=== PATIENT | female | born 1945 | race Caucasian/White ===

== ENCOUNTER 2018-08-07 09:11 | Emergency (ER) | payer MEDICARE, OTHER ==
[2018-08-07] MEDS ORDERED: methylPREDNISolone Sodium Succinate 125 MG/2 ML SDV IVPUSH ONE (09:25)
[2018-08-07] MEDS ORDERED: Albuterol/Ipratropium 3.0-0.5 MG/3 ML Neb Soln NEB ONE (09:25)
--- NOTE | 2018-08-07 09:26 | EDM.PDOC ---
ED HPI GENERAL MEDICAL PROBLEM - General Chief Complaint: Respiratory Problem Stated Complaint: HARD TIME BREATHING Time Seen by Provider: 08/07/18 09:25 Source of Information: Reports: Patient - History of Present Illness INITIAL COMMENTS - FREE TEXT/NARRATIVE: HISTORY AND PHYSICAL: History of present illness: [Patient presents with complaint of shortness of breath however breathing is nonlabored does not appear to be an exertional component she has been treated with 10 days of amoxicillin followed by 5 days of prednisone and currently is on Bactrim She has no fever nausea vomiting chills sweats no chest pain headache dizziness palpitation no bowel or urine symptoms] Review of systems: As per history of present illness and below otherwise all systems reviewed and negative. Past medical history: As per history of present illness and as reviewed below otherwise noncontributory. Surgical history: As per history of present illness and as reviewed below otherwise noncontributory. Social history: No reported history of drug or alcohol abuse. Family history: As per history of present illness and as reviewed below otherwise noncontributory. Physical exam: HEENT: Atraumatic, normocephalic, pupils reactive, negative for conjunctival pallor or scleral icterus, mucous membranes moist, throat clear, neck supple, nontender, trachea midline. Lungs: Clear to auscultation, breath sounds equal bilaterally, chest nontender. Heart: S1S2, regular, negative for clicks, rubs, or JVD. Abdomen: Soft, nondistended, nontender. Negative for masses or hepatosplenomegaly. Negative for costovertebral tenderness. Pelvis: Stable nontender. Genitourinary: Deferred. Rectal: Deferred. Extremities: Atraumatic, negative for cords or calf pain. Neurovascular unremarkable. Neuro: Awake, alert, oriented. Cranial nerves II through XII unremarkable. Cerebellum unremarkable. Motor and sensory unremarkable throughout. Exam nonfocal. Diagnostics: []TBC CMP UA troponin lipase BNP Chest 1 view EKG CTA chest rule out PE Therapeutics: [] will saline Solu-Medrol 125 mg IV DuoNeb Impression: D-dimer was elevated Medical screening exam Worried well Definitive disposition and diagnosis as appropriate pending reevaluation and review of above. - Related Data Allergies Allergy/AdvReac Type Severity Reaction Status Date / Time cephalexin [From Keflex] Allergy Hives Verified 08/07/18 09:29 ciprofloxacin [From Cipro] Allergy Hives Verified 08/07/18 09:29 ED ROS GENERAL - Review of Systems Review Of Systems: See Below ED EXAM, GENERAL - Physical Exam Exam: See Below Course - Vital Signs Last Recorded V/S: Last Vital Signs Temp 98.0 F 08/07/18 09:23 Pulse 107 H 08/07/18 09:23 Resp 18 08/07/18 09:23 BP 135/78 08/07/18 09:23 Pulse Ox 97 08/07/18 09:23 - Orders/Labs/Meds Orders: Active Orders 24 hr Category Date Time Status EKG Documentation Completion [RC] STAT Care 08/07/18 09:25 Active RT Aerosol Therapy [RC] ASDIRECTED Care 08/07/18 09:25 Active CULTURE STREP A CONFIRMATION [] Stat Lab 08/07/18 10:00 Results STREP SCRN A RAPID W CULT CONF [] Stat Lab 08/07/18 10:00 Results Sodium Chloride 0.9% [Normal Saline] 1,000 ml Med 08/07/18 09:30 Active IV STAT Medication Orders Sodium Chloride (Normal Saline) 1,000 mls @ 125 mls/hr IV STAT EBEN Last Admin: 08/07/18 09:59 Dose: 125 mls/hr Labs: Laboratory Tests 08/07/18 08/07/18 08/07/18 Range/Units 09:32 09:32 09:32 WBC 9.51 (4.0-11.0) K/uL RBC 4.70 (4.30-5.90) M/uL Hgb 14.0 (12.0-16.0) g/dL Hct 42.2 (36.0-46.0) % MCV 89.8 (80.0-98.0) fL MCH 29.8 (27.0-32.0) pg MCHC 33.2 (31.0-37.0) g/dL RDW Std Deviation 46.4 (28.0-62.0) fl RDW Coeff of Lito 14 (11.0-15.0) % Plt Count 188 (150-400) K/uL MPV 9.70 (7.40-12.00) fL Neut % (Auto) 93.4 H (48.0-80.0) % Lymph % (Auto) 2.8 L (16.0-40.0) % [place] % (Auto) 2.3 (0.0-15.0) % Eos % (Auto) 1.4 (0.0-7.0) % Baso % (Auto) 0.1 (0.0-1.5) % Neut # (Auto) 8.9 H (1.4-5.7) K/uL Lymph # (Auto) 0.3 L (0.6-2.4) K/uL [place] # (Auto) 0.2 (0.0-0.8) K/uL Eos # (Auto) 0.1 (0.0-0.7) K/uL Baso # (Auto) 0.0 (0.0-0.1) K/uL Nucleated RBC % 0.0 /100WBC Nucleated RBCs # 0 K/uL D-Dimer, Quantitative 2.52 H (0.0-0.52) mg/LFEU Sodium 136 (136-145) mmol/L Potassium 4.0 (3.5-5.1) mmol/L Chloride 103 (98-107) mmol/L Carbon Dioxide 24.9 (21.0-32.0) mmol/L BUN 9 (7.0-18.0) mg/dL Creatinine 0.8 (0.6-1.0) mg/dL Est Cr Clr Drug Dosing 54.08 mL/min Estimated GFR (MDRD) > 60.0 ml/min Glucose 127 H (74-106) mg/dL Calcium 9.3 (8.5-10.1) mg/dL Total Bilirubin 0.8 (0.2-1.0) mg/dL AST 67 H (15-37) IU/L ALT 63 (14-63) IU/L Alkaline Phosphatase 126 H (46-116) U/L Troponin I < 0.050 (0.000-0.056) ng/mL B-Natriuretic Peptide (<100) PG/ML Total Protein 7.1 (6.4-8.2) g/dL Albumin 3.4 (3.4-5.0) g/dL Globulin 3.7 (2.6-4.0) g/dL Albumin/Globulin Ratio 0.9 (0.9-1.6) Lipase 131 (73-393) U/L Urine Color Urine Appearance Urine pH (5.0-8.0) Ur Specific [place] (1.001-1.035) Urine Protein (NEGATIVE) mg/dL Urine Glucose (UA) (NEGATIVE) mg/dL Urine Ketones (NEGATIVE) mg/dL Urine Occult Blood (NEGATIVE) Urine Nitrite (NEGATIVE) Urine Bilirubin (NEGATIVE) Urine Urobilinogen (<2.0) EU/dL Ur Leukocyte Esterase (NEGATIVE) 08/07/18 08/07/18 Range/Units 09:32 11:35 WBC (4.0-11.0) K/uL RBC (4.30-5.90) M/uL Hgb (12.0-16.0) g/dL Hct (36.0-46.0) % MCV (80.0-98.0) fL MCH (27.0-32.0) pg MCHC (31.0-37.0) g/dL RDW Std Deviation (28.0-62.0) fl RDW Coeff of [place] (11.0-15.0) % Plt Count (150-400) K/uL MPV (7.40-12.00) fL Neut % (Auto) (48.0-80.0) % Lymph % (Auto) (16.0-40.0) % [place] % (Auto) (0.0-15.0) % Eos % (Auto) (0.0-7.0) % Baso % (Auto) (0.0-1.5) % Neut # (Auto) (1.4-5.7) K/uL Lymph # (Auto) (0.6-2.4) K/uL [place] # (Auto) (0.0-0.8) K/uL Eos # (Auto) (0.0-0.7) K/uL Baso # (Auto) (0.0-0.1) K/uL Nucleated RBC % /100WBC Nucleated RBCs # K/uL D-Dimer, Quantitative (0.0-0.52) mg/LFEU Sodium (136-145) mmol/L Potassium (3.5-5.1) mmol/L Chloride (98-107) mmol/L Carbon Dioxide (21.0-32.0) mmol/L BUN (7.0-18.0) mg/dL Creatinine (0.6-1.0) mg/dL Est Cr Clr Drug Dosing mL/min Estimated GFR (MDRD) ml/min Glucose (74-106) mg/dL Calcium (8.5-10.1) mg/dL Total Bilirubin (0.2-1.0) mg/dL AST (15-37) IU/L ALT (14-63) IU/L Alkaline Phosphatase (46-116) U/L Troponin I (0.000-0.056) ng/mL B-Natriuretic Peptide 15 (<100) PG/ML Total Protein (6.4-8.2) g/dL Albumin (3.4-5.0) g/dL Globulin (2.6-4.0) g/dL Albumin/Globulin Ratio (0.9-1.6) Lipase (73-393) U/L Urine Color YELLOW Urine Appearance CLEAR Urine pH 8.0 (5.0-8.0) Ur Specific [place] <= 1.005 (1.001-1.035) Urine Protein NEGATIVE (NEGATIVE) mg/dL Urine Glucose (UA) NEGATIVE (NEGATIVE) mg/dL Urine Ketones NEGATIVE (NEGATIVE) mg/dL Urine Occult Blood TRACE-INTACT H (NEGATIVE) Urine Nitrite NEGATIVE (NEGATIVE) Urine Bilirubin NEGATIVE (NEGATIVE) Urine Urobilinogen 0.2 (<2.0) EU/dL Ur Leukocyte Esterase NEGATIVE (NEGATIVE) Meds: Medications Generic Name Dose Route Start Last Admin Trade Name Jared PRN Reason Stop Dose Admin Sodium Chloride 1,000 mls @ 125 mls/hr 08/07/18 09:30 08/07/18 09:59 Normal Saline IV 125 mls/hr STAT EBEN Administration Discontinued Medications Generic Name Dose Route Start Last Admin Trade Name Jared PRN Reason Stop Dose Admin Albuterol/Ipratropium 3 ml 08/07/18 09:25 08/07/18 09:41 Duoneb 3.0-0.5 Mg/3 Ml NEB 08/07/18 09:26 3 ml ONETIME ONE Administration Iopamidol 75 ml 08/07/18 11:38 08/07/18 11:38 Isovue Multipack-370 (76%) IVPUSH 08/07/18 11:39 75 ml ONETIME STA Administration Methylprednisolone Sodium Succinate 125 mg 08/07/18 09:25 08/07/18 09:59 Solu-Medrol IVPUSH 08/07/18 09:26 125 mg ONETIME ONE Administration Departure - Departure Time of Disposition: 11:59 Disposition: Home, Self-Care 01 Condition: Good Clinical Impression: Encounter for medical screening examination - Discharge Information Referrals: America Jung DO [Primary Care Provider] - Forms: ED Department Discharge Additional Instructions: The following information is given to patients seen in the emergency department who are being discharged to home. This information is to outline your options for follow-up care. We provide all patients seen in our emergency department with a follow-up referral. The need for follow-up, as well as the timing and circumstances, are variable depending upon the specifics of your emergency department visit. If you don't have a primary care physician on staff, we will provide you with a referral. We always advise you to contact your personal physician following an emergency department visit to inform them of the circumstance of the visit and for follow-up with them and/or the need for any referrals to a consulting specialist. The emergency department will also refer you to a specialist when appropriate. This referral assures that you have the opportunity for follow-up care with a specialist. All of these measure are taken in an effort to provide you with optimal care, which includes your follow-up. Under all circumstances we always encourage you to contact your private physician who remains a resource for coordinating your care. When calling for follow-up care, please make the office aware that this follow-up is from your recent emergency room visit. If for any reason you are refused follow-up, please contact the [facility] emergency department at and asked to speak to the emergency department charge nurse. - My Orders Last 24 Hours: My Active Orders 08/07/18 09:25 EKG Documentation Completion [RC] STAT RT Aerosol Therapy [RC] ASDIRECTED 08/07/18 09:30 Sodium Chloride 0.9% [Normal Saline] 1,000 ml IV STAT 08/07/18 10:00 CULTURE STREP A CONFIRMATION [RM] Stat STREP SCRN A RAPID W CULT CONF [RM] Stat - Assessment/Plan Last 24 Hours: My Active Orders 08/07/18 09:25 EKG Documentation Completion [RC] STAT RT Aerosol Therapy [RC] ASDIRECTED 08/07/18 09:30 Sodium Chloride 0.9% [Normal Saline] 1,000 ml IV STAT 08/07/18 10:00 CULTURE STREP A CONFIRMATION [RM] Stat STREP SCRN A RAPID W CULT CONF [RM] Stat
[2018-08-07] MEDS ORDERED: Sodium Chloride 0.9% 1,000 ML IV SCH (09:30)
--- NOTE | 2018-08-07 10:08 | CR ---
EXAMINATION: Portable chest radiograph. HISTORY: Shortness of breath. FINDINGS: The trachea is midline. The cardiomediastinal silhouette is within normal limits. No pulmonary infiltrates, effusions or pneumothorax. Osseous structures appear unremarkable. IMPRESSION: No acute cardiopulmonary process.
[2018-08-07 10:13] LABS: CHLORIDE,CL 103 mmol/L (98-107); SODIUM,NA 136 mmol/L (136-145)
[2018-08-07] MEDS ORDERED: Iopamidol 755 MG/ML 500 ML Multipack Bottle IVPUSH STA (11:38)
--- NOTE | 2018-08-07 11:42 | CT ---
EXAMINATION: CTA chest HISTORY: Shortness of breath COMPARISON: None TECHNIQUE: Axial CT imaging obtained through the chest following the administration of 75 mL of Isovue-370 in the left antecubital fossa. FINDINGS: The lungs are clear without focal consolidation. No pleural effusion or pneumothorax. Mild dependent atelectasis. The heart is normal in size without a pericardial effusion. Thoracic aorta is normal in caliber. Main and central pulmonary arteries are patent. No mediastinal, hilar, or axillary lymphadenopathy. Central airways are clear. Visualized images of the upper abdomen appear normal. No suspicious osseous abnormalities identified. IMPRESSION: 1. No acute cardiopulmonary findings.
== END 2018-08-07 12:15 | disposition home or self-care (01) ==
LOC: MW.ED 09:11
DX: R79.1 Abnormal coagulation profile (principal); Z88.1 Allergy status to other antibiotic agents
CPT/HCPCS: 36415; 71045; 71275; 80053; 81001; 83690; 83880; 84484; 85025; 85379; 87081; 87804; 87880; 93005; 94640; 96361; 96374; 99284; J2930; J7040; Q9967; 99283; J7620-GY

== ENCOUNTER 2020-02-11 16:30 | Inpatient (IN) | payer MEDICARE, OTHER ==
[~2020-02-11 16:30] MED LIST: Rivaroxaban 10 MG Tab PO SCH
[2020-02-11] MEDS ORDERED: Sodium Chloride 0.9% 10 ML Syringe FLUSH PRN (17:20)
[2020-02-11] MEDS ORDERED: Sodium Chloride 0.9% 2.5 ML Syringe FLUSH PRN (17:20)
[2020-02-11] MEDS ORDERED: Acetaminophen 500 MG Tab PO ONE (17:21)
[2020-02-11] MEDS ORDERED: Ondansetron 4 MG/2 ML SDV IVPUSH ONE (17:21)
[2020-02-11 17:54] LABS: BLOOD UREA NITROGEN,BUN 14 mg/dL (7.0-18.0); CARBON DIOXIDE,CO2 24.6 mmol/L (21.0-32.0); CHLORIDE,CL 100 mmol/L (98-107); GLUCOSE RANDOM 119 mg/dL (74-106); POTASSIUM,K 3.5 mmol/L (3.5-5.1); SODIUM,NA 134 mmol/L (136-145)
--- NOTE | 2020-02-11 18:34 | US ---
Right lower extremity deep venous ultrasound: Duplex and color Doppler evaluation was obtained of the right common femoral, superficial femoral, popliteal, posterior tibial and peroneal veins. Findings: Normal compression and Doppler blood flow is seen. Varicose veins are noted within the left lower extremity showing evidence of thrombosis compatible with thrombophlebitis. Impression: 1. Findings compatible with thrombophlebitis within varicosities within the right lower extremity. 2. No evidence of deep venous thrombosis is seen. No focal fluid collections are seen within the lower extremity. Diagnostic code #3 This report was dictated in MDT
--- NOTE | 2020-02-11 18:45 | EDM.PDOC ---
ED HPI GENERAL MEDICAL PROBLEM - General Chief Complaint: Lower Extremity Injury/Pain Stated Complaint: BAD VEIN ON LEG VOMMITING Time Seen by Provider: 02/11/20 17:12 Source of Information: Reports: Patient, Old Records History Limitations: Reports: No Limitations - History of Present Illness INITIAL COMMENTS - FREE TEXT/NARRATIVE: 74-year-old female with past medical history of hypertension presenting with left leg pain, fever, chills, vomiting. Approximately 2 weeks ago, the patient injured her right lower leg and sustained a laceration to 1 of the varicose veins on the affected extremity. Over the past week or so she has had worsening redness and pain to the medial aspect of the right lower leg. She saw her primary physician on Friday who ordered a venous ultrasound study. She was diagnosed with a superficial venous clot. She was prescribed rivaroxaban but did not start taking this medication. Over the past few days she has had worsening redness, increasing pain, and streaking up the right leg. She was reevaluated by her primary medical clinic, they were concerned about superficial thrombophlebitis. She was prescribed Bactrim but did not start taking this antibiotic. She began experiencing subjective fever, chills, nausea, and vomiting today and her primary clinic directed her to come to the ER for evaluation. She denies coughing, shortness of breath, abdominal pain, diarrhea, neck stiffness, dysuria or urinary frequency, or any other complaints. ROS: A 10-point review of systems was negative, except as noted in the HPI (or in the ROS section of this note). Past medical history: Reviewed, no additional pertinent history. Surgical history: Reviewed in system, no additional pertinent history. Social history: Reviewed in system, no additional pertinent history. Family history: Reviewed in system, no additional pertinent history. PHYSICAL EXAM Vital signs reviewed. Nursing notes reviewed. Constitutional: Awake, alert, non-distressed. Head: Normocephalic, atraumatic. Eyes: EOMI, conjunctiva normal, no discharge, no scleral icterus. Ears, Nose, Throat: External ears and nose normal, moist oral mucosa. Cardiovascular: 2+ radial pulse, capillary refill less than 2 seconds. Pulmonary: normal work of breathing, no accessory muscle use. Abdomen/GI: Soft, nontender, nondistended, no guarding or rigidity, no masses. Musculoskeletal: No deformities. Right lower extremity has a palpable cord of the medial aspect with associated erythema and streaking and warmth, concerning for thrombophlebitis. Integumentary: Appropriate color for ethnicity, warm, dry, no pallor or jaundice, no rash. Neurologic: Alert, answering questions appropriately, normal speech, no facial droop, moving all extremities well. Psychiatric: Appropriate mood and affect, normal thought process. Right Leg Pain Score (Numeric/FACES): 10 - Related Data Allergies Allergy/AdvReac Type Severity Reaction Status Date / Time cephalexin [From Keflex] Allergy Hives Verified 02/11/20 16:51 ciprofloxacin [From Cipro] Allergy Hives Verified 02/11/20 16:51 Home Meds: Home Meds Esomeprazole Magnesium [Nexium] 20 mg PO DAILY 02/11/20 [History] Latanoprost/Pf [Latanoprost 0.005% Eye Drop] 1 mg EYEBOTH DAILY 02/11/20 [History] Rivaroxaban [Xarelto] 10 mg PO DAILY 02/11/20 [History] Sulfamethoxazole/Trimethoprim [Bactrim Ds Tablet] 1 mg PO DAILY 02/11/20 [History] Verapamil HCl [Verapamil ER] 120 mg PO DAILY 02/11/20 [History] nitrofurantoin macrocrystaL [Macrodantin] 50 mg PO DAILY 02/11/20 [History] Past Medical History - Past Health History Medical/Surgical History: Denies Medical/Surgical History HEENT History: Reports: None Cardiovascular History: Reports: Hypertension Musculoskeletal History: Reports: Other (See Below) Other Musculoskeletal History: knee pain Neurological History: Reports: Migraines - Past Surgical History GI Surgical History: Reports: Appendectomy, Cholecystectomy Social & Family History - Family History Family Medical History: Noncontributory - Tobacco Use Smoking Status *Q: Never Smoker Second Hand Smoke Exposure: No - Caffeine Use Caffeine Use: Reports: None - Recreational Drug Use Recreational Drug Use: No Review of Systems - Review of Systems Review Of Systems: See Below ED EXAM, GENERAL - Physical Exam Exam: See Below EKG INTERPRETATION EKG Interpretation Comments: 12-Lead ECG Interpretation Acquired: 5:44 PM Rhythm: Sinus rhythm Rate: 92 bpm [place]: Leftward Intervals: Normal Ectopy: None Ischemic Changes: None apparent RV Strain: No obvious RV strain pattern. ST Segments/T-Waves: No notable changes Interpretation: Unremarkable Course - Vital Signs Text/Narrative:: Differential included but was not limited to DVT, superficial blood clot, thr ombophlebitis, sepsis, cellulitis, etc. Afebrile, nontoxic-appearing. Labs showed no leukocytosis, lactate is normal. Mild hyponatremia and mild creatinine elevation. Negative troponin. Obtained a DVT ultrasound study which demonstrated a clot in the varicosities of the right lower extremity along with suggested thrombophlebitis. Blood cultures sent x2 Treated with Tylenol and Zofran with good relief of her pain and nausea. Given her subjective infectious symptoms and nausea, would favor admission to observation status. Ordered IV vancomycin. I spoke with the hospitalist Dr. Sergio Stark who agrees to admit to observation. Last Recorded V/S: Last Vital Signs Temp 37.6 C 02/11/20 18:03 Pulse 87 02/11/20 17:25 Resp 20 02/11/20 17:25 BP 117/54 L 02/11/20 17:25 Pulse Ox 98 02/11/20 17:25 - Orders/Labs/Meds Orders: Active Orders 24 hr Category Date Time Status Admission Status [Patient Status] [ADT] Stat ADT 02/11/20 18:51 Active Overnight Pulse Oximetry [RC] Click to Edit Care 02/11/20 17:21 Active CULTURE BLOOD [BC] Stat Lab 02/11/20 17:11 Results CULTURE BLOOD [BC] Stat Lab 02/11/20 17:38 Received Pharmacy to Dose - Vancomycin Med 02/11/20 18:45 Ordered 1 dose .XX ASDIRECTED Sodium Chloride 0.9% [Saline Flush] Med 02/11/20 17:20 Active 10 ml FLUSH ASDIRECTED PRN Sodium Chloride 0.9% [Saline Flush] Med 02/11/20 17:20 Active 2.5 ml FLUSH ASDIRECTED PRN Vancomycin 1.25 gm Med 02/11/20 19:00 Active Sodium Chloride 0.9% [Normal Saline (AdvBag)] 250 ml IV Q24H Blood Culture x2 Reflex Set [OM.PC] Stat Ot 02/11/20 17:20 Ordered Pulse Oximetry Continuous Monitoring [OM.PC] Routine Ot 02/11/20 17:20 Ordered Saline Lock Insert [OM.PC] Stat Ot 02/11/20 17:20 Ordered Medication Orders Vancomycin HCl 1.25 gm/ Sodium (Chloride) 250 mls @ 166.667 mls/hr IV Q24H [facility] Sodium Chloride (Saline Flush) 10 ml FLUSH ASDIRECTED PRN PRN Reason: Keep Vein Open Sodium Chloride (Saline Flush) 2.5 ml FLUSH ASDIRECTED PRN PRN Reason: Keep Vein Open Vancomycin HCl (Pharmacy To Dose - Vancomycin) 1 dose .XX ASDIRECTED [facility] Labs: Laboratory Tests 02/11/20 02/11/20 02/11/20 Range/Units 17:11 17:11 17:11 WBC 9.24 (4.0-11.0) K/uL RBC 4.58 (4.30-5.90) M/uL Hgb 13.8 (12.0-16.0) g/dL Hct 41.9 (36.0-46.0) % MCV 91.5 (80.0-98.0) fL MCH 30.1 (27.0-32.0) pg MCHC 32.9 (31.0-37.0) g/dL RDW Std Deviation 45.1 (28.0-62.0) fl RDW Coeff of Lito 14 (11.0-15.0) % Plt Count 169 (150-400) K/uL MPV 9.90 (7.40-12.00) fL Neut % (Auto) 96.9 H (48.0-80.0) % Lymph % (Auto) 3.0 L (16.0-40.0) % [place] % (Auto) 0.1 (0.0-15.0) % Eos % (Auto) 0.0 (0.0-7.0) % Baso % (Auto) 0.0 (0.0-1.5) % Neut # (Auto) 9.0 H (1.4-5.7) K/uL Lymph # (Auto) 0.3 L (0.6-2.4) K/uL [place] # (Auto) 0.0 (0.0-0.8) K/uL Eos # (Auto) 0.0 (0.0-0.7) K/uL Baso # (Auto) 0.0 (0.0-0.1) K/uL Nucleated RBC % 0.0 /100WBC Nucleated RBCs # 0 K/uL INR 0.92 Lactate 1.3 (0.20-2.00) mmol/L Sodium (136-145) mmol/L Potassium (3.5-5.1) mmol/L Chloride (98-107) mmol/L Carbon Dioxide (21.0-32.0) mmol/L BUN (7.0-18.0) mg/dL Creatinine (0.6-1.0) mg/dL Est Cr Clr Drug Dosing mL/min Estimated GFR (MDRD) ml/min Glucose (74-106) mg/dL Calcium (8.5-10.1) mg/dL Total Bilirubin (0.2-1.0) mg/dL AST (15-37) IU/L ALT (14-63) IU/L Alkaline Phosphatase (46-116) U/L Troponin I (0.000-0.056) ng/mL Total Protein (6.4-8.2) g/dL Albumin (3.4-5.0) g/dL Globulin (2.6-4.0) g/dL Albumin/Globulin Ratio (0.9-1.6) 02/11/20 Range/Units 17:11 WBC (4.0-11.0) K/uL RBC (4.30-5.90) M/uL Hgb (12.0-16.0) g/dL Hct (36.0-46.0) % MCV (80.0-98.0) fL MCH (27.0-32.0) pg MCHC (31.0-37.0) g/dL RDW Std Deviation (28.0-62.0) fl RDW Coeff of Lito (11.0-15.0) % Plt Count (150-400) K/uL MPV (7.40-12.00) fL Neut % (Auto) (48.0-80.0) % Lymph % (Auto) (16.0-40.0) % [place] % (Auto) (0.0-15.0) % Eos % (Auto) (0.0-7.0) % Baso % (Auto) (0.0-1.5) % Neut # (Auto) (1.4-5.7) K/uL Lymph # (Auto) (0.6-2.4) K/uL [place] # (Auto) (0.0-0.8) K/uL Eos # (Auto) (0.0-0.7) K/uL Baso # (Auto) (0.0-0.1) K/uL Nucleated RBC % /100WBC Nucleated RBCs # K/uL INR Lactate (0.20-2.00) mmol/L Sodium 134 L (136-145) mmol/L Potassium 3.5 (3.5-5.1) mmol/L Chloride 100 (98-107) mmol/L Carbon Dioxide 24.6 (21.0-32.0) mmol/L BUN 14 (7.0-18.0) mg/dL Creatinine 1.1 H (0.6-1.0) mg/dL Est Cr Clr Drug Dosing 42.00 mL/min Estimated GFR (MDRD) 48.6 ml/min Glucose 119 H (74-106) mg/dL Calcium 8.2 L (8.5-10.1) mg/dL Total Bilirubin 0.4 (0.2-1.0) mg/dL AST 27 (15-37) IU/L ALT 45 (14-63) IU/L Alkaline Phosphatase 173 H (46-116) U/L Troponin I < 0.050 (0.000-0.056) ng/mL Total Protein 7.6 (6.4-8.2) g/dL Albumin 3.9 (3.4-5.0) g/dL Globulin 3.7 (2.6-4.0) g/dL Albumin/Globulin Ratio 1.1 (0.9-1.6) Meds: Medications Generic Name Dose Route Start Last Admin Trade Name Freq PRN Reason Stop Dose Admin Vancomycin HCl 1.25 gm/ Sodium 250 mls @ 166.667 mls/hr 02/11/20 19:00 Chloride IV Q24H EBEN Sodium Chloride 10 ml 02/11/20 17:20 Saline Flush FLUSH ASDIRECTED PRN Keep Vein Open Sodium Chloride 2.5 ml 02/11/20 17:20 Saline Flush FLUSH ASDIRECTED PRN Keep Vein Open Vancomycin HCl 1 dose 02/11/20 18:45 Pharmacy To Dose - Vancomycin .XX ASDIRECTED EBEN Discontinued Medications Generic Name Dose Route Start Last Admin Trade Name Freq PRN Reason Stop Dose Admin Acetaminophen 1,000 mg 02/11/20 17:21 02/11/20 17:33 Tylenol Extra Strength PO 02/11/20 17:22 1,000 mg ONETIME ONE Administration Ondansetron HCl 4 mg 02/11/20 17:21 02/11/20 17:32 Zofran IVPUSH 02/11/20 17:22 4 mg ONETIME ONE Administration Departure - Departure Time of Disposition: 19:01 Disposition: Refer to Observation Condition: Good Clinical Impression: Superficial thrombophlebitis of right leg - Discharge Information Referrals: America Jung DO [Primary Care Provider] - Forms: ED Department Discharge Sepsis Event Note (ED) - Evaluation Sepsis Screening Result: No Definite Risk - Focused Exam Vital Signs: Vital Signs Temp Temp Pulse Resp BP Pulse Ox 02/11/20 18:03 37.6 C 02/11/20 17:33 37.6 C 02/11/20 17:25 37.6 C 87 20 117/54 L 98 02/11/20 16:50 37.4 C 90 20 129/61 100 - My Orders Last 24 Hours: My Active Orders 02/11/20 17:11 CULTURE BLOOD [BC] Stat 02/11/20 17:20 Sodium Chloride 0.9% [Saline Flush] 10 ml FLUSH ASDIRECTED PRN Sodium Chloride 0.9% [Saline Flush] 2.5 ml FLUSH ASDIRECTED PRN Blood Culture x2 Reflex Set [OM.PC] Stat Pulse Oximetry Continuous Monitoring [OM.PC] Routine Saline Lock Insert [OM.PC] Stat 02/11/20 17:21 Overnight Pulse Oximetry [RC] Click to Edit 02/11/20 17:38 CULTURE BLOOD [BC] Stat 02/11/20 18:45 Pharmacy to Dose - Vancomycin 1 dose .XX ASDIRECTED 02/11/20 18:51 Admission Status [Patient Status] [ADT] Stat 02/11/20 19:00 Vancomycin 1.25 gm Sodium Chloride 0.9% [Normal Saline (AdvBag)] 250 ml IV Q24H - Assessment/Plan Last 24 Hours: My Active Orders 02/11/20 17:11 CULTURE BLOOD [BC] Stat 02/11/20 17:20 Sodium Chloride 0.9% [Saline Flush] 10 ml FLUSH ASDIRECTED PRN Sodium Chloride 0.9% [Saline Flush] 2.5 ml FLUSH ASDIRECTED PRN Blood Culture x2 Reflex Set [OM.PC] Stat Pulse Oximetry Continuous Monitoring [OM.PC] Routine Saline Lock Insert [OM.PC] Stat 02/11/20 17:21 Overnight Pulse Oximetry [RC] Click to Edit 02/11/20 17:38 CULTURE BLOOD [BC] Stat 02/11/20 18:45 Pharmacy to Dose - Vancomycin 1 dose .XX ASDIRECTED 02/11/20 18:51 Admission Status [Patient Status] [ADT] Stat 02/11/20 19:00 Vancomycin 1.25 gm Sodium Chloride 0.9% [Normal Saline (AdvBag)] 250 ml IV Q24H
--- NOTE | 2020-02-11 21:48 | PCM.HP.2 ---
H&P History of Present Illness - General Date of Service: 02/11/20 Admit Problem/Dx: Admission Diagnosis/Problem Admission Diagnosis/Problem Superficial thrombophlebitis - History of Present Illness Initial Comments - Free Text/Narative: 74 yo female with pmh of hypertension and recurrent UTIs who has been followed by [facility] regarding superficial thrombophlebitis. She reported having erthema and pain on the medial aspect of her right leg for three weeks. She had an ultrasound which showed superficial thrombus of her lower right extremety. She was given Xarelto an antibiotics yesterday but has been vomiting today and has fevers. The erythem has been extending up her thigh. She was seen in the ED. Repeat Doppler did not show any DVTs but still showed superficial ruth thrombus. Right Leg Pain Score (Numeric/FACES): 10 - Related Data Allergies/Adverse Reactions: Allergies Allergy/AdvReac Type Severity Reaction Status Date / Time cephalexin [From Keflex] Allergy Hives Verified 02/11/20 21:02 ciprofloxacin [From Cipro] Allergy Hives Verified 02/11/20 21:02 Home Medications: Home Meds Esomeprazole Magnesium [Nexium] 20 mg PO DAILY 02/11/20 [History] Latanoprost/Pf [Latanoprost 0.005% Eye Drop] 1 mg EYEBOTH BEDTIME 02/11/20 [History] Rivaroxaban [Xarelto] 10 mg PO DAILY 02/11/20 [History] Verapamil HCl [Verapamil ER] 120 mg PO DAILY 02/11/20 [History] nitrofurantoin macrocrystaL [Macrodantin] 50 mg PO DAILY 02/11/20 [History] Sulfamethoxazole/Trimethoprim [Bactrim Ds Tablet] 800 mg PO BID 02/12/20 [History] Past Medical History - Past Health History Medical/Surgical History: Denies Medical/Surgical History HEENT History: Reports: None Cardiovascular History: Reports: Hypertension Musculoskeletal History: Reports: Other (See Below) Other Musculoskeletal History: knee pain Neurological History: Reports: Migraines - Past Surgical History GI Surgical History: Reports: Appendectomy, Cholecystectomy Social & Family History - Family History Family Medical History: Noncontributory - Tobacco Use Smoking Status *Q: Never Smoker Second Hand Smoke Exposure: No - Caffeine Use Caffeine Use: Reports: Coffee, Tea - Recreational Drug Use Recreational Drug Use: No H&P Review of Systems - Review of Systems: Review Of Systems: Comprehensive ROS is negative, except as noted in HPI. Exam - Exam Exam: See Below - Vital Signs Vital Signs: Last Vital Signs Temp 36.5 C 02/11/20 20:59 Pulse 82 02/11/20 20:59 Resp 18 02/11/20 20:59 BP 114/54 L 02/11/20 20:59 Pulse Ox 97 02/11/20 20:59 Weight: 85.049 kg - Exam General: Alert, Oriented HEENT: Mucosa Moist & [place] Lungs: Clear to Auscultation, Normal Respiratory Effort Cardiovascular: Regular Rate, Regular Rhythm GI/Abdominal Exam: Normal Bowel Sounds, Soft, Non-Tender Extremities: No Pedal Edema, Other (erythema of medial lower leg extending from calf to mid thigh) - Patient Data Lab Results Last 24 hrs: Laboratory Results - last 24 hr 02/11/20 02/11/20 02/11/20 Range/Units 17:11 17:11 17:11 WBC 9.24 (4.0-11.0) K/uL RBC 4.58 (4.30-5.90) M/uL Hgb 13.8 (12.0-16.0) g/dL Hct 41.9 (36.0-46.0) % MCV 91.5 (80.0-98.0) fL MCH 30.1 (27.0-32.0) pg MCHC 32.9 (31.0-37.0) g/dL RDW Std Deviation 45.1 (28.0-62.0) fl RDW Coeff of Lito 14 (11.0-15.0) % Plt Count 169 (150-400) K/uL MPV 9.90 (7.40-12.00) fL Neut % (Auto) 96.9 H (48.0-80.0) % Lymph % (Auto) 3.0 L (16.0-40.0) % [place] % (Auto) 0.1 (0.0-15.0) % Eos % (Auto) 0.0 (0.0-7.0) % Baso % (Auto) 0.0 (0.0-1.5) % Neut # (Auto) 9.0 H (1.4-5.7) K/uL Lymph # (Auto) 0.3 L (0.6-2.4) K/uL [place] # (Auto) 0.0 (0.0-0.8) K/uL Eos # (Auto) 0.0 (0.0-0.7) K/uL Baso # (Auto) 0.0 (0.0-0.1) K/uL Nucleated RBC % 0.0 /100WBC Nucleated RBCs # 0 K/uL INR 0.92 Lactate 1.3 (0.20-2.00) mmol/L Sodium (136-145) mmol/L Potassium (3.5-5.1) mmol/L Chloride (98-107) mmol/L Carbon Dioxide (21.0-32.0) mmol/L BUN (7.0-18.0) mg/dL Creatinine (0.6-1.0) mg/dL Est Cr Clr Drug Dosing mL/min Estimated GFR (MDRD) ml/min Glucose (74-106) mg/dL Calcium (8.5-10.1) mg/dL Total Bilirubin (0.2-1.0) mg/dL AST (15-37) IU/L ALT (14-63) IU/L Alkaline Phosphatase (46-116) U/L Troponin I (0.000-0.056) ng/mL Total Protein (6.4-8.2) g/dL Albumin (3.4-5.0) g/dL Globulin (2.6-4.0) g/dL Albumin/Globulin Ratio (0.9-1.6) COVID-19 (CLAUDE) (NEGATIVE) 02/11/20 02/11/20 Range/Units 17:11 19:00 WBC (4.0-11.0) K/uL RBC (4.30-5.90) M/uL Hgb (12.0-16.0) g/dL Hct (36.0-46.0) % MCV (80.0-98.0) fL MCH (27.0-32.0) pg MCHC (31.0-37.0) g/dL RDW Std Deviation (28.0-62.0) fl RDW Coeff of Lito (11.0-15.0) % Plt Count (150-400) K/uL MPV (7.40-12.00) fL Neut % (Auto) (48.0-80.0) % Lymph % (Auto) (16.0-40.0) % [place] % (Auto) (0.0-15.0) % Eos % (Auto) (0.0-7.0) % Baso % (Auto) (0.0-1.5) % Neut # (Auto) (1.4-5.7) K/uL Lymph # (Auto) (0.6-2.4) K/uL [place] # (Auto) (0.0-0.8) K/uL Eos # (Auto) (0.0-0.7) K/uL Baso # (Auto) (0.0-0.1) K/uL Nucleated RBC % /100WBC Nucleated RBCs # K/uL INR Lactate (0.20-2.00) mmol/L Sodium 134 L (136-145) mmol/L Potassium 3.5 (3.5-5.1) mmol/L Chloride 100 (98-107) mmol/L Carbon Dioxide 24.6 (21.0-32.0) mmol/L BUN 14 (7.0-18.0) mg/dL Creatinine 1.1 H (0.6-1.0) mg/dL Est Cr Clr Drug Dosing 42.00 mL/min Estimated GFR (MDRD) 48.6 ml/min Glucose 119 H (74-106) mg/dL Calcium 8.2 L (8.5-10.1) mg/dL Total Bilirubin 0.4 (0.2-1.0) mg/dL AST 27 (15-37) IU/L ALT 45 (14-63) IU/L Alkaline Phosphatase 173 H (46-116) U/L Troponin I < 0.050 (0.000-0.056) ng/mL Total Protein 7.6 (6.4-8.2) g/dL Albumin 3.9 (3.4-5.0) g/dL Globulin 3.7 (2.6-4.0) g/dL Albumin/Globulin Ratio 1.1 (0.9-1.6) COVID-19 (CLAUDE) NEGATIVE (NEGATIVE) Result Diagrams: 02/12/20 06:00 02/12/20 06:00 Gavin Results Last 24 hrs: Microbiology 02/11/20 17:11 Anaerobic Blood Culture - Final Blood - Venous Sepsis Event Note - Evaluation Sepsis Screening Result: No Definite Risk - Focused Exam Vital Signs: Vital Signs Temp Temp Pulse Resp BP BP Pulse Ox 02/11/20 20:59 36.5 C 82 18 114/54 L 97 02/11/20 20:29 37.4 C 02/11/20 19:57 83 20 106/54 L 97 02/11/20 19:11 83 18 119/55 L 95 02/11/20 18:03 37.6 C 02/11/20 17:33 37.6 C 02/11/20 17:25 37.6 C 87 20 117/54 L 98 02/11/20 16:50 37.4 C 90 20 129/61 100 Date Exam was Performed: 02/12/20 Time Exam was Performed: 11:42 Problem List Initiated/Reviewed/Updated: Yes Orders Last 24hrs: Active Orders 24 hr Category Date Time Status Admission Status [Patient Status] [ADT] Stat ADT 02/11/20 18:51 Active Antiembolic Devices [RC] PER UNIT ROUTINE Care 02/11/20 21:42 Ordered Overnight Pulse Oximetry [RC] Click to Edit Care 02/11/20 17:21 Active Oxygen Therapy [RC] PRN Care 02/11/20 21:42 Ordered Up ad Desire [RC] ASDIRECTED Care 02/11/20 21:42 Ordered VTE/DVT Education [RC] PER UNIT ROUTINE Care 02/11/20 21:42 Ordered Vital Signs [RC] Q4H Care 02/11/20 21:42 Ordered Regular Diet [DIET] Diet 02/11/20 Breakfast Ordered BASIC METABOLIC PANEL,BMP [CHEM] AM Lab 02/12/20 05:11 Ordered CBC WITH AUTO DIFF [HEME] AM Lab 02/12/20 05:11 Ordered CULTURE BLOOD [BC] Stat Lab 02/11/20 17:11 Results CULTURE BLOOD [BC] Stat Lab 02/11/20 17:38 Received VANCOMYCIN TROUGH [CHEM] Timed Lab 02/15/20 18:00 Ordered Esomeprazole Magnesium [Nexium] Med 02/12/20 09:00 Ordered 20 mg PO DAILY Pharmacy to Dose - Vancomycin Med 02/11/20 18:45 Pending 1 dose .XX ASDIRECTED Pharmacy to Dose - Vancomycin Med 02/11/20 21:45 Ordered 1 dose .XX ASDIRECTED Piperacillin/Tazobactam [Piperacil-Tazobact] 3.375 gm Med 02/11/20 21:45 Ordered Sodium Chloride 0.9% [Normal Saline] 50 ml IV Q6H Rivaroxaban [Xarelto] Med 02/11/20 09:00 Active 10 mg PO DAILY Sodium Chloride 0.9% [Saline Flush] Med 02/11/20 17:20 Active 10 ml FLUSH ASDIRECTED PRN Sodium Chloride 0.9% [Saline Flush] Med 02/11/20 17:20 Active 2.5 ml FLUSH ASDIRECTED PRN Vancomycin 1.25 gm Med 02/11/20 19:00 Active Sodium Chloride 0.9% [Normal Saline (AdvBag)] 250 ml IV Q24H Verapamil HCl Med 02/12/20 09:00 Ordered 120 mg PO DAILY Blood Culture x2 Reflex Set [OM.PC] Stat Ot 02/11/20 17:20 Ordered Pulse Oximetry Continuous Monitoring [OM.PC] Routine Ot 02/11/20 17:20 O rdered Saline Lock Insert [OM.PC] Stat Ot 02/11/20 17:20 Ordered Sequential Compression Device [OM.PC] Per Unit Routine Ot 02/11/20 21:42 Ordered Resuscitation Status Routine Resus Stat 02/11/20 21:42 Ordered Medication Orders Vancomycin HCl 1.25 gm/ Sodium (Chloride) 250 mls @ 166.667 mls/hr IV Q24H [facility] Last Admin: 02/11/20 19:56 Dose: 166.667 mls/hr Documented by: CE Non-Formulary Medication (Verapamil Hcl) 120 mg PO DAILY [facility] Omeprazole (Omeprazole) 20 mg PO ACBREAKFAST [facility] Rivaroxaban (Xarelto) 10 mg PO DAILY [facility] Sodium Chloride (Saline Flush) 10 ml FLUSH ASDIRECTED PRN PRN Reason: Keep Vein Open Sodium Chloride (Saline Flush) 2.5 ml FLUSH ASDIRECTED PRN PRN Reason: Keep Vein Open Vancomycin HCl (Pharmacy To Dose - Vancomycin) 1 dose .XX ASDIRECTED [facility] Vancomycin HCl (Pharmacy To Dose - Vancomycin) 1 dose .XX ASDIRECTED [facility] Assessment/Plan Comment:: 74 yo female admitted with cellulites and superficial thrombophlebitis. We will treat with IV antibiotics and monitor overnight. Will continue Xarelto 10mg daily.
[2020-02-11] MEDS: Piperacillin/Tazobactam 3.375 GM in Sodium Chloride 0.9% 50 ML IV SCH (22:21)
[2020-02-11] MEDS: Rivaroxaban 10 MG Tab PO SCH (22:26)
[2020-02-12] MEDS: Piperacillin/Tazobactam 3.375 GM in Sodium Chloride 0.9% 50 ML IV SCH ×2 (03:59→09:42)
[2020-02-12 06:18] LABS: CARBON DIOXIDE,CO2 25.8 mmol/L (21.0-32.0); POTASSIUM,K 4.6 mmol/L (3.5-5.1)
[2020-02-12] MEDS: Omeprazole 20 MG Cap.CR PO SCH (06:55)
[2020-02-12] MEDS: Rivaroxaban 10 MG Tab PO SCH (09:41)
[2020-02-12] MEDS: Verapamil 240 MG Tab.ER PO SCH (09:42)
[2020-02-12] MEDS ORDERED: Calcium Carbonate 500 MG Tab.Chew PO ONE (10:00)
[2020-02-12] MEDS ORDERED: Sodium Chloride 0.9% 1,000 ML IV ONE (10:40)
[2020-02-12] MEDS: Acetaminophen 500 MG Tab PO PRN ×2 (11:00→21:01)
--- NOTE | 2020-02-12 12:01 | PCM.PN ---
- General Info Date of Service: 02/12/20 Subjective Update: Patient complains of pain in her right leg. No fevers or chills overnight. Tolerating PO well and urinating. - Patient Data Vitals - Most Recent: Last Vital Signs Temp 36.6 C 02/12/20 07:00 Pulse 81 02/12/20 07:00 Resp 16 02/12/20 07:00 BP 115/54 L 02/12/20 07:00 Pulse Ox 95 02/12/20 07:00 Weight - Most Recent: 85.049 kg I&O - Last 24 Hours: Intake & Output 02/11/20 02/12/20 02/12/20 22:59 06:59 14:59 Intake Total 600 Output Total 400 Balance 200 Lab Results Last 24 Hours: Laboratory Results - last 24 hr 02/11/20 02/11/20 02/11/20 Range/Units 17:11 17:11 17:11 WBC 9.24 (4.0-11.0) K/uL RBC 4.58 (4.30-5.90) M/uL Hgb 13.8 (12.0-16.0) g/dL Hct 41.9 (36.0-46.0) % MCV 91.5 (80.0-98.0) fL MCH 30.1 (27.0-32.0) pg MCHC 32.9 (31.0-37.0) g/dL RDW Std Deviation 45.1 (28.0-62.0) fl RDW Coeff of Lito 14 (11.0-15.0) % Plt Count 169 (150-400) K/uL MPV 9.90 (7.40-12.00) fL Neut % (Auto) 96.9 H (48.0-80.0) % Lymph % (Auto) 3.0 L (16.0-40.0) % [place] % (Auto) 0.1 (0.0-15.0) % Eos % (Auto) 0.0 (0.0-7.0) % Baso % (Auto) 0.0 (0.0-1.5) % Neut # (Auto) 9.0 H (1.4-5.7) K/uL Lymph # (Auto) 0.3 L (0.6-2.4) K/uL [place] # (Auto) 0.0 (0.0-0.8) K/uL Eos # (Auto) 0.0 (0.0-0.7) K/uL Baso # (Auto) 0.0 (0.0-0.1) K/uL Nucleated RBC % 0.0 /100WBC Nucleated RBCs # 0 K/uL INR 0.92 Lactate 1.3 (0.20-2.00) mmol/L Sodium (136-145) mmol/L Potassium (3.5-5.1) mmol/L Chloride (98-107) mmol/L Carbon Dioxide (21.0-32.0) mmol/L BUN (7.0-18.0) mg/dL Creatinine (0.6-1.0) mg/dL Est Cr Clr Drug Dosing mL/min Estimated GFR (MDRD) ml/min Glucose (74-106) mg/dL Calcium (8.5-10.1) mg/dL Total Bilirubin (0.2-1.0) mg/dL AST (15-37) IU/L ALT (14-63) IU/L Alkaline Phosphatase (46-116) U/L Troponin I (0.000-0.056) ng/mL Total Protein (6.4-8.2) g/dL Albumin (3.4-5.0) g/dL Globulin (2.6-4.0) g/dL Albumin/Globulin Ratio (0.9-1.6) COVID-19 (CLAUDE) (NEGATIVE) 02/11/20 02/11/20 02/12/20 Range/Units 17:11 19:00 06:00 WBC 9.58 (4.0-11.0) K/uL RBC 4.26 L (4.30-5.90) M/uL Hgb 12.2 (12.0-16.0) g/dL Hct 39.1 (36.0-46.0) % MCV 91.8 (80.0-98.0) fL MCH 28.6 (27.0-32.0) pg MCHC 31.2 (31.0-37.0) g/dL RDW Std Deviation 45.5 (28.0-62.0) fl RDW Coeff of Lito 14 (11.0-15.0) % Plt Count 181 (150-400) K/uL MPV 10.00 (7.40-12.00) fL Neut % (Auto) 97.2 H (48.0-80.0) % Lymph % (Auto) 1.6 L (16.0-40.0) % [place] % (Auto) 1.1 (0.0-15.0) % Eos % (Auto) 0.1 (0.0-7.0) % Baso % (Auto) 0.0 (0.0-1.5) % Neut # (Auto) 9.3 H (1.4-5.7) K/uL Lymph # (Auto) 0.2 L (0.6-2.4) K/uL [place] # (Auto) 0.1 (0.0-0.8) K/uL Eos # (Auto) 0.0 (0.0-0.7) K/uL Baso # (Auto) 0.0 (0.0-0.1) K/uL Nucleated RBC % 0.0 /100WBC Nucleated RBCs # 0 K/uL INR Lactate (0.20-2.00) mmol/L Sodium 134 L (136-145) mmol/L Potassium 3.5 (3.5-5.1) mmol/L Chloride 100 (98-107) mmol/L Carbon Dioxide 24.6 (21.0-32.0) mmol/L BUN 14 (7.0-18.0) mg/dL Creatinine 1.1 H (0.6-1.0) mg/dL Est Cr Clr Drug Dosing 42.00 mL/min Estimated GFR (MDRD) 48.6 ml/min Glucose 119 H (74-106) mg/dL Calcium 8.2 L (8.5-10.1) mg/dL Total Bilirubin 0.4 (0.2-1.0) mg/dL AST 27 (15-37) IU/L ALT 45 (14-63) IU/L Alkaline Phosphatase 173 H (46-116) U/L Troponin I < 0.050 (0.000-0.056) ng/mL Total Protein 7.6 (6.4-8.2) g/dL Albumin 3.9 (3.4-5.0) g/dL Globulin 3.7 (2.6-4.0) g/dL Albumin/Globulin Ratio 1.1 (0.9-1.6) COVID-19 (CLAUDE) NEGATIVE (NEGATIVE) 02/12/20 02/12/20 Range/Units 06:00 06:00 WBC (4.0-11.0) K/uL RBC (4.30-5.90) M/uL Hgb (12.0-16.0) g/dL Hct (36.0-46.0) % MCV (80.0-98.0) fL MCH (27.0-32.0) pg MCHC (31.0-37.0) g/dL RDW Std Deviation (28.0-62.0) fl RDW Coeff of Lito (11.0-15.0) % Plt Count (150-400) K/uL MPV (7.40-12.00) fL Neut % (Auto) (48.0-80.0) % Lymph % (Auto) (16.0-40.0) % [place] % (Auto) (0.0-15.0) % Eos % (Auto) (0.0-7.0) % Baso % (Auto) (0.0-1.5) % Neut # (Auto) (1.4-5.7) K/uL Lymph # (Auto) (0.6-2.4) K/uL [place] # (Auto) (0.0-0.8) K/uL Eos # (Auto) (0.0-0.7) K/uL Baso # (Auto) (0.0-0.1) K/uL Nucleated RBC % /100WBC Nucleated RBCs # K/uL INR Lactate (0.20-2.00) mmol/L Sodium 136 (136-145) mmol/L Potassium 4.6 (3.5-5.1) mmol/L Chloride 103 (98-107) mmol/L Carbon Dioxide 25.8 (21.0-32.0) mmol/L BUN 15 (7.0-18.0) mg/dL Creatinine 1.3 H (0.6-1.0) mg/dL Est Cr Clr Drug Dosing 32.78 mL/min Estimated GFR (MDRD) 40.0 ml/min Glucose 109 H (74-106) mg/dL Calcium 7.7 L (8.5-10.1) mg/dL Total Bilirubin (0.2-1.0) mg/dL AST (15-37) IU/L ALT (14-63) IU/L Alkaline Phosphatase (46-116) U/L Troponin I (0.000-0.056) ng/mL Total Protein (6.4-8.2) g/dL Albumin 3.1 L (3.4-5.0) g/dL Globulin (2.6-4.0) g/dL Albumin/Globulin Ratio (0.9-1.6) COVID-19 (CLAUDE) (NEGATIVE) Gavin Results Last 24 Hours: Microbiology 02/11/20 17:11 Anaerobic Blood Culture - Final Blood - Venous Med Orders - Current: Current Medications Acetaminophen (Tylenol Extra Strength) 500 mg PO Q4H PRN PRN Reason: Pain Vancomycin HCl 1.25 gm/ Sodium (Chloride) 250 mls @ 166.667 mls/hr IV Q24H [facility] INCLUDES THE [facility] Last Admin: 02/11/20 19:56 Dose: 166.667 mls/hr Documented by: Omeprazole (Omeprazole) 20 mg PO ACBREAKFAST COUNT INCLUDES THE [facility] Last Admin: 02/12/20 06:55 Dose: 20 mg Documented by: Rivaroxaban (Xarelto) 10 mg PO DAILY COUNT [facility]CLUDES [facility] Last Admin: 02/12/20 09:41 Dose: 10 mg Documented by: Sodium Chloride (Saline Flush) 10 ml FLUSH ASDIRECTED PRN PRN Reason: Keep Vein Open Sodium Chloride (Saline Flush) 2.5 ml FLUSH ASDIRECTED PRN PRN Reason: Keep Vein Open Vancomycin HCl (Pharmacy To Dose - Vancomycin) 1 dose .XX ASDIRECTED COUNT INCLUDES THE [facility] Verapamil HCl (Calan Sr) 120 mg PO DAILY COUNT [facility]CLUDES [facility] Last Admin: 02/12/20 09:42 Dose: 120 mg Documented by: Discontinued Medications Acetaminophen (Tylenol Extra Strength) 1,000 mg PO ONETIME ONE Stop: 02/11/20 17:22 Last Admin: 02/11/20 17:33 Dose: 1,000 mg Documented by: Calcium Carbonate/Glycine (Tums) 1,000 mg PO ONETIME ONE Stop: 02/12/20 10:01 Last Admin: 02/12/20 10:41 Dose: 1,000 mg Documented by: Piperacillin Sod/Tazobactam (Sod 3.375 gm/ Sodium Chloride) 50 mls @ 100 mls/hr IV Q6H COUNT INCLUDES THE [facility] Last Admin: 02/12/20 09:42 Dose: 100 mls/hr Documented by: Sodium Chloride (Normal Saline) 1,000 mls @ 999 mls/hr IV STAT ONE Stop: 02/12/20 11:40 Ondansetron HCl (Zofran) 4 mg IVPUSH ONETIME ONE Stop: 02/11/20 17:22 Last Admin: 02/11/20 17:32 Dose: 4 mg Documented by: Rivaroxaban (Xarelto) 10 mg PO DAILY COUNT INCLUDES THE [facility] Last Admin: 02/12/20 00:36 Dose: Not Given Documented by: - Exam General: Alert, Oriented, Cooperative, No Acute Distress Lungs: Clear to Auscultation, Normal Respiratory Effort Cardiovascular: Regular Rate, Regular Rhythm GI/Abdominal Exam: Normal Bowel Sounds, Soft, Non-Tender, No Distention Extremities: No Pedal Edema, Other (RLE: streak of erythema extending mid-thigh to mid-calf level, ttp) Sepsis Event Note - Evaluation Sepsis Screening Result: No Definite Risk - Focused Exam Vital Signs: Vital Signs Temp Pulse Resp BP Pulse Ox 02/12/20 07:00 36.6 C 81 16 115/54 L 95 02/12/20 04:06 36.7 C 82 16 107/56 L 97 02/12/20 00:00 36.6 C 87 17 119/60 96 Date Exam was Performed: 02/12/20 Time Exam was Performed: 11:56 - Problem List Review Problem List Initiated/Reviewed/Updated: Yes - My Orders Last 24 Hours: My Active Orders 02/12/20 10:41 Acetaminophen [Tylenol Extra Strength] 500 mg PO Q4H PRN - Plan Plan:: Assessment and Plan: 1. Superficial thrombophlebitis with overlying cellulitis: - Continue IV vancomycin and will discontinue zosyn. Continue Xarelto 10 mg qd. 2. BRYAN: - IV 1 L bolus given this AM. Will continue to monitor. 3. DVT prophylaxis: SCD's. 4. Past medical history of HTN and migraines: - Continue home medications.
[2020-02-12] MEDS ORDERED: Ondansetron 4 MG/2 ML SDV IVPUSH PRN (13:35)
[2020-02-13] MEDS: Acetaminophen 500 MG Tab PO PRN (05:14)
[2020-02-13 06:33] LABS: CARBON DIOXIDE,CO2 24.9 mmol/L (21.0-32.0); POTASSIUM,K 4.4 mmol/L (3.5-5.1)
[2020-02-13] MEDS: Omeprazole 20 MG Cap.CR PO SCH (06:39)
[2020-02-13] MEDS: Rivaroxaban 10 MG Tab PO SCH (09:27)
--- NOTE | 2020-02-13 11:16 | PCM.PN ---
- General Info Date of Service: 02/13/20 - Review of Systems Systems Review Comment:: reports subjective fever this morning, denies any pain. - Patient Data Vitals - Most Recent: Last Vital Signs Temp 37.3 C 02/13/20 08:00 Pulse 67 02/13/20 08:00 Resp 18 02/13/20 08:00 BP 115/52 L 02/13/20 08:00 Pulse Ox 97 02/13/20 08:00 Weight - Most Recent: 85.049 kg I&O - Last 24 Hours: Intake & Output 02/12/20 02/13/20 02/13/20 22:59 06:59 14:59 Intake Total 1600 650 Output Total 700 2900 Balance 900 -2250 Lab Results Last 24 Hours: Laboratory Results - last 24 hr 02/13/20 02/13/20 Range/Units 05:50 05:50 WBC 4.07 (4.0-11.0) K/uL RBC 4.23 L (4.30-5.90) M/uL Hgb 11.9 L (12.0-16.0) g/dL Hct 39.4 (36.0-46.0) % MCV 93.1 (80.0-98.0) fL MCH 28.1 (27.0-32.0) pg MCHC 30.2 L (31.0-37.0) g/dL RDW Std Deviation 47.8 (28.0-62.0) fl RDW Coeff of Lito 14 (11.0-15.0) % Plt Count 171 (150-400) K/uL MPV 10.40 (7.40-12.00) fL Neut % (Auto) 79.9 (48.0-80.0) % Lymph % (Auto) 9.3 L (16.0-40.0) % [place] % (Auto) 5.9 (0.0-15.0) % Eos % (Auto) 4.9 (0.0-7.0) % Baso % (Auto) 0.0 (0.0-1.5) % Neut # (Auto) 3.3 (1.4-5.7) K/uL Lymph # (Auto) 0.4 L (0.6-2.4) K/uL [place] # (Auto) 0.2 (0.0-0.8) K/uL Eos # (Auto) 0.2 (0.0-0.7) K/uL Baso # (Auto) 0.0 (0.0-0.1) K/uL Nucleated RBC % 0.0 /100WBC Nucleated RBCs # 0 K/uL Sodium 140 (136-145) mmol/L Potassium 4.4 (3.5-5.1) mmol/L Chloride 109 H (98-107) mmol/L Carbon Dioxide 24.9 (21.0-32.0) mmol/L BUN 8 (7.0-18.0) mg/dL Creatinine 1.2 H (0.6-1.0) mg/dL Est Cr Clr Drug Dosing 35.52 mL/min Estimated GFR (MDRD) 43.9 ml/min Glucose 111 H (74-106) mg/dL Calcium 7.3 L (8.5-10.1) mg/dL Total Bilirubin 0.4 (0.2-1.0) mg/dL AST 60 H (15-37) IU/L ALT 119 H (14-63) IU/L Alkaline Phosphatase 160 H (46-116) U/L Total Protein 6.1 L (6.4-8.2) g/dL Albumin 2.8 L (3.4-5.0) g/dL Globulin 3.3 (2.6-4.0) g/dL Albumin/Globulin Ratio 0.9 (0.9-1.6) Gavin Results Last 24 Hours: Microbiology 02/11/20 17:38 Aerobic Blood Culture - Preliminary Blood - Venous - Lab Draw NO GROWTH AFTER 1 DAY Anaerobic Blood Culture - Preliminary NO GROWTH AFTER 1 DAY 02/11/20 17:11 Aerobic Blood Culture - Preliminary Blood - Venous NO GROWTH AFTER 1 DAY Anaerobic Blood Culture - Final Med Orders - Current: Current Medications Acetaminophen (Tylenol Extra Strength) 500 mg PO Q4H PRN PRN Reason: Pain Last Admin: 02/13/20 05:14 Dose: 500 mg Documented by: Vancomycin HCl 1.25 gm/ Sodium (Chloride) 250 mls @ 166.667 mls/hr IV Q24H [facility] Last Admin: 02/12/20 19:32 Dose: 166.667 mls/hr Documented by: Omeprazole (Omeprazole) 20 mg PO ACBREAKFAST [facility] Last Admin: 02/13/20 06:39 Dose: 20 mg Documented by: Ondansetron HCl (Zofran) 4 mg IVPUSH Q4H PRN PRN Reason: Nausea Last Admin: 02/12/20 13:49 Dose: 4 mg Documented by: Rivaroxaban (Xarelto) 10 mg PO DAILY [facility] Last Admin: 02/13/20 09:27 Dose: 10 mg Documented by: Sodium Chloride (Saline Flush) 10 ml FLUSH ASDIRECTED PRN PRN Reason: Keep Vein Open Sodium Chloride (Saline Flush) 2.5 ml FLUSH ASDIRECTED PRN PRN Reason: Keep Vein Open Vancomycin HCl (Pharmacy To Dose - Vancomycin) 1 dose .XX ASDIRECTED [facility] Verapamil HCl (Calan Sr) 120 mg PO DAILY [facility] Last Admin: 02/13/20 09:27 Dose: 120 mg Documented by: Discontinued Medications Acetaminophen (Tylenol Extra Strength) 1,000 mg PO ONETIME ONE Stop: 02/11/20 17:22 Last Admin: 02/11/20 17:33 Dose: 1,000 mg Documented by: Calcium Carbonate/Glycine (Tums) 1,000 mg PO ONETIME ONE Stop: 02/12/20 10:01 Last Admin: 02/12/20 10:41 Dose: 1,000 mg Documented by: Piperacillin Sod/Tazobactam (Sod 3.375 gm/ Sodium Chloride) 50 mls @ 100 mls/hr IV Q6H [facility] Last Admin: 02/12/20 09:42 Dose: 100 mls/hr Documented by: Sodium Chloride (Normal Saline) 1,000 mls @ 999 mls/hr IV STAT ONE Stop: 02/12/20 11:40 Last Admin: 02/12/20 11:00 Dose: 999 mls/hr Documented by: Ondansetron HCl (Zofran) 4 mg IVPUSH ONETIME ONE Stop: 02/11/20 17:22 Last Admin: 02/11/20 17:32 Dose: 4 mg Documented by: Rivaroxaban (Xarelto) 10 mg PO DAILY [facility] Last Admin: 02/12/20 00:36 Dose: Not Given Documented by: - Exam General: Alert, Oriented Neck: Supple Lungs: Clear to Auscultation, Normal Respiratory Effort Cardiovascular: Regular Rate, Regular Rhythm GI/Abdominal Exam: Soft, Non-Tender, No Distention Extremities: Non-Tender, No Pedal Edema Skin: Rash (erythema of medial right leg has improved) Sepsis Event Note - Evaluation Sepsis Screening Result: No Definite Risk - Focused Exam Vital Signs: Vital Signs Temp Pulse Resp BP Pulse Ox 02/13/20 08:00 37.3 C 67 18 115/52 L 97 02/13/20 04:00 36.6 C 70 18 131/61 99 02/13/20 00:00 37.0 C 65 20 102/48 L 97 Date Exam was Performed: 02/13/20 Time Exam was Performed: 11:14 - Problem List Review Problem List Initiated/Reviewed/Updated: Yes - My Orders Last 24 Hours: My Active Orders 02/13/20 11:13 Admission Status [Patient Status] [ADT] Routine 02/14/20 05:11 BASIC METABOLIC PANEL,BMP [CHEM] AM CBC WITH AUTO DIFF [HEME] AM - Plan Plan:: Assessment and Plan: 1. Superficial thrombophlebitis with overlying cellulitis: - Continue IV vancomycin Continue Xarelto 10 mg qd. 2. BRYAN: - creatinine is 1.2 today 3. DVT prophylaxis: SCD's. 4. Past medical history of HTN and migraines: - Continue home medications.
[2020-02-13] MEDS: Verapamil 240 MG Tab.ER PO SCH (13:15)
[2020-02-14 05:49] LABS: BLOOD UREA NITROGEN,BUN 10 mg/dL (7.0-18.0); CARBON DIOXIDE,CO2 25.6 mmol/L (21.0-32.0); CHLORIDE,CL 107 mmol/L (98-107); GLUCOSE RANDOM 93 mg/dL (74-106); POTASSIUM,K 4.2 mmol/L (3.5-5.1); SODIUM,NA 140 mmol/L (136-145)
[2020-02-14] MEDS: Omeprazole 20 MG Cap.CR PO SCH (06:54)
[2020-02-14] MEDS ORDERED: Bisacodyl 5 MG Tab PO PRN (07:57)
[2020-02-14] MEDS: Verapamil 240 MG Tab.ER PO SCH (08:22)
[2020-02-14] MEDS: Rivaroxaban 10 MG Tab PO SCH (08:23)
[2020-02-14] MEDS ORDERED: Calcium Carbonate 500 MG Tab.Chew PO ONE (08:56)
--- NOTE | 2020-02-14 10:09 | PCM.DCSUM1 ---
<Hayden Alejo - Last Filed: 02/14/20 10:26> Discharge Summary - Hospital Course Free Text/Narrative:: 74-year-old female admitted for RLE superficial thrombophlebitis and cellulitis. She has a PMH of HTN and migraines. Patient reported seeing her PCP approximately 1 week ago, had ultrasound done and diagnosed with superficial clot. Patient was then started on Xarelto but did not start taking the medication. Shortly thereafter, she was also started on Bactrim, however, only took one dose of the medication. She then presented to the ED on 02/11/20 where repeat Doppler U/S showed superficial vein thrombus. Patient was then admitted and started on Xarelto 10 mg qd and IV vancomycin. Blood cultures were negative. Patient remained hemodynamically stable throughout hospitalization. On day of discharge, patient noted that her RLE pain had improved. She was discharged in stable condition and advised to use warm compress, Tylenol/ibuprofen prn pain, resume taking Bactrim and continue Xarelto. Advised to follow-up with her PCP on discharge. - Discharge Data Discharge Date: 02/14/20 Discharge Disposition: Home, Self-Care 01 Condition: Stable - Referral to Home Health Primary Care Physician: America Jung, DO - Patient Instructions Diet: Usual Diet as Tolerated Activity: As Tolerated Notify Provider of: Fever, Increased Pain, Swelling and Redness, Drainage, Nausea and/or Vomiting - Discharge Plan *PRESCRIPTION DRUG MONITORING PROGRAM REVIEWED*: Not Applicable *COPY OF PRESCRIPTION DRUG MONITORING REPORT IN PATIENT NICOLETTE: Not Applicable Home Medications: Home Meds Esomeprazole Magnesium [Nexium] 20 mg PO DAILY 02/11/20 [History] Latanoprost/Pf [Latanoprost 0.005% Eye Drop] 1 mg EYEBOTH BEDTIME 02/11/20 [History] Rivaroxaban [Xarelto] 10 mg PO DAILY 02/11/20 [History] Verapamil HCl [Verapamil ER] 120 mg PO DAILY 02/11/20 [History] nitrofurantoin macrocrystaL [Macrodantin] 50 mg PO DAILY 02/11/20 [History] Sulfamethoxazole/Trimethoprim [Bactrim Ds Tablet] 800 mg PO BID 02/12/20 [History] Oxygen Therapy Mode: Room Air Patient Handouts: Rivaroxaban oral tablets, Thrombophlebitis, Sulfamethoxazole; Trimethoprim, SMX-TMP tablets Referrals: America Jung DO [Primary Care Provider] - 02/21/20 3:30 pm - Discharge Summary/Plan Comment DC Time >30 min.: No - Patient Data Vitals - Most Recent: Last Vital Signs Temp 36.8 C 02/14/20 07:30 Pulse 66 02/14/20 07:30 Resp 17 02/14/20 07:30 BP 144/64 H 02/14/20 07:30 Pulse Ox 98 02/14/20 07:30 Weight - Most Recent: 85.049 kg I&O - Last 24 hours: Intake & Output 02/13/20 02/14/20 02/14/20 22:59 06:59 14:59 Intake Total 1440 1450 Output Total 900 1450 Balance 540 0 Lab Results - Last 24 hrs: Laboratory Results - last 24 hr 02/14/20 02/14/20 02/14/20 Range/Units 05:18 05:18 05:18 WBC 4.09 (4.0-11.0) K/uL RBC 4.47 (4.30-5.90) M/uL Hgb 13.1 (12.0-16.0) g/dL Hct 41.4 (36.0-46.0) % MCV 92.6 (80.0-98.0) fL MCH 29.3 (27.0-32.0) pg MCHC 31.6 (31.0-37.0) g/dL RDW Std Deviation 46.9 (28.0-62.0) fl RDW Coeff of Lito 14 (11.0-15.0) % Plt Count 186 (150-400) K/uL MPV 10.30 (7.40-12.00) fL Neut % (Auto) 50.6 (48.0-80.0) % Lymph % (Auto) 35.5 (16.0-40.0) % [place] % (Auto) 6.4 (0.0-15.0) % Eos % (Auto) 7.3 H (0.0-7.0) % Baso % (Auto) 0.2 (0.0-1.5) % Neut # (Auto) 2.1 (1.4-5.7) K/uL Lymph # (Auto) 1.5 (0.6-2.4) K/uL [place] # (Auto) 0.3 (0.0-0.8) K/uL Eos # (Auto) 0.3 (0.0-0.7) K/uL Baso # (Auto) 0.0 (0.0-0.1) K/uL Nucleated RBC % 0.0 /100WBC Nucleated RBCs # 0 K/uL Sodium 140 (136-145) mmol/L Potassium 4.2 (3.5-5.1) mmol/L Chloride 107 (98-107) mmol/L Carbon Dioxide 25.6 (21.0-32.0) mmol/L BUN 10 (7.0-18.0) mg/dL Creatinine 0.9 (0.6-1.0) mg/dL Est Cr Clr Drug Dosing 47.36 mL/min Estimated GFR (MDRD) > 60.0 ml/min Glucose 93 (74-106) mg/dL Calcium 7.9 L (8.5-10.1) mg/dL Albumin 3.5 (3.4-5.0) g/dL MISTY Results - Last 24 hrs: Microbiology 02/11/20 17:38 Aerobic Blood Culture - Preliminary Blood - Venous - Lab Draw NO GROWTH AFTER 2 DAYS Anaerobic Blood Culture - Preliminary NO GROWTH AFTER 2 DAYS 02/11/20 17:11 Aerobic Blood Culture - Preliminary Blood - Venous NO GROWTH AFTER 2 DAYS Anaerobic Blood Culture - Final Med Orders - Current: Current Medications Acetaminophen (Tylenol Extra Strength) 500 mg PO Q4H PRN PRN Reason: Pain Last Admin: 02/13/20 05:14 Dose: 500 mg Documented by: Bisacodyl (Dulcolax) 10 mg PO BID PRN PRN Reason: Constipation Last Admin: 02/14/20 08:23 Dose: 10 mg Documented by: Vancomycin HCl 1.25 gm/ Sodium (Chloride) 250 mls @ 166.667 mls/hr IV Q24H EBEN Last Admin: 02/13/20 19:28 Dose: 166.667 mls/hr Documented by: Omeprazole (Omeprazole) 20 mg PO ACBREAKFAST EBEN Last Admin: 02/14/20 06:54 Dose: 20 mg Documented by: Ondansetron HCl (Zofran) 4 mg IVPUSH Q4H PRN PRN Reason: Nausea Last Admin: 02/12/20 13:49 Dose: 4 mg Documented by: Rivaroxaban (Xarelto) 10 mg PO DAILY [facility] Last Admin: 02/14/20 08:23 Dose: 10 mg Documented by: Sodium Chloride (Saline Flush) 10 ml FLUSH ASDIRECTED PRN PRN Reason: Keep Vein Open Sodium Chloride (Saline Flush) 2.5 ml FLUSH ASDIRECTED PRN PRN Reason: Keep Vein Open Vancomycin HCl (Pharmacy To Dose - Vancomycin) 1 dose .XX ASDIRECTED [facility] Verapamil HCl (Calan Sr) 120 mg PO DAILY [facility] Last Admin: 02/14/20 08:22 Dose: 120 mg Documented by: Discontinued Medications Acetaminophen (Tylenol Extra Strength) 1,000 mg PO ONETIME ONE Stop: 02/11/20 17:22 Last Admin: 02/11/20 17:33 Dose: 1,000 mg Documented by: Calcium Carbonate/Glycine (Tums) 1,000 mg PO ONETIME ONE Stop: 02/12/20 10:01 Last Admin: 02/12/20 10:41 Dose: 1,000 mg Documented by: Calcium Carbonate/Glycine (Tums) 1,000 mg PO ONETIME ONE Stop: 02/14/20 08:57 Last Admin: 02/14/20 09:22 Dose: 1,000 mg Documented by: Piperacillin Sod/Tazobactam (Sod 3.375 gm/ Sodium Chloride) 50 mls @ 100 mls/hr IV Q6H [facility] Last Admin: 02/12/20 09:42 Dose: 100 mls/hr Documented by: Sodium Chloride (Normal Saline) 1,000 mls @ 999 mls/hr IV STAT ONE Stop: 02/12/20 11:40 Last Admin: 02/12/20 11:00 Dose: 999 mls/hr Documented by: Ondansetron HCl (Zofran) 4 mg IVPUSH ONETIME ONE Stop: 02/11/20 17:22 Last Admin: 02/11/20 17:32 Dose: 4 mg Documented by: Rivaroxaban (Xarelto) 10 mg PO DAILY [facility] Last Admin: 02/12/20 00:36 Dose: Not Given Documented by: <Sergio Stark - Last Filed: 02/14/20 18:35> Discharge Summary - Referral to Home Health Primary Care Physician: America Jung DO - Patient Data Vitals - Most Recent: Last Vital Signs Temp 36.8 C 02/14/20 07:30 Pulse 66 02/14/20 07:30 Resp 17 02/14/20 07:30 BP 144/64 H 02/14/20 07:30 Pulse Ox 98 02/14/20 07:30 I&O - Last 24 hours: Intake & Output 02/14/20 02/14/20 02/14/20 06:59 14:59 22:59 Intake Total 1450 600 Output Total 1450 1350 Balance 0 -750 Lab Results - Last 24 hrs: Laboratory Results - last 24 hr 02/14/20 02/14/20 02/14/20 Range/Units 05:18 05:18 05:18 WBC 4.09 (4.0-11.0) K/uL RBC 4.47 (4.30-5.90) M/uL Hgb 13.1 (12.0-16.0) g/dL Hct 41.4 (36.0-46.0) % MCV 92.6 (80.0-98.0) fL MCH 29.3 (27.0-32.0) pg MCHC 31.6 (31.0-37.0) g/dL RDW Std Deviation 46.9 (28.0-62.0) fl RDW Coeff of Lito 14 (11.0-15.0) % Plt Count 186 (150-400) K/uL MPV 10.30 (7.40-12.00) fL Neut % (Auto) 50.6 (48.0-80.0) % Lymph % (Auto) 35.5 (16.0-40.0) % [place] % (Auto) 6.4 (0.0-15.0) % Eos % (Auto) 7.3 H (0.0-7.0) % Baso % (Auto) 0.2 (0.0-1.5) % Neut # (Auto) 2.1 (1.4-5.7) K/uL Lymph # (Auto) 1.5 (0.6-2.4) K/uL [place] # (Auto) 0.3 (0.0-0.8) K/uL Eos # (Auto) 0.3 (0.0-0.7) K/uL Baso # (Auto) 0.0 (0.0-0.1) K/uL Nucleated RBC % 0.0 /100WBC Nucleated RBCs # 0 K/uL Sodium 140 (136-145) mmol/L Potassium 4.2 (3.5-5.1) mmol/L Chloride 107 (98-107) mmol/L Carbon Dioxide 25.6 (21.0-32.0) mmol/L BUN 10 (7.0-18.0) mg/dL Creatinine 0.9 (0.6-1.0) mg/dL Est Cr Clr Drug Dosing 47.36 mL/min Estimated GFR (MDRD) > 60.0 ml/min Glucose 93 (74-106) mg/dL Calcium 7.9 L (8.5-10.1) mg/dL Albumin 3.5 (3.4-5.0) g/dL MISTY Results - Last 24 hrs: Microbiology 02/11/20 17:38 Aerobic Blood Culture - Preliminary Blood - Venous - Lab Draw NO GROWTH AFTER 3 DAYS Anaerobic Blood Culture - Preliminary NO GROWTH AFTER 3 DAYS 02/11/20 17:11 Aerobic Blood Culture - Preliminary Blood - Venous NO GROWTH AFTER 3 DAYS Anaerobic Blood Culture - Final Med Orders - Current: Current Medications Discontinued Medications Acetaminophen (Tylenol Extra Strength) 1,000 mg PO ONETIME ONE Stop: 02/11/20 17:22 Last Admin: 02/11/20 17:33 Dose: 1,000 mg Documented by: Acetaminophen (Tylenol Extra Strength) 500 mg PO Q4H PRN PRN Reason: Pain Last Admin: 02/13/20 05:14 Dose: 500 mg Documented by: Bisacodyl (Dulcolax) 10 mg PO BID PRN PRN Reason: Constipation Last Admin: 02/14/20 08:23 Dose: 10 mg Documented by: Calcium Carbonate/Glycine (Tums) 1,000 mg PO ONETIME ONE Stop: 02/12/20 10:01 Last Admin: 02/12/20 10:41 Dose: 1,000 mg Documented by: Calcium Carbonate/Glycine (Tums) 1,000 mg PO ONETIME ONE Stop: 02/14/20 08:57 Last Admin: 02/14/20 09:22 Dose: 1,000 mg Documented by: Vancomycin HCl 1.25 gm/ Sodium (Chloride) 250 mls @ 166.667 mls/hr IV Q24H [facility] Last Admin: 02/13/20 19:28 Dose: 166.667 mls/hr Documented by: Piperacillin Sod/Tazobactam (Sod 3.375 gm/ Sodium Chloride) 50 mls @ 100 mls/hr IV Q6H [facility] Last Admin: 02/12/20 09:42 Dose: 100 mls/hr Documented by: Sodium Chloride (Normal Saline) 1,000 mls @ 999 mls/hr IV STAT ONE Stop: 02/12/20 11:40 Last Admin: 02/12/20 11:00 Dose: 999 mls/hr Documented by: Omeprazole (Omeprazole) 20 mg PO ACBREAKFAST [facility] Last Admin: 02/14/20 06:54 Dose: 20 mg Documented by: Ondansetron HCl (Zofran) 4 mg IVPUSH ONETIME ONE Stop: 02/11/20 17:22 Last Admin: 02/11/20 17:32 Dose: 4 mg Documented by: Ondansetron HCl (Zofran) 4 mg IVPUSH Q4H PRN PRN Reason: Nausea Last Admin: 02/12/20 13:49 Dose: 4 mg Documented by: Rivaroxaban (Xarelto) 10 mg PO DAILY [facility] Last Admin: 02/12/20 00:36 Dose: Not Given Documented by: Rivaroxaban (Xarelto) 10 mg PO DAILY [facility] Last Admin: 02/14/20 08:23 Dose: 10 mg Documented by: Sodium Chloride (Saline Flush) 10 ml FLUSH ASDIRECTED PRN PRN Reason: Keep Vein Open Sodium Chloride (Saline Flush) 2.5 ml FLUSH ASDIRECTED PRN PRN Reason: Keep Vein Open Vancomycin HCl (Pharmacy To Dose - Vancomycin) 1 dose .XX ASDIRECTED [facility] Verapamil HCl (Calan Sr) 120 mg PO DAILY [facility] Last Admin: 02/14/20 08:22 Dose: 120 mg Documented by: - Free Text/Narrative Note: I have seen and evaluated the patient with the resident. I have discussed findings and treatment plan with the resident. I agree with the assessment and plan outlined in the following note.
== END 2020-02-14 11:15 | disposition home or self-care (01) | DRG 300 ==
LOC: MW.ED 16:30 → MW.MS 18:51 → OBSVTOIN 02-13 11:13 → MW.MS 02-13 13:00
PROVIDERS: ADMIT Internal Medicine; ATTEND Internal Medicine
DX: I80.01 Phlebitis and thrombophlebitis of superficial vessels of right lower extremity (principal); L03.115 Cellulitis of right lower limb; N17.9 Acute kidney failure, unspecified; G43.909 Migraine, unspecified, not intractable, without status migrainosus; I10 Essential (primary) hypertension; Z88.1 Allergy status to other antibiotic agents; Z79.899 Other long term (current) drug therapy; Z79.01 Long term (current) use of anticoagulants; Z90.49 Acquired absence of other specified parts of digestive tract; Z20.828 Contact with and (suspected) exposure to other viral communicable diseases
CPT/HCPCS: 36415 ×3; 80048; 80053 ×2; 82040; 83605; 84484; 85025 ×3; 85610; 87040 ×2; 93005; 93971; 96365; 96375; 99285; A9270 ×12; J2405 ×2; J2543 ×3; J3370 ×2; J7030; J7050 ×5; U0002; 96367; 96376; 99284; G0378

== ENCOUNTER 2020-02-14 13:43 | Observation (INO) | payer MEDICARE, OTHER ==
[2020-02-14] MEDS ORDERED: Sodium Chloride 0.9% 10 ML Syringe FLUSH PRN (13:48)
[2020-02-14] MEDS ORDERED: Sodium Chloride 0.9% 2.5 ML Syringe FLUSH PRN (13:48)
--- NOTE | 2020-02-14 14:01 | EDM.PDOC ---
ED HPI GENERAL MEDICAL PROBLEM - General Time Seen by Provider: 02/14/20 13:45 Source of Information: Reports: Patient History Limitations: Reports: No Limitations - History of Present Illness INITIAL COMMENTS - FREE TEXT/NARRATIVE: HISTORY AND PHYSICAL: History of present illness: Patient is a 74-year-old female who presents to the ED today with concern of left-sided shoulder pain that began approximately 1 hour prior to arrival to the ED that radiates into her chest and down her left leg. Patient states she was just discharged from our hospital (at 10am today) due to a leg infection and blood clot this morning and took 1 dose of Xarelto. Patient states that she went home and took a nap and when she woke up she was having left-sided shoulder pain. Patient states she also had an episode of shortness of breath that lasted approximately 5 minutes but states that the left shoulder pain has continued and she has not injured the shoulder. Patient states that the pain does feel deeper than her shoulder but also is causing a muscle spasm in her left shoulder/neck but states that this pain does radiate into her chest and down her leg. Patient denies any falls. Patient states she has taken 1 dose of Xarelto this morning before leaving the hospital but has not taken any new medications since being home. Patient denies fever, chills, or cough. Denies headache, neck stiff ness, change in vision, syncope, or near syncope. Denies nausea, vomiting, abdominal pain, diarrhea, constipation, or dysuria. Has not noted any blood in urine or stool. Patient has been eating and drinking appropriately. Review of systems: As per history of present illness and below otherwise all systems reviewed and negative. Past medical history: As per history of present illness and as reviewed below otherwise noncontributory. Surgical history: As per history of present illness and as reviewed below otherwise noncontributory. Social history: See social history for further information Family history: As per history of present illness and as reviewed below otherwise noncontributory. Physical exam: General: Patient is alert, oriented, and in no acute distress. Patient laying on exam table in mild discomfort. HEENT: Atraumatic, normocephalic, pupils equal and reactive bilaterally, negative for conjunctival pallor or scleral icterus, mucous membranes moist, TMs normal bilaterally, throat clear, neck supple, nontender, trachea midline. No drooling or trismus noted. No meningeal signs. No hot potato voice noted. Lungs: Clear to auscultation, breath sounds equal bilaterally, chest nontender. Heart: S1S2, regular rate and rhythm without overt murmur Abdomen: Soft, nondistended, nontender. Negative for masses or hepatosplenomegaly. Negative for costovertebral tenderness. Pelvis: Stable nontender. Genitourinary: Deferred. Rectal: Deferred. Skin: Intact, warm, dry. No lesions or rashes noted. Extremities: Atraumatic, negative for cords or calf pain. Neurovascular unremarkable. Full ROM of bilateral upper extremities without pain or difficulty. Cap refill <2 seconds with radial pulses grossly intact bilaterally. Patient does have pain with palpation of the left sided trapezius without obvious deformity. Neuro: Awake, alert, oriented. Cranial nerves II through XII unremarkable. Cerebellum unremarkable. Motor and sensory unremarkable throughout. Exam nonfocal. Notes: HEART score 5 points-moderate risk. Throughout stay in the ED, patient has had episodic shoulder/chest discomfort with episodes of feeling short of breath that lasted a few minutes and then improve. Repeat EKG shows no acute changes. Dr. Stark was consulted on patient and will admit to observation on telemetry. Voices understanding and is agreeable to plan of care. Denies any further questions or concerns at this time. Diagnostics: CBC, CMP, UA, EKG x 2, Ang CT w cont, trop Therapeutics: NS 1L, ASA 324mg PO, Nitro 0.4mg SL x 3, Morphine 2mg IV, GI cocktail, Norflex Impression: Chest pain r/o ACS Muscle spasm Plan: Admit to observation Dr. Stark on telemetry Definitive disposition and diagnosis as appropriate pending reevaluation and review of above. left shoulder Pain Score (Numeric/FACES): 5 - Related Data Allergies Allergy/AdvReac Type Severity Reaction Status Date / Time cephalexin [From Keflex] Allergy Hives Verified 02/14/20 14:15 ciprofloxacin [From Cipro] Allergy Hives Verified 02/14/20 14:15 Home Meds: Home Meds Esomeprazole Magnesium [Nexium] 20 mg PO DAILY 02/11/20 [History] Latanoprost/Pf [Latanoprost 0.005% Eye Drop] 1 mg EYEBOTH BEDTIME 02/11/20 [History] Rivaroxaban [Xarelto] 10 mg PO DAILY 02/11/20 [History] Verapamil HCl [Verapamil ER] 120 mg PO DAILY 02/11/20 [History] nitrofurantoin macrocrystaL [Macrodantin] 50 mg PO DAILY 02/11/20 [History] Sulfamethoxazole/Trimethoprim [Bactrim Ds Tablet] 800 mg PO BID 02/12/20 [History] Past Medical History - Past Health History Medical/Surgical History: Denies Medical/Surgical History HEENT History: Reports: None Cardiovascular History: Reports: Hypertension Musculoskeletal History: Reports: Other (See Below) Other Musculoskeletal History: knee pain Neurological History: Reports: Migraines - Past Surgical History GI Surgical History: Reports: Appendectomy, Cholecystectomy Social & Family History - Family History Family Medical History: Noncontributory - Caffeine Use Caffeine Use: Reports: Coffee, Tea ED ROS GENERAL - Review of Systems Review Of Systems: Comprehensive ROS is negative, except as noted in HPI. ED EXAM, GENERAL - Physical Exam Exam: See Below (see dictation) Course - Vital Signs Last Recorded V/S: Last Vital Signs Temp 98.5 F 02/14/20 13:45 Pulse 73 02/14/20 15:02 Resp 14 02/14/20 15:02 BP 116/53 L 02/14/20 15:02 Pulse Ox 92 L 02/14/20 15:02 - Orders/Labs/Meds Orders: Active Orders 24 hr Category Date Time Status Admission Status [Patient Status] [ADT] Stat ADT 02/14/20 15:50 Active Cardiac Monitoring [RC] . DIRECTED Care 02/14/20 13:48 Active EKG Documentation Completion [RC] STAT Care 02/14/20 13:48 Active CORONAVIRUS COVID-19 PCR PHL Stat Lab 02/14/20 15:56 Ordered Sodium Chloride 0.9% [Saline Flush] Med 02/14/20 13:48 Active 10 ml FLUSH ASDIRECTED PRN Sodium Chloride 0.9% [Saline Flush] Med 02/14/20 13:48 Active 2.5 ml FLUSH ASDIRECTED PRN Saline Lock Insert [OM.PC] Stat Oth 02/14/20 13:48 Ordered Medication Orders Sodium Chloride (Saline Flush) 10 ml FLUSH ASDIRECTED PRN PRN Reason: Keep Vein Open Sodium Chloride (Saline Flush) 2.5 ml FLUSH ASDIRECTED PRN PRN Reason: Keep Vein Open Labs: Laboratory Tests 02/14/20 02/14/20 02/14/20 Range/Units 13:53 13:53 14:20 WBC 3.67 L (4.0-11.0) K/uL RBC 4.60 (4.30-5.90) M/uL Hgb 13.7 (12.0-16.0) g/dL Hct 42.4 (36.0-46.0) % MCV 92.2 (80.0-98.0) fL MCH 29.8 (27.0-32.0) pg MCHC 32.3 (31.0-37.0) g/dL RDW Std Deviation 47.0 (28.0-62.0) fl RDW Coeff of Lito 14 (11.0-15.0) % Plt Count 191 (150-400) K/uL MPV 10.20 (7.40-12.00) fL Neut % (Auto) 50.4 (48.0-80.0) % Lymph % (Auto) 39.2 (16.0-40.0) % [place] % (Auto) 2.7 (0.0-15.0) % Eos % (Auto) 7.4 H (0.0-7.0) % Baso % (Auto) 0.3 (0.0-1.5) % Neut # (Auto) 1.9 (1.4-5.7) K/uL Lymph # (Auto) 1.4 (0.6-2.4) K/uL [place] # (Auto) 0.1 (0.0-0.8) K/uL Eos # (Auto) 0.3 (0.0-0.7) K/uL Baso # (Auto) 0.0 (0.0-0.1) K/uL Nucleated RBC % 0.0 /100WBC Nucleated RBCs # 0 K/uL Sodium 138 (136-145) mmol/L Potassium 3.5 (3.5-5.1) mmol/L Chloride 105 (98-107) mmol/L Carbon Dioxide 22.2 (21.0-32.0) mmol/L BUN 12 (7.0-18.0) mg/dL Creatinine 1.0 (0.6-1.0) mg/dL Est Cr Clr Drug Dosing 42.62 mL/min Estimated GFR (MDRD) 54.2 ml/min Glucose 106 (74-106) mg/dL Calcium 7.9 L (8.5-10.1) mg/dL Total Bilirubin 0.3 (0.2-1.0) mg/dL AST 36 (15-37) IU/L ALT 104 H (14-63) IU/L Alkaline Phosphatase 181 H (46-116) U/L Troponin I < 0.050 (0.000-0.056) ng/mL Total Protein 7.6 (6.4-8.2) g/dL Albumin 3.6 (3.4-5.0) g/dL Globulin 4.0 (2.6-4.0) g/dL Albumin/Globulin Ratio 0.9 (0.9-1.6) Urine Color YELLOW Urine Appearance CLEAR Urine pH 7.5 (5.0-8.0) Ur Specific [place] 1.015 (1.001-1.035) Urine Protein NEGATIVE (NEGATIVE) mg/dL Urine Glucose (UA) NEGATIVE (NEGATIVE) mg/dL Urine Ketones NEGATIVE (NEGATIVE) mg/dL Urine Occult Blood SMALL H (NEGATIVE) Urine Nitrite NEGATIVE (NEGATIVE) Urine Bilirubin NEGATIVE (NEGATIVE) Urine Urobilinogen 0.2 (<2.0) EU/dL Ur Leukocyte Esterase NEGATIVE (NEGATIVE) Urine RBC 1-4 (0-2/HPF) Urine WBC 0-2 (0-5/HPF) Ur Epithelial Cells RARE (NONE-FEW) Urine Bacteria NOT SEEN (NEGATIVE) Meds: Medications Generic Name Dose Route Start Last Admin Trade Name Jared PRN Reason Stop Dose Admin Sodium Chloride 10 ml 02/14/20 13:48 Saline Flush FLUSH ASDIRECTED PRN Keep Vein Open Sodium Chloride 2.5 ml 02/14/20 13:48 Saline Flush FLUSH ASDIRECTED PRN Keep Vein Open Discontinued Medications Generic Name Dose Route Start Last Admin Trade Name Jared PRN Reason Stop Dose Admin Aspirin 324 mg 02/14/20 14:07 02/14/20 14:41 Aspirin PO 02/14/20 14:08 324 mg ONETIME ONE Administration Al Hydroxide/Mg Hydroxide 15 0 ml 02/14/20 15:06 02/14/20 15:35 ml/ Lidocaine HCl 5 ml PO 02/14/20 15:07 1 each ONETIME ONE Administration Sodium Chloride 1,000 mls @ 999 mls/hr 02/14/20 14:12 02/14/20 14:43 Normal Saline IV 02/14/20 15:12 999 mls/hr STAT ONE Administration Iopamidol 75 ml 02/14/20 14:46 Isovue-370 (76%) IVPUSH 02/14/20 14:47 ONETIME STA Iopamidol 75 ml 02/14/20 14:47 02/14/20 14:47 Isovue-370 (76%) IVPUSH 02/14/20 14:48 75 ml ONETIME STA Administration Morphine Sulfate 2 mg 02/14/20 15:06 02/14/20 15:36 Morphine IVPUSH 02/14/20 15:07 1 mg ONETIME ONE Administration Nitroglycerin 0.4 mg 02/14/20 14:07 02/14/20 14:57 Nitrostat SL 0.4 mg Q5M PRN Administration Chest Pain Orphenadrine Citrate 60 mg 02/14/20 15:46 02/14/20 16:02 Norflex IM 02/14/20 15:47 60 mg ONETIME ONE Administration Departure - Departure Time of Disposition: 15:59 Disposition: Refer to Observation Clinical Impression: Muscle spasm Chest pain Qualifiers: Chest pain type: unspecified Qualified Code(s): R07.9 - Chest pain, unspecified - Discharge Information Referrals: PCP,None [Primary Care Provider] - Sepsis Event Note (ED) - Focused Exam Vital Signs: Vital Signs Temp Pulse Resp BP BP Pulse Ox 02/14/20 15:02 73 14 116/53 L 92 L 02/14/20 14:59 73 119/51 L 94 L 02/14/20 14:57 119/51 L 02/14/20 14:52 97 132/71 02/14/20 14:51 132/71 02/14/20 14:45 100 154/85 H 154/85 H 02/14/20 13:45 98.5 F 101 H 18 169/83 H 98 - My Orders Last 24 Hours: My Active Orders 02/14/20 13:48 Cardiac Monitoring [RC] . DIRECTED EKG Documentation Completion [RC] STAT Sodium Chloride 0.9% [Saline Flush] 10 ml FLUSH ASDIRECTED PRN Sodium Chloride 0.9% [Saline Flush] 2.5 ml FLUSH ASDIRECTED PRN Saline Lock Insert [OM.PC] Stat 02/14/20 15:50 Admission Status [Patient Status] [ADT] Stat 02/14/20 15:56 CORONAVIRUS COVID-19 PCR PHL Stat - Assessment/Plan Last 24 Hours: My Active Orders 02/14/20 13:48 Cardiac Monitoring [RC] . DIRECTED EKG Documentation Completion [RC] STAT Sodium Chloride 0.9% [Saline Flush] 10 ml FLUSH ASDIRECTED PRN Sodium Chloride 0.9% [Saline Flush] 2.5 ml FLUSH ASDIRECTED PRN Saline Lock Insert [OM.PC] Stat 02/14/20 15:50 Admission Status [Patient Status] [ADT] Stat 02/14/20 15:56 CORONAVIRUS COVID-19 PCR PHL Stat
[2020-02-14] MEDS ORDERED: Aspirin 81 MG Tab.Chew PO ONE (14:07)
[2020-02-14] MEDS ORDERED: Sodium Chloride 0.9% 1,000 ML IV ONE (14:12)
[2020-02-14 14:29] LABS: BLOOD UREA NITROGEN,BUN 12 mg/dL (7.0-18.0); CARBON DIOXIDE,CO2 22.2 mmol/L (21.0-32.0); CHLORIDE,CL 105 mmol/L (98-107); GLUCOSE RANDOM 106 mg/dL (74-106); POTASSIUM,K 3.5 mmol/L (3.5-5.1); SODIUM,NA 138 mmol/L (136-145)
[2020-02-14] MEDS: Nitroglycerin 0.4 MG Tab.SL SL PRN ×3 (14:45→14:57)
[2020-02-14] MEDS ORDERED: Iopamidol 755 Mg/ML 75 ML Bottle IVPUSH STA (14:46)
[2020-02-14] MEDS ORDERED: Iopamidol 755 Mg/ML 100 ML Bottle IVPUSH STA (14:47)
--- NOTE | 2020-02-14 14:57 | CT ---
CT chest Technique: Multiple axial sections were obtained as a pulmonary angiogram study. Intravenous contrast was therefore utilized. Findings: Pulmonary arteries are well opacified. No filling defects are seen to indicate pulmonary embolism. Aorta shows no aneurysm or dissection. Fluid is noted within the esophagus compatible with reflux. No mediastinal adenopathy is seen. No hilar adenopathy is identified. Small hiatal hernia is noted. Visualized upper abdominal structures are otherwise unremarkable. Lungs are clear with no acute parenchymal change. Scattered endplate spurring is noted within the spine. No acute osseous finding is appreciated. Impression: 1. No findings of pulmonary embolism. 2. Small hiatal hernia. Fluid within the esophagus compatible with reflux. 3. No other acute abnormality is appreciated on CT study of the chest. Diagnostic code #3 This report was dictated in MDT Impression: 1.
[2020-02-14] MEDS ORDERED: Morphine 2 MG/ML SYRINGE IVPUSH ONE (15:06)
[2020-02-14] MEDS ORDERED: Alum Hydrox/Mag Hydrox/Simeth 15 ML, Lidocaine 2% 5 ML PO ONE ×2 (15:06)
[2020-02-14] MEDS ORDERED: Polyethylene Glycol 3350 Powder 17 GM Packet PO PRN (17:10)
[2020-02-14] MEDS ORDERED: Ondansetron 4 MG Tab.DIS PO PRN (17:10)
[2020-02-14] MEDS ORDERED: Bisacodyl 5 MG Tab PO PRN (17:10)
[2020-02-14] MEDS ORDERED: Ondansetron 4 MG/2 ML SDV IVPUSH PRN (17:10)
--- NOTE | 2020-02-14 17:21 | PCM.HP.2 ---
H&P History of Present Illness - General Date of Service: 02/14/20 Admit Problem/Dx: Admission Diagnosis/Problem Admission Diagnosis/Problem Chest pain Source of Information: Patient History Limitations: Reports: No Limitations - History of Present Illness Initial Comments - Free Text/Narative: 74-year-old female presents complaining of left shoulder pain that started earli er this afternoon. She has a PMH of HTN. She was discharged this morning after being treated RLE superficial thrombophlebitis with overlying cellulitis. She reported feeling well when she got home and tried to take a nap. She then woke up with an intense pain in her left shoulder/neck area and described it as being "sharp," "grabbing," and feeling like "electrical shocks." It was unrelated to activity. It then radiated into her left chest and then she also felt similar symptoms in her right leg. The pain was a 10/10 at the time. She also reports taking a dose of her Bactrim antibiotic before taking her nap and noted that it made her feel nauseated and weak. Denies any history of neck or shoulder pain. Denies any fevers, chills, blurry vision, cough, SOB, vomiting, abdominal pain, diarrhea, blood in stool or blood in urine. In the ER, EKG x2 showed no acute ischemic changes, CT angio showed no PE, UA was negative and COVID-19 test was negative. CBC and CMP were unremarkable. Troponin was negative. Patient given aspirin 325 mg, morphine, nitro x3, GI cocktail, IM norflex and 1L IV NS bolus. Patient reported that her pain had improved. She was admitted for further evaluation and treatment. left shoulder Pain Score (Numeric/FACES): 5 - Related Data Allergies/Adverse Reactions: Allergies Allergy/AdvReac Type Severity Reaction Status Date / Time cephalexin [From Keflex] Allergy Hives Verified 02/14/20 17:16 ciprofloxacin [From Cipro] Allergy Hives Verified 02/14/20 17:16 Home Medications: Home Meds Esomeprazole Magnesium [Nexium] 20 mg PO DAILY 02/11/20 [History] Latanoprost/Pf [Latanoprost 0.005% Eye Drop] 1 mg EYEBOTH BEDTIME 02/11/20 [History] Rivaroxaban [Xarelto] 10 mg PO DAILY 02/11/20 [History] Verapamil HCl [Verapamil ER] 120 mg PO DAILY 02/11/20 [History] nitrofurantoin macrocrystaL [Macrodantin] 50 mg PO DAILY 02/11/20 [History] Sulfamethoxazole/Trimethoprim [Bactrim Ds Tablet] 800 mg PO BID 02/12/20 [History] Past Medical History - Past Health History Medical/Surgical History: Denies Medical/Surgical History HEENT History: Reports: None Cardiovascular History: Reports: Hypertension Genitourinary History: Reports: UTI, Recurrent Musculoskeletal History: Reports: Other (See Below) Other Musculoskeletal History: knee pain Neurological History: Reports: Migraines - Past Surgical History GI Surgical History: Reports: Appendectomy, Cholecystectomy Social & Family History - Family History Family Medical History: Noncontributory - Tobacco Use Smoking Status *Q: Never Smoker - Caffeine Use Caffeine Use: Reports: Coffee, Tea - Recreational Drug Use Recreational Drug Use: No H&P Review of Systems - Review of Systems: Review Of Systems: Comprehensive ROS is negative, except as noted in HPI. Exam - Exam Exam: See Below - Vital Signs Vital Signs: Last Vital Signs Temp 36.3 C 02/14/20 17:20 Pulse 85 02/14/20 17:20 Resp 16 02/14/20 17:20 BP 136/64 02/14/20 17:20 Pulse Ox 96 02/14/20 17:20 Weight: 84.822 kg - Exam General: Alert, Oriented, Cooperative, Other (NAD) HEENT: Conjunctiva Clear, EOMI, Posterior Pharynx Clear, Pupils Equal, Pupils Reactive Neck: Supple, Trachea Midline, Other (Pain on palpation of left trapezius muscle.) Lungs: Clear to Auscultation, Normal Respiratory Effort Cardiovascular: Regular Rate, Regular Rhythm GI/Abdominal Exam: Normal Bowel Sounds, Soft, Non-Tender, No Distention Extremities: Normal Inspection, No Pedal Edema Skin: Other (RLE: mild streak of erythema extending from posterior mid-thigh to mid-calf) Neurological: Cranial Nerves Intact, Strength Equal Bilateral, Normal Speech, Normal Tone Neuro Extensive - Mental Status: Alert, Oriented x3, Normal Mood/Affect Psychiatric: Alert, Normal Affect, Normal Mood - Patient Data Lab Results Last 24 hrs: Laboratory Results - last 24 hr 02/14/20 02/14/20 02/14/20 Range/Units 13:53 13:53 14:20 WBC 3.67 L (4.0-11.0) K/uL RBC 4.60 (4.30-5.90) M/uL Hgb 13.7 (12.0-16.0) g/dL Hct 42.4 (36.0-46.0) % MCV 92.2 (80.0-98.0) fL MCH 29.8 (27.0-32.0) pg MCHC 32.3 (31.0-37.0) g/dL RDW Std Deviation 47.0 (28.0-62.0) fl RDW Coeff of Lito 14 (11.0-15.0) % Plt Count 191 (150-400) K/uL MPV 10.20 (7.40-12.00) fL Neut % (Auto) 50.4 (48.0-80.0) % Lymph % (Auto) 39.2 (16.0-40.0) % Barry % (Auto) 2.7 (0.0-15.0) % Eos % (Auto) 7.4 H (0.0-7.0) % Baso % (Auto) 0.3 (0.0-1.5) % Neut # (Auto) 1.9 (1.4-5.7) K/uL Lymph # (Auto) 1.4 (0.6-2.4) K/uL Barry # (Auto) 0.1 (0.0-0.8) K/uL Eos # (Auto) 0.3 (0.0-0.7) K/uL Baso # (Auto) 0.0 (0.0-0.1) K/uL Nucleated RBC % 0.0 /100WBC Nucleated RBCs # 0 K/uL Sodium 138 (136-145) mmol/L Potassium 3.5 (3.5-5.1) mmol/L Chloride 105 (98-107) mmol/L Carbon Dioxide 22.2 (21.0-32.0) mmol/L BUN 12 (7.0-18.0) mg/dL Creatinine 1.0 (0.6-1.0) mg/dL Est Cr Clr Drug Dosing 42.62 mL/min Estimated GFR (MDRD) 54.2 ml/min Glucose 106 (74-106) mg/dL Calcium 7.9 L (8.5-10.1) mg/dL Total Bilirubin 0.3 (0.2-1.0) mg/dL AST 36 (15-37) IU/L ALT 104 H (14-63) IU/L Alkaline Phosphatase 181 H (46-116) U/L Troponin I < 0.050 (0.000-0.056) ng/mL Total Protein 7.6 (6.4-8.2) g/dL Albumin 3.6 (3.4-5.0) g/dL Globulin 4.0 (2.6-4.0) g/dL Albumin/Globulin Ratio 0.9 (0.9-1.6) Urine Color YELLOW Urine Appearance CLEAR Urine pH 7.5 (5.0-8.0) Ur Specific [place] 1.015 (1.001-1.035) Urine Protein NEGATIVE (NEGATIVE) mg/dL Urine Glucose (UA) NEGATIVE (NEGATIVE) mg/dL Urine Ketones NEGATIVE (NEGATIVE) mg/dL Urine Occult Blood SMALL H (NEGATIVE) Urine Nitrite NEGATIVE (NEGATIVE) Urine Bilirubin NEGATIVE (NEGATIVE) Urine Urobilinogen 0.2 (<2.0) EU/dL Ur Leukocyte Esterase NEGATIVE (NEGATIVE) Urine RBC 1-4 (0-2/HPF) Urine WBC 0-2 (0-5/HPF) Ur Epithelial Cells RARE (NONE-FEW) Urine Bacteria NOT SEEN (NEGATIVE) COVID-19 (CLAUDE) (NEGATIVE) 02/14/20 Range/Units 16:17 WBC (4.0-11.0) K/uL RBC (4.30-5.90) M/uL Hgb (12.0-16.0) g/dL Hct (36.0-46.0) % MCV (80.0-98.0) fL MCH (27.0-32.0) pg MCHC (31.0-37.0) g/dL RDW Std Deviation (28.0-62.0) fl RDW Coeff of Lito (11.0-15.0) % Plt Count (150-400) K/uL MPV (7.40-12.00) fL Neut % (Auto) (48.0-80.0) % Lymph % (Auto) (16.0-40.0) % Barry % (Auto) (0.0-15.0) % Eos % (Auto) (0.0-7.0) % Baso % (Auto) (0.0-1.5) % Neut # (Auto) (1.4-5.7) K/uL Lymph # (Auto) (0.6-2.4) K/uL Barry # (Auto) (0.0-0.8) K/uL Eos # (Auto) (0.0-0.7) K/uL Baso # (Auto) (0.0-0.1) K/uL Nucleated RBC % /100WBC Nucleated RBCs # K/uL Sodium (136-145) mmol/L Potassium (3.5-5.1) mmol/L Chloride (98-107) mmol/L Carbon Dioxide (21.0-32.0) mmol/L BUN (7.0-18.0) mg/dL Creatinine (0.6-1.0) mg/dL Est Cr Clr Drug Dosing mL/min Estimated GFR (MDRD) ml/min Glucose (74-106) mg/dL Calcium (8.5-10.1) mg/dL Total Bilirubin (0.2-1.0) mg/dL AST (15-37) IU/L ALT (14-63) IU/L Alkaline Phosphatase (46-116) U/L Troponin I (0.000-0.056) ng/mL Total Protein (6.4-8.2) g/dL Albumin (3.4-5.0) g/dL Globulin (2.6-4.0) g/dL Albumin/Globulin Ratio (0.9-1.6) Urine Color Urine Appearance Urine pH (5.0-8.0) Ur Specific [place] (1.001-1.035) Urine Protein (NEGATIVE) mg/dL Urine Glucose (UA) (NEGATIVE) mg/dL Urine Ketones (NEGATIVE) mg/dL Urine Occult Blood (NEGATIVE) Urine Nitrite (NEGATIVE) Urine Bilirubin (NEGATIVE) Urine Urobilinogen (<2.0) EU/dL Ur Leukocyte Esterase (NEGATIVE) Urine RBC (0-2/HPF) Urine WBC (0-5/HPF) Ur Epithelial Cells (NONE-FEW) Urine Bacteria (NEGATIVE) COVID-19 (CLAUDE) NEGATIVE (NEGATIVE) Result Diagrams: 02/14/20 13:53 02/14/20 13:53 Sepsis Event Note - Evaluation Sepsis Screening Result: No Definite Risk - Focused Exam Vital Signs: Vital Signs Temp Pulse Resp BP BP Pulse Ox 02/14/20 17:20 36.3 C 85 16 136/64 96 02/14/20 15:02 73 14 116/53 L 92 L 02/14/20 14:59 73 119/51 L 94 L 02/14/20 14:57 119/51 L 02/14/20 14:52 97 132/71 02/14/20 14:51 132/71 02/14/20 14:45 100 154/85 H 154/85 H 02/14/20 13:45 36.9 C 101 H 18 169/83 H 98 Date Exam was Performed: 02/14/20 Time Exam was Performed: 17:57 Problem List Initiated/Reviewed/Updated: Yes Orders Last 24hrs: Active Orders 24 hr Category Date Time Status Admission Status [Patient Status] [ADT] Stat ADT 02/14/20 15:50 Active Antiembolic Devices [RC] PER UNIT ROUTINE Care 02/14/20 17:11 Active Cardiac Monitoring [RC] . DIRECTED Care 02/14/20 13:48 Active Cardiac Monitoring [RC] . DIRECTED Care 02/14/20 17:14 Active EKG Documentation Completion [RC] STAT Care 02/14/20 13:48 Active Oxygen Therapy [RC] PRN Care 02/14/20 17:11 Active Up ad Desire [RC] ASDIRECTED Care 02/14/20 17:10 Active VTE/DVT Education [RC] PER UNIT ROUTINE Care 02/14/20 17:11 Active Vital Signs [RC] Q4H Care 02/14/20 17:11 Active Heart Healthy Diet [DIET] Diet 02/14/20 Lunch Active CBC WITH AUTO DIFF [HEME] AM Lab 02/15/20 05:11 Ordered COMPREHENSIVE METABOLIC PN,CMP [CHEM] AM Lab 02/15/20 05:11 Ordered TROPONIN I [CHEM] Q6H Lab 02/14/20 19:30 Ordered TROPONIN I [CHEM] Q6H Lab 02/15/20 01:30 Ordered Acetaminophen [Tylenol] Med 02/14/20 17:10 Active 650 mg PO Q4H PRN Ondansetron [Zofran ODT] Med 02/14/20 17:10 Active 4 mg PO Q4H PRN Ondansetron [Zofran] Med 02/14/20 17:10 Active 4 mg IVPUSH Q4H PRN Sodium Chloride 0.9% [Saline Flush] Med 02/14/20 13:48 Active 10 ml FLUSH ASDIRECTED PRN Sodium Chloride 0.9% [Saline Flush] Med 02/14/20 13:48 Active 2.5 ml FLUSH ASDIRECTED PRN bisacodyL [Dulcolax] Med 02/14/20 17:10 Active 5 mg PO DAILY PRN polyethylene glycoL 3350 [MiraLAX] Med 02/14/20 17:10 Active 17 gm PO DAILY PRN Saline Lock Insert [OM.PC] Stat Oth 02/14/20 13:48 Ordered Sequential Compression Device [OM.PC] Per Unit Routine Oth 02/14/20 17:11 Ordered Resuscitation Status Routine Resus Stat 02/14/20 17:10 Ordered Medication Orders Acetaminophen (Tylenol) 650 mg PO Q4H PRN PRN Reason: Pain (Mild 1-3)/fever Bisacodyl (Dulcolax) 5 mg PO DAILY PRN PRN Reason: Constipation Ondansetron HCl (Zofran Odt) 4 mg PO Q4H PRN PRN Reason: nausea, able to take PO Ondansetron HCl (Zofran) 4 mg IVPUSH Q4H PRN PRN Reason: Nausea Polyethylene Glycol (Miralax) 17 gm PO DAILY PRN PRN Reason: Constipation Sodium Chloride (Saline Flush) 10 ml FLUSH ASDIRECTED PRN PRN Reason: Keep Vein Open Sodium Chloride (Saline Flush) 2.5 ml FLUSH ASDIRECTED PRN PRN Reason: Keep Vein Open Assessment/Plan Comment:: Assessment and Plan: 1. Atypical chest pain, ACS r/o: - Admit to med/surg. Patient on telemetry. CT angio negative for PE. Will trend troponins q6h. 2. Left shoulder pain likely secondary to muscle spasm: - Will order cyclobenzaprine 5 mg TID prn spasm. Will order PT consult. 3. Superficial thrombophlebitis with underlying cellulitis: - Patient reports not tolerating Bactrim at home. Will start PO clindamycin 300 mg q8h. Continue Xarelto 10 mg qd. Will continue to monitor. 4. DVT prophylaxis: SCD's. 5. Past medical history of HTN: - Will continue home medications.
[2020-02-14] MEDS ORDERED: Calcium Carbonate 500 MG Tab.Chew PO ONE (18:18)
[2020-02-14] MEDS: Acetaminophen 325 MG Tab PO PRN (20:18)
[2020-02-14] MEDS: Clindamycin HCl 150 MG Cap PO SCH (20:18)
[2020-02-14] MEDS ORDERED: Latanoprost 0.005% Ophth Soln 2.5 ML Bottle EYEBOTH SCH (21:00)
[2020-02-15] MEDS: Clindamycin HCl 150 MG Cap PO SCH ×2 (04:20→13:43)
[2020-02-15 06:41] LABS: BLOOD UREA NITROGEN,BUN 8 mg/dL (7.0-18.0); CHLORIDE,CL 105 mmol/L (98-107); GLUCOSE RANDOM 95 mg/dL (74-106); POTASSIUM,K 4.1 mmol/L (3.5-5.1); SODIUM,NA 138 mmol/L (136-145)
[2020-02-15] MEDS: Acetaminophen 325 MG Tab PO PRN (08:59)
[2020-02-15] MEDS ORDERED: Rivaroxaban 10 MG Tab PO SCH (09:00)
[2020-02-15] MEDS ORDERED: Esomeprazole Magnesium [Nexium] 20 MG PO SCH (09:00)
[2020-02-15] MEDS ORDERED: Cyclobenzaprine 5 MG Tab PO PRN (09:00)
[2020-02-15] MEDS ORDERED: Verapamil 240 MG Tab.ER PO SCH (09:00)
[2020-02-15] MEDS ORDERED: Calcium Carbonate 500 MG Tab.Chew PO ONE (09:29)
--- NOTE | 2020-02-15 11:55 | PCM.DCSUM1 ---
<Hayden Alejo - Last Filed: 02/15/20 18:36> Discharge Summary - Hospital Course Free Text/Narrative:: 74-year-old female admitted for chest pain and ACS rule out. She has a PMH of HTN. Patient also complained of left shoulder/neck pain and cramping on admission. CT angio was negative for PE. COVID19 test negative. Troponins were trended and negative x3. No reported events on telemetry. Patient reported resolution of chest pain and left shoulder/neck pain on morning of discharge. Of note, patient has RLE superficial thrombophlebitis with overlying cellulitis. She is currently on Xarelto. She was previously taking Bactrim but notes that it made her feel sick. She was switched to PO clindamycin during this admission and tolerated without difficulty. Patient discharged in stable condition on PO clindamycin and advised to take OTC probiotic. She was also given a script for calcium and vitamin D as she was noted to have mild hypocalcemia. Patient to follow-up with PCP Dr. Jung on discharge. - Discharge Data Discharge Date: 02/15/20 Discharge Disposition: Home, Self-Care 01 Condition: Stable - Referral to Home Health Primary Care Physician: PCP None - Patient Summary/Data Consults: Consultations 02/14/20 18:10 Consult to Physical Therapy [PT Evaluation and Treatment] [CONS] Routine - Patient Instructions Diet: Heart Healthy Diet Activity: As Tolerated Notify Provider of: Fever, Increased Pain, Swelling and Redness, Drainage, Nausea and/or Vomiting - Discharge Plan *PRESCRIPTION DRUG MONITORING PROGRAM REVIEWED*: Not Applicable *COPY OF PRESCRIPTION DRUG MONITORING REPORT IN PATIENT NICOLETTE: Not Applicable Prescriptions/Med Rec: Calcium Carbonate/Vitamin D3 [Calcium 500 + Vit D 400] 1 each PO DAILY 30 Days #30 tablet clindamycin HCL [Cleocin] 450 mg PO Q8H 5 Days #15 cap Home Medications: Home Meds Esomeprazole Magnesium [Nexium] 20 mg PO DAILY 02/11/20 [History] Latanoprost/Pf [Latanoprost 0.005% Eye Drop] 1 mg EYEBOTH BEDTIME 02/11/20 [History] Rivaroxaban [Xarelto] 10 mg PO DAILY 02/11/20 [History] Verapamil HCl [Verapamil ER] 120 mg PO DAILY 02/11/20 [History] Calcium Carbonate/Vitamin D3 [Calcium 500 + Vit D 400] 1 each PO DAILY 30 Days #30 tablet 02/15/20 [Rx] clindamycin HCL [Cleocin] 450 mg PO Q8H 5 Days #15 cap 02/15/20 [Rx] Oxygen Therapy Mode: Room Air Patient Handouts: Calcium; Vitamin D oral tablets, Muscle Cramps and Spasms, [id number], Clindamycin capsules, Nonspecific Chest Pain, Adult, Hypocalcemia, Adult, Probiotics Forms: ED Department Discharge Referrals: America Jung DO [Ordering Only Provider] - 02/21/20 3:30 pm (Please arrive 15 mintues early and bring your insurance cards, identification and your own facemask.) - Discharge Summary/Plan Comment DC Time >30 min.: No - Patient Data Vitals - Most Recent: Last Vital Signs Temp 36.9 C 02/15/20 08:00 Pulse 80 02/15/20 08:00 Resp 16 02/15/20 08:00 BP 113/55 L 02/15/20 08:00 Pulse Ox 97 02/15/20 08:00 Weight - Most Recent: 84.822 kg I&O - Last 24 hours: Intake & Output 02/14/20 02/15/20 02/15/20 22:59 06:59 14:59 Intake Total 900 Output Total 800 Balance 100 Lab Results - Last 24 hrs: Laboratory Results - last 24 hr 02/14/20 02/14/20 02/14/20 Range/Units 13:53 13:53 14:20 WBC 3.67 L (4.0-11.0) K/uL RBC 4.60 (4.30-5.90) M/uL Hgb 13.7 (12.0-16.0) g/dL Hct 42.4 (36.0-46.0) % MCV 92.2 (80.0-98.0) fL MCH 29.8 (27.0-32.0) pg MCHC 32.3 (31.0-37.0) g/dL RDW Std Deviation 47.0 (28.0-62.0) fl RDW Coeff of Lito 14 (11.0-15.0) % Plt Count 191 (150-400) K/uL MPV 10.20 (7.40-12.00) fL Neut % (Auto) 50.4 (48.0-80.0) % Lymph % (Auto) 39.2 (16.0-40.0) % [place] % (Auto) 2.7 (0.0-15.0) % Eos % (Auto) 7.4 H (0.0-7.0) % Baso % (Auto) 0.3 (0.0-1.5) % Neut # (Auto) 1.9 (1.4-5.7) K/uL Lymph # (Auto) 1.4 (0.6-2.4) K/uL [place] # (Auto) 0.1 (0.0-0.8) K/uL Eos # (Auto) 0.3 (0.0-0.7) K/uL Baso # (Auto) 0.0 (0.0-0.1) K/uL Nucleated RBC % 0.0 /100WBC Nucleated RBCs # 0 K/uL Sodium 138 (136-145) mmol/L Potassium 3.5 (3.5-5.1) mmol/L Chloride 105 (98-107) mmol/L Carbon Dioxide 22.2 (21.0-32.0) mmol/L BUN 12 (7.0-18.0) mg/dL Creatinine 1.0 (0.6-1.0) mg/dL Est Cr Clr Drug Dosing 42.62 mL/min Estimated GFR (MDRD) 54.2 ml/min Glucose 106 (74-106) mg/dL Calcium 7.9 L (8.5-10.1) mg/dL Total Bilirubin 0.3 (0.2-1.0) mg/dL AST 36 (15-37) IU/L ALT 104 H (14-63) IU/L Alkaline Phosphatase 181 H (46-116) U/L Troponin I < 0.050 (0.000-0.056) ng/mL Total Protein 7.6 (6.4-8.2) g/dL Albumin 3.6 (3.4-5.0) g/dL Globulin 4.0 (2.6-4.0) g/dL Albumin/Globulin Ratio 0.9 (0.9-1.6) Urine Color YELLOW Urine Appearance CLEAR Urine pH 7.5 (5.0-8.0) Ur Specific [place] 1.015 (1.001-1.035) Urine Protein NEGATIVE (NEGATIVE) mg/dL Urine Glucose (UA) NEGATIVE (NEGATIVE) mg/dL Urine Ketones NEGATIVE (NEGATIVE) mg/dL Urine Occult Blood SMALL H (NEGATIVE) Urine Nitrite NEGATIVE (NEGATIVE) Urine Bilirubin NEGATIVE (NEGATIVE) Urine Urobilinogen 0.2 (<2.0) EU/dL Ur Leukocyte Esterase NEGATIVE (NEGATIVE) Urine RBC 1-4 (0-2/HPF) Urine WBC 0-2 (0-5/HPF) Ur Epithelial Cells RARE (NONE-FEW) Urine Bacteria NOT SEEN (NEGATIVE) COVID-19 (CLAUDE) (NEGATIVE) 02/14/20 02/14/20 02/15/20 Range/Units 16:17 19:34 01:33 WBC (4.0-11.0) K/uL RBC (4.30-5.90) M/uL Hgb (12.0-16.0) g/dL Hct (36.0-46.0) % MCV (80.0-98.0) fL MCH (27.0-32.0) pg MCHC (31.0-37.0) g/dL RDW Std Deviation (28.0-62.0) fl RDW Coeff of [place] (11.0-15.0) % Plt Count (150-400) K/uL MPV (7.40-12.00) fL Neut % (Auto) (48.0-80.0) % Lymph % (Auto) (16.0-40.0) % [place] % (Auto) (0.0-15.0) % Eos % (Auto) (0.0-7.0) % Baso % (Auto) (0.0-1.5) % Neut # (Auto) (1.4-5.7) K/uL Lymph # (Auto) (0.6-2.4) K/uL [place] # (Auto) (0.0-0.8) K/uL Eos # (Auto) (0.0-0.7) K/uL Baso # (Auto) (0.0-0.1) K/uL Nucleated RBC % /100WBC Nucleated RBCs # K/uL Sodium (136-145) mmol/L Potassium (3.5-5.1) mmol/L Chloride (98-107) mmol/L Carbon Dioxide (21.0-32.0) mmol/L BUN (7.0-18.0) mg/dL Creatinine (0.6-1.0) mg/dL Est Cr Clr Drug Dosing mL/min Estimated GFR (MDRD) ml/min Glucose (74-106) mg/dL Calcium (8.5-10.1) mg/dL Total Bilirubin (0.2-1.0) mg/dL AST (15-37) IU/L ALT (14-63) IU/L Alkaline Phosphatase (46-116) U/L Troponin I < 0.050 < 0.050 (0.000-0.056) ng/mL Total Protein (6.4-8.2) g/dL Albumin (3.4-5.0) g/dL Globulin (2.6-4.0) g/dL Albumin/Globulin Ratio (0.9-1.6) Urine Color Urine Appearance Urine pH (5.0-8.0) Ur Specific [place] (1.001-1.035) Urine Protein (NEGATIVE) mg/dL Urine Glucose (UA) (NEGATIVE) mg/dL Urine Ketones (NEGATIVE) mg/dL Urine Occult Blood (NEGATIVE) Urine Nitrite (NEGATIVE) Urine Bilirubin (NEGATIVE) Urine Urobilinogen (<2.0) EU/dL Ur Leukocyte Esterase (NEGATIVE) Urine RBC (0-2/HPF) Urine WBC (0-5/HPF) Ur Epithelial Cells (NONE-FEW) Urine Bacteria (NEGATIVE) COVID-19 (CLAUDE) NEGATIVE (NEGATIVE) 02/15/20 02/15/20 Range/Units 06:05 06:05 WBC 5.03 (4.0-11.0) K/uL RBC 4.15 L (4.30-5.90) M/uL Hgb 12.1 (12.0-16.0) g/dL Hct 37.8 (36.0-46.0) % MCV 91.1 (80.0-98.0) fL MCH 29.2 (27.0-32.0) pg MCHC 32.0 (31.0-37.0) g/dL RDW Std Deviation 45.8 (28.0-62.0) fl RDW Coeff of Lito 14 (11.0-15.0) % Plt Count 172 (150-400) K/uL MPV 9.80 (7.40-12.00) fL Neut % (Auto) 84.7 H (48.0-80.0) % Lymph % (Auto) 8.3 L (16.0-40.0) % [place] % (Auto) 5.4 (0.0-15.0) % Eos % (Auto) 1.6 (0.0-7.0) % Baso % (Auto) 0.0 (0.0-1.5) % Neut # (Auto) 4.3 (1.4-5.7) K/uL Lymph # (Auto) 0.4 L (0.6-2.4) K/uL [place] # (Auto) 0.3 (0.0-0.8) K/uL Eos # (Auto) 0.1 (0.0-0.7) K/uL Baso # (Auto) 0.0 (0.0-0.1) K/uL Nucleated RBC % 0.0 /100WBC Nucleated RBCs # 0 K/uL Sodium 138 (136-145) mmol/L Potassium 4.1 (3.5-5.1) mmol/L Chloride 105 (98-107) mmol/L Carbon Dioxide 23.0 (21.0-32.0) mmol/L BUN 8 (7.0-18.0) mg/dL Creatinine 0.9 (0.6-1.0) mg/dL Est Cr Clr Drug Dosing 47.36 mL/min Estimated GFR (MDRD) > 60.0 ml/min Glucose 95 (74-106) mg/dL Calcium 7.2 L (8.5-10.1) mg/dL Total Bilirubin 0.5 (0.2-1.0) mg/dL AST 71 H (15-37) IU/L ALT 121 H (14-63) IU/L Alkaline Phosphatase 159 H (46-116) U/L Troponin I (0.000-0.056) ng/mL Total Protein 6.3 L (6.4-8.2) g/dL Albumin 3.0 L (3.4-5.0) g/dL Globulin 3.3 (2.6-4.0) g/dL Albumin/Globulin Ratio 0.9 (0.9-1.6) Urine Color Urine Appearance Urine pH (5.0-8.0) Ur Specific [place] (1.001-1.035) Urine Protein (NEGATIVE) mg/dL Urine Glucose (UA) (NEGATIVE) mg/dL Urine Ketones (NEGATIVE) mg/dL Urine Occult Blood (NEGATIVE) Urine Nitrite (NEGATIVE) Urine Bilirubin (NEGATIVE) Urine Urobilinogen (<2.0) EU/dL Ur Leukocyte Esterase (NEGATIVE) Urine RBC (0-2/HPF) Urine WBC (0-5/HPF) Ur Epithelial Cells (NONE-FEW) Urine Bacteria (NEGATIVE) COVID-19 (CLAUDE) (NEGATIVE) Med Orders - Current: Current Medications Acetaminophen (Tylenol) 650 mg PO Q4H PRN PRN Reason: Pain (Mild 1-3)/fever Last Admin: 02/15/20 08:59 Dose: 650 mg Documented by: Bisacodyl (Dulcolax) 5 mg PO DAILY PRN PRN Reason: Constipation Clindamycin HCl (Cleocin) 450 mg PO Q8H [facility] Last Admin: 02/15/20 04:20 Dose: 450 mg Documented by: Cyclobenzaprine HCl (Flexeril) 5 mg PO TID PRN PRN Reason: Spasms Latanoprost (Xalatan 0.005% Ophth Soln) 0 ml EYEBOTH BEDTIME [facility] Last Admin: 02/14/20 21:10 Dose: Not Given Documented by: Ondansetron HCl (Zofran Odt) 4 mg PO Q4H PRN PRN Reason: nausea, able to take PO Ondansetron HCl (Zofran) 4 mg IVPUSH Q4H PRN PRN Reason: Nausea Esomeprazole Magnesium [Nexium] 20 Mg 1 each PO DAILY [facility] Last Admin: 02/15/20 09:01 Dose: 1 each Documented by: Polyethylene Glycol (Miralax) 17 gm PO DAILY PRN PRN Reason: Constipation Rivaroxaban (Xarelto) 10 mg PO DAILY [facility] Last Admin: 02/15/20 08:59 Dose: 10 mg Documented by: Sodium Chloride (Saline Flush) 10 ml FLUSH ASDIRECTED PRN PRN Reason: Keep Vein Open Sodium Chloride (Saline Flush) 2.5 ml FLUSH ASDIRECTED PRN PRN Reason: Keep Vein Open Verapamil HCl (Calan Sr) 120 mg PO DAILY [facility] Last Admin: 02/15/20 08:58 Dose: 120 mg Documented by: Discontinued Medications Aspirin (Aspirin) 324 mg PO ONETIME ONE Stop: 02/14/20 14:08 Last Admin: 02/14/20 14:41 Dose: 324 mg Documented by: Calcium Carbonate/Glycine (Tums) 1,000 mg PO ONETIME ONE Stop: 02/14/20 18:19 Last Admin: 02/14/20 18:29 Dose: 1,000 mg Documented by: Calcium Carbonate/Glycine (Tums) 1,000 mg PO ONETIME ONE Stop: 02/15/20 09:30 Last Admin: 02/15/20 09:45 Dose: 1,000 mg Documented by: Al Hydroxide/Mg Hydroxide 15 (ml/ Lidocaine HCl 5 ml) 0 ml PO ONETIME ONE Stop: 02/14/20 15:07 Last Admin: 02/14/20 15:35 Dose: 1 each Documented by: Sodium Chloride (Normal Saline) 1,000 mls @ 999 mls/hr IV STAT ONE Stop: 02/14/20 15:12 Last Admin: 02/14/20 14:43 Dose: 999 mls/hr Documented by: Iopamidol (Isovue-370 (76%)) 75 ml IVPUSH ONETIME STA Stop: 02/14/20 14:47 Last Admin: 02/14/20 17:30 Dose: Not Given Documented by: Iopamidol (Isovue-370 (76%)) 75 ml IVPUSH ONETIME STA Stop: 02/14/20 14:48 Last Admin: 02/14/20 14:47 Dose: 75 ml Documented by: Morphine Sulfate (Morphine) 2 mg IVPUSH ONETIME ONE Stop: 02/14/20 15:07 Last Admin: 02/14/20 15:36 Dose: 1 mg Documented by: Nitroglycerin (Nitrostat) 0.4 mg SL Q5M PRN PRN Reason: Chest Pain Last Admin: 02/14/20 14:57 Dose: 0.4 mg Documented by: Orphenadrine Citrate (Norflex) 60 mg IM ONETIME ONE Stop: 02/14/20 15:47 Last Admin: 02/14/20 16:02 Dose: 60 mg Documented by: <Zayda Lang - Last Filed: 02/16/20 11:22> Discharge Summary - Hospital Course Free Text/Narrative:: I have seen and evaluated the patient and agree with the residents note unless specified in my note - Referral to Home Health Primary Care Physician: PCP None - Patient Summary/Data Consults: Consultations 02/14/20 18:10 Consult to Physical Therapy [PT Evaluation and Treatment] [CONS] Routine - Patient Data Vitals - Most Recent: Last Vital Signs Temp 36.9 C 02/15/20 08:00 Pulse 80 02/15/20 08:00 Resp 16 02/15/20 08:00 BP 113/55 L 02/15/20 08:00 Pulse Ox 97 02/15/20 08:00 Med Orders - Current: Current Medications Discontinued Medications Acetaminophen (Tylenol) 650 mg PO Q4H PRN PRN Reason: Pain (Mild 1-3)/fever Last Admin: 02/15/20 08:59 Dose: 650 mg Documented by: Aspirin (Aspirin) 324 mg PO ONETIME ONE Stop: 02/14/20 14:08 Last Admin: 02/14/20 14:41 Dose: 324 mg Documented by: Bisacodyl (Dulcolax) 5 mg PO DAILY PRN PRN Reason: Constipation Calcium Carbonate/Glycine (Tums) 1,000 mg PO ONETIME ONE Stop: 02/14/20 18:19 Last Admin: 02/14/20 18:29 Dose: 1,000 mg Documented by: Calcium Carbonate/Glycine (Tums) 1,000 mg PO ONETIME ONE Stop: 02/15/20 09:30 Last Admin: 02/15/20 09:45 Dose: 1,000 mg Documented by: Clindamycin HCl (Cleocin) 450 mg PO Q8H [facility] Last Admin: 02/15/20 13:43 Dose: 450 mg Documented by: Al Hydroxide/Mg Hydroxide 15 (ml/ Lidocaine HCl 5 ml) 0 ml PO ONETIME ONE Stop: 02/14/20 15:07 Last Admin: 02/14/20 15:35 Dose: 1 each Documented by: Cyclobenzaprine HCl (Flexeril) 5 mg PO TID PRN PRN Reason: Spasms Sodium Chloride (Normal Saline) 1,000 mls @ 999 mls/hr IV STAT ONE Stop: 02/14/20 15:12 Last Admin: 02/14/20 14:43 Dose: 999 mls/hr Documented by: Iopamidol (Isovue-370 (76%)) 75 ml IVPUSH ONETIME STA Stop: 02/14/20 14:47 Last Admin: 02/14/20 17:30 Dose: Not Given Documented by: Iopamidol (Isovue-370 (76%)) 75 ml IVPUSH ONETIME STA Stop: 02/14/20 14:48 Last Admin: 02/14/20 14:47 Dose: 75 ml Documented by: Latanoprost (Xalatan 0.005% Ophth Soln) 0 ml EYEBOTH BEDTIME [facility] Last Admin: 02/14/20 21:10 Dose: Not Given Documented by: Morphine Sulfate (Morphine) 2 mg IVPUSH ONETIME ONE Stop: 02/14/20 15:07 Last Admin: 02/14/20 15:36 Dose: 1 mg Documented by: Nitroglycerin (Nitrostat) 0.4 mg SL Q5M PRN PRN Reason: Chest Pain Last Admin: 02/14/20 14:57 Dose: 0.4 mg Documented by: Ondansetron HCl (Zofran Odt) 4 mg PO Q4H PRN PRN Reason: nausea, able to take PO Ondansetron HCl (Zofran) 4 mg IVPUSH Q4H PRN PRN Reason: Nausea Orphenadrine Citrate (Norflex) 60 mg IM ONETIME ONE Stop: 02/14/20 15:47 Last Admin: 02/14/20 16:02 Dose: 60 mg Documented by: Esomeprazole Magnesium [Nexium] 20 Mg 1 each PO DAILY [facility] Last Admin: 02/15/20 09:01 Dose: 1 each Documented by: Polyethylene Glycol (Miralax) 17 gm PO DAILY PRN PRN Reason: Constipation Rivaroxaban (Xarelto) 10 mg PO DAILY [facility] Last Admin: 02/15/20 08:59 Dose: 10 mg Documented by: Sodium Chloride (Saline Flush) 10 ml FLUSH ASDIRECTED PRN PRN Reason: Keep Vein Open Sodium Chloride (Saline Flush) 2.5 ml FLUSH ASDIRECTED PRN PRN Reason: Keep Vein Open Verapamil HCl (Calan Sr) 120 mg PO DAILY [facility] Last Admin: 02/15/20 08:58 Dose: 120 mg Documented by:
== END 2020-02-15 16:30 | disposition home or self-care (01) ==
LOC: MW.ED 13:43 → MW.MS 15:50
PROVIDERS: ADMIT Internal Medicine; ATTEND Internal Medicine
DX: R07.89 Other chest pain (principal); M62.838 Other muscle spasm; M25.512 Pain in left shoulder; I80.01 Phlebitis and thrombophlebitis of superficial vessels of right lower extremity; I10 Essential (primary) hypertension; E83.51 Hypocalcemia; Z20.828 Contact with and (suspected) exposure to other viral communicable diseases; Z88.1 Allergy status to other antibiotic agents; Z79.899 Other long term (current) drug therapy
CPT/HCPCS: 36415; 71275; 80053; 81001; 84484; 85025; 93005; 96361; 96372; 96374; 97161; 99285; A9270; G0378; J2270; J2360; J7030; Q9967; U0002

== ENCOUNTER 2021-05-03 04:09 | Emergency (ER) | payer MEDICARE, OTHER ==
--- NOTE | 2021-05-03 04:20 | EDM.PDOC ---
ED HPI GENERAL MEDICAL PROBLEM - General Chief Complaint: Gastrointestinal Problem Stated Complaint: NAUSEA AND VOMITING Time Seen by Provider: 05/03/21 04:19 Source of Information: Reports: Patient History Limitations: Reports: No Limitations - History of Present Illness INITIAL COMMENTS - FREE TEXT/NARRATIVE: 75-year-old female presents with nausea, vomiting, diarrhea, generalized weakness in setting of known COVID-19 infection. Patient states that she is been feeling ill for roughly 1 week. She received her positive COVID-19 diagnosis on April 26. Patient notes a mild nonproductive cough but denies any chest pain or shortness of breath. She does note some abdominal cramping pains but denies severe abdominal pain. Primary complaint is difficulty tolerating p.o. secondary to nausea, decreased appetite, diarrhea. She has not had any antiemetics at home. Patient does note that by EMS she received a 500 cc bolus and 8 mg of Zofran and does feel better. She did not get the COVID-19 vaccination. - Related Data Allergies Allergy/AdvReac Type Severity Reaction Status Date / Time cephalexin [From Keflex] Allergy Hives Verified 05/03/21 04:23 ciprofloxacin [From Cipro] Allergy Hives Verified 05/03/21 04:23 Home Meds: Home Meds Esomeprazole Magnesium [Nexium] 20 mg PO DAILY 02/11/20 [History] Latanoprost/Pf [Latanoprost 0.005% Eye Drop] 1 mg EYEBOTH BEDTIME 02/11/20 [History] Rivaroxaban [Xarelto] 10 mg PO DAILY 02/11/20 [History] Verapamil HCl [Verapamil ER] 120 mg PO DAILY 02/11/20 [History] Calcium Carbonate/Vitamin D3 [Calcium 500 + Vit D 400] 1 each PO DAILY 30 Days #30 tablet 02/15/20 [Rx] Ondansetron [Zofran Odt] 8 mg PO Q6H PRN #12 tab.rapdis 05/03/21 [Rx] Past Medical History - Past Health History Medical/Surgical History: Denies Medical/Surgical History HEENT History: Reports: None Cardiovascular History: Reports: Hypertension Genitourinary History: Reports: UTI, Recurrent Musculoskeletal History: Reports: Other (See Below) Other Musculoskeletal History: knee pain Neurological History: Reports: Migraines - Past Surgical History GI Surgical History: Reports: Appendectomy, Cholecystectomy Social & Family History - Family History Family Medical History: No Pertinent Family History - Caffeine Use Caffeine Use: Reports: Coffee, Tea ED ROS GENERAL - Review of Systems Review Of Systems: Comprehensive ROS is negative, except as noted in HPI. ED EXAM, GENERAL - Physical Exam Exam: See Below Exam Limited By: No Limitations General Appearance: Alert, WD/WN, No Apparent Distress Ears: Hearing Grossly Normal Throat/Mouth: Normal Voice, No Airway Compromise Head: Atraumatic, Normocephalic Respiratory/Chest: No Respiratory Distress, Lungs Clear, Normal Breath Sounds, No Accessory Muscle Use Cardiovascular: Normal Peripheral Pulses, Regular Rate, Rhythm GI/Abdominal: Soft, Non-Tender Extremities: Normal Inspection Neurological: Alert, Normal Cognition Psychiatric: Normal Affect, Normal Mood Skin Exam: Warm, Dry, Intact, Normal Color Course - Vital Signs Last Recorded V/S: Last Vital Signs Temp 97.4 F 05/03/21 04:17 Pulse 93 05/03/21 04:17 Resp 18 05/03/21 04:17 BP 131/65 05/03/21 04:17 Pulse Ox 94 L 05/03/21 04:17 - Orders/Labs/Meds Orders: Active Orders 24 hr Category Date Time Status Magnesium Oxide Med 05/03/21 04:57 Once 400 mg PO ONETIME ONE Potassium Chloride [Klor-Con M20] Med 05/03/21 04:57 Once 40 meq PO ONETIME ONE Saline Lock Insert [OM.PC] Stat Oth 05/03/21 04:24 Ordered Labs: Laboratory Tests 05/03/21 05/03/21 Range/Units 04:12 04:12 WBC 5.24 (4.0-11.0) K/uL RBC 4.98 (4.30-5.90) M/uL Hgb 14.8 (12.0-16.0) g/dL Hct 41.6 (36.0-46.0) % MCV 83.5 (80.0-98.0) fL MCH 29.7 (27.0-32.0) pg MCHC 35.6 (31.0-37.0) g/dL RDW Std Deviation 41.7 (28.0-62.0) fl RDW Coeff of Lito 14 (11.0-15.0) % Plt Count 150 (150-400) K/uL MPV 9.90 (7.40-12.00) fL Neut % (Auto) 83.7 H (48.0-80.0) % Lymph % (Auto) 9.2 L (16.0-40.0) % [place] % (Auto) 7.1 (0.0-15.0) % Eos % (Auto) 0.0 (0.0-7.0) % Baso % (Auto) 0.0 (0.0-1.5) % Neut # (Auto) 4.4 (1.4-5.7) K/uL Lymph # (Auto) 0.5 L (0.6-2.4) K/uL [place] # (Auto) 0.4 (0.0-0.8) K/uL Eos # (Auto) 0.0 (0.0-0.7) K/uL Baso # (Auto) 0.0 (0.0-0.1) K/uL Nucleated RBC % 0.0 /100WBC Nucleated RBCs # 0 K/uL Sodium 128 L (136-145) mmol/L Potassium 3.4 L (3.5-5.1) mmol/L Chloride 94 L (98-107) mmol/L Carbon Dioxide 19.0 L (21.0-32.0) mmol/L BUN 8 (7.0-18.0) mg/dL Creatinine 0.9 (0.6-1.0) mg/dL Est Cr Clr Drug Dosing 44.68 mL/min Estimated GFR (MDRD) > 60.0 ml/min Glucose 140 H (74-106) mg/dL Calcium 7.4 L (8.5-10.1) mg/dL Magnesium 1.7 L (1.8-2.4) mg/dL Total Bilirubin 0.4 (0.2-1.0) mg/dL AST 184 H (15-37) IU/L ALT 191 H (14-63) IU/L Alkaline Phosphatase 191 H (46-116) U/L Total Protein 6.9 (6.4-8.2) g/dL Albumin 3.2 L (3.4-5.0) g/dL Globulin 3.7 (2.6-4.0) g/dL Albumin/Globulin Ratio 0.9 (0.9-1.6) Meds: Medications Discontinued Medications Generic Name Dose Route Start Last Admin Trade Name Freq PRN Reason Stop Dose Admin Sodium Chloride 500 mls @ 999 mls/hr 05/03/21 04:24 05/03/21 04:32 Normal Saline IV 05/03/21 04:54 999 mls/hr .Bolus ONE Administration Promethazine HCl 25 mg 05/03/21 04:25 05/03/21 04:30 Promethazine 25 Mg Tab PO 05/03/21 04:26 25 mg STAT STA Administration - Re-Assessments/Exams Free Text/Narrative Re-Assessment/Exam: 05/03/21 04:27 Patient is well-appearing with normal vital signs. Will give additional 500 cc bolus. Will get basic labs to ensure no hypokalemia or hypomagnesemia. Will trial Phenergan for better control of nausea. Will p.o. challenge. 05/03/21 04:57 Patient with mild hypokalemia, hypomagnesemia, hyponatremia. P.o. potassium and magnesium ordered. Patient did receive 1000 cc fluid bolus. Will discharge with Zofran and instructions to stay well-hydrated. Departure - Departure Time of Disposition: 04:58 Disposition: Home, Self-Care 01 Condition: Good Clinical Impression: COVID-19, Hypokalemia, Hypomagnesemia, Hyponatremia Diarrhea Qualifiers: Diarrhea type: unspecified type Qualified Code(s): R19.7 - Diarrhea, unspecified - Discharge Information Prescriptions: Ondansetron [Zofran Odt] 8 mg PO Q6H PRN #12 tab.rapdis PRN Reason: Nausea Instructions: COVID-19: What to Do If You Are Sick- [facility] (09/27/2020) Referrals: PCP,None [Primary Care Provider] - Forms: ED Department Discharge Additional Instructions: Your labs show low levels of most of your electrolytes. These were given to you in the emergency department for replacement. I sent a prescription to your pharmacy for medication called Zofran that can help with your nausea. You can also consider [id number] loperamide or Imodium to help with any diarrhea. The following information is given to patients seen in the emergency department who are being discharged to home. This information is to outline your options for follow-up care. We provide all patients seen in our emergency department with a follow-up referral. The need for follow-up, as well as the timing and circumstances, are variable depending upon the specifics of your emergency department visit. If you don't have a primary care physician on staff, we will provide you with a referral. We always advise you to contact your personal physician following an emergency department visit to inform them of the circumstance of the visit and for follow-up with them and/or the need for any referrals to a consulting specialist. The emergency department will also refer you to a specialist when appropriate. This referral assures that you have the opportunity for follow-up care with a specialist. All of these measure are taken in an effort to provide you with optimal care, which includes your follow-up. Under all circumstances we always encourage you to contact your private physician who remains a resource for coordinating your care. When calling for follow-up care, please make the office aware that this follow-up is from your recent emergency room visit. If for any reason you are refused follow-up, please contact the [facility] Emergency Department at and asked to speak to the emergency department charge nurse. Please follow up with your primary care physician. If you do not have a primary care physician, see below: [facility] [address] [place] [id number] My [facility] [address] [place] [id number] [facility] [address] [place] [id number] Sepsis Event Note (ED) - Focused Exam Vital Signs: Vital Signs Temp Pulse Resp BP Pulse Ox 05/03/21 04:17 97.4 F 93 18 131/65 94 L - My Orders Last 24 Hours: My Active Orders 05/03/21 04:24 Saline Lock Insert [OM.PC] Stat 05/03/21 04:57 Magnesium Oxide 400 mg PO ONETIME ONE Potassium Chloride [Klor-Con M20] 40 meq PO ONETIME ONE - Assessment/Plan Last 24 Hours: My Active Orders 05/03/21 04:24 Saline Lock Insert [OM.PC] Stat 05/03/21 04:57 Magnesium Oxide 400 mg PO ONETIME ONE Potassium Chloride [Klor-Con M20] 40 meq PO ONETIME ONE
[2021-05-03] MEDS ORDERED: Sodium Chloride 0.9% 500 ML IV ONE (04:24)
[2021-05-03] MEDS ORDERED: Promethazine 25 MG Tab PO STA (04:25)
[2021-05-03 04:43] LABS: BLOOD UREA NITROGEN,BUN 8 mg/dL (7.0-18.0); CHLORIDE,CL 94 mmol/L (98-107); GLUCOSE RANDOM 140 mg/dL (74-106); POTASSIUM,K 3.4 mmol/L (3.5-5.1); SODIUM,NA 128 mmol/L (136-145)
[2021-05-03] MEDS ORDERED: Magnesium Oxide 400 MG Tab PO ONE (04:57)
[2021-05-03] MEDS ORDERED: Potassium Chloride 20 MEQ Tab.ER PO ONE (04:57)
[2021-05-03] MEDS ORDERED: Potassium Chloride 20 MEQ Tab.ER ONE (05:08)
== END 2021-05-03 05:30 | disposition home or self-care (01) ==
LOC: MW.ED 04:09
DX: U07.1 COVID-19 (principal); R19.7 Diarrhea, unspecified; E87.1 Hypo-osmolality and hyponatremia; E87.6 Hypokalemia; E83.42 Hypomagnesemia; I10 Essential (primary) hypertension; Z88.1 Allergy status to other antibiotic agents; Z79.01 Long term (current) use of anticoagulants; Z79.899 Other long term (current) drug therapy
CPT/HCPCS: 36415; 80053; 83735; 85025; 99285; A9270; J7030

== ENCOUNTER 2021-05-04 16:57 | Inpatient (IN) | payer MEDICARE, OTHER ==
[2021-05-04] MEDS ORDERED: Sodium Chloride 0.9% 2.5 ML Syringe FLUSH PRN (17:17)
[2021-05-04] MEDS ORDERED: Sodium Chloride 0.9% 10 ML Syringe FLUSH PRN (17:17)
[2021-05-04] MEDS ORDERED: Sodium Chloride 0.9% 500 ML IV STA (17:18)
[2021-05-04] MEDS ORDERED: Ondansetron 4 MG/2 ML SDV IVPUSH ONE ×2 (17:20→19:28)
--- NOTE | 2021-05-04 17:26 | EDM.PDOC ---
ED HPI GENERAL MEDICAL PROBLEM - General Chief Complaint: Respiratory Problem Stated Complaint: COVID POS, CHEST PAIN, OXYGEN STATS DROPPING Time Seen by Provider: 05/04/21 17:06 Source of Information: Reports: Patient History Limitations: Reports: No Limitations - History of Present Illness INITIAL COMMENTS - FREE TEXT/NARRATIVE: HISTORY AND PHYSICAL: History of present illness: Patient is a 75-year-old female with a history of Covid positive on 04/26/2021 presents to the emergency room for complaints of ongoing shortness of breath. The patient was seen in the emergency room yesterday and was treated for hypomagnesia and hypokalemia. The patient was sent home with instructions that if her portable SPO2 monitor dropped below 90 she should return to the emergency department. The patient states that her symptoms of cough and shortness of breath started a week ago Friday. This is the ninth day of the patient's symptoms. Patient does state that she has nausea and vomiting and diarrhea. She has had this intermittently for about 7 days. The patient states that she has chest pain when she takes a deep breath. Patient denies any fever, chills, headache, change in vision, syncope or near syncope. Denies back pain, shortness of breath or cough. Denies any abdominal pain, nausea, vomiting, diarrhea, constipation or dysuria. Has not noted any blood in urine or stool. Patient has been eating and drinking appropriately. Review of systems: As per history of present illness and below otherwise all systems reviewed and negative. Past medical history: As per history of present illness and as reviewed below otherwise noncontributory. Surgical history: As per history of present illness and as reviewed below otherwise noncontributory. Social history: See social history for further information Family history: As per history of present illness and as reviewed below otherwise noncontributory. Physical exam: General: Well developed and well nourished. Alert and orientated x 3. Nontoxic in appearance and in no acute distress. Vital signs are stable and have been reviewed by me. Nursing notes were reviewed. HEENT: Atraumatic, normocephalic, pupils equal and reactive bilaterally, negative for conjunctival pallor or scleral icterus, mucous membranes moist, TMs normal bilaterally, throat clear, neck supple, nontender, trachea midline. No drooling or trismus noted. No meningeal signs. No hot potato voice noted. Lungs: Clear to auscultation bilaterally. No wheezes, rales, or rhonchi. Chest nontender. Normal work of breathing, no accessory muscles used. Heart: S1S2, regular rate and rhythm without overt murmur, gallops, or rubs. No JVD. No peripheral edema Abdomen: Soft, nondistended, nontender. Normoactive bowel sounds. Negative for masses or costovertebral tenderness. Skin: Intact, warm, dry. No lesions or rashes noted. Hematologic: No petechiae or purpra. Mucosa appropriate color and normal nail bed color and refill. Extremities: Atraumatic, moves all extremities per self without difficulty or deficits, negative for cords or calf pain. Neurovascular unremarkable. Neuro: Awake, alert, oriented. Cranial nerves II through XII unremarkable. Cerebellum unremarkable. Motor and sensory unremarkable throughout. Exam nonfocal. Psychiatric: Mood and affect are appropriate. Normal thought process. Answering questions appropriately. Notes: *This patient was seen and evaluated during the 2019 SARS-CoV-2 novel coronavirus pandemic period. Community viral transmission is ongoing at time of this encounter and the emergency department is operating under pandemic response procedures. Stated above the patient is a 75-year-old female who was seen in the emergency department yesterday for complaints of Covid, shortness of breath, general body aches. She was treated for hypomagnesia and hypokalemia sent home with instructions that if her SPO2 dropped below 90% on her portable SPO2 device she should return to the emergency department. The patient states that she just generally feels worse today and that at times her O2 sat dropped down to 88 to 85% she said it would pop back up but it has been dropping down more frequently. The patient states she is unable to eat or drink. This is the 10th day of the patient's symptoms. We will do repeat blood work along with a troponin. We will obtain an EKG due to chest pain. We will also do in PE study. At present the patient was 88% in the emergency department on room air so we have given her 2 L per nasal cannula which increased her O2 sat to 95%. Patient CBC is unremarkable. The patient sodium is 128, potassium 3.3, chloride 95, carbon dioxide 17.8 glucose 120, calcium 8.4, AST 119, ALT 143, alkaline phosphatase 193. Troponin within normal limits. Chest CT: IMPRESSION: 1. No pulmonary embolism. 2. Airspace and interstitial opacities may be COVID-19 pneumonia or other atypical pneumonia. Alveolar proteinosis can look similar. Edema felt less likely given the normal caliber pulmonary vessels. As the patient requires 2 to 3 L of oxygen to maintain her O2 sat above 90% and is unable to take any oral fluids. She is complaining of nausea again. I have contacted Dr. Denia Stark for hospitalization. He is agreeable. As the patient's AST and ALT are not 5 times the greater limit we will order remdesivir for the patient. Dr. Stark requested dexamethasone 6 mg. I have ordered this. I informed Serneity the patient's caregiver of the patient being admitted. Diagnostics: CBC, CMP, troponin, magnesium, EKG, PE study Therapeutics: IV fluids, Zofran, 2 L O2, dexamethasone 6 mg IV, Zofran 4 mg repeat dose, remdesivir 200 mg IV Impression: Hypoxia, COVID Pneumonia, hyponatremia, hypokalemia Definitive disposition and diagnosis as appropriate pending reevaluation and review of above. Headache Pain Score (Numeric/FACES): 3 - Related Data Allergies Allergy/AdvReac Type Severity Reaction Status Date / Time cephalexin [From Keflex] Allergy Hives Verified 05/04/21 17:10 ciprofloxacin [From Cipro] Allergy Hives Verified 05/04/21 17:10 sulfamethoxazole Allergy Nausea and Verified 05/04/21 22:33 [From Bactrim] Vomiting sumatriptan Allergy Hives Verified 05/04/21 22:33 trimethoprim [From Bactrim] Allergy Nausea and Verified 05/04/21 22:33 Vomiting Home Meds: Home Meds Verapamil HCl [Verapamil ER] 120 mg PO DAILY 02/11/20 [History] Calcium Carbonate/Vitamin D3 [Calcium 500 + Vit D 400] 1 each PO DAILY 30 Days #30 tablet 02/15/20 [Rx] Esomeprazole Magnesium [Nexium] 20 mg PO ACBREAKFAST 05/04/21 [History] nitrofurantoin macrocrystaL [Nitrofurantoin] 50 mg PO DAILY 05/04/21 [History] Past Medical History - Past Health History Medical/Surgical History: Denies Medical/Surgical History HEENT History: Reports: None Cardiovascular History: Reports: Hypertension Genitourinary History: Reports: UTI, Recurrent Musculoskeletal History: Reports: Other (See Below) Other Musculoskeletal History: knee pain Neurological History: Reports: Migraines - Infectious Disease History Infectious Disease History: Reports: None - Past Surgical History Cardiovascular Surgical History: Reports: None GI Surgical History: Reports: Appendectomy, Cholecystectomy Other GI Surgeries/Procedures: 3 intestional blockages that have been surgically fixed. Social & Family History - Family History Family Medical History: No Pertinent Family History - Caffeine Use Caffeine Use: Reports: None - Recreational Drug Use Recreational Drug Use: No ED ROS GENERAL - Review of Systems Review Of Systems: Comprehensive ROS is negative, except as noted in HPI. ED EXAM, GENERAL - Physical Exam Exam: See Below (See dictation) Course - Vital Signs Last Recorded V/S: Last Vital Signs Temp 97.3 F 05/13/21 16:00 Pulse 79 05/13/21 16:00 Resp 20 05/13/21 16:00 BP 133/61 05/13/21 16:00 Pulse Ox 90 L 05/13/21 16:00 - Orders/Labs/Meds Orders: Medication Orders Acetaminophen (Acetaminophen 325 Mg Tab) 650 mg PO Q4H PRN PRN Reason: Pain (Mild 1-3)/fever Last Admin: 05/06/21 23:44 Dose: 650 mg Documented by: Admin: 05/05/21 21:38 Dose: 650 mg Documented by: Admin: 05/05/21 03:41 Dose: 650 mg Documented by: Admin: 05/04/21 23:32 Dose: 650 mg Documented by: ERWIN Albuterol/Ipratropium (Albuterol/Ipratropium 4 Gm Inhalation [place]) 0 gm INH Q6HRRT EBEN Last Admin: 05/13/21 17:23 Dose: 1 puff Documented by: Admin: 05/13/21 11:30 Dose: 1 puff Documented by: Admin: 05/13/21 06:24 Dose: 1 puff Documented by: Admin: 05/13/21 00:10 Dose: 1 puff Documented by: Admin: 05/12/21 17:33 Dose: 1 puff Documented by: Admin: 05/12/21 11:45 Dose: 1 puff Documented by: Admin: 05/12/21 05:08 Dose: 1 puff Documented by: Admin: 05/11/21 23:00 Dose: 1 puff Documented by: Admin: 05/11/21 18:01 Dose: 1 puff Documented by: Admin: 05/11/21 13:13 Dose: 1 puff Documented by: Admin: 05/11/21 06:29 Dose: 1 puff Documented by: Admin: 05/10/21 23:15 Dose: 1 puff Documented by: Admin: 05/10/21 16:59 Dose: 1 puff Documented by: Admin: 05/10/21 13:07 Dose: 1 puff Documented by: Admin: 05/10/21 06:33 Dose: 1 puff Documented by: Admin: 05/10/21 00:02 Dose: 1 puff Documented by: Admin: 05/09/21 17:03 Dose: 1 puff Documented by: Admin: 05/09/21 11:21 Dose: 1 puff Documented by: Admin: 05/09/21 06:06 Dose: 1 puff Documented by: Admin: 05/08/21 23:47 Dose: 1 puff Documented by: Admin: 05/08/21 17:07 Dose: 1 puff Documented by: Admin: 05/08/21 11:20 Dose: 1 puff Documented by: Admin: 05/08/21 05:55 Dose: 1 puff Documented by: Admin: 05/07/21 23:41 Dose: 1 puff Documented by: Admin: 05/07/21 17:14 Dose: 1 puff Documented by: Admin: 05/07/21 11:29 Dose: 1 puff Documented by: Admin: 05/07/21 06:12 Dose: 1 puff Documented by: Admin: 05/06/21 23:36 Dose: 1 puff Documented by: Admin: 05/06/21 18:09 Dose: 1 puff Documented by: Admin: 05/06/21 11:49 Dose: 1 puff Documented by: Admin: 05/06/21 06:13 Dose: 1 puff Documented by: Admin: 05/05/21 23:41 Dose: 1 puff Documented by: Admin: 05/05/21 17:23 Dose: 1 puff Documented by: Admin: 05/05/21 11:52 Dose: 1 puff Documented by: Admin: 05/05/21 06:34 Dose: 1 puff Documented by: Admin: 05/04/21 23:31 Dose: 1 puff Documented by: ERWIN Albuterol/Ipratropium (Albuterol/Ipratropium 3.0-0.5 Mg/3 Ml Neb Soln) 3 ml NEB Q4HRRT PRN PRN Reason: Shortness of Breath Last Admin: 05/08/21 06:53 Dose: 3 ml Documented by: MAKENZIE Baricitinib (Baricitinib 2 Mg Tab) 4 mg PO Q24H [facility] Last Admin: 05/13/21 14:24 Dose: 4 mg Documented by: Admin: 05/12/21 13:39 Dose: 4 mg Documented by: Admin: 05/11/21 14:19 Dose: 4 mg Documented by: Admin: 05/10/21 15:22 Dose: 4 mg Documented by: RODO Bisacodyl (Bisacodyl 10 Mg Supp) 10 mg RECTAL DAILY PRN PRN Reason: Constipation Last Admin: 05/13/21 17:54 Dose: 10 mg Documented by: SOTERO Dexamethasone (Dexamethasone 4 Mg Tab) 6 mg PO Q24H [facility] Last Admin: 05/12/21 20:22 Dose: 6 mg Documented by: Admin: 05/11/21 19:53 Dose: 6 mg Documented by: Admin: 05/10/21 21:33 Dose: 6 mg Documented by: Admin: 05/09/21 20:25 Dose: 6 mg Documented by: Admin: 05/08/21 19:51 Dose: 6 mg Documented by: Admin: 05/07/21 20:13 Dose: 6 mg Documented by: Admin: 05/06/21 19:33 Dose: 6 mg Documented by: Admin: 05/05/21 20:10 Dose: 6 mg Documented by: NELL Docusate Sodium (Docusate Sodium 100 Mg Cap) 100 mg PO DAILY [facility] Last Admin: 05/13/21 09:35 Dose: 100 mg Documented by: Admin: 05/13/21 00:12 Dose: 100 mg Documented by: MAKENZIE Enoxaparin Sodium (Enoxaparin 40 Mg/0.4 Ml Syringe) 40 mg SUBCUT Q24H [facility] Last Admin: 05/12/21 23:28 Dose: 40 mg Documented by: Admin: 05/11/21 23:00 Dose: 40 mg Documented by: Admin: 05/10/21 23:15 Dose: 40 mg Documented by: Admin: 05/10/21 00:01 Dose: 40 mg Documented by: Admin: 05/08/21 23:47 Dose: 40 mg Documented by: Admin: 05/07/21 23:39 Dose: 40 mg Documented by: Admin: 05/06/21 23:36 Dose: 40 mg Documented by: Admin: 05/05/21 23:40 Dose: 40 mg Documented by: Admin: 05/04/21 23:31 Dose: 40 mg Documented by: ERWIN Levofloxacin/Dextrose 750 mg/ (Premix) 150 mls @ 100 mls/hr IV Q24H [facility] Admin: 05/13/21 17:54 Dose: 100 mls/hr Documented by: Infusion: 05/12/21 19:03 Dose: 100 mls/hr Documented by: Admin: 05/12/21 17:33 Dose: 100 mls/hr Documented by: Infusion: 05/11/21 19:38 Dose: 100 mls/hr Documented by: Admin: 05/11/21 18:08 Dose: 100 mls/hr Documented by: KIMBERLYNALCAR Infusion: 05/10/21 19:51 Dose: 100 mls/hr Documented by: Admin: 05/10/21 18:21 Dose: 100 mls/hr Documented by: Infusion: 05/09/21 19:15 Dose: 100 mls/hr Documented by: Admin: 05/09/21 17:45 Dose: 100 mls/hr Documented by: Infusion: 05/08/21 19:05 Dose: 100 mls/hr Documented by: Admin: 05/08/21 17:35 Dose: 100 mls/hr Documented by: KEVIN Ibuprofen (Ibuprofen 200 Mg Tab) 200 mg PO Q6H PRN PRN Reason: Pain (mild 1-3) Omeprazole (Omeprazole 20 Mg Cap.Cr) 20 mg PO ACBREAKFAST [facility] Last Admin: 05/13/21 06:36 Dose: 20 mg Documented by: Admin: 05/12/21 06:30 Dose: 20 mg Documented by: Admin: 05/11/21 06:30 Dose: 20 mg Documented by: Admin: 05/10/21 06:33 Dose: 20 mg Documented by: Admin: 05/09/21 06:38 Dose: 20 mg Documented by: Admin: 05/08/21 06:30 Dose: Not Given Documented by: Admin: 05/08/21 06:22 Dose: 20 mg Documented by: Admin: 05/07/21 06:30 Dose: 20 mg Documented by: Admin: 05/06/21 09:14 Dose: 20 mg Documented by: Admin: 05/05/21 06:45 Dose: 20 mg Documented by: ERWIN Ondansetron HCl (Ondansetron 4 Mg/2 Ml Sdv) 4 mg IVPUSH Q4H PRN PRN Reason: Nausea Last Admin: 05/12/21 15:21 Dose: 4 mg Documented by: Admin: 05/11/21 23:09 Dose: 4 mg Documented by: Admin: 05/10/21 21:33 Dose: 4 mg Documented by: Admin: 05/09/21 20:36 Dose: 4 mg Documented by: Admin: 05/06/21 06:51 Dose: 4 mg Documented by: Admin: 05/05/21 16:16 Dose: 4 mg Documented by: Admin: 05/05/21 10:13 Dose: 4 mg Documented by: RODO Verapamil 120 Mg Er (Tablet) 1 each PO DAILY [facility] Last Admin: 05/13/21 09:36 Dose: 1 each Documented by: Admin: 05/12/21 09:27 Dose: 1 each Documented by: Admin: 05/11/21 08:29 Dose: 1 each Documented by: Admin: 05/10/21 09:54 Dose: 1 each Documented by: Admin: 05/09/21 09:15 Dose: 1 each Documented by: Admin: 05/08/21 08:56 Dose: 1 each Documented by: Admin: 05/07/21 10:36 Dose: 1 each Documented by: Admin: 05/06/21 09:15 Dose: 1 each Documented by: Admin: 05/05/21 09:50 Dose: Not Given Documented by: RODO Polyethylene Glycol (Polyethylene Glycol 3350 Powder 17 Gm Packet) 17 gm PO BEDTIME [facility] Last Admin: 05/13/21 00:11 Dose: 17 gm Documented by: MAKENZIE Sodium Chloride (Sodium Chloride 0.9% 10 Ml Syringe) 10 ml FLUSH ASDIRECTED PRN PRN Reason: Keep Vein Open Last Admin: 05/04/21 17:39 Dose: 10 ml Documented by: EVELYN Sodium Chloride (Sodium Chloride 0.9% 2.5 Ml Syringe) 2.5 ml FLUSH ASDIRECTED PRN PRN Reason: Keep Vein Open Last Admin: 05/04/21 17:36 Dose: 2.5 ml Documented by: EVELYN Labs: Laboratory Tests 05/04/21 05/04/21 Range/Units 17:35 17:35 WBC 6.51 (4.0-11.0) K/uL RBC 4.67 (4.30-5.90) M/uL Hgb 13.7 (12.0-16.0) g/dL Hct 38.9 (36.0-46.0) % MCV 83.3 (80.0-98.0) fL MCH 29.3 (27.0-32.0) pg MCHC 35.2 (31.0-37.0) g/dL RDW Std Deviation 42.7 (28.0-62.0) fl RDW Coeff of Lito 14 (11.0-15.0) % Plt Count 189 (150-400) K/uL MPV 9.30 (7.40-12.00) fL Neut % (Auto) 83.0 H (48.0-80.0) % Lymph % (Auto) 9.4 L (16.0-40.0) % [place] % (Auto) 7.4 (0.0-15.0) % Eos % (Auto) 0.0 (0.0-7.0) % Baso % (Auto) 0.2 (0.0-1.5) % Neut # (Auto) 5.4 (1.4-5.7) K/uL Lymph # (Auto) 0.6 (0.6-2.4) K/uL [place] # (Auto) 0.5 (0.0-0.8) K/uL Eos # (Auto) 0.0 (0.0-0.7) K/uL Baso # (Auto) 0.0 (0.0-0.1) K/uL Nucleated RBC % 0.0 /100WBC Nucleated RBCs # 0 K/uL Sodium 128 L (136-145) mmol/L Potassium 3.3 L (3.5-5.1) mmol/L Chloride 95 L (98-107) mmol/L Carbon Dioxide 17.8 L (21.0-32.0) mmol/L BUN 8 (7.0-18.0) mg/dL Creatinine 0.9 (0.6-1.0) mg/dL Est Cr Clr Drug Dosing 44.68 mL/min Estimated GFR (MDRD) > 60.0 ml/min Glucose 120 H (74-106) mg/dL Calcium 8.4 L (8.5-10.1) mg/dL Magnesium 1.9 (1.8-2.4) mg/dL Total Bilirubin 0.5 (0.2-1.0) mg/dL AST 119 H (15-37) IU/L ALT 143 H (14-63) IU/L Alkaline Phosphatase 193 H (46-116) U/L Troponin I < 0.050 (0.000-0.056) ng/mL Total Protein 7.8 (6.4-8.2) g/dL Albumin 3.0 L (3.4-5.0) g/dL Globulin 4.8 H (2.6-4.0) g/dL Albumin/Globulin Ratio 0.6 L (0.9-1.6) Meds: Medications Generic Name Dose Route Start Last Admin Trade Name Freq PRN Reason Stop Dose Admin Acetaminophen 650 mg 05/04/21 22:51 05/06/21 23:44 Acetaminophen 325 Mg Tab PO 650 mg Q4H PRN Administration Pain (Mild 1-3)/fever Albuterol/Ipratropium 0 gm 05/05/21 00:00 05/13/21 17:23 Albuterol/Ipratropium 4 Gm Inhalation [place] INH 1 puff Q6HRRT EBEN Administration Albuterol/Ipratropium 3 ml 05/08/21 01:18 05/08/21 06:53 Albuterol/Ipratropium 3.0-0.5 Mg/3 Ml Neb Soln NEB 3 ml Q4HRRT PRN Administration Shortness of Breath Baricitinib 4 mg 05/10/21 14:30 05/13/21 14:24 Baricitinib 2 Mg Tab PO 4 mg Q24H EBEN Administration Bisacodyl 10 mg 05/13/21 15:51 05/13/21 17:54 Bisacodyl 10 Mg Supp RECTAL 10 mg DAILY PRN Administration Constipation Dexamethasone 6 mg 05/05/21 20:00 05/12/21 20:22 Dexamethasone 4 Mg Tab PO 6 mg Q24H EBEN Administration Docusate Sodium 100 mg 05/12/21 23:45 05/13/21 09:35 Docusate Sodium 100 Mg Cap PO 100 mg DAILY EBEN Administration Enoxaparin Sodium 40 mg 05/04/21 23:00 05/12/21 23:28 Enoxaparin 40 Mg/0.4 Ml Syringe SUBCUT 40 mg Q24H EBEN Administration Levofloxacin/Dextrose 750 mg/ 150 mls @ 100 mls/hr 05/08/21 17:30 05/13/21 17:54 Premix IV 100 mls/hr Q24H EBEN Administration Ibuprofen 200 mg 05/04/21 22:51 Ibuprofen 200 Mg Tab PO Q6H PRN Pain (mild 1-3) Omeprazole 20 mg 05/05/21 07:30 05/13/21 06:36 Omeprazole 20 Mg Cap.Cr PO 20 mg ACBREAKFAST EBEN Administration Ondansetron HCl 4 mg 05/04/21 22:51 05/12/21 15:21 Ondansetron 4 Mg/2 Ml Sdv IVPUSH 4 mg Q4H PRN Administration Nausea Verapamil 120 Mg Er 1 each 05/05/21 09:00 05/13/21 09:36 Tablet PO 1 each DAILY EEBN Administration Polyethylene Glycol 17 gm 05/12/21 23:38 05/13/21 00:11 Polyethylene Glycol 3350 Powder 17 Gm Packet PO 17 gm BEDTIME EBEN Administration Sodium Chloride 10 ml 05/04/21 17:17 05/04/21 17:39 Sodium Chloride 0.9% 10 Ml Syringe FLUSH 10 ml ASDIRECTED PRN Administration Keep Vein Open Sodium Chloride 2.5 ml 05/04/21 17:17 05/04/21 17:36 Sodium Chloride 0.9% 2.5 Ml Syringe FLUSH 2.5 ml ASDIRECTED PRN Administration Keep Vein Open Discontinued Medications Generic Name Dose Route Start Last Admin Trade Name Freq PRN Reason Stop Dose Admin Dexamethasone 6 mg 05/04/21 19:26 05/04/21 19:42 Dexamethasone 10 Mg/Ml Sdv IVPUSH 05/04/21 19:27 6 mg ONETIME ONE Administration Dexamethasone 6 mg 05/04/21 20:00 05/05/21 04:14 Dexamethasone 4 Mg Tab PO Not Given Q24H EBEN Diphenhydramine HCl 25 mg 05/08/21 17:08 05/08/21 17:24 Diphenhydramine 50 Mg/Ml Sdv IVPUSH 05/08/21 17:09 25 mg ONETIME ONE Administration Guaifenesin/Codeine Phosphate 5 ml 05/08/21 01:17 05/13/21 11:29 Codeine/Guaifenesin 10-100 Mg/5 Ml Syrup 5 Ml Cup PO 5 ml Q4H PRN Administration Cough Sodium Chloride 500 mls @ 500 mls/hr 05/04/21 17:18 05/04/21 17:39 Normal Saline IV 05/04/21 18:17 500 mls/hr .BOLUS STA Administration Remdesivir 200 mg/ Sodium 250 mls @ 250 mls/hr 05/04/21 19:25 05/04/21 19:57 Chloride IV 05/04/21 19:26 250 mls/hr ONETIME ONE Administration Remdesivir 100 mg/ Sodium 100 mls @ 100 mls/hr 05/05/21 20:00 05/08/21 19:48 Chloride IV 05/08/21 20:59 100 mls/hr Q24H EBEN Administration Levofloxacin/Dextrose 750 mg/ 150 mls @ 100 mls/hr 05/08/21 16:30 Premix IV Q24H EBEN Iopamidol 100 ml 05/04/21 18:35 05/04/21 18:35 Iopamidol 755 Mg/Ml 500 Ml Multipack Bottle IVPUSH 05/04/21 18:36 100 ml ONETIME ONE Administration Nitrofurantoin Macrocrystals 50 mg 05/05/21 09:00 05/08/21 08:56 Nitrofurantoin Macrocrystal 50 Mg Cap PO 50 mg DAILY EBEN Administration Ondansetron HCl 4 mg 05/04/21 17:20 05/04/21 17:39 Ondansetron 4 Mg/2 Ml Sdv IVPUSH 05/04/21 17:21 4 mg ONETIME ONE Administration Ondansetron HCl 4 mg 05/04/21 19:28 05/04/21 19:42 Ondansetron 4 Mg/2 Ml Sdv IVPUSH 05/04/21 19:29 4 mg ONETIME ONE Administration Potassium Chloride 40 meq 05/06/21 08:15 05/06/21 09:14 Potassium Chloride 20 Meq Tab.Er PO 05/06/21 08:16 40 meq ONETIME ONE Administration Verapamil HCl 120 mg 05/05/21 09:00 Verapamil 240 Mg Tab.Er PO DAILY EBEN Departure - Departure Time of Disposition: 19:28 Disposition: Admitted As Inpatient 66 Condition: Fair Clinical Impression: COVID-19, Hypoxemia, Hyponatremia, Hypokalemia, Pneumonia due to COVID-19 virus - Discharge Information Sepsis Event Note (ED) - Evaluation Sepsis Screening Result: No Definite Risk
[2021-05-04 18:08] LABS: BLOOD UREA NITROGEN,BUN 8 mg/dL (7.0-18.0); CARBON DIOXIDE,CO2 17.8 mmol/L (21.0-32.0); CHLORIDE,CL 95 mmol/L (98-107); GLUCOSE RANDOM 120 mg/dL (74-106); POTASSIUM,K 3.3 mmol/L (3.5-5.1); SODIUM,NA 128 mmol/L (136-145)
[2021-05-04] MEDS ORDERED: Iopamidol 755 MG/ML 500 ML Multipack Bottle IVPUSH ONE (18:35)
--- NOTE | 2021-05-04 18:43 | PCM.EKG ---
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 Compared to 02/14/2020 no change impression no acute MS
--- NOTE | 2021-05-04 19:02 | CT ---
INDICATION: Shortness of breath. Positive COVID-19. COMPARISON: 14 February 2020. TECHNIQUE: 100 mL Omnipaque 370 IV contrast with pulmonary arterial imaging. FINDINGS: Adequate bolus timing. No pulmonary embolism filling defects. Aorta is non aneurysmal. Upper normal size reactive mediastinal lymph nodes. Geographic hazy ground-glass with areas of intervening sparing in the mid upper lungs. Somewhat crazy paving appearance at the lung bases with confluent ground-glass and interstitial prominence. Pulmonary vascularity appears normal. Airways are patent. No pneumothorax or effusion. Small sliding hiatus hernia. Subtle nodule in the body of the left adrenal likely a 11 mm adenoma. No interval change. No blastic or lytic bone lesion. No fracture. IMPRESSION: 1. No pulmonary embolism. 2. Airspace and interstitial opacities may be COVID-19 pneumonia or other atypical pneumonia. Alveolar proteinosis can look similar. Edema felt less likely given the normal caliber pulmonary vessels. Please note that all CT scans at this facility use dose modulation, iterative reconstruction, and/or weight-based dosing when appropriate to reduce radiation dose to as low as reasonably achievable. Dictated by Sin Corbin MD @ 05/04/2021 7:00:25 PM (Electronically Signed)
[2021-05-04] MEDS ORDERED: REMDESIVIR 200 MG in Sodium Chloride 0.9% 250 ML IV ONE (19:25)
[2021-05-04] MEDS ORDERED: Dexamethasone 10 MG/ML SDV IVPUSH ONE (19:26)
[2021-05-04] MEDS ORDERED: Dexamethasone 4 MG Tab PO SCH (20:00)
[2021-05-04] MEDS ORDERED: Ibuprofen 200 MG Tab PO PRN (22:51)
--- NOTE | 2021-05-04 23:07 | PCM.HP.2 ---
H&P History of Present Illness - General Date of Service: 05/04/21 Admit Problem/Dx: Admission Diagnosis/Problem Admission Diagnosis/Problem Hypoxia - History of Present Illness Initial Comments - Free Text/Narative: 75 yo female with pmh of hypertension who presents with one week history of cough, fevers, headache and shortness of breath. IN the ED she was requring 2 L NC to keep sats above 90%. CT scan reported bilateral ground glass opacities. She is COVID positive. - Related Data Allergies/Adverse Reactions: Allergies Allergy/AdvReac Type Severity Reaction Status Date / Time cephalexin [From Keflex] Allergy Hives Verified 05/04/21 17:10 ciprofloxacin [From Cipro] Allergy Hives Verified 05/04/21 17:10 sulfamethoxazole Allergy Nausea and Verified 05/04/21 22:33 [From Bactrim] Vomiting sumatriptan Allergy Hives Verified 05/04/21 22:33 trimethoprim [From Bactrim] Allergy Nausea and Verified 05/04/21 22:33 Vomiting Home Medications: Home Meds Verapamil HCl [Verapamil ER] 120 mg PO DAILY 02/11/20 [History] Calcium Carbonate/Vitamin D3 [Calcium 500 + Vit D 400] 1 each PO DAILY 30 Days #30 tablet 02/15/20 [Rx] Esomeprazole Magnesium [Nexium] 20 mg PO ACBREAKFAST 05/04/21 [History] nitrofurantoin macrocrystaL [Nitrofurantoin] 50 mg PO DAILY 05/04/21 [History] Past Medical History - Past Health History Medical/Surgical History: Denies Medical/Surgical History HEENT History: Reports: None Cardiovascular History: Reports: Hypertension Genitourinary History: Reports: UTI, Recurrent COLORIST History: Reports: Musculoskeletal History: Reports: Other (See Below) Other Musculoskeletal History: knee pain Neurological History: Reports: Migraines - Infectious Disease History Infectious Disease History: Reports: None - Past Surgical History Cardiovascular Surgical History: Reports: None GI Surgical History: Reports: Appendectomy, Cholecystectomy Other GI Surgeries/Procedures: 3 intestinal blockages that have been surgically fixed. Social & Family History - Family History Family Medical History: No Pertinent Family History - Tobacco Use Tobacco Use Status *Q: Never Tobacco User Second Hand Smoke Exposure: No - Caffeine Use Caffeine Use: Reports: Soda, Tea - Recreational Drug Use Recreational Drug Use: No H&P Review of Systems - Review of Systems: Review Of Systems: Comprehensive ROS is negative, except as noted in HPI. Exam - Exam Exam: See Below - Vital Signs Vital Signs: Last Vital Signs Temp 36.4 C 05/04/21 21:44 Pulse 83 05/04/21 21:59 Resp 20 05/04/21 21:59 BP 151/76 H 05/04/21 21:59 Pulse Ox 96 05/04/21 21:59 Weight: 83.96 kg - Exam General: Alert, Oriented HEENT: Mucosa Moist & [place] Neck: Supple Lungs: Normal Respiratory Effort, Rhonchi Cardiovascular: Regular Rate, Regular Rhythm GI/Abdominal Exam: Normal Bowel Sounds, Soft, Non-Tender, No Distention Extremities: Non-Tender, No Pedal Edema Skin: Warm, Dry, Intact Neurological: No: Focal Deficit - Patient Data Lab Results Last 24 hrs: Laboratory Results - last 24 hr 05/04/21 05/04/21 Range/Units 17:35 17:35 WBC 6.51 (4.0-11.0) K/uL RBC 4.67 (4.30-5.90) M/uL Hgb 13.7 (12.0-16.0) g/dL Hct 38.9 (36.0-46.0) % MCV 83.3 (80.0-98.0) fL MCH 29.3 (27.0-32.0) pg MCHC 35.2 (31.0-37.0) g/dL RDW Std Deviation 42.7 (28.0-62.0) fl RDW Coeff of Lito 14 (11.0-15.0) % Plt Count 189 (150-400) K/uL MPV 9.30 (7.40-12.00) fL Neut % (Auto) 83.0 H (48.0-80.0) % Lymph % (Auto) 9.4 L (16.0-40.0) % [place] % (Auto) 7.4 (0.0-15.0) % Eos % (Auto) 0.0 (0.0-7.0) % Baso % (Auto) 0.2 (0.0-1.5) % Neut # (Auto) 5.4 (1.4-5.7) K/uL Lymph # (Auto) 0.6 (0.6-2.4) K/uL [place] # (Auto) 0.5 (0.0-0.8) K/uL Eos # (Auto) 0.0 (0.0-0.7) K/uL Baso # (Auto) 0.0 (0.0-0.1) K/uL Nucleated RBC % 0.0 /100WBC Nucleated RBCs # 0 K/uL Sodium 128 L (136-145) mmol/L Potassium 3.3 L (3.5-5.1) mmol/L Chloride 95 L (98-107) mmol/L Carbon Dioxide 17.8 L (21.0-32.0) mmol/L BUN 8 (7.0-18.0) mg/dL Creatinine 0.9 (0.6-1.0) mg/dL Est Cr Clr Drug Dosing 44.68 mL/min Estimated GFR (MDRD) > 60.0 ml/min Glucose 120 H (74-106) mg/dL Calcium 8.4 L (8.5-10.1) mg/dL Magnesium 1.9 (1.8-2.4) mg/dL Total Bilirubin 0.5 (0.2-1.0) mg/dL AST 119 H (15-37) IU/L ALT 143 H (14-63) IU/L Alkaline Phosphatase 193 H (46-116) U/L Troponin I < 0.050 (0.000-0.056) ng/mL Total Protein 7.8 (6.4-8.2) g/dL Albumin 3.0 L (3.4-5.0) g/dL Globulin 4.8 H (2.6-4.0) g/dL Albumin/Globulin Ratio 0.6 L (0.9-1.6) Result Diagrams: 05/04/21 17:35 05/04/21 17:35 Sepsis Event Note - Evaluation Sepsis Screening Result: No Definite Risk - Focused Exam Vital Signs: Vital Signs Temp Pulse Resp BP Pulse Ox 05/04/21 21:59 83 20 151/76 H 96 05/04/21 21:44 36.4 C 87 20 166/71 H 94 L 05/04/21 21:26 81 100 05/04/21 19:45 84 16 140/67 93 L 05/04/21 18:40 86 16 140/72 93 L 05/04/21 17:40 85 16 144/72 H 92 L 05/04/21 17:07 36.6 C 87 22 H 144/72 H 88 L - Problem List (1) COVID-19 SNOMED Code(s): 161591673 ICD Code: U07.1 - COVID-19 Status: Acute Current Visit: Yes (2) Hypoxemia SNOMED Code(s): 028327682 ICD Code: R09.02 - HYPOXEMIA Status: Acute Current Visit: Yes Problem List Initiated/Reviewed/Updated: Yes Orders Last 24hrs: Active Orders 24 hr Category Date Time Status Admission Status [Patient Status] [ADT] Stat ADT 05/04/21 19:28 Active Antiembolic Devices [RC] PER UNIT ROUTINE Care 05/04/21 22:54 Ordered Oxygen Therapy [RC] PRN Care 05/04/21 22:51 Ordered Telemetry Monitoring [Cardiac Monitoring] [RC] . Care 05/04/21 20:07 Active DIRECTED VTE/DVT Education [RC] PER UNIT ROUTINE Care 05/04/21 22:51 Ordered Vital Signs [RC] Q4H Care 05/04/21 22:51 Ordered Regular Diet [DIET] Diet 05/04/21 Breakfast Ordered CBC WITH AUTO DIFF [HEME] AM Lab 05/05/21 05:11 Ordered CBC WITH AUTO DIFF [HEME] AM Lab 05/06/21 05:11 Ordered CBC WITH AUTO DIFF [HEME] AM Lab 05/07/21 05:11 Ordered COMPREHENSIVE METABOLIC PN,CMP [CHEM] AM Lab 05/05/21 05:11 Ordered COMPREHENSIVE METABOLIC PN,CMP [CHEM] AM Lab 05/06/21 05:11 Ordered COMPREHENSIVE METABOLIC PN,CMP [CHEM] AM Lab 05/07/21 05:11 Ordered Acetaminophen [TylenoL] Med 05/04/21 22:51 Ordered 650 mg PO Q4H PRN Enoxaparin [Lovenox] Med 05/04/21 23:00 Ordered 40 mg SUBCUT Q24H Esomeprazole Magnesium [Nexium] Med 05/05/21 07:30 Ordered 20 mg PO ACBREAKFAST Ibuprofen [Motrin] Med 05/04/21 22:51 Ordered 200 mg PO Q6H PRN Ondansetron [Zofran] Med 05/04/21 22:51 Ordered 4 mg IVPUSH Q4H PRN Remdesivir 100 mg Med 05/05/21 20:00 Ordered Sodium Chloride 0.9% [Normal Saline AdvBag] 100 ml IV Q24H Sodium Chloride 0.9% [Saline Flush] Med 05/04/21 17:17 Active 10 ml FLUSH ASDIRECTED PRN Sodium Chloride 0.9% [Saline Flush] Med 05/04/21 17:17 Active 2.5 ml FLUSH ASDIRECTED PRN Verapamil Med 05/05/21 09:00 Ordered 120 mg PO DAILY dexAMETHasone Med 05/04/21 20:00 Ordered 6 mg PO Q24H nitrofurantoin macrocrystaL [Macrodantin] Med 05/05/21 09:00 Ordered 50 mg PO DAILY Saline Lock Insert [OM.PC] Stat Oth 05/04/21 17:17 Ordered Sequential Compression Device [OM.PC] Per Unit Routine Oth 05/04/21 22:52 Ordered Resuscitation Status Routine Resus Stat 05/04/21 22:51 Ordered Medication Orders Acetaminophen (Acetaminophen 325 Mg Tab) 650 mg PO Q4H PRN PRN Reason: Pain (Mild 1-3)/fever Dexamethasone (Dexamethasone 4 Mg Tab) 6 mg PO Q24H EBEN Enoxaparin Sodium (Enoxaparin 40 Mg/0.4 Ml Syringe) 40 mg SUBCUT Q24H EBEN Remdesivir 100 mg/ Sodium (Chloride) 100 mls @ 100 mls/hr IV Q24H EBEN Stop: 05/08/21 20:59 Ibuprofen (Ibuprofen 200 Mg Tab) 200 mg PO Q6H PRN PRN Reason: Pain (mild 1-3) Nitrofurantoin Macrocrystals (Nitrofurantoin Macrocrystal 50 Mg Cap) 50 mg PO DAILY [facility] Non-Formulary Medication (Verapamil) 120 mg PO DAILY [facility] Non-Formulary Medication (Esomeprazole Magnesium [Nexium]) 20 mg PO ACBREAKFAST EBEN Ondansetron HCl (Ondansetron 4 Mg/2 Ml Sdv) 4 mg IVPUSH Q4H PRN PRN Reason: Nausea Sodium Chloride (Sodium Chloride 0.9% 10 Ml Syringe) 10 ml FLUSH ASDIRECTED PRN PRN Reason: Keep Vein Open Last Admin: 05/04/21 17:39 Dose: 10 ml Documented by: EVELYN Sodium Chloride (Sodium Chloride 0.9% 2.5 Ml Syringe) 2.5 ml FLUSH ASDIRECTED PRN PRN Reason: Keep Vein Open Last Admin: 05/04/21 17:36 Dose: 2.5 ml Documented by: EVELYN Assessment/Plan Comment:: 75 yo female admitted for COVID pneumonia with hypoxia Hypoxia: currently on 2 L NC COVID: treating with remdesivr and dexamethason lovenox for DVT prophylaxis
[2021-05-04] MEDS: Enoxaparin 40 MG/0.4 ML Syringe SUBCUT SCH (23:31)
[2021-05-04] MEDS: Albuterol/Ipratropium 4 GM Inhalation Spray INH SCH (23:31)
[2021-05-04] MEDS: Acetaminophen 325 MG Tab PO PRN (23:32)
[2021-05-05] MEDS: Acetaminophen 325 MG Tab PO PRN ×2 (03:41→21:38)
[2021-05-05] MEDS: Albuterol/Ipratropium 4 GM Inhalation Spray INH SCH ×4 (06:34→23:41)
[2021-05-05] MEDS: Omeprazole 20 MG Cap.CR PO SCH (06:45)
[2021-05-05 07:02] LABS: BLOOD UREA NITROGEN,BUN 7 mg/dL (7.0-18.0); CARBON DIOXIDE,CO2 16.8 mmol/L (21.0-32.0); CHLORIDE,CL 99 mmol/L (98-107); GLUCOSE RANDOM 131 mg/dL (74-106); POTASSIUM,K 3.5 mmol/L (3.5-5.1); SODIUM,NA 130 mmol/L (136-145)
[2021-05-05] MEDS ORDERED: Verapamil 240 MG Tab.ER PO SCH (09:00)
[2021-05-05] MEDS: VERAPAMIL 120 MG PO SCH (09:50)
[2021-05-05] MEDS: Ondansetron 4 MG/2 ML SDV IVPUSH PRN ×2 (10:13→16:16)
[2021-05-05] MEDS: Nitrofurantoin Macrocrystal 50 MG Cap PO SCH (10:13)
--- NOTE | 2021-05-05 14:33 | PCM.PN ---
- General Info Date of Service: 05/05/21 - Review of Systems Systems Review Comment:: reports fatigue, nausea and shortness of breath - Patient Data Vitals - Most Recent: Last Vital Signs Temp 36.4 C 05/05/21 12:00 Pulse 82 05/05/21 12:00 Resp 16 05/05/21 12:00 BP 160/77 H 05/05/21 12:00 Pulse Ox 90 L 05/05/21 12:00 Weight - Most Recent: 83.96 kg I&O - Last 24 Hours: Intake & Output 05/04/21 05/05/21 05/05/21 22:59 06:59 14:59 Intake Total 400 Output Total 1000 Balance -600 Lab Results Last 24 Hours: Laboratory Results - last 24 hr 05/04/21 05/04/21 05/05/21 Range/Units 17:35 17:35 05:50 WBC 6.51 4.51 (4.0-11.0) K/uL RBC 4.67 4.89 (4.30-5.90) M/uL Hgb 13.7 14.2 (12.0-16.0) g/dL Hct 38.9 40.3 (36.0-46.0) % MCV 83.3 82.4 (80.0-98.0) fL MCH 29.3 29.0 (27.0-32.0) pg MCHC 35.2 35.2 (31.0-37.0) g/dL RDW Std Deviation 42.7 42.4 (28.0-62.0) fl RDW Coeff of Lito 14 14 (11.0-15.0) % Plt Count 189 222 (150-400) K/uL MPV 9.30 9.80 (7.40-12.00) fL Neut % (Auto) 83.0 H 79.4 (48.0-80.0) % Lymph % (Auto) 9.4 L 14.6 L (16.0-40.0) % [place] % (Auto) 7.4 5.8 (0.0-15.0) % Eos % (Auto) 0.0 0.0 (0.0-7.0) % Baso % (Auto) 0.2 0.2 (0.0-1.5) % Neut # (Auto) 5.4 3.6 (1.4-5.7) K/uL Lymph # (Auto) 0.6 0.7 (0.6-2.4) K/uL [place] # (Auto) 0.5 0.3 (0.0-0.8) K/uL Eos # (Auto) 0.0 0.0 (0.0-0.7) K/uL Baso # (Auto) 0.0 0.0 (0.0-0.1) K/uL Nucleated RBC % 0.0 0.0 /100WBC Nucleated RBCs # 0 0 K/uL Sodium 128 L (136-145) mmol/L Potassium 3.3 L (3.5-5.1) mmol/L Chloride 95 L (98-107) mmol/L Carbon Dioxide 17.8 L (21.0-32.0) mmol/L BUN 8 (7.0-18.0) mg/dL Creatinine 0.9 (0.6-1.0) mg/dL Est Cr Clr Drug Dosing 44.68 mL/min Estimated GFR (MDRD) > 60.0 ml/min Glucose 120 H (74-106) mg/dL Calcium 8.4 L (8.5-10.1) mg/dL Magnesium 1.9 (1.8-2.4) mg/dL Total Bilirubin 0.5 (0.2-1.0) mg/dL AST 119 H (15-37) IU/L ALT 143 H (14-63) IU/L Alkaline Phosphatase 193 H (46-116) U/L Troponin I < 0.050 (0.000-0.056) ng/mL Total Protein 7.8 (6.4-8.2) g/dL Albumin 3.0 L (3.4-5.0) g/dL Globulin 4.8 H (2.6-4.0) g/dL Albumin/Globulin Ratio 0.6 L (0.9-1.6) 05/05/21 Range/Units 05:50 WBC (4.0-11.0) K/uL RBC (4.30-5.90) M/uL Hgb (12.0-16.0) g/dL Hct (36.0-46.0) % MCV (80.0-98.0) fL MCH (27.0-32.0) pg MCHC (31.0-37.0) g/dL RDW Std Deviation (28.0-62.0) fl RDW Coeff of Lito (11.0-15.0) % Plt Count (150-400) K/uL MPV (7.40-12.00) fL Neut % (Auto) (48.0-80.0) % Lymph % (Auto) (16.0-40.0) % [place] % (Auto) (0.0-15.0) % Eos % (Auto) (0.0-7.0) % Baso % (Auto) (0.0-1.5) % Neut # (Auto) (1.4-5.7) K/uL Lymph # (Auto) (0.6-2.4) K/uL [place] # (Auto) (0.0-0.8) K/uL Eos # (Auto) (0.0-0.7) K/uL Baso # (Auto) (0.0-0.1) K/uL Nucleated RBC % /100WBC Nucleated RBCs # K/uL Sodium 130 L (136-145) mmol/L Potassium 3.5 (3.5-5.1) mmol/L Chloride 99 (98-107) mmol/L Carbon Dioxide 16.8 L (21.0-32.0) mmol/L BUN 7 (7.0-18.0) mg/dL Creatinine 0.7 (0.6-1.0) mg/dL Est Cr Clr Drug Dosing 57.44 mL/min Estimated GFR (MDRD) > 60.0 ml/min Glucose 131 H (74-106) mg/dL Calcium 8.1 L (8.5-10.1) mg/dL Magnesium (1.8-2.4) mg/dL Total Bilirubin 0.4 (0.2-1.0) mg/dL AST 97 H (15-37) IU/L ALT 120 H (14-63) IU/L Alkaline Phosphatase 178 H (46-116) U/L Troponin I (0.000-0.056) ng/mL Total Protein 7.0 (6.4-8.2) g/dL Albumin 2.6 L (3.4-5.0) g/dL Globulin 4.4 H (2.6-4.0) g/dL Albumin/Globulin Ratio 0.6 L (0.9-1.6) Med Orders - Current: Current Medications Acetaminophen (Acetaminophen 325 Mg Tab) 650 mg PO Q4H PRN PRN Reason: Pain (Mild 1-3)/fever Last Admin: 05/05/21 03:41 Dose: 650 mg Documented by: Albuterol/Ipratropium (Albuterol/Ipratropium 4 Gm Inhalation [place]) 0 gm INH Q6HRRT [facility] Last Admin: 05/05/21 11:52 Dose: 1 puff Documented by: Dexamethasone (Dexamethasone 4 Mg Tab) 6 mg PO Q24H EBEN Enoxaparin Sodium (Enoxaparin 40 Mg/0.4 Ml Syringe) 40 mg SUBCUT Q24H [facility] Last Admin: 05/04/21 23:31 Dose: 40 mg Documented by: Remdesivir 100 mg/ Sodium (Chloride) 100 mls @ 100 mls/hr IV Q24H [facility] Stop: 05/08/21 20:59 Ibuprofen (Ibuprofen 200 Mg Tab) 200 mg PO Q6H PRN PRN Reason: Pain (mild 1-3) Nitrofurantoin Macrocrystals (Nitrofurantoin Macrocrystal 50 Mg Cap) 50 mg PO DAILY [facility] Last Admin: 05/05/21 10:13 Dose: 50 mg Documented by: Omeprazole (Omeprazole 20 Mg Cap.Cr) 20 mg PO ACBREAKFAST [facility] Last Admin: 05/05/21 06:45 Dose: 20 mg Documented by: Ondansetron HCl (Ondansetron 4 Mg/2 Ml Sdv) 4 mg IVPUSH Q4H PRN PRN Reason: Nausea Last Admin: 05/05/21 10:13 Dose: 4 mg Documented by: Verapamil 120 Mg Er (Tablet) 1 each PO DAILY [facility] Last Admin: 05/05/21 09:50 Dose: Not Given Documented by: Sodium Chloride (Sodium Chloride 0.9% 10 Ml Syringe) 10 ml FLUSH ASDIRECTED PRN PRN Reason: Keep Vein Open Last Admin: 05/04/21 17:39 Dose: 10 ml Documented by: Sodium Chloride (Sodium Chloride 0.9% 2.5 Ml Syringe) 2.5 ml FLUSH ASDIRECTED PRN PRN Reason: Keep Vein Open Last Admin: 05/04/21 17:36 Dose: 2.5 ml Documented by: Discontinued Medications Dexamethasone (Dexamethasone 10 Mg/Ml Sdv) 6 mg IVPUSH ONETIME ONE Stop: 05/04/21 19:27 Last Admin: 05/04/21 19:42 Dose: 6 mg Documented by: Dexamethasone (Dexamethasone 4 Mg Tab) 6 mg PO Q24H EBEN Last Admin: 05/05/21 04:14 Dose: Not Given Documented by: Sodium Chloride (Normal Saline) 500 mls @ 500 mls/hr IV .BOLUS STA Stop: 05/04/21 18:17 Last Admin: 05/04/21 17:39 Dose: 500 mls/hr Documented by: Remdesivir 200 mg/ Sodium (Chloride) 250 mls @ 250 mls/hr IV ONETIME ONE Stop: 05/04/21 19:26 Last Admin: 05/04/21 19:57 Dose: 250 mls/hr Documented by: Iopamidol (Iopamidol 755 Mg/Ml 500 Ml Multipack Bottle) 100 ml IVPUSH ONETIME ONE Stop: 05/04/21 18:36 Last Admin: 05/04/21 18:35 Dose: 100 ml Documented by: Ondansetron HCl (Ondansetron 4 Mg/2 Ml Sdv) 4 mg IVPUSH ONETIME ONE Stop: 05/04/21 17:21 Last Admin: 05/04/21 17:39 Dose: 4 mg Documented by: Ondansetron HCl (Ondansetron 4 Mg/2 Ml Sdv) 4 mg IVPUSH ONETIME ONE Stop: 05/04/21 19:29 Last Admin: 05/04/21 19:42 Dose: 4 mg Documented by: Verapamil HCl (Verapamil 240 Mg Tab.Er) 120 mg PO DAILY EBEN - Exam General: Alert, Oriented Neck: Supple Lungs: Normal Respiratory Effort, Rhonchi Cardiovascular: Regular Rate, Regular Rhythm GI/Abdominal Exam: Normal Bowel Sounds, Soft, Non-Tender, No Distention Extremities: Non-Tender, No Pedal Edema Skin: Warm, Dry, Intact Neurological: No New Focal Deficit - Patient Data Lab Results Last 24 hrs: Laboratory Results - last 24 hr 05/04/21 05/04/21 05/05/21 Range/Units 17:35 17:35 05:50 WBC 6.51 4.51 (4.0-11.0) K/uL RBC 4.67 4.89 (4.30-5.90) M/uL Hgb 13.7 14.2 (12.0-16.0) g/dL Hct 38.9 40.3 (36.0-46.0) % MCV 83.3 82.4 (80.0-98.0) fL MCH 29.3 29.0 (27.0-32.0) pg MCHC 35.2 35.2 (31.0-37.0) g/dL RDW Std Deviation 42.7 42.4 (28.0-62.0) fl RDW Coeff of Lito 14 14 (11.0-15.0) % Plt Count 189 222 (150-400) K/uL MPV 9.30 9.80 (7.40-12.00) fL Neut % (Auto) 83.0 H 79.4 (48.0-80.0) % Lymph % (Auto) 9.4 L 14.6 L (16.0-40.0) % [place] % (Auto) 7.4 5.8 (0.0-15.0) % Eos % (Auto) 0.0 0.0 (0.0-7.0) % Baso % (Auto) 0.2 0.2 (0.0-1.5) % Neut # (Auto) 5.4 3.6 (1.4-5.7) K/uL Lymph # (Auto) 0.6 0.7 (0.6-2.4) K/uL [place] # (Auto) 0.5 0.3 (0.0-0.8) K/uL Eos # (Auto) 0.0 0.0 (0.0-0.7) K/uL Baso # (Auto) 0.0 0.0 (0.0-0.1) K/uL Nucleated RBC % 0.0 0.0 /100WBC Nucleated RBCs # 0 0 K/uL Sodium 128 L (136-145) mmol/L Potassium 3.3 L (3.5-5.1) mmol/L Chloride 95 L (98-107) mmol/L Carbon Dioxide 17.8 L (21.0-32.0) mmol/L BUN 8 (7.0-18.0) mg/dL Creatinine 0.9 (0.6-1.0) mg/dL Est Cr Clr Drug Dosing 44.68 mL/min Estimated GFR (MDRD) > 60.0 ml/min Glucose 120 H (74-106) mg/dL Calcium 8.4 L (8.5-10.1) mg/dL Magnesium 1.9 (1.8-2.4) mg/dL Total Bilirubin 0.5 (0.2-1.0) mg/dL AST 119 H (15-37) IU/L ALT 143 H (14-63) IU/L Alkaline Phosphatase 193 H (46-116) U/L Troponin I < 0.050 (0.000-0.056) ng/mL Total Protein 7.8 (6.4-8.2) g/dL Albumin 3.0 L (3.4-5.0) g/dL Globulin 4.8 H (2.6-4.0) g/dL Albumin/Globulin Ratio 0.6 L (0.9-1.6) 05/05/21 Range/Units 05:50 WBC (4.0-11.0) K/uL RBC (4.30-5.90) M/uL Hgb (12.0-16.0) g/dL Hct (36.0-46.0) % MCV (80.0-98.0) fL MCH (27.0-32.0) pg MCHC (31.0-37.0) g/dL RDW Std Deviation (28.0-62.0) fl RDW Coeff of Lito (11.0-15.0) % Plt Count (150-400) K/uL MPV (7.40-12.00) fL Neut % (Auto) (48.0-80.0) % Lymph % (Auto) (16.0-40.0) % [place] % (Auto) (0.0-15.0) % Eos % (Auto) (0.0-7.0) % Baso % (Auto) (0.0-1.5) % Neut # (Auto) (1.4-5.7) K/uL Lymph # (Auto) (0.6-2.4) K/uL [place] # (Auto) (0.0-0.8) K/uL Eos # (Auto) (0.0-0.7) K/uL Baso # (Auto) (0.0-0.1) K/uL Nucleated RBC % /100WBC Nucleated RBCs # K/uL Sodium 130 L (136-145) mmol/L Potassium 3.5 (3.5-5.1) mmol/L Chloride 99 (98-107) mmol/L Carbon Dioxide 16.8 L (21.0-32.0) mmol/L BUN 7 (7.0-18.0) mg/dL Creatinine 0.7 (0.6-1.0) mg/dL Est Cr Clr Drug Dosing 57.44 mL/min Estimated GFR (MDRD) > 60.0 ml/min Glucose 131 H (74-106) mg/dL Calcium 8.1 L (8.5-10.1) mg/dL Magnesium (1.8-2.4) mg/dL Total Bilirubin 0.4 (0.2-1.0) mg/dL AST 97 H (15-37) IU/L ALT 120 H (14-63) IU/L Alkaline Phosphatase 178 H (46-116) U/L Troponin I (0.000-0.056) ng/mL Total Protein 7.0 (6.4-8.2) g/dL Albumin 2.6 L (3.4-5.0) g/dL Globulin 4.4 H (2.6-4.0) g/dL Albumin/Globulin Ratio 0.6 L (0.9-1.6) Result Diagrams: 05/05/21 05:50 05/05/21 05:50 Sepsis Event Note - Evaluation Sepsis Screening Result: No Definite Risk - Focused Exam Vital Signs: Vital Signs Temp Pulse Resp BP Pulse Ox 05/05/21 12:00 36.4 C 82 16 160/77 H 90 L 05/05/21 08:00 36.4 C 76 15 163/75 H 95 05/05/21 03:35 36.3 C 82 18 144/73 H 93 L - Problem List & Annotations (1) COVID-19 SNOMED Code(s): 910598103 Code(s): U07.1 - COVID-19 Status: Acute Current Visit: Yes (2) Hypoxemia SNOMED Code(s): 215035002 Code(s): R09.02 - HYPOXEMIA Status: Acute Current Visit: Yes - Problem List Review Problem List Initiated/Reviewed/Updated: Yes - My Orders Last 24 Hours: My Active Orders 05/04/21 20:07 Telemetry Monitoring [Cardiac Monitoring] [RC] Q8H 05/04/21 22:51 Oxygen Therapy [RC] PRN VTE/DVT Education [RC] PER UNIT ROUTINE Vital Signs [RC] Q4H Acetaminophen [TylenoL] 650 mg PO Q4H PRN Ibuprofen [Motrin] 200 mg PO Q6H PRN Ondansetron [Zofran] 4 mg IVPUSH Q4H PRN Resuscitation Status Routine 05/04/21 22:52 Sequential Compression Device [OM.PC] Per Unit Routine 05/04/21 22:54 Antiembolic Devices [RC] PER UNIT ROUTINE 05/04/21 23:00 Enoxaparin [Lovenox] 40 mg SUBCUT Q24H 05/04/21 23:07 RT Post Treatment Assessment [RC] Click to Edit RT Pre-Treatment Assessment [RC] Click to Edit 05/05/21 00:00 Albuterol/Ipratropium [Combivent Respimat] 0 gm INH Q6HRRT 05/05/21 07:30 Omeprazole 20 mg PO ACBREAKFAST 05/05/21 09:00 Patient's Own Medication [Ptom] 1 each PO DAILY nitrofurantoin macrocrystaL [Macrodantin] 50 mg PO DAILY 05/05/21 20:00 Remdesivir 100 mg Sodium Chloride 0.9% [Normal Saline AdvBag] 100 ml IV Q24H dexAMETHasone 6 mg PO Q24H 05/06/21 05:11 CBC WITH AUTO DIFF [HEME] AM COMPREHENSIVE METABOLIC PN,CMP [CHEM] AM 05/07/21 05:11 CBC WITH AUTO DIFF [HEME] AM COMPREHENSIVE METABOLIC PN,CMP [CHEM] AM - Plan Plan:: 75 yo female admitted for COVID pneumonia with hypoxia Hypoxia: currently on 0.5 L NC COVID: treating with remdesivr and dexamethasone lovenox for DVT prophylaxis
[2021-05-05] MEDS: Dexamethasone 4 MG Tab PO SCH (20:10)
[2021-05-05] MEDS: REMDESIVIR 100 MG in Sodium Chloride 0.9% 100 ML IV SCH (20:11)
[2021-05-05] MEDS: Enoxaparin 40 MG/0.4 ML Syringe SUBCUT SCH (23:40)
[2021-05-06] MEDS: Albuterol/Ipratropium 4 GM Inhalation Spray INH SCH ×4 (06:13→23:36)
[2021-05-06] MEDS: Ondansetron 4 MG/2 ML SDV IVPUSH PRN (06:51)
[2021-05-06 07:20] LABS: BLOOD UREA NITROGEN,BUN 10 mg/dL (7.0-18.0); CARBON DIOXIDE,CO2 16.3 mmol/L (21.0-32.0); CHLORIDE,CL 100 mmol/L (98-107); GLUCOSE RANDOM 146 mg/dL (74-106); POTASSIUM,K 3.3 mmol/L (3.5-5.1); SODIUM,NA 130 mmol/L (136-145)
[2021-05-06] MEDS ORDERED: Potassium Chloride 20 MEQ Tab.ER PO ONE (08:15)
--- NOTE | 2021-05-06 08:42 | PCM.PN ---
- General Info Date of Service: 05/06/21 - Review of Systems Systems Review Comment:: main concern is nausea, shortness of breath is improving - Patient Data Vitals - Most Recent: Last Vital Signs Temp 36.7 C 05/06/21 04:27 Pulse 84 05/06/21 04:27 Resp 17 05/06/21 04:27 BP 155/70 H 05/06/21 04:27 Pulse Ox 92 L 05/06/21 04:27 Weight - Most Recent: 83.96 kg I&O - Last 24 Hours: Intake & Output 05/05/21 05/06/21 05/06/21 22:59 06:59 14:59 Intake Total 890 Output Total 900 Balance -10 Lab Results Last 24 Hours: Laboratory Results - last 24 hr 05/06/21 05/06/21 Range/Units 06:30 06:30 WBC 6.22 (4.0-11.0) K/uL RBC 5.15 (4.30-5.90) M/uL Hgb 15.0 (12.0-16.0) g/dL Hct 42.1 (36.0-46.0) % MCV 81.7 (80.0-98.0) fL MCH 29.1 (27.0-32.0) pg MCHC 35.6 (31.0-37.0) g/dL RDW Std Deviation 42.2 (28.0-62.0) fl RDW Coeff of Lito 14 (11.0-15.0) % Plt Count 272 (150-400) K/uL MPV 9.10 (7.40-12.00) fL Add Manual Diff YES Neutrophils % (Manual) 80 (48.0-80.0) % Band Neutrophils % 3 % Lymphocytes % (Manual) 12 L (16.0-40.0) % Monocytes % (Manual) 5 (0.0-15.0) % Nucleated RBC % 0.0 /100WBC Absolute Seg Neuts 5.0 (1.4-5.7) Band Neutrophils # 0.2 Lymphocytes # (Manual) 0.7 (0.6-2.4) Monocytes # (Manual) 0.3 (0.0-0.8) Nucleated RBCs # 0 K/uL Sodium 130 L (136-145) mmol/L Potassium 3.3 L (3.5-5.1) mmol/L Chloride 100 (98-107) mmol/L Carbon Dioxide 16.3 L (21.0-32.0) mmol/L BUN 10 (7.0-18.0) mg/dL Creatinine 0.7 (0.6-1.0) mg/dL Est Cr Clr Drug Dosing 57.44 mL/min Estimated GFR (MDRD) > 60.0 ml/min Glucose 146 H (74-106) mg/dL Calcium 8.5 (8.5-10.1) mg/dL Total Bilirubin 0.5 (0.2-1.0) mg/dL AST 74 H (15-37) IU/L ALT 112 H (14-63) IU/L Alkaline Phosphatase 185 H (46-116) U/L Total Protein 7.4 (6.4-8.2) g/dL Albumin 2.8 L (3.4-5.0) g/dL Globulin 4.6 H (2.6-4.0) g/dL Albumin/Globulin Ratio 0.6 L (0.9-1.6) Med Orders - Current: Current Medications Acetaminophen (Acetaminophen 325 Mg Tab) 650 mg PO Q4H PRN PRN Reason: Pain (Mild 1-3)/fever Last Admin: 05/05/21 21:38 Dose: 650 mg Documented by: Albuterol/Ipratropium (Albuterol/Ipratropium 4 Gm Inhalation [place]) 0 gm INH Q6HRRT [facility] Last Admin: 05/06/21 06:13 Dose: 1 puff Documented by: Dexamethasone (Dexamethasone 4 Mg Tab) 6 mg PO Q24H [facility] Last Admin: 05/05/21 20:10 Dose: 6 mg Documented by: Enoxaparin Sodium (Enoxaparin 40 Mg/0.4 Ml Syringe) 40 mg SUBCUT Q24H [facility] Last Admin: 05/05/21 23:40 Dose: 40 mg Documented by: Remdesivir 100 mg/ Sodium (Chloride) 100 mls @ 100 mls/hr IV Q24H [facility] Stop: 05/08/21 20:59 Last Admin: 05/05/21 20:11 Dose: 100 mls/hr Documented by: Ibuprofen (Ibuprofen 200 Mg Tab) 200 mg PO Q6H PRN PRN Reason: Pain (mild 1-3) Nitrofurantoin Macrocrystals (Nitrofurantoin Macrocrystal 50 Mg Cap) 50 mg PO DAILY [facility] Last Admin: 05/05/21 10:13 Dose: 50 mg Documented by: Omeprazole (Omeprazole 20 Mg Cap.Cr) 20 mg PO ACBREAKFAST [facility] Last Admin: 05/05/21 06:45 Dose: 20 mg Documented by: Ondansetron HCl (Ondansetron 4 Mg/2 Ml Sdv) 4 mg IVPUSH Q4H PRN PRN Reason: Nausea Last Admin: 05/06/21 06:51 Dose: 4 mg Documented by: Verapamil 120 Mg Er (Tablet) 1 each PO DAILY [facility] Last Admin: 05/05/21 09:50 Dose: Not Given Documented by: Sodium Chloride (Sodium Chloride 0.9% 10 Ml Syringe) 10 ml FLUSH ASDIRECTED PRN PRN Reason: Keep Vein Open Last Admin: 05/04/21 17:39 Dose: 10 ml Documented by: Sodium Chloride (Sodium Chloride 0.9% 2.5 Ml Syringe) 2.5 ml FLUSH ASDIRECTED PRN PRN Reason: Keep Vein Open Last Admin: 05/04/21 17:36 Dose: 2.5 ml Documented by: Discontinued Medications Dexamethasone (Dexamethasone 10 Mg/Ml Sdv) 6 mg IVPUSH ONETIME ONE Stop: 05/04/21 19:27 Last Admin: 05/04/21 19:42 Dose: 6 mg Documented by: Dexamethasone (Dexamethasone 4 Mg Tab) 6 mg PO Q24H [facility] Last Admin: 05/05/21 04:14 Dose: Not Given Documented by: Sodium Chloride (Normal Saline) 500 mls @ 500 mls/hr IV .BOLUS STA Stop: 05/04/21 18:17 Last Admin: 05/04/21 17:39 Dose: 500 mls/hr Documented by: Remdesivir 200 mg/ Sodium (Chloride) 250 mls @ 250 mls/hr IV ONETIME ONE Stop: 05/04/21 19:26 Last Admin: 05/04/21 19:57 Dose: 250 mls/hr Documented by: Iopamidol (Iopamidol 755 Mg/Ml 500 Ml Multipack Bottle) 100 ml IVPUSH ONETIME ONE Stop: 05/04/21 18:36 Last Admin: 05/04/21 18:35 Dose: 100 ml Documented by: Ondansetron HCl (Ondansetron 4 Mg/2 Ml Sdv) 4 mg IVPUSH ONETIME ONE Stop: 05/04/21 17:21 Last Admin: 05/04/21 17:39 Dose: 4 mg Documented by: Ondansetron HCl (Ondansetron 4 Mg/2 Ml Sdv) 4 mg IVPUSH ONETIME ONE Stop: 05/04/21 19:29 Last Admin: 05/04/21 19:42 Dose: 4 mg Documented by: Potassium Chloride (Potassium Chloride 20 Meq Tab.Er) 40 meq PO ONETIME ONE Stop: 05/06/21 08:16 Verapamil HCl (Verapamil 240 Mg Tab.Er) 120 mg PO DAILY [facility] - Exam General: Alert, Oriented Neck: Supple Lungs: Clear to Auscultation, Normal Respiratory Effort Cardiovascular: Regular Rate, Regular Rhythm GI/Abdominal Exam: Normal Bowel Sounds, Soft, Non-Tender, No Distention Extremities: Non-Tender, No Pedal Edema Skin: Warm, Dry, Intact Neurological: No New Focal Deficit - Patient Data Lab Results Last 24 hrs: Laboratory Results - last 24 hr 05/06/21 05/06/21 Range/Units 06:30 06:30 WBC 6.22 (4.0-11.0) K/uL RBC 5.15 (4.30-5.90) M/uL Hgb 15.0 (12.0-16.0) g/dL Hct 42.1 (36.0-46.0) % MCV 81.7 (80.0-98.0) fL MCH 29.1 (27.0-32.0) pg MCHC 35.6 (31.0-37.0) g/dL RDW Std Deviation 42.2 (28.0-62.0) fl RDW Coeff of Lito 14 (11.0-15.0) % Plt Count 272 (150-400) K/uL MPV 9.10 (7.40-12.00) fL Add Manual Diff YES Neutrophils % (Manual) 80 (48.0-80.0) % Band Neutrophils % 3 % Lymphocytes % (Manual) 12 L (16.0-40.0) % Monocytes % (Manual) 5 (0.0-15.0) % Nucleated RBC % 0.0 /100WBC Absolute Seg Neuts 5.0 (1.4-5.7) Band Neutrophils # 0.2 Lymphocytes # (Manual) 0.7 (0.6-2.4) Monocytes # (Manual) 0.3 (0.0-0.8) Nucleated RBCs # 0 K/uL Sodium 130 L (136-145) mmol/L Potassium 3.3 L (3.5-5.1) mmol/L Chloride 100 (98-107) mmol/L Carbon Dioxide 16.3 L (21.0-32.0) mmol/L BUN 10 (7.0-18.0) mg/dL Creatinine 0.7 (0.6-1.0) mg/dL Est Cr Clr Drug Dosing 57.44 mL/min Estimated GFR (MDRD) > 60.0 ml/min Glucose 146 H (74-106) mg/dL Calcium 8.5 (8.5-10.1) mg/dL Total Bilirubin 0.5 (0.2-1.0) mg/dL AST 74 H (15-37) IU/L ALT 112 H (14-63) IU/L Alkaline Phosphatase 185 H (46-116) U/L Total Protein 7.4 (6.4-8.2) g/dL Albumin 2.8 L (3.4-5.0) g/dL Globulin 4.6 H (2.6-4.0) g/dL Albumin/Globulin Ratio 0.6 L (0.9-1.6) Result Diagrams: 05/06/21 06:30 05/06/21 06:30 Sepsis Event Note - Evaluation Sepsis Screening Result: No Definite Risk - Focused Exam Vital Signs: Vital Signs Temp Pulse Resp BP Pulse Ox 05/06/21 04:27 36.7 C 84 17 155/70 H 92 L 05/05/21 23:33 36.3 C 85 16 135/75 93 L - Problem List & Annotations (1) COVID-19 SNOMED Code(s): 063988521 Code(s): U07.1 - COVID-19 Status: Acute Current Visit: Yes (2) Hypoxemia SNOMED Code(s): 334833247 Code(s): R09.02 - HYPOXEMIA Status: Acute Current Visit: Yes - Problem List Review Problem List Initiated/Reviewed/Updated: Yes - My Orders Last 24 Hours: My Active Orders 05/05/21 09:00 Patient's Own Medication [Ptom] 1 each PO DAILY nitrofurantoin macrocrystaL [Macrodantin] 50 mg PO DAILY 05/05/21 20:00 Remdesivir 100 mg Sodium Chloride 0.9% [Normal Saline AdvBag] 100 ml IV Q24H dexAMETHasone 6 mg PO Q24H 05/07/21 05:11 CBC WITH AUTO DIFF [HEME] AM COMPREHENSIVE METABOLIC PN,CMP [CHEM] AM - Plan Plan:: 75 yo female admitted for COVID pneumonia with hypoxia Hypoxia: currently on 0.5 L NC COVID: treating with remdesivr and dexamethasone lovenox for DVT prophylaxis
[2021-05-06] MEDS: Omeprazole 20 MG Cap.CR PO SCH (09:14)
[2021-05-06] MEDS: Nitrofurantoin Macrocrystal 50 MG Cap PO SCH (09:14)
[2021-05-06] MEDS: VERAPAMIL 120 MG PO SCH (09:15)
[2021-05-06] MEDS: REMDESIVIR 100 MG in Sodium Chloride 0.9% 100 ML IV SCH (19:33)
[2021-05-06] MEDS: Dexamethasone 4 MG Tab PO SCH (19:33)
[2021-05-06] MEDS: Enoxaparin 40 MG/0.4 ML Syringe SUBCUT SCH (23:36)
[2021-05-06] MEDS: Acetaminophen 325 MG Tab PO PRN (23:44)
[2021-05-07] MEDS: Albuterol/Ipratropium 4 GM Inhalation Spray INH SCH ×4 (06:12→23:41)
[2021-05-07] MEDS: Omeprazole 20 MG Cap.CR PO SCH (06:30)
[2021-05-07 06:57] LABS: BLOOD UREA NITROGEN,BUN 12 mg/dL (7.0-18.0); CARBON DIOXIDE,CO2 17.4 mmol/L (21.0-32.0); CHLORIDE,CL 100 mmol/L (98-107); GLUCOSE RANDOM 151 mg/dL (74-106); POTASSIUM,K 3.5 mmol/L (3.5-5.1); SODIUM,NA 131 mmol/L (136-145)
[2021-05-07] MEDS: Nitrofurantoin Macrocrystal 50 MG Cap PO SCH (10:35)
[2021-05-07] MEDS: VERAPAMIL 120 MG PO SCH (10:36)
--- NOTE | 2021-05-07 18:39 | PCM.PN ---
- General Info Date of Service: 05/07/21 Admission Dx/Problem (Free Text): Admission Diagnosis/Problem Admission Diagnosis/Problem Hypoxia Subjective Update: Patient seen at bedside, resting in the bed, states that she feels fatigued. No chest pain shortness of breath on ambulation Functional Status: Reports: Tolerating Diet, Ambulating, Urinating - Review of Systems General: Reports: Weakness, Fatigue, Malaise. Denies: Fever Pulmonary: Reports: Shortness of Breath, Cough, Sputum. Denies: Pleuritic Chest Pain Cardiovascular: Reports: Dyspnea on Exertion. Denies: Chest Pain, Palpitations Gastrointestinal: Denies: Abdominal Pain, Constipation, Decreased Appetite Genitourinary: Denies: Dysuria, Frequency, Burning Musculoskeletal: Denies: Neck Pain, Shoulder Pain, Arm Pain Skin: Denies: Cyanosis, Jaundice, Mottled - Patient Data Vitals - Most Recent: Last Vital Signs Temp 35.7 C L 05/07/21 16:00 Pulse 81 05/07/21 16:00 Resp 22 H 05/07/21 16:00 BP 158/74 H 05/07/21 16:00 Pulse Ox 90 L 05/07/21 16:00 Weight - Most Recent: 83.96 kg I&O - Last 24 Hours: Intake & Output 05/07/21 05/07/21 05/07/21 06:59 14:59 22:59 Intake Total 700 720 Output Total 400 1250 Balance 300 -530 Lab Results Last 24 Hours: Laboratory Results - last 24 hr 05/07/21 05/07/21 Range/Units 05:45 05:45 WBC 8.29 (4.0-11.0) K/uL RBC 4.97 (4.30-5.90) M/uL Hgb 14.8 (12.0-16.0) g/dL Hct 40.7 (36.0-46.0) % MCV 81.9 (80.0-98.0) fL MCH 29.8 (27.0-32.0) pg MCHC 36.4 (31.0-37.0) g/dL RDW Std Deviation 42.6 (28.0-62.0) fl RDW Coeff of Lito 14 (11.0-15.0) % Plt Count 326 (150-400) K/uL MPV 9.20 (7.40-12.00) fL Neut % (Auto) 85.7 H (48.0-80.0) % Lymph % (Auto) 7.1 L (16.0-40.0) % [place] % (Auto) 7.0 (0.0-15.0) % Eos % (Auto) 0.1 (0.0-7.0) % Baso % (Auto) 0.1 (0.0-1.5) % Neut # (Auto) 7.1 H (1.4-5.7) K/uL Lymph # (Auto) 0.6 (0.6-2.4) K/uL [place] # (Auto) 0.6 (0.0-0.8) K/uL Eos # (Auto) 0.0 (0.0-0.7) K/uL Baso # (Auto) 0.0 (0.0-0.1) K/uL Nucleated RBC % 0.0 /100WBC Nucleated RBCs # 0 K/uL Sodium 131 L (136-145) mmol/L Potassium 3.5 (3.5-5.1) mmol/L Chloride 100 (98-107) mmol/L Carbon Dioxide 17.4 L (21.0-32.0) mmol/L BUN 12 (7.0-18.0) mg/dL Creatinine 0.7 (0.6-1.0) mg/dL Est Cr Clr Drug Dosing 57.44 mL/min Estimated GFR (MDRD) > 60.0 ml/min Glucose 151 H (74-106) mg/dL Calcium 8.2 L (8.5-10.1) mg/dL Total Bilirubin 0.6 (0.2-1.0) mg/dL AST 81 H (15-37) IU/L ALT 113 H (14-63) IU/L Alkaline Phosphatase 181 H (46-116) U/L Total Protein 7.0 (6.4-8.2) g/dL Albumin 2.6 L (3.4-5.0) g/dL Globulin 4.4 H (2.6-4.0) g/dL Albumin/Globulin Ratio 0.6 L (0.9-1.6) Med Orders - Current: Current Medications Acetaminophen (Acetaminophen 325 Mg Tab) 650 mg PO Q4H PRN PRN Reason: Pain (Mild 1-3)/fever Last Admin: 05/06/21 23:44 Dose: 650 mg Documented by: Albuterol/Ipratropium (Albuterol/Ipratropium 4 Gm Inhalation [place]) 0 gm INH Q6HRRT [facility] Last Admin: 05/07/21 17:14 Dose: 1 puff Documented by: Dexamethasone (Dexamethasone 4 Mg Tab) 6 mg PO Q24H [facility] Last Admin: 05/06/21 19:33 Dose: 6 mg Documented by: Enoxaparin Sodium (Enoxaparin 40 Mg/0.4 Ml Syringe) 40 mg SUBCUT Q24H [facility] Last Admin: 05/06/21 23:36 Dose: 40 mg Documented by: Remdesivir 100 mg/ Sodium (Chloride) 100 mls @ 100 mls/hr IV Q24H [facility] Stop: 05/08/21 20:59 Last Admin: 05/06/21 19:33 Dose: 100 mls/hr Documented by: Ibuprofen (Ibuprofen 200 Mg Tab) 200 mg PO Q6H PRN PRN Reason: Pain (mild 1-3) Nitrofurantoin Macrocrystals (Nitrofurantoin Macrocrystal 50 Mg Cap) 50 mg PO DAILY [facility] Last Admin: 05/07/21 10:35 Dose: 50 mg Documented by: Omeprazole (Omeprazole 20 Mg Cap.Cr) 20 mg PO ACBREAKFAST [facility] Last Admin: 05/07/21 06:30 Dose: 20 mg Documented by: Ondansetron HCl (Ondansetron 4 Mg/2 Ml Sdv) 4 mg IVPUSH Q4H PRN PRN Reason: Nausea Last Admin: 05/06/21 06:51 Dose: 4 mg Documented by: Verapamil 120 Mg Er (Tablet) 1 each PO DAILY [facility] Last Admin: 05/07/21 10:36 Dose: 1 each Documented by: Sodium Chloride (Sodium Chloride 0.9% 10 Ml Syringe) 10 ml FLUSH ASDIRECTED PRN PRN Reason: Keep Vein Open Last Admin: 05/04/21 17:39 Dose: 10 ml Documented by: Sodium Chloride (Sodium Chloride 0.9% 2.5 Ml Syringe) 2.5 ml FLUSH ASDIRECTED PRN PRN Reason: Keep Vein Open Last Admin: 05/04/21 17:36 Dose: 2.5 ml Documented by: Discontinued Medications Dexamethasone (Dexamethasone 10 Mg/Ml Sdv) 6 mg IVPUSH ONETIME ONE Stop: 05/04/21 19:27 Last Admin: 05/04/21 19:42 Dose: 6 mg Documented by: Dexamethasone (Dexamethasone 4 Mg Tab) 6 mg PO Q24H [facility] Last Admin: 05/05/21 04:14 Dose: Not Given Documented by: Sodium Chloride (Normal Saline) 500 mls @ 500 mls/hr IV .BOLUS STA Stop: 05/04/21 18:17 Last Admin: 05/04/21 17:39 Dose: 500 mls/hr Documented by: Remdesivir 200 mg/ Sodium (Chloride) 250 mls @ 250 mls/hr IV ONETIME ONE Stop: 05/04/21 19:26 Last Admin: 05/04/21 19:57 Dose: 250 mls/hr Documented by: Iopamidol (Iopamidol 755 Mg/Ml 500 Ml Multipack Bottle) 100 ml IVPUSH ONETIME ONE Stop: 05/04/21 18:36 Last Admin: 05/04/21 18:35 Dose: 100 ml Documented by: Ondansetron HCl (Ondansetron 4 Mg/2 Ml Sdv) 4 mg IVPUSH ONETIME ONE Stop: 05/04/21 17:21 Last Admin: 05/04/21 17:39 Dose: 4 mg Documented by: Ondansetron HCl (Ondansetron 4 Mg/2 Ml Sdv) 4 mg IVPUSH ONETIME ONE Stop: 05/04/21 19:29 Last Admin: 05/04/21 19:42 Dose: 4 mg Documented by: Potassium Chloride (Potassium Chloride 20 Meq Tab.Er) 40 meq PO ONETIME ONE Stop: 05/06/21 08:16 Last Admin: 05/06/21 09:14 Dose: 40 meq Documented by: Verapamil HCl (Verapamil 240 Mg Tab.Er) 120 mg PO DAILY [facility] - Exam Quality Assessment: Supplemental Oxygen General: Alert, Oriented, Cooperative Lungs: Normal Respiratory Effort, Decreased Breath Sounds, Crackles, Rales Cardiovascular: Regular Rate, Regular Rhythm GI/Abdominal Exam: Normal Bowel Sounds, Soft Back Exam: Normal Inspection, Full Range of Motion - Patient Data Lab Results Last 24 hrs: Laboratory Results - last 24 hr 05/07/21 05/07/21 Range/Units 05:45 05:45 WBC 8.29 (4.0-11.0) K/uL RBC 4.97 (4.30-5.90) M/uL Hgb 14.8 (12.0-16.0) g/dL Hct 40.7 (36.0-46.0) % MCV 81.9 (80.0-98.0) fL MCH 29.8 (27.0-32.0) pg MCHC 36.4 (31.0-37.0) g/dL RDW Std Deviation 42.6 (28.0-62.0) fl RDW Coeff of Lito 14 (11.0-15.0) % Plt Count 326 (150-400) K/uL MPV 9.20 (7.40-12.00) fL Neut % (Auto) 85.7 H (48.0-80.0) % Lymph % (Auto) 7.1 L (16.0-40.0) % [place] % (Auto) 7.0 (0.0-15.0) % Eos % (Auto) 0.1 (0.0-7.0) % Baso % (Auto) 0.1 (0.0-1.5) % Neut # (Auto) 7.1 H (1.4-5.7) K/uL Lymph # (Auto) 0.6 (0.6-2.4) K/uL [place] # (Auto) 0.6 (0.0-0.8) K/uL Eos # (Auto) 0.0 (0.0-0.7) K/uL Baso # (Auto) 0.0 (0.0-0.1) K/uL Nucleated RBC % 0.0 /100WBC Nucleated RBCs # 0 K/uL Sodium 131 L (136-145) mmol/L Potassium 3.5 (3.5-5.1) mmol/L Chloride 100 (98-107) mmol/L Carbon Dioxide 17.4 L (21.0-32.0) mmol/L BUN 12 (7.0-18.0) mg/dL Creatinine 0.7 (0.6-1.0) mg/dL Est Cr Clr Drug Dosing 57.44 mL/min Estimated GFR (MDRD) > 60.0 ml/min Glucose 151 H (74-106) mg/dL Calcium 8.2 L (8.5-10.1) mg/dL Total Bilirubin 0.6 (0.2-1.0) mg/dL AST 81 H (15-37) IU/L ALT 113 H (14-63) IU/L Alkaline Phosphatase 181 H (46-116) U/L Total Protein 7.0 (6.4-8.2) g/dL Albumin 2.6 L (3.4-5.0) g/dL Globulin 4.4 H (2.6-4.0) g/dL Albumin/Globulin Ratio 0.6 L (0.9-1.6) Result Diagrams: 05/07/21 05:45 05/07/21 05:45 Sepsis Event Note - Evaluation Sepsis Screening Result: No Definite Risk - Focused Exam Vital Signs: Vital Signs Temp Pulse Resp BP Pulse Ox 05/07/21 16:00 35.7 C L 81 22 H 158/74 H 90 L 05/07/21 12:00 37.1 C 72 18 152/71 H 91 L 05/07/21 08:00 35.7 C L 81 20 156/77 H 93 L - Problem List & Annotations (1) Acute respiratory failure with hypoxia SNOMED Code(s): 41168881, 027694201 Code(s): J96.01 - ACUTE RESPIRATORY FAILURE WITH HYPOXIA Status: Acute Current Visit: Yes (2) COVID-19 SNOMED Code(s): 368092223 Code(s): U07.1 - COVID-19 Status: Acute Current Visit: Yes (3) Hypoxemia SNOMED Code(s): 715593915 Code(s): R09.02 - HYPOXEMIA Status: Acute Current Visit: Yes (4) Pneumonia due to COVID-19 virus SNOMED Code(s): 602401540972897638 Code(s): U07.1 - COVID-19; J12.82 - PNEUMONIA DUE TO CORONAVIRUS DISEASE 2019 Status: Acute Current Visit: Yes (5) Transaminitis SNOMED Code(s): 375278688, 860624171 Code(s): R74.01 - ELEVATION OF LEVELS OF LIVER TRANSAMINASE LEVELS Status: Acute Current Visit: Yes - Problem List Review Problem List Initiated/Reviewed/Updated: Yes - Plan Plan:: 75 yo female admitted for COVID pneumonia with hypoxia Hypoxia: currently on 3 L, oxygen requirement has been steadily going up in last 48 hours COVID: treating with remdesivr and dexamethasone lovenox for DVT prophylaxis DuoNebs as needed, Combivent Continue supportive care Monitor CMP daily
[2021-05-07] MEDS: REMDESIVIR 100 MG in Sodium Chloride 0.9% 100 ML IV SCH (20:13)
[2021-05-07] MEDS: Dexamethasone 4 MG Tab PO SCH (20:13)
[2021-05-07] MEDS: Enoxaparin 40 MG/0.4 ML Syringe SUBCUT SCH (23:39)
[2021-05-08] MEDS: Codeine/guaiFENesin 10-100 MG/5 ML Syrup 5 ML Cup PO PRN ×3 (03:30→19:52)
[2021-05-08] MEDS: Albuterol/Ipratropium 4 GM Inhalation Spray INH SCH ×4 (05:55→23:47)
[2021-05-08] MEDS: Omeprazole 20 MG Cap.CR PO SCH ×2 (06:22→06:30)
[2021-05-08] MEDS: Albuterol/Ipratropium 3.0-0.5 MG/3 ML Neb Soln NEB PRN (06:53)
[2021-05-08 07:56] LABS: BLOOD UREA NITROGEN,BUN 12 mg/dL (7.0-18.0); CARBON DIOXIDE,CO2 17.4 mmol/L (21.0-32.0); CHLORIDE,CL 101 mmol/L (98-107); GLUCOSE RANDOM 142 mg/dL (74-106); POTASSIUM,K 3.6 mmol/L (3.5-5.1); SODIUM,NA 132 mmol/L (136-145)
[2021-05-08] MEDS: VERAPAMIL 120 MG PO SCH (08:56)
[2021-05-08] MEDS: Nitrofurantoin Macrocrystal 50 MG Cap PO SCH (08:56)
--- NOTE | 2021-05-08 14:09 | CR ---
INDICATION: Worsening hypoxia TECHNIQUE: Chest radiograph 1 view COMPARISON: 08/07/2018 FINDINGS: The sensitivity and specificity of the exam are moderately limited by the patient`s body habitus. Mediastinum: The mediastinum is normal in appearance. Mild cardiomegaly is noted. Lung: New reticulonodular infiltrates are seen in the bilateral lower lung zones. Mild left basilar atelectasis is noted. No sign of pleural effusion seen. No pneumothorax is identified. Bone and Soft tissue: Unremarkable for age. IMPRESSIONS: 1. New reticulonodular infiltrates are seen in the bilateral lower lung zones. Mild left basilar atelectasis is noted. Findings may be due to bronchiolitis. 2. Mild cardiomegaly is noted. Dictated by Pito Thomson MD @ 05/08/2021 2:06:49 PM Dictated by: Pito Thomson MD @ 05/08/2021 14:06:52 (Electronically Signed)
[2021-05-08] MEDS ORDERED: Levofloxacin/Dextrose 5%-Water 750 MG in Premix Bag 1 BAG IV SCH (16:30)
[2021-05-08] MEDS ORDERED: diphenhydrAMINE 50 MG/ML SDV IVPUSH ONE (17:08)
[2021-05-08] MEDS: Levofloxacin/Dextrose 5%-Water 750 MG in Premix Bag 1 BAG IV SCH (17:35)
--- NOTE | 2021-05-08 18:50 | PCM.PN ---
- General Info Date of Service: 05/08/21 Admission Dx/Problem (Free Text): Admission Diagnosis/Problem Admission Diagnosis/Problem Hypoxia Subjective Update: Patient seen at bedside, resting in the bed, complaining of some worsening shortness of breath with increased oxygen requirement, patient was assessed at bedside and was eventually switched to Vapotherm to maintain oxygenation above 90% Functional Status: Reports: Tolerating Diet, Ambulating, Urinating - Review of Systems General: Reports: Weakness, Fatigue, Malaise. Denies: Fever Pulmonary: Reports: Shortness of Breath, Cough, Sputum. Denies: Hemoptysis Cardiovascular: Reports: Dyspnea on Exertion. Denies: Chest Pain, Orthopnea Gastrointestinal: Reports: Decreased Appetite. Denies: Abdominal Pain, Constipation, Diarrhea Musculoskeletal: Denies: Neck Pain, Shoulder Pain, Arm Pain Skin: Denies: Cyanosis, Jaundice, Mottled Neurological: Denies: Confusion, Dizziness, Headache Psychiatric: Denies: Confusion, Depression, Mood Lability - Patient Data Vitals - Most Recent: Last Vital Signs Temp 35.9 C L 05/08/21 16:00 Pulse 81 05/08/21 16:00 Resp 20 05/08/21 16:00 BP 140/66 05/08/21 16:00 Pulse Ox 96 05/08/21 16:00 Weight - Most Recent: 83.96 kg I&O - Last 24 Hours: Intake & Output 05/08/21 05/08/21 05/08/21 06:59 14:59 22:59 Intake Total 750 800 Output Total 900 400 Balance -150 400 Lab Results Last 24 Hours: Laboratory Results - last 24 hr 05/08/21 05/08/21 Range/Units 06:00 06:00 WBC 11.80 H (4.0-11.0) K/uL RBC 5.14 (4.30-5.90) M/uL Hgb 15.0 (12.0-16.0) g/dL Hct 41.9 (36.0-46.0) % MCV 81.5 (80.0-98.0) fL MCH 29.2 (27.0-32.0) pg MCHC 35.8 (31.0-37.0) g/dL RDW Std Deviation 42.9 (28.0-62.0) fl RDW Coeff of Lito 14 (11.0-15.0) % Plt Count 363 (150-400) K/uL MPV 9.60 (7.40-12.00) fL Neut % (Auto) 87.9 H (48.0-80.0) % Lymph % (Auto) 4.2 L (16.0-40.0) % [place] % (Auto) 7.8 (0.0-15.0) % Eos % (Auto) 0.0 (0.0-7.0) % Baso % (Auto) 0.1 (0.0-1.5) % Neut # (Auto) 10.4 H (1.4-5.7) K/uL Lymph # (Auto) 0.5 L (0.6-2.4) K/uL [place] # (Auto) 0.9 H (0.0-0.8) K/uL Eos # (Auto) 0.0 (0.0-0.7) K/uL Baso # (Auto) 0.0 (0.0-0.1) K/uL Nucleated RBC % 0.0 /100WBC Nucleated RBCs # 0 K/uL Sodium 132 L (136-145) mmol/L Potassium 3.6 (3.5-5.1) mmol/L Chloride 101 (98-107) mmol/L Carbon Dioxide 17.4 L (21.0-32.0) mmol/L BUN 12 (7.0-18.0) mg/dL Creatinine 0.7 (0.6-1.0) mg/dL Est Cr Clr Drug Dosing 57.44 mL/min Estimated GFR (MDRD) > 60.0 ml/min Glucose 142 H (74-106) mg/dL Calcium 8.1 L (8.5-10.1) mg/dL Phosphorus 1.9 L (2.6-4.7) mg/dL Magnesium 2.2 (1.8-2.4) mg/dL Total Bilirubin 0.5 (0.2-1.0) mg/dL AST 64 H (15-37) IU/L ALT 106 H (14-63) IU/L Alkaline Phosphatase 192 H (46-116) U/L Total Protein 7.1 (6.4-8.2) g/dL Albumin 2.6 L (3.4-5.0) g/dL Globulin 4.5 H (2.6-4.0) g/dL Albumin/Globulin Ratio 0.6 L (0.9-1.6) Med Orders - Current: Current Medications Acetaminophen (Acetaminophen 325 Mg Tab) 650 mg PO Q4H PRN PRN Reason: Pain (Mild 1-3)/fever Last Admin: 05/06/21 23:44 Dose: 650 mg Documented by: Albuterol/Ipratropium (Albuterol/Ipratropium 4 Gm Inhalation [place]) 0 gm INH Q6HRRT [facility] Last Admin: 05/08/21 17:07 Dose: 1 puff Documented by: Albuterol/Ipratropium (Albuterol/Ipratropium 3.0-0.5 Mg/3 Ml Neb Soln) 3 ml NEB Q4HRRT PRN PRN Reason: Shortness of Breath Last Admin: 05/08/21 06:53 Dose: 3 ml Documented by: Dexamethasone (Dexamethasone 4 Mg Tab) 6 mg PO Q24H [facility] Last Admin: 05/07/21 20:13 Dose: 6 mg Documented by: Enoxaparin Sodium (Enoxaparin 40 Mg/0.4 Ml Syringe) 40 mg SUBCUT Q24H [facility] Last Admin: 05/07/21 23:39 Dose: 40 mg Documented by: Guaifenesin/Codeine Phosphate (Codeine/Guaifenesin 10-100 Mg/5 Ml Syrup 5 Ml Cup) 5 ml PO Q4H PRN PRN Reason: Cough Last Admin: 05/08/21 14:02 Dose: 5 ml Documented by: Remdesivir 100 mg/ Sodium (Chloride) 100 mls @ 100 mls/hr IV Q24H [facility] Stop: 05/08/21 20:59 Last Admin: 05/07/21 20:13 Dose: 100 mls/hr Documented by: Levofloxacin/Dextrose 750 mg/ (Premix) 150 mls @ 100 mls/hr IV Q24H [facility] Last Admin: 05/08/21 17:35 Dose: 100 mls/hr Documented by: Ibuprofen (Ibuprofen 200 Mg Tab) 200 mg PO Q6H PRN PRN Reason: Pain (mild 1-3) Omeprazole (Omeprazole 20 Mg Cap.Cr) 20 mg PO ACBREAKFAST [facility] Last Admin: 05/08/21 06:30 Dose: Not Given Documented by: Ondansetron HCl (Ondansetron 4 Mg/2 Ml Sdv) 4 mg IVPUSH Q4H PRN PRN Reason: Nausea Last Admin: 05/06/21 06:51 Dose: 4 mg Documented by: Verapamil 120 Mg Er (Tablet) 1 each PO DAILY [facility] Last Admin: 05/08/21 08:56 Dose: 1 each Documented by: Sodium Chloride (Sodium Chloride 0.9% 10 Ml Syringe) 10 ml FLUSH ASDIRECTED PRN PRN Reason: Keep Vein Open Last Admin: 05/04/21 17:39 Dose: 10 ml Documented by: Sodium Chloride (Sodium Chloride 0.9% 2.5 Ml Syringe) 2.5 ml FLUSH ASDIRECTED PRN PRN Reason: Keep Vein Open Last Admin: 05/04/21 17:36 Dose: 2.5 ml Documented by: Discontinued Medications Dexamethasone (Dexamethasone 10 Mg/Ml Sdv) 6 mg IVPUSH ONETIME ONE Stop: 05/04/21 19:27 Last Admin: 05/04/21 19:42 Dose: 6 mg Documented by: Dexamethasone (Dexamethasone 4 Mg Tab) 6 mg PO Q24H [facility] Last Admin: 05/05/21 04:14 Dose: Not Given Documented by: Diphenhydramine HCl (Diphenhydramine 50 Mg/Ml Sdv) 25 mg IVPUSH ONETIME ONE Stop: 05/08/21 17:09 Last Admin: 05/08/21 17:24 Dose: 25 mg Documented by: Sodium Chloride (Normal Saline) 500 mls @ 500 mls/hr IV .BOLUS STA Stop: 05/04/21 18:17 Last Admin: 05/04/21 17:39 Dose: 500 mls/hr Documented by: Remdesivir 200 mg/ Sodium (Chloride) 250 mls @ 250 mls/hr IV ONETIME ONE Stop: 05/04/21 19:26 Last Admin: 05/04/21 19:57 Dose: 250 mls/hr Documented by: Levofloxacin/Dextrose 750 mg/ (Premix) 150 mls @ 100 mls/hr IV Q24H [facility] Iopamidol (Iopamidol 755 Mg/Ml 500 Ml Multipack Bottle) 100 ml IVPUSH ONETIME ONE Stop: 05/04/21 18:36 Last Admin: 05/04/21 18:35 Dose: 100 ml Documented by: Nitrofurantoin Macrocrystals (Nitrofurantoin Macrocrystal 50 Mg Cap) 50 mg PO DAILY [facility] Last Admin: 05/08/21 08:56 Dose: 50 mg Documented by: Ondansetron HCl (Ondansetron 4 Mg/2 Ml Sdv) 4 mg IVPUSH ONETIME ONE Stop: 05/04/21 17:21 Last Admin: 05/04/21 17:39 Dose: 4 mg Documented by: Ondansetron HCl (Ondansetron 4 Mg/2 Ml Sdv) 4 mg IVPUSH ONETIME ONE Stop: 05/04/21 19:29 Last Admin: 05/04/21 19:42 Dose: 4 mg Documented by: Potassium Chloride (Potassium Chloride 20 Meq Tab.Er) 40 meq PO ONETIME ONE Stop: 05/06/21 08:16 Last Admin: 05/06/21 09:14 Dose: 40 meq Documented by: Verapamil HCl (Verapamil 240 Mg Tab.Er) 120 mg PO DAILY [facility] - Exam Quality Assessment: Supplemental Oxygen General: Alert, Oriented, Cooperative, Mild Distress Lungs: Decreased Breath Sounds, Crackles, Rales, Wheezing Cardiovascular: Regular Rate, Regular Rhythm GI/Abdominal Exam: Normal Bowel Sounds, Soft, Non-Tender, No Organomegaly Extremities: Normal Inspection, Normal Range of Motion - Patient Data Lab Results Last 24 hrs: Laboratory Results - last 24 hr 05/08/21 05/08/21 Range/Units 06:00 06:00 WBC 11.80 H (4.0-11.0) K/uL RBC 5.14 (4.30-5.90) M/uL Hgb 15.0 (12.0-16.0) g/dL Hct 41.9 (36.0-46.0) % MCV 81.5 (80.0-98.0) fL MCH 29.2 (27.0-32.0) pg MCHC 35.8 (31.0-37.0) g/dL RDW Std Deviation 42.9 (28.0-62.0) fl RDW Coeff of Lito 14 (11.0-15.0) % Plt Count 363 (150-400) K/uL MPV 9.60 (7.40-12.00) fL Neut % (Auto) 87.9 H (48.0-80.0) % Lymph % (Auto) 4.2 L (16.0-40.0) % [place] % (Auto) 7.8 (0.0-15.0) % Eos % (Auto) 0.0 (0.0-7.0) % Baso % (Auto) 0.1 (0.0-1.5) % Neut # (Auto) 10.4 H (1.4-5.7) K/uL Lymph # (Auto) 0.5 L (0.6-2.4) K/uL [place] # (Auto) 0.9 H (0.0-0.8) K/uL Eos # (Auto) 0.0 (0.0-0.7) K/uL Baso # (Auto) 0.0 (0.0-0.1) K/uL Nucleated RBC % 0.0 /100WBC Nucleated RBCs # 0 K/uL Sodium 132 L (136-145) mmol/L Potassium 3.6 (3.5-5.1) mmol/L Chloride 101 (98-107) mmol/L Carbon Dioxide 17.4 L (21.0-32.0) mmol/L BUN 12 (7.0-18.0) mg/dL Creatinine 0.7 (0.6-1.0) mg/dL Est Cr Clr Drug Dosing 57.44 mL/min Estimated GFR (MDRD) > 60.0 ml/min Glucose 142 H (74-106) mg/dL Calcium 8.1 L (8.5-10.1) mg/dL Phosphorus 1.9 L (2.6-4.7) mg/dL Magnesium 2.2 (1.8-2.4) mg/dL Total Bilirubin 0.5 (0.2-1.0) mg/dL AST 64 H (15-37) IU/L ALT 106 H (14-63) IU/L Alkaline Phosphatase 192 H (46-116) U/L Total Protein 7.1 (6.4-8.2) g/dL Albumin 2.6 L (3.4-5.0) g/dL Globulin 4.5 H (2.6-4.0) g/dL Albumin/Globulin Ratio 0.6 L (0.9-1.6) Result Diagrams: 05/08/21 06:00 05/08/21 06:00 Sepsis Event Note - Evaluation Sepsis Screening Result: No Definite Risk - Focused Exam Vital Signs: Vital Signs Temp Pulse Resp BP Pulse Ox 05/08/21 16:00 35.9 C L 81 20 140/66 96 05/08/21 11:41 35.7 C L 88 22 H 133/74 91 L 05/08/21 08:13 36.4 C 62 24 H 133/62 93 L 05/08/21 06:53 24 H 90 L 05/08/21 06:52 24 H 88 L - Problem List & Annotations (1) Acute respiratory failure with hypoxia SNOMED Code(s): 03637565, 964041884 Code(s): J96.01 - ACUTE RESPIRATORY FAILURE WITH HYPOXIA Status: Acute Current Visit: Yes (2) COVID-19 SNOMED Code(s): 162106998 Code(s): U07.1 - COVID-19 Status: Acute Current Visit: Yes (3) Hypoxemia SNOMED Code(s): 700310254 Code(s): R09.02 - HYPOXEMIA Status: Acute Current Visit: Yes (4) Pneumonia due to COVID-19 virus SNOMED Code(s): 914404041121218085 Code(s): U07.1 - COVID-19; J12.82 - PNEUMONIA DUE TO CORONAVIRUS DISEASE 2019 Status: Acute Current Visit: Yes (5) Transaminitis SNOMED Code(s): 862630533, 128645181 Code(s): R74.01 - ELEVATION OF LEVELS OF LIVER TRANSAMINASE LEVELS Status: Acute Current Visit: Yes - Problem List Review Problem List Initiated/Reviewed/Updated: Yes - My Orders Last 24 Hours: My Active Orders 05/08/21 01:17 Codeine/guaiFENesin [Robitussin AC] 5 ml PO Q4H PRN 05/08/21 01:18 RT Aerosol Therapy [RC] ASDIRECTED Albuterol/Ipratropium [DuoNeb 3.0-0.5 MG/3 ML] 3 ml NEB Q4HRRT PRN 05/08/21 15:51 PROCALCITONIN [REF] Routine 05/08/21 17:30 Levofloxacin/Dextrose 5%-Water [Levaquin in D5W 750 MG/150 ML] 750 mg Premix Bag 1 bag IV Q24H - Plan Plan:: 75 yo female admitted for COVID pneumonia with hypoxia Hypoxia: Switched to Vapotherm, initially 90% FiO2 now has been weaned down to 65% COVID: treating with remdesivr and dexamethasone lovenox for DVT prophylaxis DuoNebs as needed, Combivent Continue supportive care Monitor CMP daily Check chest x-ray for possible superimposed bacterial pneumonia
[2021-05-08] MEDS: REMDESIVIR 100 MG in Sodium Chloride 0.9% 100 ML IV SCH (19:48)
[2021-05-08] MEDS: Dexamethasone 4 MG Tab PO SCH (19:51)
[2021-05-08] MEDS: Enoxaparin 40 MG/0.4 ML Syringe SUBCUT SCH (23:47)
[2021-05-09] MEDS: Albuterol/Ipratropium 4 GM Inhalation Spray INH SCH ×3 (06:06→17:03)
[2021-05-09] MEDS: Omeprazole 20 MG Cap.CR PO SCH (06:38)
[2021-05-09 08:23] LABS: BLOOD UREA NITROGEN,BUN 13 mg/dL (7.0-18.0); CHLORIDE,CL 100 mmol/L (98-107); GLUCOSE RANDOM 142 mg/dL (74-106); POTASSIUM,K 3.4 mmol/L (3.5-5.1); SODIUM,NA 130 mmol/L (136-145)
[2021-05-09] MEDS: VERAPAMIL 120 MG PO SCH (09:15)
--- NOTE | 2021-05-09 17:29 | PCM.PN ---
- General Info Date of Service: 05/09/21 Admission Dx/Problem (Free Text): Admission Diagnosis/Problem Admission Diagnosis/Problem Hypoxia Subjective Update: Patient seen at bedside, resting in the bed, eating her lunch, tolerating Vapotherm well Functional Status: Reports: Tolerating Diet, Urinating - Review of Systems General: Reports: Fatigue, Malaise. Denies: Fever, Weakness Pulmonary: Reports: Shortness of Breath, Cough, Sputum. Denies: Pleuritic Chest Pain Cardiovascular: Reports: Dyspnea on Exertion. Denies: Chest Pain, Palpitations Gastrointestinal: Denies: Abdominal Pain, Constipation, Decreased Appetite, Herminia rrhea Genitourinary: Denies: Dysuria, Frequency, Burning Musculoskeletal: Denies: Neck Pain, Shoulder Pain, Arm Pain Skin: Denies: Cyanosis, Jaundice, Mottled Neurological: Denies: Confusion, Dizziness, Headache - Patient Data Vitals - Most Recent: Last Vital Signs Temp 36.3 C 05/09/21 17:00 Pulse 85 05/09/21 17:00 Resp 20 05/09/21 17:00 BP 131/62 05/09/21 17:00 Pulse Ox 90 L 05/09/21 17:00 Weight - Most Recent: 83.96 kg I&O - Last 24 Hours: Intake & Output 05/09/21 05/09/21 05/09/21 06:59 14:59 22:59 Intake Total 500 360 Output Total 800 Balance -300 360 Lab Results Last 24 Hours: Laboratory Results - last 24 hr 05/09/21 05/09/21 Range/Units 06:04 06:04 WBC 12.73 H (4.0-11.0) K/uL RBC 5.01 (4.30-5.90) M/uL Hgb 14.7 (12.0-16.0) g/dL Hct 40.6 (36.0-46.0) % MCV 81.0 (80.0-98.0) fL MCH 29.3 (27.0-32.0) pg MCHC 36.2 (31.0-37.0) g/dL RDW Std Deviation 42.4 (28.0-62.0) fl RDW Coeff of Lito 14 (11.0-15.0) % Plt Count 378 (150-400) K/uL MPV 9.70 (7.40-12.00) fL Neut % (Auto) 90.8 H (48.0-80.0) % Lymph % (Auto) 3.8 L (16.0-40.0) % [place] % (Auto) 5.3 (0.0-15.0) % Eos % (Auto) 0.0 (0.0-7.0) % Baso % (Auto) 0.1 (0.0-1.5) % Neut # (Auto) 11.6 H (1.4-5.7) K/uL Lymph # (Auto) 0.5 L (0.6-2.4) K/uL [place] # (Auto) 0.7 (0.0-0.8) K/uL Eos # (Auto) 0.0 (0.0-0.7) K/uL Baso # (Auto) 0.0 (0.0-0.1) K/uL Nucleated RBC % 0.0 /100WBC Nucleated RBCs # 0 K/uL Sodium 130 L (136-145) mmol/L Potassium 3.4 L (3.5-5.1) mmol/L Chloride 100 (98-107) mmol/L Carbon Dioxide 16.0 L (21.0-32.0) mmol/L BUN 13 (7.0-18.0) mg/dL Creatinine 0.6 (0.6-1.0) mg/dL Est Cr Clr Drug Dosing 67.02 mL/min Estimated GFR (MDRD) > 60.0 ml/min Glucose 142 H (74-106) mg/dL Calcium 8.1 L (8.5-10.1) mg/dL Phosphorus 1.7 L (2.6-4.7) mg/dL Magnesium 2.1 (1.8-2.4) mg/dL Total Bilirubin 0.6 (0.2-1.0) mg/dL AST 31 (15-37) IU/L ALT 78 H (14-63) IU/L Alkaline Phosphatase 167 H (46-116) U/L Total Protein 6.7 (6.4-8.2) g/dL Albumin 2.4 L (3.4-5.0) g/dL Globulin 4.3 H (2.6-4.0) g/dL Albumin/Globulin Ratio 0.6 L (0.9-1.6) Med Orders - Current: Current Medications Acetaminophen (Acetaminophen 325 Mg Tab) 650 mg PO Q4H PRN PRN Reason: Pain (Mild 1-3)/fever Last Admin: 05/06/21 23:44 Dose: 650 mg Documented by: Albuterol/Ipratropium (Albuterol/Ipratropium 4 Gm Inhalation [place]) 0 gm INH Q6HRRT [facility] Last Admin: 05/09/21 17:03 Dose: 1 puff Documented by: Albuterol/Ipratropium (Albuterol/Ipratropium 3.0-0.5 Mg/3 Ml Neb Soln) 3 ml NEB Q4HRRT PRN PRN Reason: Shortness of Breath Last Admin: 05/08/21 06:53 Dose: 3 ml Documented by: Dexamethasone (Dexamethasone 4 Mg Tab) 6 mg PO Q24H [facility] Last Admin: 05/08/21 19:51 Dose: 6 mg Documented by: Enoxaparin Sodium (Enoxaparin 40 Mg/0.4 Ml Syringe) 40 mg SUBCUT Q24H [facility] Last Admin: 05/08/21 23:47 Dose: 40 mg Documented by: Guaifenesin/Codeine Phosphate (Codeine/Guaifenesin 10-100 Mg/5 Ml Syrup 5 Ml Cup) 5 ml PO Q4H PRN PRN Reason: Cough Last Admin: 05/08/21 19:52 Dose: 5 ml Documented by: Levofloxacin/Dextrose 750 mg/ (Premix) 150 mls @ 100 mls/hr IV Q24H [facility] Last Admin: 05/08/21 17:35 Dose: 100 mls/hr Documented by: Ibuprofen (Ibuprofen 200 Mg Tab) 200 mg PO Q6H PRN PRN Reason: Pain (mild 1-3) Omeprazole (Omeprazole 20 Mg Cap.Cr) 20 mg PO ACBREAKFAST [facility] Last Admin: 05/09/21 06:38 Dose: 20 mg Documented by: Ondansetron HCl (Ondansetron 4 Mg/2 Ml Sdv) 4 mg IVPUSH Q4H PRN PRN Reason: Nausea Last Admin: 05/06/21 06:51 Dose: 4 mg Documented by: Verapamil 120 Mg Er (Tablet) 1 each PO DAILY [facility] Last Admin: 05/09/21 09:15 Dose: 1 each Documented by: Sodium Chloride (Sodium Chloride 0.9% 10 Ml Syringe) 10 ml FLUSH ASDIRECTED PRN PRN Reason: Keep Vein Open Last Admin: 05/04/21 17:39 Dose: 10 ml Documented by: Sodium Chloride (Sodium Chloride 0.9% 2.5 Ml Syringe) 2.5 ml FLUSH ASDIRECTED PRN PRN Reason: Keep Vein Open Last Admin: 05/04/21 17:36 Dose: 2.5 ml Documented by: Discontinued Medications Dexamethasone (Dexamethasone 10 Mg/Ml Sdv) 6 mg IVPUSH ONETIME ONE Stop: 05/04/21 19:27 Last Admin: 05/04/21 19:42 Dose: 6 mg Documented by: Dexamethasone (Dexamethasone 4 Mg Tab) 6 mg PO Q24H [facility] Last Admin: 05/05/21 04:14 Dose: Not Given Documented by: Diphenhydramine HCl (Diphenhydramine 50 Mg/Ml Sdv) 25 mg IVPUSH ONETIME ONE Stop: 05/08/21 17:09 Last Admin: 05/08/21 17:24 Dose: 25 mg Documented by: Sodium Chloride (Normal Saline) 500 mls @ 500 mls/hr IV .BOLUS STA Stop: 05/04/21 18:17 Last Admin: 05/04/21 17:39 Dose: 500 mls/hr Documented by: Remdesivir 200 mg/ Sodium (Chloride) 250 mls @ 250 mls/hr IV ONETIME ONE Stop: 05/04/21 19:26 Last Admin: 05/04/21 19:57 Dose: 250 mls/hr Documented by: Remdesivir 100 mg/ Sodium (Chloride) 100 mls @ 100 mls/hr IV Q24H [facility] Stop: 05/08/21 20:59 Last Admin: 05/08/21 19:48 Dose: 100 mls/hr Documented by: Levofloxacin/Dextrose 750 mg/ (Premix) 150 mls @ 100 mls/hr IV Q24H [facility] Iopamidol (Iopamidol 755 Mg/Ml 500 Ml Multipack Bottle) 100 ml IVPUSH ONETIME ONE Stop: 05/04/21 18:36 Last Admin: 05/04/21 18:35 Dose: 100 ml Documented by: Nitrofurantoin Macrocrystals (Nitrofurantoin Macrocrystal 50 Mg Cap) 50 mg PO DAILY [facility] Last Admin: 05/08/21 08:56 Dose: 50 mg Documented by: Ondansetron HCl (Ondansetron 4 Mg/2 Ml Sdv) 4 mg IVPUSH ONETIME ONE Stop: 05/04/21 17:21 Last Admin: 05/04/21 17:39 Dose: 4 mg Documented by: Ondansetron HCl (Ondansetron 4 Mg/2 Ml Sdv) 4 mg IVPUSH ONETIME ONE Stop: 05/04/21 19:29 Last Admin: 05/04/21 19:42 Dose: 4 mg Documented by: Potassium Chloride (Potassium Chloride 20 Meq Tab.Er) 40 meq PO ONETIME ONE Stop: 05/06/21 08:16 Last Admin: 05/06/21 09:14 Dose: 40 meq Documented by: Verapamil HCl (Verapamil 240 Mg Tab.Er) 120 mg PO DAILY [facility] - Exam Quality Assessment: Supplemental Oxygen General: Alert, Oriented Lungs: Normal Respiratory Effort, Decreased Breath Sounds, Crackles, Rales GI/Abdominal Exam: Normal Bowel Sounds, Soft Extremities: Normal Inspection, Normal Range of Motion - Patient Data Lab Results Last 24 hrs: Laboratory Results - last 24 hr 05/09/21 05/09/21 Range/Units 06:04 06:04 WBC 12.73 H (4.0-11.0) K/uL RBC 5.01 (4.30-5.90) M/uL Hgb 14.7 (12.0-16.0) g/dL Hct 40.6 (36.0-46.0) % MCV 81.0 (80.0-98.0) fL MCH 29.3 (27.0-32.0) pg MCHC 36.2 (31.0-37.0) g/dL RDW Std Deviation 42.4 (28.0-62.0) fl RDW Coeff of Lito 14 (11.0-15.0) % Plt Count 378 (150-400) K/uL MPV 9.70 (7.40-12.00) fL Neut % (Auto) 90.8 H (48.0-80.0) % Lymph % (Auto) 3.8 L (16.0-40.0) % [place] % (Auto) 5.3 (0.0-15.0) % Eos % (Auto) 0.0 (0.0-7.0) % Baso % (Auto) 0.1 (0.0-1.5) % Neut # (Auto) 11.6 H (1.4-5.7) K/uL Lymph # (Auto) 0.5 L (0.6-2.4) K/uL [place] # (Auto) 0.7 (0.0-0.8) K/uL Eos # (Auto) 0.0 (0.0-0.7) K/uL Baso # (Auto) 0.0 (0.0-0.1) K/uL Nucleated RBC % 0.0 /100WBC Nucleated RBCs # 0 K/uL Sodium 130 L (136-145) mmol/L Potassium 3.4 L (3.5-5.1) mmol/L Chloride 100 (98-107) mmol/L Carbon Dioxide 16.0 L (21.0-32.0) mmol/L BUN 13 (7.0-18.0) mg/dL Creatinine 0.6 (0.6-1.0) mg/dL Est Cr Clr Drug Dosing 67.02 mL/min Estimated GFR (MDRD) > 60.0 ml/min Glucose 142 H (74-106) mg/dL Calcium 8.1 L (8.5-10.1) mg/dL Phosphorus 1.7 L (2.6-4.7) mg/dL Magnesium 2.1 (1.8-2.4) mg/dL Total Bilirubin 0.6 (0.2-1.0) mg/dL AST 31 (15-37) IU/L ALT 78 H (14-63) IU/L Alkaline Phosphatase 167 H (46-116) U/L Total Protein 6.7 (6.4-8.2) g/dL Albumin 2.4 L (3.4-5.0) g/dL Globulin 4.3 H (2.6-4.0) g/dL Albumin/Globulin Ratio 0.6 L (0.9-1.6) Result Diagrams: 05/09/21 06:04 05/09/21 06:04 Sepsis Event Note - Evaluation Sepsis Screening Result: Sepsis Risk - Focused Exam Vital Signs: Vital Signs Temp Pulse Resp BP Pulse Ox 05/09/21 17:00 36.3 C 85 20 131/62 90 L 10/27/21 13:00 36.7 C 91 20 131/59 L 90 L 05/09/21 09:00 36.4 C 83 20 146/74 H 93 L - Problem List & Annotations (1) Acute respiratory failure with hypoxia SNOMED Code(s): 02765173, 694435161 Code(s): J96.01 - ACUTE RESPIRATORY FAILURE WITH HYPOXIA Status: Acute Current Visit: Yes (2) COVID-19 SNOMED Code(s): 347725816 Code(s): U07.1 - COVID-19 Status: Acute Current Visit: Yes (3) Hypoxemia SNOMED Code(s): 659127199 Code(s): R09.02 - HYPOXEMIA Status: Acute Current Visit: Yes (4) Pneumonia due to COVID-19 virus SNOMED Code(s): 292243849570613107 Code(s): U07.1 - COVID-19; J12.82 - PNEUMONIA DUE TO CORONAVIRUS DISEASE 2018 Status: Acute Current Visit: Yes (5) Transaminitis SNOMED Code(s): 664366131, 350415576 Code(s): R74.01 - ELEVATION OF LEVELS OF LIVER TRANSAMINASE LEVELS Status: Acute Current Visit: Yes - Problem List Review Problem List Initiated/Reviewed/Updated: Yes - My Orders Last 24 Hours: My Active Orders 05/08/21 17:30 Levofloxacin/Dextrose 5%-Water [Levaquin in D5W 750 MG/150 ML] 750 mg Premix Bag 1 bag IV Q24H - Plan Plan:: 75 yo female admitted for COVID pneumonia with hypoxia Hypoxia: Switched to Vapotherm, initially 90% FiO2 now has been weaned down to 65% COVID: treating with remdesivr and dexamethasone lovenox for DVT prophylaxis DuoNebs as needed, Combivent Continue supportive care Monitor CMP daily cont levaquin
[2021-05-09] MEDS: Levofloxacin/Dextrose 5%-Water 750 MG in Premix Bag 1 BAG IV SCH (17:45)
--- NOTE | 2021-05-09 17:46 | PCM.SN.2 ---
- Free Text/Narrative Note: Spoke to patient's daughter Serenity gave her a thorough update about patient's status. All concerns and questions answered. Time Documentation
[2021-05-09] MEDS: Dexamethasone 4 MG Tab PO SCH (20:25)
[2021-05-09] MEDS: Ondansetron 4 MG/2 ML SDV IVPUSH PRN (20:36)
[2021-05-10] MEDS: Enoxaparin 40 MG/0.4 ML Syringe SUBCUT SCH ×2 (00:01→23:15)
[2021-05-10] MEDS: Albuterol/Ipratropium 4 GM Inhalation Spray INH SCH ×5 (00:02→23:15)
[2021-05-10] MEDS: Omeprazole 20 MG Cap.CR PO SCH (06:33)
[2021-05-10 07:42] LABS: BLOOD UREA NITROGEN,BUN 14 mg/dL (7.0-18.0); CHLORIDE,CL 100 mmol/L (98-107); GLUCOSE RANDOM 158 mg/dL (74-106); POTASSIUM,K 3.6 mmol/L (3.5-5.1); SODIUM,NA 131 mmol/L (136-145)
[2021-05-10] MEDS: VERAPAMIL 120 MG PO SCH (09:54)
[2021-05-10] MEDS: Levofloxacin/Dextrose 5%-Water 750 MG in Premix Bag 1 BAG IV SCH (18:21)
[2021-05-10] MEDS: Dexamethasone 4 MG Tab PO SCH (21:33)
[2021-05-10] MEDS: Ondansetron 4 MG/2 ML SDV IVPUSH PRN (21:33)
--- NOTE | 2021-05-10 21:47 | PCM.PN ---
- General Info Date of Service: 05/10/21 Admission Dx/Problem (Free Text): Admission Diagnosis/Problem Admission Diagnosis/Problem Hypoxia Subjective Update: Patient seen at bedside, resting in the bed, tolerating Vapotherm well Functional Status: Reports: Tolerating Diet, Urinating. Denies: Ambulating - Review of Systems General: Reports: Weakness, Fatigue, Malaise. Denies: Fever Pulmonary: Reports: Shortness of Breath. Denies: Pleuritic Chest Pain, Cough, Sputum Cardiovascular: Reports: Dyspnea on Exertion. Denies: Chest Pain, Palpitations, Orthopnea Gastrointestinal: Denies: Abdominal Pain, Constipation, Decreased Appetite Genitourinary: Denies: Dysuria, Frequency, Burning Musculoskeletal: Denies: Neck Pain, Shoulder Pain, Arm Pain Skin: Denies: Cyanosis, Jaundice, Mottled - Patient Data Vitals - Most Recent: Last Vital Signs Temp 36.2 C 05/10/21 21:26 Pulse 99 05/10/21 21:26 Resp 28 H 05/10/21 21:26 BP 131/72 05/10/21 21:26 Pulse Ox 93 L 05/10/21 21:26 Weight - Most Recent: 83.96 kg I&O - Last 24 Hours: Intake & Output 05/10/21 05/10/21 05/10/21 06:59 14:59 22:59 Intake Total 600 1040 Output Total 500 Balance 100 1040 Lab Results Last 24 Hours: Laboratory Results - last 24 hr 05/08/21 05/10/21 05/10/21 Range/Units 06:04 06:20 06:20 WBC 12.97 H (4.0-11.0) K/uL RBC 5.03 (4.30-5.90) M/uL Hgb 14.6 (12.0-16.0) g/dL Hct 40.5 (36.0-46.0) % MCV 80.5 (80.0-98.0) fL MCH 29.0 (27.0-32.0) pg MCHC 36.0 (31.0-37.0) g/dL RDW Std Deviation 42.0 (28.0-62.0) fl RDW Coeff of Lito 14 (11.0-15.0) % Plt Count 364 (150-400) K/uL MPV 9.40 (7.40-12.00) fL Neut % (Auto) 92.6 H (48.0-80.0) % Lymph % (Auto) 2.7 L (16.0-40.0) % [place] % (Auto) 4.6 (0.0-15.0) % Eos % (Auto) 0.0 (0.0-7.0) % Baso % (Auto) 0.1 (0.0-1.5) % Neut # (Auto) 12.0 H (1.4-5.7) K/uL Lymph # (Auto) 0.4 L (0.6-2.4) K/uL [place] # (Auto) 0.6 (0.0-0.8) K/uL Eos # (Auto) 0.0 (0.0-0.7) K/uL Baso # (Auto) 0.0 (0.0-0.1) K/uL Nucleated RBC % 0.0 /100WBC Nucleated RBCs # 0 K/uL Sodium 131 L (136-145) mmol/L Potassium 3.6 (3.5-5.1) mmol/L Chloride 100 (98-107) mmol/L Carbon Dioxide 17.0 L (21.0-32.0) mmol/L BUN 14 (7.0-18.0) mg/dL Creatinine 0.7 (0.6-1.0) mg/dL Est Cr Clr Drug Dosing 57.44 mL/min Estimated GFR (MDRD) > 60.0 ml/min Glucose 158 H (74-106) mg/dL Calcium 7.7 L (8.5-10.1) mg/dL Phosphorus 2.0 L (2.6-4.7) mg/dL Magnesium 2.0 (1.8-2.4) mg/dL Total Bilirubin 0.6 (0.2-1.0) mg/dL AST 28 (15-37) IU/L ALT 65 H (14-63) IU/L Alkaline Phosphatase 157 H (46-116) U/L Total Protein 6.0 L (6.4-8.2) g/dL Albumin 2.3 L (3.4-5.0) g/dL Globulin 3.7 (2.6-4.0) g/dL Albumin/Globulin Ratio 0.6 L (0.9-1.6) Procalcitonin 0.08 ng/mL Med Orders - Current: Current Medications Acetaminophen (Acetaminophen 325 Mg Tab) 650 mg PO Q4H PRN PRN Reason: Pain (Mild 1-3)/fever Last Admin: 05/06/21 23:44 Dose: 650 mg Documented by: Albuterol/Ipratropium (Albuterol/Ipratropium 4 Gm Inhalation [place]) 0 gm INH Q6HRRT [facility] Last Admin: 05/10/21 16:59 Dose: 1 puff Documented by: Albuterol/Ipratropium (Albuterol/Ipratropium 3.0-0.5 Mg/3 Ml Neb Soln) 3 ml NEB Q4HRRT PRN PRN Reason: Shortness of Breath Last Admin: 05/08/21 06:53 Dose: 3 ml Documented by: Baricitinib (Baricitinib 2 Mg Tab) 4 mg PO Q24H [facility] Last Admin: 05/10/21 15:22 Dose: 4 mg Documented by: Dexamethasone (Dexamethasone 4 Mg Tab) 6 mg PO Q24H [facility] Last Admin: 05/10/21 21:33 Dose: 6 mg Documented by: Enoxaparin Sodium (Enoxaparin 40 Mg/0.4 Ml Syringe) 40 mg SUBCUT Q24H [facility] Last Admin: 05/10/21 00:01 Dose: 40 mg Documented by: Guaifenesin/Codeine Phosphate (Codeine/Guaifenesin 10-100 Mg/5 Ml Syrup 5 Ml Cup) 5 ml PO Q4H PRN PRN Reason: Cough Last Admin: 05/08/21 19:52 Dose: 5 ml Documented by: Levofloxacin/Dextrose 750 mg/ (Premix) 150 mls @ 100 mls/hr IV Q24H [facility] Last Admin: 05/10/21 18:21 Dose: 100 mls/hr Documented by: Ibuprofen (Ibuprofen 200 Mg Tab) 200 mg PO Q6H PRN PRN Reason: Pain (mild 1-3) Omeprazole (Omeprazole 20 Mg Cap.Cr) 20 mg PO ACBREAKFAST [facility] Last Admin: 05/10/21 06:33 Dose: 20 mg Documented by: Ondansetron HCl (Ondansetron 4 Mg/2 Ml Sdv) 4 mg IVPUSH Q4H PRN PRN Reason: Nausea Last Admin: 05/10/21 21:33 Dose: 4 mg Documented by: Verapamil 120 Mg Er (Tablet) 1 each PO DAILY [facility] Last Admin: 05/10/21 09:54 Dose: 1 each Documented by: Sodium Chloride (Sodium Chloride 0.9% 10 Ml Syringe) 10 ml FLUSH ASDIRECTED PRN PRN Reason: Keep Vein Open Last Admin: 05/04/21 17:39 Dose: 10 ml Documented by: Sodium Chloride (Sodium Chloride 0.9% 2.5 Ml Syringe) 2.5 ml FLUSH ASDIRECTED PRN PRN Reason: Keep Vein Open Last Admin: 05/04/21 17:36 Dose: 2.5 ml Documented by: Discontinued Medications Dexamethasone (Dexamethasone 10 Mg/Ml Sdv) 6 mg IVPUSH ONETIME ONE Stop: 05/04/21 19:27 Last Admin: 05/04/21 19:42 Dose: 6 mg Documented by: Dexamethasone (Dexamethasone 4 Mg Tab) 6 mg PO Q24H [facility] Last Admin: 05/05/21 04:14 Dose: Not Given Documented by: Diphenhydramine HCl (Diphenhydramine 50 Mg/Ml Sdv) 25 mg IVPUSH ONETIME ONE Stop: 05/08/21 17:09 Last Admin: 05/08/21 17:24 Dose: 25 mg Documented by: Sodium Chloride (Normal Saline) 500 mls @ 500 mls/hr IV .BOLUS STA Stop: 05/04/21 18:17 Last Admin: 05/04/21 17:39 Dose: 500 mls/hr Documented by: Remdesivir 200 mg/ Sodium (Chloride) 250 mls @ 250 mls/hr IV ONETIME ONE Stop: 05/04/21 19:26 Last Admin: 05/04/21 19:57 Dose: 250 mls/hr Documented by: Remdesivir 100 mg/ Sodium (Chloride) 100 mls @ 100 mls/hr IV Q24H [facility] Stop: 05/08/21 20:59 Last Admin: 05/08/21 19:48 Dose: 100 mls/hr Documented by: Levofloxacin/Dextrose 750 mg/ (Premix) 150 mls @ 100 mls/hr IV Q24H [facility] Iopamidol (Iopamidol 755 Mg/Ml 500 Ml Multipack Bottle) 100 ml IVPUSH ONETIME ONE Stop: 05/04/21 18:36 Last Admin: 05/04/21 18:35 Dose: 100 ml Documented by: Nitrofurantoin Macrocrystals (Nitrofurantoin Macrocrystal 50 Mg Cap) 50 mg PO DAILY [facility] Last Admin: 05/08/21 08:56 Dose: 50 mg Documented by: Ondansetron HCl (Ondansetron 4 Mg/2 Ml Sdv) 4 mg IVPUSH ONETIME ONE Stop: 05/04/21 17:21 Last Admin: 05/04/21 17:39 Dose: 4 mg Documented by: Ondansetron HCl (Ondansetron 4 Mg/2 Ml Sdv) 4 mg IVPUSH ONETIME ONE Stop: 05/04/21 19:29 Last Admin: 05/04/21 19:42 Dose: 4 mg Documented by: Potassium Chloride (Potassium Chloride 20 Meq Tab.Er) 40 meq PO ONETIME ONE Stop: 05/06/21 08:16 Last Admin: 05/06/21 09:14 Dose: 40 meq Documented by: Verapamil HCl (Verapamil 240 Mg Tab.Er) 120 mg PO DAILY [facility] - Exam Quality Assessment: Supplemental Oxygen General: Alert, Oriented Neck: Supple, Trachea Midline Lungs: Decreased Breath Sounds, Crackles, Rales Cardiovascular: Regular Rate, Regular Rhythm GI/Abdominal Exam: Normal Bowel Sounds, Soft, Non-Tender Back Exam: Normal Inspection, Full Range of Motion Extremities: Normal Inspection, Normal Range of Motion, Non-Tender, No Pedal Edema - Patient Data Lab Results Last 24 hrs: Laboratory Results - last 24 hr 05/08/21 05/10/21 05/10/21 Range/Units 06:04 06:20 06:20 WBC 12.97 H (4.0-11.0) K/uL RBC 5.03 (4.30-5.90) M/uL Hgb 14.6 (12.0-16.0) g/dL Hct 40.5 (36.0-46.0) % MCV 80.5 (80.0-98.0) fL MCH 29.0 (27.0-32.0) pg MCHC 36.0 (31.0-37.0) g/dL RDW Std Deviation 42.0 (28.0-62.0) fl RDW Coeff of [place]ito 14 (11.0-15.0) % Plt Count 364 (150-400) K/uL MPV 9.40 (7.40-12.00) fL Neut % (Auto) 92.6 H (48.0-80.0) % Lymph % (Auto) 2.7 L (16.0-40.0) % [place] % (Auto) 4.6 (0.0-15.0) % Eos % (Auto) 0.0 (0.0-7.0) % Baso % (Auto) 0.1 (0.0-1.5) % Neut # (Auto) 12.0 H (1.4-5.7) K/uL Lymph # (Auto) 0.4 L (0.6-2.4) K/uL [place] # (Auto) 0.6 (0.0-0.8) K/uL Eos # (Auto) 0.0 (0.0-0.7) K/uL Baso # (Auto) 0.0 (0.0-0.1) K/uL Nucleated RBC % 0.0 /100WBC Nucleated RBCs # 0 K/uL Sodium 131 L (136-145) mmol/L Potassium 3.6 (3.5-5.1) mmol/L Chloride 100 (98-107) mmol/L Carbon Dioxide 17.0 L (21.0-32.0) mmol/L BUN 14 (7.0-18.0) mg/dL Creatinine 0.7 (0.6-1.0) mg/dL Est Cr Clr Drug Dosing 57.44 mL/min Estimated GFR (MDRD) > 60.0 ml/min Glucose 158 H (74-106) mg/dL Calcium 7.7 L (8.5-10.1) mg/dL Phosphorus 2.0 L (2.6-4.7) mg/dL Magnesium 2.0 (1.8-2.4) mg/dL Total Bilirubin 0.6 (0.2-1.0) mg/dL AST 28 (15-37) IU/L ALT 65 H (14-63) IU/L Alkaline Phosphatase 157 H (46-116) U/L Total Protein 6.0 L (6.4-8.2) g/dL Albumin 2.3 L (3.4-5.0) g/dL Globulin 3.7 (2.6-4.0) g/dL Albumin/Globulin Ratio 0.6 L (0.9-1.6) Procalcitonin 0.08 ng/mL Result Diagrams: 05/10/21 06:20 05/10/21 06:20 Sepsis Event Note - Evaluation Sepsis Screening Result: No Definite Risk - Focused Exam Vital Signs: Vital Signs Temp Pulse Resp BP Pulse Ox 05/10/21 21:26 36.2 C 99 28 H 131/72 93 L 05/10/21 15:21 36.8 C 95 27 H 137/66 91 L 05/10/21 13:07 36.9 C 93 24 H 141/67 H 85 L 05/10/21 12:15 36.5 C 94 26 H 135/65 88 L - Problem List & Annotations (1) Acute respiratory failure with hypoxia SNOMED Code(s): 56190375, 731484857 Code(s): J96.01 - ACUTE RESPIRATORY FAILURE WITH HYPOXIA Status: Acute Current Visit: Yes (2) COVID-19 SNOMED Code(s): 268230844 Code(s): U07.1 - COVID-19 Status: Acute Current Visit: Yes (3) Hypoxemia SNOMED Code(s): 874549849 Code(s): R09.02 - HYPOXEMIA Status: Acute Current Visit: Yes (4) Pneumonia due to COVID-19 virus SNOMED Code(s): 920088318554153349 Code(s): U07.1 - COVID-19; J12.82 - PNEUMONIA DUE TO CORONAVIRUS DISEASE 2019 Status: Acute Current Visit: Yes (5) Transaminitis SNOMED Code(s): 929882214, 196135691 Code(s): R74.01 - ELEVATION OF LEVELS OF LIVER TRANSAMINASE LEVELS Status: Acute Current Visit: Yes - Problem List Review Problem List Initiated/Reviewed/Updated: Yes - Plan Plan:: 75 yo female admitted for COVID pneumonia with hypoxia Hypoxia: Switched to Vapotherm, currently needing 70% FiO2 COVID: treating with remdesivr and dexamethasone Procalcitonin is low, will start patient on baricitinib, risks explained, fact sheet provided patient has consented to the use of baricitinib lovenox for DVT prophylaxis DuoNebs as needed, Combivent Continue supportive care Monitor CMP daily cont levaquin
[2021-05-11] MEDS: Albuterol/Ipratropium 4 GM Inhalation Spray INH SCH ×4 (06:29→23:00)
[2021-05-11] MEDS: Omeprazole 20 MG Cap.CR PO SCH (06:30)
[2021-05-11 07:59] LABS: BLOOD UREA NITROGEN,BUN 15 mg/dL (7.0-18.0); CARBON DIOXIDE,CO2 17.4 mmol/L (21.0-32.0); CHLORIDE,CL 102 mmol/L (98-107); GLUCOSE RANDOM 154 mg/dL (74-106); POTASSIUM,K 3.8 mmol/L (3.5-5.1); SODIUM,NA 133 mmol/L (136-145)
[2021-05-11] MEDS: VERAPAMIL 120 MG PO SCH (08:29)
[2021-05-11] MEDS: Levofloxacin/Dextrose 5%-Water 750 MG in Premix Bag 1 BAG IV SCH (18:08)
--- NOTE | 2021-05-11 19:11 | PCM.PN ---
- General Info Date of Service: 05/11/21 - Review of Systems Systems Review Comment:: feeling a little bit better today - Patient Data Vitals - Most Recent: Last Vital Signs Temp 36.6 C 05/11/21 17:00 Pulse 89 05/11/21 17:00 Resp 25 H 05/11/21 17:00 BP 131/71 05/11/21 13:00 Pulse Ox 89 L 05/11/21 17:00 Weight - Most Recent: 83.96 kg I&O - Last 24 Hours: Intake & Output 05/11/21 05/11/21 05/11/21 06:59 14:59 22:59 Intake Total 450 920 Output Total 650 Balance -200 920 Lab Results Last 24 Hours: Laboratory Results - last 24 hr 05/11/21 05/11/21 Range/Units 06:00 06:00 WBC 10.95 (4.0-11.0) K/uL RBC 5.10 (4.30-5.90) M/uL Hgb 14.7 (12.0-16.0) g/dL Hct 41.2 (36.0-46.0) % MCV 80.8 (80.0-98.0) fL MCH 28.8 (27.0-32.0) pg MCHC 35.7 (31.0-37.0) g/dL RDW Std Deviation 42.6 (28.0-62.0) fl RDW Coeff of Lito 14 (11.0-15.0) % Plt Count 288 (150-400) K/uL MPV 9.40 (7.40-12.00) fL Neut % (Auto) 92.3 H (48.0-80.0) % Lymph % (Auto) 2.8 L (16.0-40.0) % [place] % (Auto) 4.9 (0.0-15.0) % Eos % (Auto) 0.0 (0.0-7.0) % Baso % (Auto) 0.0 (0.0-1.5) % Neut # (Auto) 10.1 H (1.4-5.7) K/uL Lymph # (Auto) 0.3 L (0.6-2.4) K/uL [place] # (Auto) 0.5 (0.0-0.8) K/uL Eos # (Auto) 0.0 (0.0-0.7) K/uL Baso # (Auto) 0.0 (0.0-0.1) K/uL Nucleated RBC % 0.0 /100WBC Nucleated RBCs # 0 K/uL Sodium 133 L (136-145) mmol/L Potassium 3.8 (3.5-5.1) mmol/L Chloride 102 (98-107) mmol/L Carbon Dioxide 17.4 L (21.0-32.0) mmol/L BUN 15 (7.0-18.0) mg/dL Creatinine 0.7 (0.6-1.0) mg/dL Est Cr Clr Drug Dosing 57.44 mL/min Estimated GFR (MDRD) > 60.0 ml/min Glucose 154 H (74-106) mg/dL Calcium 7.7 L (8.5-10.1) mg/dL Total Bilirubin 0.7 (0.2-1.0) mg/dL AST 27 (15-37) IU/L ALT 55 (14-63) IU/L Alkaline Phosphatase 157 H (46-116) U/L Total Protein 6.2 L (6.4-8.2) g/dL Albumin 2.3 L (3.4-5.0) g/dL Globulin 3.9 (2.6-4.0) g/dL Albumin/Globulin Ratio 0.6 L (0.9-1.6) Med Orders - Current: Current Medications Acetaminophen (Acetaminophen 325 Mg Tab) 650 mg PO Q4H PRN PRN Reason: Pain (Mild 1-3)/fever Last Admin: 05/06/21 23:44 Dose: 650 mg Documented by: Albuterol/Ipratropium (Albuterol/Ipratropium 4 Gm Inhalation [place]) 0 gm INH Q6HRRT [facility] Last Admin: 05/11/21 18:01 Dose: 1 puff Documented by: Albuterol/Ipratropium (Albuterol/Ipratropium 3.0-0.5 Mg/3 Ml Neb Soln) 3 ml NEB Q4HRRT PRN PRN Reason: Shortness of Breath Last Admin: 05/08/21 06:53 Dose: 3 ml Documented by: Baricitinib (Baricitinib 2 Mg Tab) 4 mg PO Q24H [facility] Last Admin: 05/11/21 14:19 Dose: 4 mg Documented by: Dexamethasone (Dexamethasone 4 Mg Tab) 6 mg PO Q24H [facility] Last Admin: 05/10/21 21:33 Dose: 6 mg Documented by: Enoxaparin Sodium (Enoxaparin 40 Mg/0.4 Ml Syringe) 40 mg SUBCUT Q24H [facility] Last Admin: 05/10/21 23:15 Dose: 40 mg Documented by: Guaifenesin/Codeine Phosphate (Codeine/Guaifenesin 10-100 Mg/5 Ml Syrup 5 Ml Cup) 5 ml PO Q4H PRN PRN Reason: Cough Last Admin: 05/08/21 19:52 Dose: 5 ml Documented by: Levofloxacin/Dextrose 750 mg/ (Premix) 150 mls @ 100 mls/hr IV Q24H [facility] Last Admin: 05/11/21 18:08 Dose: 100 mls/hr Documented by: Ibuprofen (Ibuprofen 200 Mg Tab) 200 mg PO Q6H PRN PRN Reason: Pain (mild 1-3) Omeprazole (Omeprazole 20 Mg Cap.Cr) 20 mg PO ACBREAKFAST [facility] Last Admin: 05/11/21 06:30 Dose: 20 mg Documented by: Ondansetron HCl (Ondansetron 4 Mg/2 Ml Sdv) 4 mg IVPUSH Q4H PRN PRN Reason: Nausea Last Admin: 05/10/21 21:33 Dose: 4 mg Documented by: Verapamil 120 Mg Er (Tablet) 1 each PO DAILY [facility] Last Admin: 05/11/21 08:29 Dose: 1 each Documented by: Sodium Chloride (Sodium Chloride 0.9% 10 Ml Syringe) 10 ml FLUSH ASDIRECTED PRN PRN Reason: Keep Vein Open Last Admin: 05/04/21 17:39 Dose: 10 ml Documented by: Sodium Chloride (Sodium Chloride 0.9% 2.5 Ml Syringe) 2.5 ml FLUSH ASDIRECTED PRN PRN Reason: Keep Vein Open Last Admin: 05/04/21 17:36 Dose: 2.5 ml Documented by: Discontinued Medications Dexamethasone (Dexamethasone 10 Mg/Ml Sdv) 6 mg IVPUSH ONETIME ONE Stop: 05/04/21 19:27 Last Admin: 05/04/21 19:42 Dose: 6 mg Documented by: Dexamethasone (Dexamethasone 4 Mg Tab) 6 mg PO Q24H [facility] Last Admin: 05/05/21 04:14 Dose: Not Given Documented by: Diphenhydramine HCl (Diphenhydramine 50 Mg/Ml Sdv) 25 mg IVPUSH ONETIME ONE Stop: 05/08/21 17:09 Last Admin: 05/08/21 17:24 Dose: 25 mg Documented by: Sodium Chloride (Normal Saline) 500 mls @ 500 mls/hr IV .BOLUS STA Stop: 05/04/21 18:17 Last Admin: 05/04/21 17:39 Dose: 500 mls/hr Documented by: Remdesivir 200 mg/ Sodium (Chloride) 250 mls @ 250 mls/hr IV ONETIME ONE Stop: 05/04/21 19:26 Last Admin: 05/04/21 19:57 Dose: 250 mls/hr Documented by: Remdesivir 100 mg/ Sodium (Chloride) 100 mls @ 100 mls/hr IV Q24H [facility] Stop: 05/08/21 20:59 Last Admin: 05/08/21 19:48 Dose: 100 mls/hr Documented by: Levofloxacin/Dextrose 750 mg/ (Premix) 150 mls @ 100 mls/hr IV Q24H [facility] Iopamidol (Iopamidol 755 Mg/Ml 500 Ml Multipack Bottle) 100 ml IVPUSH ONETIME ONE Stop: 05/04/21 18:36 Last Admin: 05/04/21 18:35 Dose: 100 ml Documented by: Nitrofurantoin Macrocrystals (Nitrofurantoin Macrocrystal 50 Mg Cap) 50 mg PO DAILY [facility] Last Admin: 05/08/21 08:56 Dose: 50 mg Documented by: Ondansetron HCl (Ondansetron 4 Mg/2 Ml Sdv) 4 mg IVPUSH ONETIME ONE Stop: 05/04/21 17:21 Last Admin: 05/04/21 17:39 Dose: 4 mg Documented by: Ondansetron HCl (Ondansetron 4 Mg/2 Ml Sdv) 4 mg IVPUSH ONETIME ONE Stop: 05/04/21 19:29 Last Admin: 05/04/21 19:42 Dose: 4 mg Documented by: Potassium Chloride (Potassium Chloride 20 Meq Tab.Er) 40 meq PO ONETIME ONE Stop: 05/06/21 08:16 Last Admin: 05/06/21 09:14 Dose: 40 meq Documented by: Verapamil HCl (Verapamil 240 Mg Tab.Er) 120 mg PO DAILY [facility] - Exam General: Alert, Oriented Neck: Supple Lungs: Normal Respiratory Effort, Rhonchi Cardiovascular: Regular Rate, Regular Rhythm GI/Abdominal Exam: Normal Bowel Sounds, Soft, Non-Tender Extremities: Non-Tender, No Pedal Edema Skin: Warm, Dry, Intact Neurological: No New Focal Deficit - Patient Data Lab Results Last 24 hrs: Laboratory Results - last 24 hr 05/11/21 05/11/21 Range/Units 06:00 06:00 WBC 10.95 (4.0-11.0) K/uL RBC 5.10 (4.30-5.90) M/uL Hgb 14.7 (12.0-16.0) g/dL Hct 41.2 (36.0-46.0) % MCV 80.8 (80.0-98.0) fL MCH 28.8 (27.0-32.0) pg MCHC 35.7 (31.0-37.0) g/dL RDW Std Deviation 42.6 (28.0-62.0) fl RDW Coeff of [place]ito 14 (11.0-15.0) % Plt Count 288 (150-400) K/uL MPV 9.40 (7.40-12.00) fL Neut % (Auto) 92.3 H (48.0-80.0) % Lymph % (Auto) 2.8 L (16.0-40.0) % [place] % (Auto) 4.9 (0.0-15.0) % Eos % (Auto) 0.0 (0.0-7.0) % Baso % (Auto) 0.0 (0.0-1.5) % Neut # (Auto) 10.1 H (1.4-5.7) K/uL Lymph # (Auto) 0.3 L (0.6-2.4) K/uL [place] # (Auto) 0.5 (0.0-0.8) K/uL Eos # (Auto) 0.0 (0.0-0.7) K/uL Baso # (Auto) 0.0 (0.0-0.1) K/uL Nucleated RBC % 0.0 /100WBC Nucleated RBCs # 0 K/uL Sodium 133 L (136-145) mmol/L Potassium 3.8 (3.5-5.1) mmol/L Chloride 102 (98-107) mmol/L Carbon Dioxide 17.4 L (21.0-32.0) mmol/L BUN 15 (7.0-18.0) mg/dL Creatinine 0.7 (0.6-1.0) mg/dL Est Cr Clr Drug Dosing 57.44 mL/min Estimated GFR (MDRD) > 60.0 ml/min Glucose 154 H (74-106) mg/dL Calcium 7.7 L (8.5-10.1) mg/dL Total Bilirubin 0.7 (0.2-1.0) mg/dL AST 27 (15-37) IU/L ALT 55 (14-63) IU/L Alkaline Phosphatase 157 H (46-116) U/L Total Protein 6.2 L (6.4-8.2) g/dL Albumin 2.3 L (3.4-5.0) g/dL Globulin 3.9 (2.6-4.0) g/dL Albumin/Globulin Ratio 0.6 L (0.9-1.6) Result Diagrams: 05/11/21 06:00 05/11/21 06:00 Sepsis Event Note - Evaluation Sepsis Screening Result: Sepsis Risk - Focused Exam Vital Signs: Vital Signs Temp Pulse Resp BP Pulse Ox 05/11/21 17:00 36.6 C 89 25 H 89 L 05/11/21 13:00 95 26 H 131/71 91 L 05/11/21 08:26 36.4 C 95 26 H 143/69 H 90 L - Problem List & Annotations (1) COVID-19 SNOMED Code(s): 157501164 Code(s): U07.1 - COVID-19 Status: Acute Current Visit: Yes (2) Hypoxemia SNOMED Code(s): 293166458 Code(s): R09.02 - HYPOXEMIA Status: Acute Current Visit: Yes - Problem List Review Problem List Initiated/Reviewed/Updated: Yes - Plan Plan:: 75 yo female admitted for COVID pneumonia with hypoxia Hypoxia: Switched to Vapotherm, currently needing 80% FiO2 COVID: dexamethasone and baricitinib, finished remdesivir lovenox for DVT prophylaxis DuoNebs as needed, Combivent Continue supportive care Monitor CMP daily cont levaquin
[2021-05-11] MEDS: Dexamethasone 4 MG Tab PO SCH (19:53)
[2021-05-11] MEDS: Enoxaparin 40 MG/0.4 ML Syringe SUBCUT SCH (23:00)
[2021-05-11] MEDS: Ondansetron 4 MG/2 ML SDV IVPUSH PRN (23:09)
[2021-05-12] MEDS: Albuterol/Ipratropium 4 GM Inhalation Spray INH SCH ×3 (05:08→17:33)
[2021-05-12] MEDS: Omeprazole 20 MG Cap.CR PO SCH (06:30)
[2021-05-12 08:42] LABS: BLOOD UREA NITROGEN,BUN 20 mg/dL (7.0-18.0); CARBON DIOXIDE,CO2 17.1 mmol/L (21.0-32.0); CHLORIDE,CL 102 mmol/L (98-107); GLUCOSE RANDOM 173 mg/dL (74-106); POTASSIUM,K 3.7 mmol/L (3.5-5.1); SODIUM,NA 132 mmol/L (136-145)
--- NOTE | 2021-05-12 08:58 | CR ---
INDICATION: Follow-up pneumonia. COMPARISON: 08 May 2021. TECHNIQUE: One view. FINDINGS: Reticular opacities in the periphery of the right lung and at the left base increased from before. Elevation right hemidiaphragm unchanged. Pulmonary vascularity looks normal. Heart size is normal. No pneumothorax or effusion. IMPRESSION : Mild worsening of multifocal pneumonia/pneumonitis. Dictated by Sin Corbin MD @ 05/12/2021 8:56:52 AM (Electronically Signed)
[2021-05-12] MEDS: VERAPAMIL 120 MG PO SCH (09:27)
--- NOTE | 2021-05-12 09:33 | PCM.PN ---
- General Info Date of Service: 05/12/21 - Review of Systems Systems Review Comment:: feeling better, she reports eating alot for breakfast - Patient Data Vitals - Most Recent: Last Vital Signs Temp 36.3 C 05/12/21 09:26 Pulse 97 05/12/21 09:26 Resp 20 05/12/21 09:26 BP 140/68 05/12/21 09:26 Pulse Ox 90 L 05/12/21 09:26 Weight - Most Recent: 83.96 kg I&O - Last 24 Hours: Intake & Output 05/11/21 05/12/21 05/12/21 22:59 06:59 14:59 Intake Total 1070 400 Output Total 500 Balance 1070 -100 Lab Results Last 24 Hours: Laboratory Results - last 24 hr 05/12/21 05/12/21 Range/Units 08:18 08:18 WBC 9.87 (4.0-11.0) K/uL RBC 5.22 (4.30-5.90) M/uL Hgb 15.3 (12.0-16.0) g/dL Hct 42.3 (36.0-46.0) % MCV 81.0 (80.0-98.0) fL MCH 29.3 (27.0-32.0) pg MCHC 36.2 (31.0-37.0) g/dL RDW Std Deviation 43.0 (28.0-62.0) fl RDW Coeff of Lito 15 (11.0-15.0) % Plt Count 295 (150-400) K/uL MPV 9.40 (7.40-12.00) fL Add Manual Diff YES Neutrophils % (Manual) 89 H (48.0-80.0) % Band Neutrophils % 5 % Lymphocytes % (Manual) 4 L (16.0-40.0) % Monocytes % (Manual) 2 (0.0-15.0) % Nucleated RBC % 0.0 /100WBC Absolute Seg Neuts 8.8 H (1.4-5.7) Band Neutrophils # 0.5 Lymphocytes # (Manual) 0.4 L (0.6-2.4) Monocytes # (Manual) 0.2 (0.0-0.8) Nucleated RBCs # 0 K/uL Sodium 132 L (136-145) mmol/L Potassium 3.7 (3.5-5.1) mmol/L Chloride 102 (98-107) mmol/L Carbon Dioxide 17.1 L (21.0-32.0) mmol/L BUN 20 H (7.0-18.0) mg/dL Creatinine 0.7 (0.6-1.0) mg/dL Est Cr Clr Drug Dosing 57.44 mL/min Estimated GFR (MDRD) > 60.0 ml/min Glucose 173 H (74-106) mg/dL Calcium 8.0 L (8.5-10.1) mg/dL Med Orders - Current: Current Medications Acetaminophen (Acetaminophen 325 Mg Tab) 650 mg PO Q4H PRN PRN Reason: Pain (Mild 1-3)/fever Last Admin: 05/06/21 23:44 Dose: 650 mg Documented by: Albuterol/Ipratropium (Albuterol/Ipratropium 4 Gm Inhalation [place]) 0 gm INH Q6HRRT [facility] Last Admin: 05/12/21 05:08 Dose: 1 puff Documented by: Albuterol/Ipratropium (Albuterol/Ipratropium 3.0-0.5 Mg/3 Ml Neb Soln) 3 ml NEB Q4HRRT PRN PRN Reason: Shortness of Breath Last Admin: 05/08/21 06:53 Dose: 3 ml Documented by: Baricitinib (Baricitinib 2 Mg Tab) 4 mg PO Q24H [facility] Last Admin: 05/11/21 14:19 Dose: 4 mg Documented by: Dexamethasone (Dexamethasone 4 Mg Tab) 6 mg PO Q24H [facility] Last Admin: 05/11/21 19:53 Dose: 6 mg Documented by: Enoxaparin Sodium (Enoxaparin 40 Mg/0.4 Ml Syringe) 40 mg SUBCUT Q24H [facility] Last Admin: 05/11/21 23:00 Dose: 40 mg Documented by: Guaifenesin/Codeine Phosphate (Codeine/Guaifenesin 10-100 Mg/5 Ml Syrup 5 Ml Cup) 5 ml PO Q4H PRN PRN Reason: Cough Last Admin: 05/08/21 19:52 Dose: 5 ml Documented by: Levofloxacin/Dextrose 750 mg/ (Premix) 150 mls @ 100 mls/hr IV Q24H [facility] Last Admin: 05/11/21 18:08 Dose: 100 mls/hr Documented by: Ibuprofen (Ibuprofen 200 Mg Tab) 200 mg PO Q6H PRN PRN Reason: Pain (mild 1-3) Omeprazole (Omeprazole 20 Mg Cap.Cr) 20 mg PO ACBREAKFAST [facility] Last Admin: 05/12/21 06:30 Dose: 20 mg Documented by: Ondansetron HCl (Ondansetron 4 Mg/2 Ml Sdv) 4 mg IVPUSH Q4H PRN PRN Reason: Nausea Last Admin: 05/11/21 23:09 Dose: 4 mg Documented by: Verapamil 120 Mg Er (Tablet) 1 each PO DAILY [facility] Last Admin: 05/12/21 09:27 Dose: 1 each Documented by: Sodium Chloride (Sodium Chloride 0.9% 10 Ml Syringe) 10 ml FLUSH ASDIRECTED PRN PRN Reason: Keep Vein Open Last Admin: 05/04/21 17:39 Dose: 10 ml Documented by: Sodium Chloride (Sodium Chloride 0.9% 2.5 Ml Syringe) 2.5 ml FLUSH ASDIRECTED PRN PRN Reason: Keep Vein Open Last Admin: 05/04/21 17:36 Dose: 2.5 ml Documented by: Discontinued Medications Dexamethasone (Dexamethasone 10 Mg/Ml Sdv) 6 mg IVPUSH ONETIME ONE Stop: 05/04/21 19:27 Last Admin: 05/04/21 19:42 Dose: 6 mg Documented by: Dexamethasone (Dexamethasone 4 Mg Tab) 6 mg PO Q24H [facility] Last Admin: 05/05/21 04:14 Dose: Not Given Documented by: Diphenhydramine HCl (Diphenhydramine 50 Mg/Ml Sdv) 25 mg IVPUSH ONETIME ONE Stop: 05/08/21 17:09 Last Admin: 05/08/21 17:24 Dose: 25 mg Documented by: Sodium Chloride (Normal Saline) 500 mls @ 500 mls/hr IV .BOLUS STA Stop: 05/04/21 18:17 Last Admin: 05/04/21 17:39 Dose: 500 mls/hr Documented by: Remdesivir 200 mg/ Sodium (Chloride) 250 mls @ 250 mls/hr IV ONETIME ONE Stop: 05/04/21 19:26 Last Admin: 05/04/21 19:57 Dose: 250 mls/hr Documented by: Remdesivir 100 mg/ Sodium (Chloride) 100 mls @ 100 mls/hr IV Q24H [facility] Stop: 05/08/21 20:59 Last Admin: 05/08/21 19:48 Dose: 100 mls/hr Documented by: Levofloxacin/Dextrose 750 mg/ (Premix) 150 mls @ 100 mls/hr IV Q24H [facility] Iopamidol (Iopamidol 755 Mg/Ml 500 Ml Multipack Bottle) 100 ml IVPUSH ONETIME ONE Stop: 05/04/21 18:36 Last Admin: 05/04/21 18:35 Dose: 100 ml Documented by: Nitrofurantoin Macrocrystals (Nitrofurantoin Macrocrystal 50 Mg Cap) 50 mg PO DAILY [facility] Last Admin: 05/08/21 08:56 Dose: 50 mg Documented by: Ondansetron HCl (Ondansetron 4 Mg/2 Ml Sdv) 4 mg IVPUSH ONETIME ONE Stop: 05/04/21 17:21 Last Admin: 05/04/21 17:39 Dose: 4 mg Documented by: Ondansetron HCl (Ondansetron 4 Mg/2 Ml Sdv) 4 mg IVPUSH ONETIME ONE Stop: 05/04/21 19:29 Last Admin: 05/04/21 19:42 Dose: 4 mg Documented by: Potassium Chloride (Potassium Chloride 20 Meq Tab.Er) 40 meq PO ONETIME ONE Stop: 05/06/21 08:16 Last Admin: 05/06/21 09:14 Dose: 40 meq Documented by: Verapamil HCl (Verapamil 240 Mg Tab.Er) 120 mg PO DAILY [facility] - Exam General: Alert, Oriented Neck: Supple Lungs: Normal Respiratory Effort, Rhonchi Cardiovascular: Regular Rate, Regular Rhythm GI/Abdominal Exam: Soft, Non-Tender Extremities: Non-Tender, No Pedal Edema Skin: Warm, Dry, Intact Neurological: No New Focal Deficit - Patient Data Lab Results Last 24 hrs: Laboratory Results - last 24 hr 05/12/21 05/12/21 Range/Units 08:18 08:18 WBC 9.87 (4.0-11.0) K/uL RBC 5.22 (4.30-5.90) M/uL Hgb 15.3 (12.0-16.0) g/dL Hct 42.3 (36.0-46.0) % MCV 81.0 (80.0-98.0) fL MCH 29.3 (27.0-32.0) pg MCHC 36.2 (31.0-37.0) g/dL RDW Std Deviation 43.0 (28.0-62.0) fl RDW Coeff of Lito 15 (11.0-15.0) % Plt Count 295 (150-400) K/uL MPV 9.40 (7.40-12.00) fL Add Manual Diff YES Neutrophils % (Manual) 89 H (48.0-80.0) % Band Neutrophils % 5 % Lymphocytes % (Manual) 4 L (16.0-40.0) % Monocytes % (Manual) 2 (0.0-15.0) % Nucleated RBC % 0.0 /100WBC Absolute Seg Neuts 8.8 H (1.4-5.7) Band Neutrophils # 0.5 Lymphocytes # (Manual) 0.4 L (0.6-2.4) Monocytes # (Manual) 0.2 (0.0-0.8) Nucleated RBCs # 0 K/uL Sodium 132 L (136-145) mmol/L Potassium 3.7 (3.5-5.1) mmol/L Chloride 102 (98-107) mmol/L Carbon Dioxide 17.1 L (21.0-32.0) mmol/L BUN 20 H (7.0-18.0) mg/dL Creatinine 0.7 (0.6-1.0) mg/dL Est Cr Clr Drug Dosing 57.44 mL/min Estimated GFR (MDRD) > 60.0 ml/min Glucose 173 H (74-106) mg/dL Calcium 8.0 L (8.5-10.1) mg/dL Result Diagrams: 05/12/21 08:18 05/12/21 08:18 Sepsis Event Note - Evaluation Sepsis Screening Result: Sepsis Risk - Focused Exam Vital Signs: Vital Signs Temp Pulse Resp BP Pulse Ox 05/12/21 09:26 36.3 C 97 20 140/68 90 L 05/12/21 06:31 90 L 05/12/21 05:08 90 L 05/12/21 03:53 35.9 C L 91 23 H 129/60 90 L 05/11/21 22:58 36.2 C 90 22 H 126/60 89 L 05/11/21 21:36 24 H 92 L - Problem List & Annotations (1) COVID-19 SNOMED Code(s): 826151265 Code(s): U07.1 - COVID-19 Status: Acute Current Visit: Yes (2) Hypoxemia SNOMED Code(s): 701174982 Code(s): R09.02 - HYPOXEMIA Status: Acute Current Visit: Yes - Problem List Review Problem List Initiated/Reviewed/Updated: Yes - My Orders Last 24 Hours: My Active Orders 05/13/21 05:11 CBC WITH AUTO DIFF [HEME] AM COMPREHENSIVE METABOLIC PN,CMP [CHEM] AM 05/14/21 05:11 CBC WITH AUTO DIFF [HEME] AM COMPREHENSIVE METABOLIC PN,CMP [CHEM] AM - Plan Plan:: 75 yo female admitted for COVID pneumonia with hypoxia Hypoxia:on HHFNC, currently needing 60 L 80% FiO2 COVID: dexamethasone and baricitinib, finished remdesivir lovenox for DVT prophylaxis DuoNebs as needed, Combivent Continue supportive care Monitor CMP daily cont levaquin Updated daughter Serenity today
[2021-05-12] MEDS: Ondansetron 4 MG/2 ML SDV IVPUSH PRN (15:21)
[2021-05-12] MEDS: Levofloxacin/Dextrose 5%-Water 750 MG in Premix Bag 1 BAG IV SCH (17:33)
[2021-05-12] MEDS: Dexamethasone 4 MG Tab PO SCH (20:22)
[2021-05-12] MEDS: Codeine/guaiFENesin 10-100 MG/5 ML Syrup 5 ML Cup PO PRN (20:22)
[2021-05-12] MEDS: Enoxaparin 40 MG/0.4 ML Syringe SUBCUT SCH (23:28)
[2021-05-13] MEDS: Albuterol/Ipratropium 4 GM Inhalation Spray INH SCH ×4 (00:10→17:23)
[2021-05-13] MEDS: Polyethylene Glycol 3350 Powder 17 GM Packet PO SCH ×2 (00:11→20:02)
[2021-05-13] MEDS: Docusate Sodium 100 MG Cap PO SCH ×2 (00:12→09:35)
[2021-05-13] MEDS: Omeprazole 20 MG Cap.CR PO SCH (06:36)
[2021-05-13 07:22] LABS: BLOOD UREA NITROGEN,BUN 19 mg/dL (7.0-18.0); CARBON DIOXIDE,CO2 18.2 mmol/L (21.0-32.0); CHLORIDE,CL 101 mmol/L (98-107); GLUCOSE RANDOM 148 mg/dL (74-106); POTASSIUM,K 4.1 mmol/L (3.5-5.1); SODIUM,NA 130 mmol/L (136-145)
[2021-05-13] MEDS: VERAPAMIL 120 MG PO SCH (09:36)
[2021-05-13] MEDS: Codeine/guaiFENesin 10-100 MG/5 ML Syrup 5 ML Cup PO PRN (11:29)
[2021-05-13] MEDS ORDERED: Bisacodyl 10 MG Supp RECTAL PRN (15:51)
--- NOTE | 2021-05-13 15:54 | PCM.PN ---
- General Info Date of Service: 05/13/21 - Review of Systems Systems Review Comment:: breathing better, but reports constipation - Patient Data Vitals - Most Recent: Last Vital Signs Temp 36.3 C 05/13/21 14:20 Pulse 79 05/13/21 14:20 Resp 20 05/13/21 14:20 BP 133/61 05/13/21 14:20 Pulse Ox 90 L 05/13/21 14:20 Weight - Most Recent: 83.96 kg I&O - Last 24 Hours: Intake & Output 05/13/21 05/13/21 05/13/21 06:59 14:59 22:59 Intake Total 620 Output Total 400 Balance 220 Lab Results Last 24 Hours: Laboratory Results - last 24 hr 05/13/21 05/13/21 Range/Units 06:45 06:45 WBC 10.91 (4.0-11.0) K/uL RBC 4.82 (4.30-5.90) M/uL Hgb 14.0 (12.0-16.0) g/dL Hct 39.3 (36.0-46.0) % MCV 81.5 (80.0-98.0) fL MCH 29.0 (27.0-32.0) pg MCHC 35.6 (31.0-37.0) g/dL RDW Std Deviation 43.6 (28.0-62.0) fl RDW Coeff of Lito 15 (11.0-15.0) % Plt Count 242 (150-400) K/uL MPV 9.20 (7.40-12.00) fL Neut % (Auto) 93.0 H (48.0-80.0) % Lymph % (Auto) 2.9 L (16.0-40.0) % [place] % (Auto) 4.0 (0.0-15.0) % Eos % (Auto) 0.0 (0.0-7.0) % Baso % (Auto) 0.1 (0.0-1.5) % Neut # (Auto) 10.1 H (1.4-5.7) K/uL Lymph # (Auto) 0.3 L (0.6-2.4) K/uL [place] # (Auto) 0.4 (0.0-0.8) K/uL Eos # (Auto) 0.0 (0.0-0.7) K/uL Baso # (Auto) 0.0 (0.0-0.1) K/uL Nucleated RBC % 0.0 /100WBC Nucleated RBCs # 0 K/uL Sodium 130 L (136-145) mmol/L Potassium 4.1 (3.5-5.1) mmol/L Chloride 101 (98-107) mmol/L Carbon Dioxide 18.2 L (21.0-32.0) mmol/L BUN 19 H (7.0-18.0) mg/dL Creatinine 0.7 (0.6-1.0) mg/dL Est Cr Clr Drug Dosing 57.44 mL/min Estimated GFR (MDRD) > 60.0 ml/min Glucose 148 H (74-106) mg/dL Calcium 7.7 L (8.5-10.1) mg/dL Total Bilirubin 0.8 (0.2-1.0) mg/dL AST 74 H (15-37) IU/L ALT 113 H (14-63) IU/L Alkaline Phosphatase 185 H (46-116) U/L Total Protein 6.4 (6.4-8.2) g/dL Albumin 2.1 L (3.4-5.0) g/dL Globulin 4.3 H (2.6-4.0) g/dL Albumin/Globulin Ratio 0.5 L (0.9-1.6) Med Orders - Current: Current Medications Acetaminophen (Acetaminophen 325 Mg Tab) 650 mg PO Q4H PRN PRN Reason: Pain (Mild 1-3)/fever Last Admin: 05/06/21 23:44 Dose: 650 mg Documented by: Albuterol/Ipratropium (Albuterol/Ipratropium 4 Gm Inhalation [place]) 0 gm INH Q6HRRT [facility] Last Admin: 05/13/21 11:30 Dose: 1 puff Documented by: Albuterol/Ipratropium (Albuterol/Ipratropium 3.0-0.5 Mg/3 Ml Neb Soln) 3 ml NEB Q4HRRT PRN PRN Reason: Shortness of Breath Last Admin: 05/08/21 06:53 Dose: 3 ml Documented by: Baricitinib (Baricitinib 2 Mg Tab) 4 mg PO Q24H [facility] Last Admin: 05/13/21 14:24 Dose: 4 mg Documented by: Bisacodyl (Bisacodyl 10 Mg Supp) 10 mg RECTAL DAILY PRN PRN Reason: Constipation Dexamethasone (Dexamethasone 4 Mg Tab) 6 mg PO Q24H [facility] Last Admin: 05/12/21 20:22 Dose: 6 mg Documented by: Docusate Sodium (Docusate Sodium 100 Mg Cap) 100 mg PO DAILY [facility] Last Admin: 05/13/21 09:35 Dose: 100 mg Documented by: Enoxaparin Sodium (Enoxaparin 40 Mg/0.4 Ml Syringe) 40 mg SUBCUT Q24H [facility] Last Admin: 05/12/21 23:28 Dose: 40 mg Documented by: Guaifenesin/Codeine Phosphate (Codeine/Guaifenesin 10-100 Mg/5 Ml Syrup 5 Ml Cup) 5 ml PO Q4H PRN PRN Reason: Cough Last Admin: 05/13/21 11:29 Dose: 5 ml Documented by: Levofloxacin/Dextrose 750 mg/ (Premix) 150 mls @ 100 mls/hr IV Q24H [facility] Last Admin: 05/12/21 17:33 Dose: 100 mls/hr Documented by: Ibuprofen (Ibuprofen 200 Mg Tab) 200 mg PO Q6H PRN PRN Reason: Pain (mild 1-3) Omeprazole (Omeprazole 20 Mg Cap.Cr) 20 mg PO ACBREAKFAST [facility] Last Admin: 05/13/21 06:36 Dose: 20 mg Documented by: Ondansetron HCl (Ondansetron 4 Mg/2 Ml Sdv) 4 mg IVPUSH Q4H PRN PRN Reason: Nausea Last Admin: 05/12/21 15:21 Dose: 4 mg Documented by: Verapamil 120 Mg Er (Tablet) 1 each PO DAILY [facility] Last Admin: 05/13/21 09:36 Dose: 1 each Documented by: Polyethylene Glycol (Polyethylene Glycol 3350 Powder 17 Gm Packet) 17 gm PO BEDTIME [facility] Last Admin: 05/13/21 00:11 Dose: 17 gm Documented by: Sodium Chloride (Sodium Chloride 0.9% 10 Ml Syringe) 10 ml FLUSH ASDIRECTED PRN PRN Reason: Keep Vein Open Last Admin: 05/04/21 17:39 Dose: 10 ml Documented by: Sodium Chloride (Sodium Chloride 0.9% 2.5 Ml Syringe) 2.5 ml FLUSH ASDIRECTED PRN PRN Reason: Keep Vein Open Last Admin: 05/04/21 17:36 Dose: 2.5 ml Documented by: Discontinued Medications Dexamethasone (Dexamethasone 10 Mg/Ml Sdv) 6 mg IVPUSH ONETIME ONE Stop: 05/04/21 19:27 Last Admin: 05/04/21 19:42 Dose: 6 mg Documented by: Dexamethasone (Dexamethasone 4 Mg Tab) 6 mg PO Q24H [facility] Last Admin: 05/05/21 04:14 Dose: Not Given Documented by: Diphenhydramine HCl (Diphenhydramine 50 Mg/Ml Sdv) 25 mg IVPUSH ONETIME ONE Stop: 05/08/21 17:09 Last Admin: 05/08/21 17:24 Dose: 25 mg Documented by: Sodium Chloride (Normal Saline) 500 mls @ 500 mls/hr IV .BOLUS STA Stop: 05/04/21 18:17 Last Admin: 05/04/21 17:39 Dose: 500 mls/hr Documented by: Remdesivir 200 mg/ Sodium (Chloride) 250 mls @ 250 mls/hr IV ONETIME ONE Stop: 05/04/21 19:26 Last Admin: 05/04/21 19:57 Dose: 250 mls/hr Documented by: Remdesivir 100 mg/ Sodium (Chloride) 100 mls @ 100 mls/hr IV Q24H [facility] Stop: 05/08/21 20:59 Last Admin: 05/08/21 19:48 Dose: 100 mls/hr Documented by: Levofloxacin/Dextrose 750 mg/ (Premix) 150 mls @ 100 mls/hr IV Q24H [facility] Iopamidol (Iopamidol 755 Mg/Ml 500 Ml Multipack Bottle) 100 ml IVPUSH ONETIME ONE Stop: 05/04/21 18:36 Last Admin: 05/04/21 18:35 Dose: 100 ml Documented by: Nitrofurantoin Macrocrystals (Nitrofurantoin Macrocrystal 50 Mg Cap) 50 mg PO DAILY [facility] Last Admin: 05/08/21 08:56 Dose: 50 mg Documented by: Ondansetron HCl (Ondansetron 4 Mg/2 Ml Sdv) 4 mg IVPUSH ONETIME ONE Stop: 05/04/21 17:21 Last Admin: 05/04/21 17:39 Dose: 4 mg Documented by: Ondansetron HCl (Ondansetron 4 Mg/2 Ml Sdv) 4 mg IVPUSH ONETIME ONE Stop: 05/04/21 19:29 Last Admin: 05/04/21 19:42 Dose: 4 mg Documented by: Potassium Chloride (Potassium Chloride 20 Meq Tab.Er) 40 meq PO ONETIME ONE Stop: 05/06/21 08:16 Last Admin: 05/06/21 09:14 Dose: 40 meq Documented by: Verapamil HCl (Verapamil 240 Mg Tab.Er) 120 mg PO DAILY [facility] - Exam Neck: Supple Lungs: Normal Respiratory Effort, Rhonchi Cardiovascular: Regular Rate, Regular Rhythm GI/Abdominal Exam: Normal Bowel Sounds, Soft, Non-Tender, No Distention Extremities: Non-Tender, No Pedal Edema Skin: Warm, Dry, Intact Neurological: No New Focal Deficit - Patient Data Lab Results Last 24 hrs: Laboratory Results - last 24 hr 05/13/21 05/13/21 Range/Units 06:45 06:45 WBC 10.91 (4.0-11.0) K/uL RBC 4.82 (4.30-5.90) M/uL Hgb 14.0 (12.0-16.0) g/dL Hct 39.3 (36.0-46.0) % MCV 81.5 (80.0-98.0) fL MCH 29.0 (27.0-32.0) pg MCHC 35.6 (31.0-37.0) g/dL RDW Std Deviation 43.6 (28.0-62.0) fl RDW Coeff of Lito 15 (11.0-15.0) % Plt Count 242 (150-400) K/uL MPV 9.20 (7.40-12.00) fL Neut % (Auto) 93.0 H (48.0-80.0) % Lymph % (Auto) 2.9 L (16.0-40.0) % [place] % (Auto) 4.0 (0.0-15.0) % Eos % (Auto) 0.0 (0.0-7.0) % Baso % (Auto) 0.1 (0.0-1.5) % Neut # (Auto) 10.1 H (1.4-5.7) K/uL Lymph # (Auto) 0.3 L (0.6-2.4) K/uL [place] # (Auto) 0.4 (0.0-0.8) K/uL Eos # (Auto) 0.0 (0.0-0.7) K/uL Baso # (Auto) 0.0 (0.0-0.1) K/uL Nucleated RBC % 0.0 /100WBC Nucleated RBCs # 0 K/uL Sodium 130 L (136-145) mmol/L Potassium 4.1 (3.5-5.1) mmol/L Chloride 101 (98-107) mmol/L Carbon Dioxide 18.2 L (21.0-32.0) mmol/L BUN 19 H (7.0-18.0) mg/dL Creatinine 0.7 (0.6-1.0) mg/dL Est Cr Clr Drug Dosing 57.44 mL/min Estimated GFR (MDRD) > 60.0 ml/min Glucose 148 H (74-106) mg/dL Calcium 7.7 L (8.5-10.1) mg/dL Total Bilirubin 0.8 (0.2-1.0) mg/dL AST 74 H (15-37) IU/L ALT 113 H (14-63) IU/L Alkaline Phosphatase 185 H (46-116) U/L Total Protein 6.4 (6.4-8.2) g/dL Albumin 2.1 L (3.4-5.0) g/dL Globulin 4.3 H (2.6-4.0) g/dL Albumin/Globulin Ratio 0.5 L (0.9-1.6) Result Diagrams: 05/13/21 06:45 05/13/21 06:45 Sepsis Event Note - Evaluation Sepsis Screening Result: No Definite Risk - Focused Exam Vital Signs: Vital Signs Temp Pulse Resp BP Pulse Ox 05/13/21 14:20 36.3 C 79 20 133/61 90 L 05/13/21 11:34 36.2 C 88 22 H 143/70 H 89 L 05/13/21 09:33 36.0 C L 86 20 130/68 91 L - Problem List & Annotations (1) COVID-19 SNOMED Code(s): 519211963 Code(s): U07.1 - COVID-19 Status: Acute Current Visit: Yes (2) Hypoxemia SNOMED Code(s): 134691226 Code(s): R09.02 - HYPOXEMIA Status: Acute Current Visit: Yes - Problem List Review Problem List Initiated/Reviewed/Updated: Yes - My Orders Last 24 Hours: My Active Orders 05/12/21 23:38 polyethylene glycoL 3350 [MiraLAX] 17 gm PO BEDTIME 05/12/21 23:45 Docusate Sodium [Colace] 100 mg PO DAILY 05/13/21 15:51 bisacodyL [Dulcolax] 10 mg RECTAL DAILY PRN 05/14/21 05:11 CBC WITH AUTO DIFF [HEME] AM COMPREHENSIVE METABOLIC PN,CMP [CHEM] AM - Plan Plan:: 75 yo female admitted for COVID pneumonia with hypoxia Hypoxia:on HHFNC, currently needing 60 L 79% FiO2 COVID: dexamethasone and baricitinib, finished remdesivir lovenox for DVT prophylaxis DuoNebs as needed, Combivent Continue supportive care Monitor CMP daily cont levaquin Updated daughter Serenity today
[2021-05-13] MEDS: Levofloxacin/Dextrose 5%-Water 750 MG in Premix Bag 1 BAG IV SCH (17:54)
[2021-05-13] MEDS: Albuterol/Ipratropium 3.0-0.5 MG/3 ML Neb Soln NEB PRN (19:34)
[2021-05-13] MEDS: Dexamethasone 4 MG Tab PO SCH (19:54)
[2021-05-13] MEDS: Enoxaparin 40 MG/0.4 ML Syringe SUBCUT SCH (22:16)
[2021-05-14] MEDS: Albuterol/Ipratropium 4 GM Inhalation Spray INH SCH ×3 (00:29→11:25)
[2021-05-14] MEDS: Albuterol/Ipratropium 3.0-0.5 MG/3 ML Neb Soln NEB PRN ×3 (01:33→11:23)
[2021-05-14] MEDS: Omeprazole 20 MG Cap.CR PO SCH (06:33)
[2021-05-14 06:52] LABS: BLOOD UREA NITROGEN,BUN 17 mg/dL (7.0-18.0); CARBON DIOXIDE,CO2 17.8 mmol/L (21.0-32.0); CHLORIDE,CL 101 mmol/L (98-107); GLUCOSE RANDOM 151 mg/dL (74-106); POTASSIUM,K 4.2 mmol/L (3.5-5.1); SODIUM,NA 129 mmol/L (136-145)
[2021-05-14] MEDS: Docusate Sodium 100 MG Cap PO SCH (09:00)
[2021-05-14] MEDS: VERAPAMIL 120 MG PO SCH (09:00)
--- NOTE | 2021-05-14 11:05 | PCM.PN ---
<Elena Valenzuela - Last Filed: 05/14/21 11:00> - General Info Date of Service: 05/14/21 Subjective Update: The patient is a 75-year-old female, on day 10 of service, with a significant past medical history of hypertension, who was admitted for COVID-19 pneumonia and is currently on heated high flow of 60 L with an FiO2 of 85% with a O2 saturation of 94%. Her requirement for oxygen is increasing and the patient may need to be transferred to the intensive care unit if she does not improve. If so the patient's daughter will be contacted in regards to the patient's current clinical status and need for transfer. Upon interview with the patient today, she admits that she has ongoing shortness of breath at rest and also with exertion. She denies any cough at this moment. She was complaining of constipation for the past 7 days but had two large bowel movements yesterday night. Upon further interview the patient denies fever, chills, chest pain, palpitations, any issues with urination, and admits she is able to finish most of her meals without any problems. She has no other health concerns at this time. - Review of Systems General: Reports: Fatigue. Denies: Fever, Chills HEENT: Denies: Headaches Pulmonary: Reports: Shortness of Breath. Denies: Cough, Sputum Cardiovascular: Reports: Dyspnea on Exertion. Denies: Chest Pain, Palpitations Gastrointestinal: Denies: Abdominal Pain Genitourinary: Denies: Dysuria - Patient Data Vitals - Most Recent: Last Vital Signs Temp 97.4 F 05/14/21 08:00 Pulse 106 H 05/14/21 08:00 Resp 22 H 05/14/21 08:58 BP 134/78 05/14/21 08:00 Pulse Ox 91 L 05/14/21 08:58 Weight - Most Recent: 83.96 kg I&O - Last 24 Hours: Intake & Output 05/13/21 05/14/21 05/14/21 22:59 06:59 14:59 Intake Total 1050 640 Output Total 750 600 Balance 300 40 Lab Results Last 24 Hours: Laboratory Results - last 24 hr 05/14/21 05/14/21 Range/Units 05:55 05:55 WBC 10.56 (4.0-11.0) K/uL RBC 5.08 (4.30-5.90) M/uL Hgb 14.6 (12.0-16.0) g/dL Hct 41.6 (36.0-46.0) % MCV 81.9 (80.0-98.0) fL MCH 28.7 (27.0-32.0) pg MCHC 35.1 (31.0-37.0) g/dL RDW Std Deviation 43.5 (28.0-62.0) fl RDW Coeff of Lito 15 (11.0-15.0) % Plt Count 249 (150-400) K/uL MPV 9.80 (7.40-12.00) fL Neut % (Auto) 94.4 H (48.0-80.0) % Lymph % (Auto) 2.5 L (16.0-40.0) % Mathews % (Auto) 2.9 (0.0-15.0) % Eos % (Auto) 0.1 (0.0-7.0) % Baso % (Auto) 0.1 (0.0-1.5) % Neut # (Auto) 10.0 H (1.4-5.7) K/uL Lymph # (Auto) 0.3 L (0.6-2.4) K/uL Mathews # (Auto) 0.3 (0.0-0.8) K/uL Eos # (Auto) 0.0 (0.0-0.7) K/uL Baso # (Auto) 0.0 (0.0-0.1) K/uL Nucleated RBC % 0.0 /100WBC Nucleated RBCs # 0 K/uL Sodium 129 L (136-145) mmol/L Potassium 4.2 (3.5-5.1) mmol/L Chloride 101 (98-107) mmol/L Carbon Dioxide 17.8 L (21.0-32.0) mmol/L BUN 17 (7.0-18.0) mg/dL Creatinine 0.6 (0.6-1.0) mg/dL Est Cr Clr Drug Dosing 67.02 mL/min Estimated GFR (MDRD) > 60.0 ml/min Glucose 151 H (74-106) mg/dL Calcium 8.0 L (8.5-10.1) mg/dL Total Bilirubin 0.7 (0.2-1.0) mg/dL AST 54 H (15-37) IU/L ALT 115 H (14-63) IU/L Alkaline Phosphatase 209 H (46-116) U/L Total Protein 6.6 (6.4-8.2) g/dL Albumin 2.2 L (3.4-5.0) g/dL Globulin 4.4 H (2.6-4.0) g/dL Albumin/Globulin Ratio 0.5 L (0.9-1.6) Med Orders - Current: Current Medications Acetaminophen (Acetaminophen 325 Mg Tab) 650 mg PO Q4H PRN PRN Reason: Pain (Mild 1-3)/fever Last Admin: 05/06/21 23:44 Dose: 650 mg Documented by: Albuterol/Ipratropium (Albuterol/Ipratropium 4 Gm Inhalation [place]) 0 gm INH Q6HRRT [facility] Last Admin: 05/14/21 06:23 Dose: Not Given Documented by: Albuterol/Ipratropium (Albuterol/Ipratropium 3.0-0.5 Mg/3 Ml Neb Soln) 3 ml NEB Q4HRRT PRN PRN Reason: Shortness of Breath Last Admin: 05/14/21 06:20 Dose: 3 ml Documented by: Baricitinib (Baricitinib 2 Mg Tab) 4 mg PO Q24H [facility] Last Admin: 05/13/21 14:24 Dose: 4 mg Documented by: Bisacodyl (Bisacodyl 10 Mg Supp) 10 mg RECTAL DAILY PRN PRN Reason: Constipation Last Admin: 05/13/21 17:54 Dose: 10 mg Documented by: Dexamethasone (Dexamethasone 4 Mg Tab) 6 mg PO Q24H [facility] Last Admin: 05/13/21 19:54 Dose: 6 mg Documented by: Docusate Sodium (Docusate Sodium 100 Mg Cap) 100 mg PO DAILY [facility] Last Admin: 05/14/21 09:00 Dose: 100 mg Documented by: Enoxaparin Sodium (Enoxaparin 40 Mg/0.4 Ml Syringe) 40 mg SUBCUT Q24H [facility] Last Admin: 05/13/21 22:16 Dose: 40 mg Documented by: Levofloxacin/Dextrose 750 mg/ (Premix) 150 mls @ 100 mls/hr IV Q24H [facility] Last Admin: 05/13/21 17:54 Dose: 100 mls/hr Documented by: Ibuprofen (Ibuprofen 200 Mg Tab) 200 mg PO Q6H PRN PRN Reason: Pain (mild 1-3) Omeprazole (Omeprazole 20 Mg Cap.Cr) 20 mg PO ACBREAKFAST [facility] Last Admin: 05/14/21 06:33 Dose: 20 mg Documented by: Ondansetron HCl (Ondansetron 4 Mg/2 Ml Sdv) 4 mg IVPUSH Q4H PRN PRN Reason: Nausea Last Admin: 05/12/21 15:21 Dose: 4 mg Documented by: Verapamil 120 Mg Er (Tablet) 1 each PO DAILY [facility] Last Admin: 05/14/21 09:00 Dose: 1 each Documented by: Polyethylene Glycol (Polyethylene Glycol 3350 Powder 17 Gm Packet) 17 gm PO BEDTIME [facility] Last Admin: 05/13/21 20:02 Dose: 17 gm Documented by: Sodium Chloride (Sodium Chloride 0.9% 10 Ml Syringe) 10 ml FLUSH ASDIRECTED PRN PRN Reason: Keep Vein Open Last Admin: 05/04/21 17:39 Dose: 10 ml Documented by: Sodium Chloride (Sodium Chloride 0.9% 2.5 Ml Syringe) 2.5 ml FLUSH ASDIRECTED PRN PRN Reason: Keep Vein Open Last Admin: 05/04/21 17:36 Dose: 2.5 ml Documented by: Discontinued Medications Dexamethasone (Dexamethasone 10 Mg/Ml Sdv) 6 mg IVPUSH ONETIME ONE Stop: 05/04/21 19:27 Last Admin: 05/04/21 19:42 Dose: 6 mg Documented by: Dexamethasone (Dexamethasone 4 Mg Tab) 6 mg PO Q24H [facility] Last Admin: 05/05/21 04:14 Dose: Not Given Documented by: Diphenhydramine HCl (Diphenhydramine 50 Mg/Ml Sdv) 25 mg IVPUSH ONETIME ONE Stop: 05/08/21 17:09 Last Admin: 05/08/21 17:24 Dose: 25 mg Documented by: Guaifenesin/Codeine Phosphate (Codeine/Guaifenesin 10-100 Mg/5 Ml Syrup 5 Ml Cup) 5 ml PO Q4H PRN PRN Reason: Cough Last Admin: 05/13/21 11:29 Dose: 5 ml Documented by: Sodium Chloride (Normal Saline) 500 mls @ 500 mls/hr IV .BOLUS STA Stop: 05/04/21 18:17 Last Admin: 05/04/21 17:39 Dose: 500 mls/hr Documented by: Remdesivir 200 mg/ Sodium (Chloride) 250 mls @ 250 mls/hr IV ONETIME ONE Stop: 05/04/21 19:26 Last Admin: 05/04/21 19:57 Dose: 250 mls/hr Documented by: Remdesivir 100 mg/ Sodium (Chloride) 100 mls @ 100 mls/hr IV Q24H EEBN Stop: 05/08/21 20:59 Last Admin: 05/08/21 19:48 Dose: 100 mls/hr Documented by: Levofloxacin/Dextrose 750 mg/ (Premix) 150 mls @ 100 mls/hr IV Q24H EBEN Iopamidol (Iopamidol 755 Mg/Ml 500 Ml Multipack Bottle) 100 ml IVPUSH ONETIME ONE Stop: 05/04/21 18:36 Last Admin: 05/04/21 18:35 Dose: 100 ml Documented by: Nitrofurantoin Macrocrystals (Nitrofurantoin Macrocrystal 50 Mg Cap) 50 mg PO DAILY [facility] Last Admin: 05/08/21 08:56 Dose: 50 mg Documented by: Ondansetron HCl (Ondansetron 4 Mg/2 Ml Sdv) 4 mg IVPUSH ONETIME ONE Stop: 05/04/21 17:21 Last Admin: 05/04/21 17:39 Dose: 4 mg Documented by: Ondansetron HCl (Ondansetron 4 Mg/2 Ml Sdv) 4 mg IVPUSH ONETIME ONE Stop: 05/04/21 19:29 Last Admin: 05/04/21 19:42 Dose: 4 mg Documented by: Potassium Chloride (Potassium Chloride 20 Meq Tab.Er) 40 meq PO ONETIME ONE Stop: 05/06/21 08:16 Last Admin: 05/06/21 09:14 Dose: 40 meq Documented by: Verapamil HCl (Verapamil 240 Mg Tab.Er) 120 mg PO DAILY EBEN - Exam General: Alert, Oriented, Cooperative HEENT: Other (Dry mucous membranes) Neck: No: Lymphadenopathy Lungs: Wheezing Cardiovascular: Regular Rate, Regular Rhythm GI/Abdominal Exam: Normal Bowel Sounds, Soft, Non-Tender Extremities: No Pedal Edema - Patient Data Lab Results Last 24 hrs: Laboratory Results - last 24 hr 05/14/21 05/14/21 Range/Units 05:55 05:55 WBC 10.56 (4.0-11.0) K/uL RBC 5.08 (4.30-5.90) M/uL Hgb 14.6 (12.0-16.0) g/dL Hct 41.6 (36.0-46.0) % MCV 81.9 (80.0-98.0) fL MCH 28.7 (27.0-32.0) pg MCHC 35.1 (31.0-37.0) g/dL RDW Std Deviation 43.5 (28.0-62.0) fl RDW Coeff of Lito 15 (11.0-15.0) % Plt Count 249 (150-400) K/uL MPV 9.80 (7.40-12.00) fL Neut % (Auto) 94.4 H (48.0-80.0) % Lymph % (Auto) 2.5 L (16.0-40.0) % Mathews % (Auto) 2.9 (0.0-15.0) % Eos % (Auto) 0.1 (0.0-7.0) % Baso % (Auto) 0.1 (0.0-1.5) % Neut # (Auto) 10.0 H (1.4-5.7) K/uL Lymph # (Auto) 0.3 L (0.6-2.4) K/uL Mathews # (Auto) 0.3 (0.0-0.8) K/uL Eos # (Auto) 0.0 (0.0-0.7) K/uL Baso # (Auto) 0.0 (0.0-0.1) K/uL Nucleated RBC % 0.0 /100WBC Nucleated RBCs # 0 K/uL Sodium 129 L (136-145) mmol/L Potassium 4.2 (3.5-5.1) mmol/L Chloride 101 (98-107) mmol/L Carbon Dioxide 17.8 L (21.0-32.0) mmol/L BUN 17 (7.0-18.0) mg/dL Creatinine 0.6 (0.6-1.0) mg/dL Est Cr Clr Drug Dosing 67.02 mL/min Estimated GFR (MDRD) > 60.0 ml/min Glucose 151 H (74-106) mg/dL Calcium 8.0 L (8.5-10.1) mg/dL Total Bilirubin 0.7 (0.2-1.0) mg/dL AST 54 H (15-37) IU/L ALT 115 H (14-63) IU/L Alkaline Phosphatase 209 H (46-116) U/L Total Protein 6.6 (6.4-8.2) g/dL Albumin 2.2 L (3.4-5.0) g/dL Globulin 4.4 H (2.6-4.0) g/dL Albumin/Globulin Ratio 0.5 L (0.9-1.6) Result Diagrams: 05/14/21 05:55 05/14/21 05:55 Sepsis Event Note - Evaluation Sepsis Screening Result: No Definite Risk - Focused Exam Vital Signs: Vital Signs Temp Pulse Resp BP Pulse Ox 05/14/21 08:58 22 H 91 L 05/14/21 08:00 97.4 F 106 H 28 H 134/78 90 L 05/14/21 03:37 97.1 F 89 23 H 137/72 94 L 05/14/21 00:03 98 F 88 24 H 126/62 90 L - Problem List & Annotations (1) HTN (hypertension) SNOMED Code(s): 05339921 Code(s): I10 - ESSENTIAL (PRIMARY) HYPERTENSION Status: Acute Current Visit: Yes (2) Acute respiratory failure with hypoxia SNOMED Code(s): 09142634, 231332946 Code(s): J96.01 - ACUTE RESPIRATORY FAILURE WITH HYPOXIA Status: Acute Current Visit: Yes (3) COVID-19 SNOMED Code(s): 385321159 Code(s): U07.1 - COVID-19 Status: Acute Current Visit: Yes - Problem List Review Problem List Initiated/Reviewed/Updated: Yes - Plan Plan:: 1. Acute respiratory failure secondary to COVID-19 pneumonia -Patient is currently on heated high flow 60 L with an FiO2 of 85%, currently saturating at 94%, will continue oxygen supply as needed, if demand increases patient may be needed to be transferred to the intensive care unit, the patient's daughter Serenity will be updated as appropriate -Continue the patient on dexamethasone 6 mg per oral route once a day -Continue the patient on baricitinib 4 mg per oral route once a day -Continue to supply duo nebulizer and Combivent treatment as needed -Continue with Levaquin 750 mg every 24 hours -Monitor patient labs through daily CBC and CMP -Remdesivir course has been completed 2. Hypertension -Continue with verapamil 125 mg extended release tablet <Zayda Lang - Last Filed: 05/14/21 13:11> - Patient Data Vitals - Most Recent: Last Vital Signs Temp 36.3 C 05/14/21 08:00 Pulse 106 H 05/14/21 08:00 Resp 22 H 05/14/21 08:58 BP 134/78 05/14/21 08:00 Pulse Ox 91 L 05/14/21 08:58 I&O - Last 24 Hours: Intake & Output 05/13/21 05/14/21 05/14/21 22:59 06:59 14:59 Intake Total 1050 640 Output Total 750 600 Balance 300 40 Lab Results Last 24 Hours: Laboratory Results - last 24 hr 05/14/21 05/14/21 Range/Units 05:55 05:55 WBC 10.56 (4.0-11.0) K/uL RBC 5.08 (4.30-5.90) M/uL Hgb 14.6 (12.0-16.0) g/dL Hct 41.6 (36.0-46.0) % MCV 81.9 (80.0-98.0) fL MCH 28.7 (27.0-32.0) pg MCHC 35.1 (31.0-37.0) g/dL RDW Std Deviation 43.5 (28.0-62.0) fl RDW Coeff of Lito 15 (11.0-15.0) % Plt Count 249 (150-400) K/uL MPV 9.80 (7.40-12.00) fL Neut % (Auto) 94.4 H (48.0-80.0) % Lymph % (Auto) 2.5 L (16.0-40.0) % Mathews % (Auto) 2.9 (0.0-15.0) % Eos % (Auto) 0.1 (0.0-7.0) % Baso % (Auto) 0.1 (0.0-1.5) % Neut # (Auto) 10.0 H (1.4-5.7) K/uL Lymph # (Auto) 0.3 L (0.6-2.4) K/uL Mathews # (Auto) 0.3 (0.0-0.8) K/uL Eos # (Auto) 0.0 (0.0-0.7) K/uL Baso # (Auto) 0.0 (0.0-0.1) K/uL Nucleated RBC % 0.0 /100WBC Nucleated RBCs # 0 K/uL Sodium 129 L (136-145) mmol/L Potassium 4.2 (3.5-5.1) mmol/L Chloride 101 (98-107) mmol/L Carbon Dioxide 17.8 L (21.0-32.0) mmol/L BUN 17 (7.0-18.0) mg/dL Creatinine 0.6 (0.6-1.0) mg/dL Est Cr Clr Drug Dosing 67.02 mL/min Estimated GFR (MDRD) > 60.0 ml/min Glucose 151 H (74-106) mg/dL Calcium 8.0 L (8.5-10.1) mg/dL Total Bilirubin 0.7 (0.2-1.0) mg/dL AST 54 H (15-37) IU/L ALT 115 H (14-63) IU/L Alkaline Phosphatase 209 H (46-116) U/L Total Protein 6.6 (6.4-8.2) g/dL Albumin 2.2 L (3.4-5.0) g/dL Globulin 4.4 H (2.6-4.0) g/dL Albumin/Globulin Ratio 0.5 L (0.9-1.6) Med Orders - Current: Current Medications Acetaminophen (Acetaminophen 325 Mg Tab) 650 mg PO Q4H PRN PRN Reason: Pain (Mild 1-3)/fever Last Admin: 05/06/21 23:44 Dose: 650 mg Documented by: Albuterol/Ipratropium (Albuterol/Ipratropium 4 Gm Inhalation [place]) 0 gm INH Q6HRRT EBEN Last Admin: 05/14/21 11:25 Dose: Not Given Documented by: Albuterol/Ipratropium (Albuterol/Ipratropium 3.0-0.5 Mg/3 Ml Neb Soln) 3 ml NEB Q4HRRT PRN PRN Reason: Shortness of Breath Last Admin: 05/14/21 11:23 Dose: 3 ml Documented by: Baricitinib (Baricitinib 2 Mg Tab) 4 mg PO Q24H [facility] Last Admin: 05/13/21 14:24 Dose: 4 mg Documented by: Bisacodyl (Bisacodyl 10 Mg Supp) 10 mg RECTAL DAILY PRN PRN Reason: Constipation Last Admin: 05/13/21 17:54 Dose: 10 mg Documented by: Dexamethasone (Dexamethasone 4 Mg Tab) 6 mg PO Q24H [facility] Last Admin: 05/13/21 19:54 Dose: 6 mg Documented by: Docusate Sodium (Docusate Sodium 100 Mg Cap) 100 mg PO DAILY [facility] Last Admin: 05/14/21 09:00 Dose: 100 mg Documented by: Enoxaparin Sodium (Enoxaparin 40 Mg/0.4 Ml Syringe) 40 mg SUBCUT Q24H [facility] Last Admin: 05/13/21 22:16 Dose: 40 mg Documented by: Levofloxacin/Dextrose 750 mg/ (Premix) 150 mls @ 100 mls/hr IV Q24H [facility] Last Admin: 05/13/21 17:54 Dose: 100 mls/hr Documented by: Ibuprofen (Ibuprofen 200 Mg Tab) 200 mg PO Q6H PRN PRN Reason: Pain (mild 1-3) Omeprazole (Omeprazole 20 Mg Cap.Cr) 20 mg PO ACBREAKFAST [facility] Last Admin: 05/14/21 06:33 Dose: 20 mg Documented by: Ondansetron HCl (Ondansetron 4 Mg/2 Ml Sdv) 4 mg IVPUSH Q4H PRN PRN Reason: Nausea Last Admin: 05/12/21 15:21 Dose: 4 mg Documented by: Verapamil 120 Mg Er (Tablet) 1 each PO DAILY [facility] Last Admin: 05/14/21 09:00 Dose: 1 each Documented by: Polyethylene Glycol (Polyethylene Glycol 3350 Powder 17 Gm Packet) 17 gm PO BEDTIME [facility] Last Admin: 05/13/21 20:02 Dose: 17 gm Documented by: Sodium Chloride (Sodium Chloride 0.9% 10 Ml Syringe) 10 ml FLUSH ASDIRECTED PRN PRN Reason: Keep Vein Open Last Admin: 05/04/21 17:39 Dose: 10 ml Documented by: Sodium Chloride (Sodium Chloride 0.9% 2.5 Ml Syringe) 2.5 ml FLUSH ASDIRECTED PRN PRN Reason: Keep Vein Open Last Admin: 05/04/21 17:36 Dose: 2.5 ml Documented by: Discontinued Medications Dexamethasone (Dexamethasone 10 Mg/Ml Sdv) 6 mg IVPUSH ONETIME ONE Stop: 05/04/21 19:27 Last Admin: 05/04/21 19:42 Dose: 6 mg Documented by: Dexamethasone (Dexamethasone 4 Mg Tab) 6 mg PO Q24H EBEN Last Admin: 05/05/21 04:14 Dose: Not Given Documented by: Diphenhydramine HCl (Diphenhydramine 50 Mg/Ml Sdv) 25 mg IVPUSH ONETIME ONE Stop: 05/08/21 17:09 Last Admin: 05/08/21 17:24 Dose: 25 mg Documented by: Guaifenesin/Codeine Phosphate (Codeine/Guaifenesin 10-100 Mg/5 Ml Syrup 5 Ml Cup) 5 ml PO Q4H PRN PRN Reason: Cough Last Admin: 05/13/21 11:29 Dose: 5 ml Documented by: Sodium Chloride (Normal Saline) 500 mls @ 500 mls/hr IV .BOLUS STA Stop: 05/04/21 18:17 Last Admin: 05/04/21 17:39 Dose: 500 mls/hr Documented by: Remdesivir 200 mg/ Sodium (Chloride) 250 mls @ 250 mls/hr IV ONETIME ONE Stop: 05/04/21 19:26 Last Admin: 05/04/21 19:57 Dose: 250 mls/hr Documented by: Remdesivir 100 mg/ Sodium (Chloride) 100 mls @ 100 mls/hr IV Q24H EBEN Stop: 05/08/21 20:59 Last Admin: 05/08/21 19:48 Dose: 100 mls/hr Documented by: Levofloxacin/Dextrose 750 mg/ (Premix) 150 mls @ 100 mls/hr IV Q24H EBEN Iopamidol (Iopamidol 755 Mg/Ml 500 Ml Multipack Bottle) 100 ml IVPUSH ONETIME ONE Stop: 05/04/21 18:36 Last Admin: 05/04/21 18:35 Dose: 100 ml Documented by: Nitrofurantoin Macrocrystals (Nitrofurantoin Macrocrystal 50 Mg Cap) 50 mg PO DAILY [facility] Last Admin: 05/08/21 08:56 Dose: 50 mg Documented by: Ondansetron HCl (Ondansetron 4 Mg/2 Ml Sdv) 4 mg IVPUSH ONETIME ONE Stop: 05/04/21 17:21 Last Admin: 05/04/21 17:39 Dose: 4 mg Documented by: Ondansetron HCl (Ondansetron 4 Mg/2 Ml Sdv) 4 mg IVPUSH ONETIME ONE Stop: 05/04/21 19:29 Last Admin: 05/04/21 19:42 Dose: 4 mg Documented by: Potassium Chloride (Potassium Chloride 20 Meq Tab.Er) 40 meq PO ONETIME ONE Stop: 05/06/21 08:16 Last Admin: 05/06/21 09:14 Dose: 40 meq Documented by: Verapamil HCl (Verapamil 240 Mg Tab.Er) 120 mg PO DAILY [facility] - Patient Data Lab Results Last 24 hrs: Laboratory Results - last 24 hr 05/14/21 05/14/21 Range/Units 05:55 05:55 WBC 10.56 (4.0-11.0) K/uL RBC 5.08 (4.30-5.90) M/uL Hgb 14.6 (12.0-16.0) g/dL Hct 41.6 (36.0-46.0) % MCV 81.9 (80.0-98.0) fL MCH 28.7 (27.0-32.0) pg MCHC 35.1 (31.0-37.0) g/dL RDW Std Deviation 43.5 (28.0-62.0) fl RDW Coeff of Lito 15 (11.0-15.0) % Plt Count 249 (150-400) K/uL MPV 9.80 (7.40-12.00) fL Neut % (Auto) 94.4 H (48.0-80.0) % Lymph % (Auto) 2.5 L (16.0-40.0) % Mathews % (Auto) 2.9 (0.0-15.0) % Eos % (Auto) 0.1 (0.0-7.0) % Baso % (Auto) 0.1 (0.0-1.5) % Neut # (Auto) 10.0 H (1.4-5.7) K/uL Lymph # (Auto) 0.3 L (0.6-2.4) K/uL Mathews # (Auto) 0.3 (0.0-0.8) K/uL Eos # (Auto) 0.0 (0.0-0.7) K/uL Baso # (Auto) 0.0 (0.0-0.1) K/uL Nucleated RBC % 0.0 /100WBC Nucleated RBCs # 0 K/uL Sodium 129 L (136-145) mmol/L Potassium 4.2 (3.5-5.1) mmol/L Chloride 101 (98-107) mmol/L Carbon Dioxide 17.8 L (21.0-32.0) mmol/L BUN 17 (7.0-18.0) mg/dL Creatinine 0.6 (0.6-1.0) mg/dL Est Cr Clr Drug Dosing 67.02 mL/min Estimated GFR (MDRD) > 60.0 ml/min Glucose 151 H (74-106) mg/dL Calcium 8.0 L (8.5-10.1) mg/dL Total Bilirubin 0.7 (0.2-1.0) mg/dL AST 54 H (15-37) IU/L ALT 115 H (14-63) IU/L Alkaline Phosphatase 209 H (46-116) U/L Total Protein 6.6 (6.4-8.2) g/dL Albumin 2.2 L (3.4-5.0) g/dL Globulin 4.4 H (2.6-4.0) g/dL Albumin/Globulin Ratio 0.5 L (0.9-1.6) Result Diagrams: 05/14/21 05:55 05/14/21 05:55 Sepsis Event Note - Focused Exam Vital Signs: Vital Signs Temp Pulse Resp BP Pulse Ox 05/14/21 08:58 22 H 91 L 05/14/21 08:00 36.3 C 106 H 28 H 134/78 90 L 05/14/21 03:37 36.2 C 89 23 H 137/72 94 L - Problem List & Annotations (1) Acute respiratory failure with hypoxia SNOMED Code(s): 64023048, 927112056 Code(s): J96.01 - ACUTE RESPIRATORY FAILURE WITH HYPOXIA Status: Acute Current Visit: Yes (2) COVID-19 SNOMED Code(s): 226739665 Code(s): U07.1 - COVID-19 Status: Acute Current Visit: Yes (3) Hypoxemia SNOMED Code(s): 165895815 Code(s): R09.02 - HYPOXEMIA Status: Acute Current Visit: Yes (4) Pneumonia due to COVID-19 virus SNOMED Code(s): 163615322515146144 Code(s): U07.1 - COVID-19; J12.82 - PNEUMONIA DUE TO CORONAVIRUS DISEASE 2018 Status: Acute Current Visit: Yes (5) Transaminitis SNOMED Code(s): 434314318, 593619190 Code(s): R74.01 - ELEVATION OF LEVELS OF LIVER TRANSAMINASE LEVELS Status: Acute Current Visit: Yes - My Orders Last 24 Hours: My Active Orders 05/14/21 11:46 Admission Status [Patient Status] [ADT] Routine - Plan Plan:: I have seen and evaluated the patient and agree with the residents note unless specified in my note
[2021-05-14] MEDS ORDERED: Albuterol/Ipratropium 4 GM Inhalation Spray INH PRN (14:59)
--- NOTE | 2021-05-14 17:18 | PN ---
THC Physician - Brief Progress [id number]/01/2021 17:17[facility] Shamir Dillon, [place] - MWN (HSON) - MWN ANTONIOANNA WYATT VEbenDate of Service 05/14/2021 17:17HPI/Events of Note eICU Admission [id number] with PMH HTN admitted for respiratory failure attributed to COVID. Hi story obtained from review of EMR.Camera exam: Sitting up in chair. Vitals monitor reviewed. eICU Rec ommendations:Isolation precautions per local policyDexamethasone 6mg daily for 10 daysAnti-IL6 therap y per local hospital policy Continue oxygen supplementation.Awake proning as toleratedSuggest targeti ng a neutral to negative net fluid balance as tolerated hemodynamicallyWill repeat ABG to ensure PaO2 adequately improved with switch to higher [id number] issues per primary service. eICU will continue t o follow and assist as desired.DVT and GI prophylaxis as appropriate.Thank you for allowing us to par ticipate in the care of this patient.The above note transcribed with the assistance of dictation soft lucio. Please excuse any errors.Interventions Major-Respiratory failure - evaluation and managementEle ctronically Signed by: NATALEE MOLINA) on 05/14/2021 17:17
[2021-05-14] MEDS ORDERED: Furosemide 20 MG/2 ML VIAL IVPUSH ONE (19:12)
[2021-05-14] MEDS: Dexamethasone 4 MG Tab PO SCH (19:45)
[2021-05-14] MEDS: Levofloxacin/Dextrose 5%-Water 750 MG in Premix Bag 1 BAG IV SCH (19:45)
[2021-05-14] MEDS: Polyethylene Glycol 3350 Powder 17 GM Packet PO SCH (20:56)
[2021-05-14] MEDS: Albuterol/Ipratropium 3.0-0.5 MG/3 ML Neb Soln NEB SCH (22:11)
[2021-05-14] MEDS: Enoxaparin 40 MG/0.4 ML Syringe SUBCUT SCH (22:11)
[2021-05-15] MEDS ORDERED: Morphine 2 MG/ML SYRINGE IVPUSH ONE (00:19)
[2021-05-15] MEDS: Albuterol/Ipratropium 3.0-0.5 MG/3 ML Neb Soln NEB SCH ×6 (01:34→22:17)
[2021-05-15] MEDS: Omeprazole 20 MG Cap.CR PO SCH (06:32)
[2021-05-15 07:06] LABS: BLOOD UREA NITROGEN,BUN 20 mg/dL (7.0-18.0); CARBON DIOXIDE,CO2 21.7 mmol/L (21.0-32.0); CHLORIDE,CL 101 mmol/L (98-107); GLUCOSE RANDOM 155 mg/dL (74-106); POTASSIUM,K 4.1 mmol/L (3.5-5.1); SODIUM,NA 134 mmol/L (136-145)
[2021-05-15] MEDS: Docusate Sodium 100 MG Cap PO SCH (08:17)
[2021-05-15] MEDS: VERAPAMIL 120 MG PO SCH (08:46)
--- NOTE | 2021-05-15 12:06 | PCM.PN ---
<Elena Valenzuela - Last Filed: 05/15/21 12:06> - General Info Date of Service: 05/15/21 Subjective Update: The patient is a 75-year-old female, on day 11 of service, with a significant past medical history of hypertension, who was admitted for COVID-19 pneumonia and is currently on heated high flow of 60 L with an FiO2 of 85% with a O2 saturation of 92%. The patient was transitioned to the intensive care unit yesterday. Upon interview with her today she is feeling much better and has less shortness of breath, and feels that her cough is resolved. She is eating and drinking without any issues. I spoke with the patient's daughter Serenity today and gave her an update on her mother's current clinical status. A note from eICU physicians recommended a repeat ABG to ensure adequate oxygenation with a switch to a higher FiO2 and as a result an ABG has been ordered and is pending. The patient has no other complaints at this time. - Review of Systems General: Reports: Fatigue. Denies: Fever, Weakness, Chills HEENT: Denies: Headaches, Sore Throat Pulmonary: Reports: Shortness of Breath. Denies: Cough Cardiovascular: Denies: Chest Pain, Palpitations Gastrointestinal: Denies: Abdominal Pain Genitourinary: Denies: Dysuria - Patient Data Vitals - Most Recent: Last Vital Signs Temp 98.1 F 05/15/21 09:00 Pulse 96 05/14/21 18:55 Resp 34 H 05/15/21 10:00 BP 120/76 05/15/21 10:00 Pulse Ox 93 L 05/15/21 10:00 Weight - Most Recent: 83.96 kg I&O - Last 24 Hours: Intake & Output 05/14/21 05/15/21 05/15/21 22:59 06:59 14:59 Intake Total 250 250 Output Total 1600 Balance 250 -1350 Lab Results Last 24 Hours: Laboratory Results - last 24 hr 05/14/21 05/14/21 05/15/21 Range/Units 16:15 17:15 05:07 WBC 13.85 H (4.0-11.0) K/uL RBC 5.34 (4.30-5.90) M/uL Hgb 15.8 (12.0-16.0) g/dL Hct 43.8 (36.0-46.0) % MCV 82.0 (80.0-98.0) fL MCH 29.6 (27.0-32.0) pg MCHC 36.1 (31.0-37.0) g/dL RDW Std Deviation 43.5 (28.0-62.0) fl RDW Coeff of Lito 15 (11.0-15.0) % Plt Count 224 (150-400) K/uL MPV 10.20 (7.40-12.00) fL Neut % (Auto) 95.7 H (48.0-80.0) % Lymph % (Auto) 1.7 L (16.0-40.0) % Starke % (Auto) 2.6 (0.0-15.0) % Eos % (Auto) 0.0 (0.0-7.0) % Baso % (Auto) 0.0 (0.0-1.5) % Neut # (Auto) 13.3 H (1.4-5.7) K/uL Lymph # (Auto) 0.2 L (0.6-2.4) K/uL Starke # (Auto) 0.4 (0.0-0.8) K/uL Eos # (Auto) 0.0 (0.0-0.7) K/uL Baso # (Auto) 0.0 (0.0-0.1) K/uL Nucleated RBC % 0.0 /100WBC Nucleated RBCs # 0 K/uL ABG pH 7.39 7.41 (7.35-7.45) ABG pCO2 31 L 27 L (35-45) mmHG ABG pO2 38 L* 94 (80-105) mmHG ABG HCO3 19 L 17 L (22-26) mEq/L ABG Total CO2 16.5 L 14.5 L (23-27) mmol/L ABG Base Excess -4.8 L -5.8 L (-2.0-3.0) Sodium (136-145) mmol/L Potassium (3.5-5.1) mmol/L Chloride (98-107) mmol/L Carbon Dioxide (21.0-32.0) mmol/L BUN (7.0-18.0) mg/dL Creatinine (0.6-1.0) mg/dL Est Cr Clr Drug Dosing mL/min Estimated GFR (MDRD) ml/min Glucose (74-106) mg/dL Calcium (8.5-10.1) mg/dL Total Bilirubin (0.2-1.0) mg/dL AST (15-37) IU/L ALT (14-63) IU/L Alkaline Phosphatase (46-116) U/L Total Protein (6.4-8.2) g/dL Albumin (3.4-5.0) g/dL Globulin (2.6-4.0) g/dL Albumin/Globulin Ratio (0.9-1.6) 05/15/21 05/15/21 Range/Units 05:07 09:32 WBC (4.0-11.0) K/uL RBC (4.30-5.90) M/uL Hgb (12.0-16.0) g/dL Hct (36.0-46.0) % MCV (80.0-98.0) fL MCH (27.0-32.0) pg MCHC (31.0-37.0) g/dL RDW Std Deviation (28.0-62.0) fl RDW Coeff of Lito (11.0-15.0) % Plt Count (150-400) K/uL MPV (7.40-12.00) fL Neut % (Auto) (48.0-80.0) % Lymph % (Auto) (16.0-40.0) % Starke % (Auto) (0.0-15.0) % Eos % (Auto) (0.0-7.0) % Baso % (Auto) (0.0-1.5) % Neut # (Auto) (1.4-5.7) K/uL Lymph # (Auto) (0.6-2.4) K/uL Starke # (Auto) (0.0-0.8) K/uL Eos # (Auto) (0.0-0.7) K/uL Baso # (Auto) (0.0-0.1) K/uL Nucleated RBC % /100WBC Nucleated RBCs # K/uL ABG pH 7.43 (7.35-7.45) ABG pCO2 28 L (35-45) mmHG ABG pO2 55 L (80-105) mmHG ABG HCO3 19 L (22-26) mEq/L ABG Total CO2 16.2 L (23-27) mmol/L ABG Base Excess -4.1 L (-2.0-3.0) Sodium 134 L (136-145) mmol/L Potassium 4.1 (3.5-5.1) mmol/L Chloride 101 (98-107) mmol/L Carbon Dioxide 21.7 (21.0-32.0) mmol/L BUN 20 H (7.0-18.0) mg/dL Creatinine 0.8 (0.6-1.0) mg/dL Est Cr Clr Drug Dosing 50.26 mL/min Estimated GFR (MDRD) > 60.0 ml/min Glucose 155 H (74-106) mg/dL Calcium 7.9 L (8.5-10.1) mg/dL Total Bilirubin 0.8 (0.2-1.0) mg/dL AST 44 H (15-37) IU/L ALT 125 H (14-63) IU/L Alkaline Phosphatase 205 H (46-116) U/L Total Protein 6.3 L (6.4-8.2) g/dL Albumin 2.3 L (3.4-5.0) g/dL Globulin 4.0 (2.6-4.0) g/dL Albumin/Globulin Ratio 0.6 L (0.9-1.6) Med Orders - Current: Current Medications Acetaminophen (Acetaminophen 325 Mg Tab) 650 mg PO Q4H PRN PRN Reason: Pain (Mild 1-3)/fever Last Admin: 05/06/21 23:44 Dose: 650 mg Documented by: Albuterol/Ipratropium (Albuterol/Ipratropium 3.0-0.5 Mg/3 Ml Neb Soln) 3 ml NEB Q4HRRT [facility] Last Admin: 05/15/21 09:28 Dose: 3 ml Documented by: Albuterol/Ipratropium (Albuterol/Ipratropium 4 Gm Inhalation [place]) 0 gm INH Q4H PRN PRN Reason: Dyspnea Baricitinib (Baricitinib 2 Mg Tab) 4 mg PO Q24H [facility] Last Admin: 05/14/21 15:08 Dose: 4 mg Documented by: Bisacodyl (Bisacodyl 10 Mg Supp) 10 mg RECTAL DAILY PRN PRN Reason: Constipation Last Admin: 05/13/21 17:54 Dose: 10 mg Documented by: Dexamethasone (Dexamethasone 4 Mg Tab) 6 mg PO Q24H [facility] Last Admin: 05/14/21 19:45 Dose: 6 mg Documented by: Docusate Sodium (Docusate Sodium 100 Mg Cap) 100 mg PO DAILY [facility] Last Admin: 05/15/21 08:17 Dose: 100 mg Documented by: Enoxaparin Sodium (Enoxaparin 40 Mg/0.4 Ml Syringe) 40 mg SUBCUT Q24H [facility] Last Admin: 05/14/21 22:11 Dose: 40 mg Documented by: Levofloxacin/Dextrose 750 mg/ (Premix) 150 mls @ 100 mls/hr IV Q24H [facility] Last Admin: 05/14/21 19:45 Dose: 100 mls/hr Documented by: Ibuprofen (Ibuprofen 200 Mg Tab) 200 mg PO Q6H PRN PRN Reason: Pain (mild 1-3) Omeprazole (Omeprazole 20 Mg Cap.Cr) 20 mg PO ACBREAKFAST [facility] Last Admin: 05/15/21 06:32 Dose: 20 mg Documented by: Ondansetron HCl (Ondansetron 4 Mg/2 Ml Sdv) 4 mg IVPUSH Q4H PRN PRN Reason: Nausea Last Admin: 05/12/21 15:21 Dose: 4 mg Documented by: Verapamil 120 Mg Er (Tablet) 1 each PO DAILY [facility] Last Admin: 05/15/21 08:46 Dose: 1 each Documented by: Polyethylene Glycol (Polyethylene Glycol 3350 Powder 17 Gm Packet) 17 gm PO BEDTIME [facility] Last Admin: 05/14/21 20:56 Dose: Not Given Documented by: Sodium Chloride (Sodium Chloride 0.9% 10 Ml Syringe) 10 ml FLUSH ASDIRECTED PRN PRN Reason: Keep Vein Open Last Admin: 05/04/21 17:39 Dose: 10 ml Documented by: Sodium Chloride (Sodium Chloride 0.9% 2.5 Ml Syringe) 2.5 ml FLUSH ASDIRECTED PRN PRN Reason: Keep Vein Open Last Admin: 05/04/21 17:36 Dose: 2.5 ml Documented by: Discontinued Medications Albuterol/Ipratropium (Albuterol/Ipratropium 4 Gm Inhalation [place]) 0 gm INH Q6HRRT [facility] Last Admin: 05/14/21 11:25 Dose: Not Given Documented by: Albuterol/Ipratropium (Albuterol/Ipratropium 3.0-0.5 Mg/3 Ml Neb Soln) 3 ml NEB Q4HRRT PRN PRN Reason: Shortness of Breath Stop: 05/14/21 18:00 Last Admin: 05/14/21 11:23 Dose: 3 ml Documented by: Albuterol/Ipratropium (Albuterol/Ipratropium 4 Gm Inhalation [place]) 0 gm INH Q6HRRT PRN PRN Reason: Shortness of Breath Dexamethasone (Dexamethasone 10 Mg/Ml Sdv) 6 mg IVPUSH ONETIME ONE Stop: 05/04/21 19:27 Last Admin: 05/04/21 19:42 Dose: 6 mg Documented by: Dexamethasone (Dexamethasone 4 Mg Tab) 6 mg PO Q24H [facility] Last Admin: 05/05/21 04:14 Dose: Not Given Documented by: Diphenhydramine HCl (Diphenhydramine 50 Mg/Ml Sdv) 25 mg IVPUSH ONETIME ONE Stop: 05/08/21 17:09 Last Admin: 05/08/21 17:24 Dose: 25 mg Documented by: Furosemide (Furosemide 20 Mg/2 Ml Vial) 20 mg IVPUSH NOW ONE Stop: 05/14/21 19:13 Last Admin: 05/14/21 19:45 Dose: 20 mg Documented by: Guaifenesin/Codeine Phosphate (Codeine/Guaifenesin 10-100 Mg/5 Ml Syrup 5 Ml Cup) 5 ml PO Q4H PRN PRN Reason: Cough Last Admin: 05/13/21 11:29 Dose: 5 ml Documented by: Sodium Chloride (Normal Saline) 500 mls @ 500 mls/hr IV .BOLUS STA Stop: 05/04/21 18:17 Last Admin: 05/04/21 17:39 Dose: 500 mls/hr Documented by: Remdesivir 200 mg/ Sodium (Chloride) 250 mls @ 250 mls/hr IV ONETIME ONE Stop: 05/04/21 19:26 Last Admin: 05/04/21 19:57 Dose: 250 mls/hr Documented by: Remdesivir 100 mg/ Sodium (Chloride) 100 mls @ 100 mls/hr IV Q24H [facility] Stop: 05/08/21 20:59 Last Admin: 05/08/21 19:48 Dose: 100 mls/hr Documented by: Levofloxacin/Dextrose 750 mg/ (Premix) 150 mls @ 100 mls/hr IV Q24H [facility] Iopamidol (Iopamidol 755 Mg/Ml 500 Ml Multipack Bottle) 100 ml IVPUSH ONETIME ONE Stop: 05/04/21 18:36 Last Admin: 05/04/21 18:35 Dose: 100 ml Documented by: Morphine Sulfate (Morphine 2 Mg/Ml Syringe) 1 mg IVPUSH ONETIME ONE Stop: 05/15/21 00:20 Last Admin: 05/15/21 00:39 Dose: 1 mg Documented by: Nitrofurantoin Macrocrystals (Nitrofurantoin Macrocrystal 50 Mg Cap) 50 mg PO DAILY [facility] Last Admin: 05/08/21 08:56 Dose: 50 mg Documented by: Ondansetron HCl (Ondansetron 4 Mg/2 Ml Sdv) 4 mg IVPUSH ONETIME ONE Stop: 05/04/21 17:21 Last Admin: 05/04/21 17:39 Dose: 4 mg Documented by: Ondansetron HCl (Ondansetron 4 Mg/2 Ml Sdv) 4 mg IVPUSH ONETIME ONE Stop: 05/04/21 19:29 Last Admin: 05/04/21 19:42 Dose: 4 mg Documented by: Potassium Chloride (Potassium Chloride 20 Meq Tab.Er) 40 meq PO ONETIME ONE Stop: 05/06/21 08:16 Last Admin: 05/06/21 09:14 Dose: 40 meq Documented by: Verapamil HCl (Verapamil 240 Mg Tab.Er) 120 mg PO DAILY [facility] - Exam Urinary Catheter Total Time: 0Days 0Hours General: Alert, Oriented, Cooperative HEENT: Mucous Membr. Moist/[place] Neck: No: Lymphadenopathy Lungs: Wheezing Cardiovascular: Regular Rate, Regular Rhythm, No Murmurs GI/Abdominal Exam: Normal Bowel Sounds, Soft, Non-Tender - Patient Data Lab Results Last 24 hrs: Laboratory Results - last 24 hr 05/14/21 05/14/21 05/15/21 Range/Units 16:15 17:15 05:07 WBC 13.85 H (4.0-11.0) K/uL RBC 5.34 (4.30-5.90) M/uL Hgb 15.8 (12.0-16.0) g/dL Hct 43.8 (36.0-46.0) % MCV 82.0 (80.0-98.0) fL MCH 29.6 (27.0-32.0) pg MCHC 36.1 (31.0-37.0) g/dL RDW Std Deviation 43.5 (28.0-62.0) fl RDW Coeff of Lito 15 (11.0-15.0) % Plt Count 224 (150-400) K/uL MPV 10.20 (7.40-12.00) fL Neut % (Auto) 95.7 H (48.0-80.0) % Lymph % (Auto) 1.7 L (16.0-40.0) % Starke % (Auto) 2.6 (0.0-15.0) % Eos % (Auto) 0.0 (0.0-7.0) % Baso % (Auto) 0.0 (0.0-1.5) % Neut # (Auto) 13.3 H (1.4-5.7) K/uL Lymph # (Auto) 0.2 L (0.6-2.4) K/uL Starke # (Auto) 0.4 (0.0-0.8) K/uL Eos # (Auto) 0.0 (0.0-0.7) K/uL Baso # (Auto) 0.0 (0.0-0.1) K/uL Nucleated RBC % 0.0 /100WBC Nucleated RBCs # 0 K/uL ABG pH 7.39 7.41 (7.35-7.45) ABG pCO2 31 L 27 L (35-45) mmHG ABG pO2 38 L* 94 (80-105) mmHG ABG HCO3 19 L 17 L (22-26) mEq/L ABG Total CO2 16.5 L 14.5 L (23-27) mmol/L ABG Base Excess -4.8 L -5.8 L (-2.0-3.0) Sodium (136-145) mmol/L Potassium (3.5-5.1) mmol/L Chloride (98-107) mmol/L Carbon Dioxide (21.0-32.0) mmol/L BUN (7.0-18.0) mg/dL Creatinine (0.6-1.0) mg/dL Est Cr Clr Drug Dosing mL/min Estimated GFR (MDRD) ml/min Glucose (74-106) mg/dL Calcium (8.5-10.1) mg/dL Total Bilirubin (0.2-1.0) mg/dL AST (15-37) IU/L ALT (14-63) IU/L Alkaline Phosphatase (46-116) U/L Total Protein (6.4-8.2) g/dL Albumin (3.4-5.0) g/dL Globulin (2.6-4.0) g/dL Albumin/Globulin Ratio (0.9-1.6) 05/15/21 05/15/21 Range/Units 05:07 09:32 WBC (4.0-11.0) K/uL RBC (4.30-5.90) M/uL Hgb (12.0-16.0) g/dL Hct (36.0-46.0) % MCV (80.0-98.0) fL MCH (27.0-32.0) pg MCHC (31.0-37.0) g/dL RDW Std Deviation (28.0-62.0) fl RDW Coeff of Lito (11.0-15.0) % Plt Count (150-400) K/uL MPV (7.40-12.00) fL Neut % (Auto) (48.0-80.0) % Lymph % (Auto) (16.0-40.0) % Starke % (Auto) (0.0-15.0) % Eos % (Auto) (0.0-7.0) % Baso % (Auto) (0.0-1.5) % Neut # (Auto) (1.4-5.7) K/uL Lymph # (Auto) (0.6-2.4) K/uL Starke # (Auto) (0.0-0.8) K/uL Eos # (Auto) (0.0-0.7) K/uL Baso # (Auto) (0.0-0.1) K/uL Nucleated RBC % /100WBC Nucleated RBCs # K/uL ABG pH 7.43 (7.35-7.45) ABG pCO2 28 L (35-45) mmHG ABG pO2 55 L (80-105) mmHG ABG HCO3 19 L (22-26) mEq/L ABG Total CO2 16.2 L (23-27) mmol/L ABG Base Excess -4.1 L (-2.0-3.0) Sodium 134 L (136-145) mmol/L Potassium 4.1 (3.5-5.1) mmol/L Chloride 101 (98-107) mmol/L Carbon Dioxide 21.7 (21.0-32.0) mmol/L BUN 20 H (7.0-18.0) mg/dL Creatinine 0.8 (0.6-1.0) mg/dL Est Cr Clr Drug Dosing 50.26 mL/min Estimated GFR (MDRD) > 60.0 ml/min Glucose 155 H (74-106) mg/dL Calcium 7.9 L (8.5-10.1) mg/dL Total Bilirubin 0.8 (0.2-1.0) mg/dL AST 44 H (15-37) IU/L ALT 125 H (14-63) IU/L Alkaline Phosphatase 205 H (46-116) U/L Total Protein 6.3 L (6.4-8.2) g/dL Albumin 2.3 L (3.4-5.0) g/dL Globulin 4.0 (2.6-4.0) g/dL Albumin/Globulin Ratio 0.6 L (0.9-1.6) Result Diagrams: 05/15/21 05:07 05/15/21 05:07 Sepsis Event Note - Evaluation Sepsis Screening Result: No Definite Risk - Focused Exam Vital Signs: Vital Signs Temp Resp BP Pulse Ox 05/15/21 10:00 34 H 120/76 93 L 05/15/21 09:00 98.1 F 29 H 120/76 87 L 05/15/21 08:00 18 102/51 L 91 L 05/15/21 07:00 19 104/63 92 L 05/15/21 06:00 23 H 126/73 93 L 05/15/21 05:00 24 H 125/64 91 L 05/15/21 04:00 97.4 F 28 H 131/75 89 L 05/15/21 03:00 22 H 124/71 92 L 05/15/21 02:00 19 116/54 L 92 L 05/15/21 01:00 22 H 114/59 L 92 L - Problem List & Annotations (1) HTN (hypertension) SNOMED Code(s): 70987430 Code(s): I10 - ESSENTIAL (PRIMARY) HYPERTENSION Status: Acute Current Visit: Yes (2) Acute respiratory failure with hypoxia SNOMED Code(s): 98978094, 724488166 Code(s): J96.01 - ACUTE RESPIRATORY FAILURE WITH HYPOXIA Status: Acute Current Visit: Yes (3) COVID-19 SNOMED Code(s): 852814032 Code(s): U07.1 - COVID-19 Status: Acute Current Visit: Yes - Problem List Review Problem List Initiated/Reviewed/Updated: Yes - My Orders Last 24 Hours: My Active Orders 05/16/21 05:11 CBC WITH AUTO DIFF [HEME] AM CMP [COMPREHENSIVE METABOLIC PN,CMP] [CHEM] AM 05/17/21 05:11 CBC WITH AUTO DIFF [HEME] AM CMP [COMPREHENSIVE METABOLIC PN,CMP] [CHEM] AM 05/18/21 05:11 CBC WITH AUTO DIFF [HEME] AM CMP [COMPREHENSIVE METABOLIC PN,CMP] [CHEM] AM 05/19/21 05:11 CBC WITH AUTO DIFF [HEME] AM CMP [COMPREHENSIVE METABOLIC PN,CMP] [CHEM] AM - Assessment Assessment:: 1. Acute respiratory failure secondary to COVID-19 pneumonia -Patient is currently on heated high flow 60 L with an FiO2 of 85%, currently saturating at 92%, will continue oxygen supply as needed, the patient's daughter Serenity has been updated on her mother's current clinical status -Continue the patient on dexamethasone 6 mg per oral route once a day -Continue the patient on baricitinib 4 mg per oral route once a day -Continue to supply duo nebulizer and Combivent treatment as needed -Continue with Levaquin 750 mg every 24 hours -Monitor patient labs through daily CBC and CMP 2. Hypertension -Continue with verapamil 125 mg extended release tablet <Zayda Lang - Last Filed: 05/15/21 16:38> - General Info Subjective Update: I have seen and evaluated the patient and agree with the residents note unless specified in my note - Patient Data Vitals - Most Recent: Last Vital Signs Temp 36.7 C 05/15/21 12:00 Pulse 96 05/14/21 18:55 Resp 22 H 05/15/21 15:00 BP 121/72 05/15/21 15:00 Pulse Ox 91 L 05/15/21 15:00 I&O - Last 24 Hours: Intake & Output 05/15/21 05/15/21 05/15/21 06:59 14:59 22:59 Intake Total 250 Output Total 1600 Balance -1350 Lab Results Last 24 Hours: Laboratory Results - last 24 hr 05/14/21 05/15/21 05/15/21 Range/Units 17:15 05:07 05:07 WBC 13.85 H (4.0-11.0) K/uL RBC 5.34 (4.30-5.90) M/uL Hgb 15.8 (12.0-16.0) g/dL Hct 43.8 (36.0-46.0) % MCV 82.0 (80.0-98.0) fL MCH 29.6 (27.0-32.0) pg MCHC 36.1 (31.0-37.0) g/dL RDW Std Deviation 43.5 (28.0-62.0) fl RDW Coeff of Lito 15 (11.0-15.0) % Plt Count 224 (150-400) K/uL MPV 10.20 (7.40-12.00) fL Neut % (Auto) 95.7 H (48.0-80.0) % Lymph % (Auto) 1.7 L (16.0-40.0) % Starke % (Auto) 2.6 (0.0-15.0) % Eos % (Auto) 0.0 (0.0-7.0) % Baso % (Auto) 0.0 (0.0-1.5) % Neut # (Auto) 13.3 H (1.4-5.7) K/uL Lymph # (Auto) 0.2 L (0.6-2.4) K/uL Starke # (Auto) 0.4 (0.0-0.8) K/uL Eos # (Auto) 0.0 (0.0-0.7) K/uL Baso # (Auto) 0.0 (0.0-0.1) K/uL Nucleated RBC % 0.0 /100WBC Nucleated RBCs # 0 K/uL ABG pH 7.41 (7.35-7.45) ABG pCO2 27 L (35-45) mmHG ABG pO2 94 (80-105) mmHG ABG HCO3 17 L (22-26) mEq/L ABG Total CO2 14.5 L (23-27) mmol/L ABG Base Excess -5.8 L (-2.0-3.0) Sodium 134 L (136-145) mmol/L Potassium 4.1 (3.5-5.1) mmol/L Chloride 101 (98-107) mmol/L Carbon Dioxide 21.7 (21.0-32.0) mmol/L BUN 20 H (7.0-18.0) mg/dL Creatinine 0.8 (0.6-1.0) mg/dL Est Cr Clr Drug Dosing 50.26 mL/min Estimated GFR (MDRD) > 60.0 ml/min Glucose 155 H (74-106) mg/dL Calcium 7.9 L (8.5-10.1) mg/dL Total Bilirubin 0.8 (0.2-1.0) mg/dL AST 44 H (15-37) IU/L ALT 125 H (14-63) IU/L Alkaline Phosphatase 205 H (46-116) U/L Total Protein 6.3 L (6.4-8.2) g/dL Albumin 2.3 L (3.4-5.0) g/dL Globulin 4.0 (2.6-4.0) g/dL Albumin/Globulin Ratio 0.6 L (0.9-1.6) 05/15/21 Range/Units 09:32 WBC (4.0-11.0) K/uL RBC (4.30-5.90) M/uL Hgb (12.0-16.0) g/dL Hct (36.0-46.0) % MCV (80.0-98.0) fL MCH (27.0-32.0) pg MCHC (31.0-37.0) g/dL RDW Std Deviation (28.0-62.0) fl RDW Coeff of Lito (11.0-15.0) % Plt Count (150-400) K/uL MPV (7.40-12.00) fL Neut % (Auto) (48.0-80.0) % Lymph % (Auto) (16.0-40.0) % Starke % (Auto) (0.0-15.0) % Eos % (Auto) (0.0-7.0) % Baso % (Auto) (0.0-1.5) % Neut # (Auto) (1.4-5.7) K/uL Lymph # (Auto) (0.6-2.4) K/uL [place] # (Auto) (0.0-0.8) K/uL Eos # (Auto) (0.0-0.7) K/uL Baso # (Auto) (0.0-0.1) K/uL Nucleated RBC % /100WBC Nucleated RBCs # K/uL ABG pH 7.43 (7.35-7.45) ABG pCO2 28 L (35-45) mmHG ABG pO2 55 L (80-105) mmHG ABG HCO3 19 L (22-26) mEq/L ABG Total CO2 16.2 L (23-27) mmol/L ABG Base Excess -4.1 L (-2.0-3.0) Sodium (136-145) mmol/L Potassium (3.5-5.1) mmol/L Chloride (98-107) mmol/L Carbon Dioxide (21.0-32.0) mmol/L BUN (7.0-18.0) mg/dL Creatinine (0.6-1.0) mg/dL Est Cr Clr Drug Dosing mL/min Estimated GFR (MDRD) ml/min Glucose (74-106) mg/dL Calcium (8.5-10.1) mg/dL Total Bilirubin (0.2-1.0) mg/dL AST (15-37) IU/L ALT (14-63) IU/L Alkaline Phosphatase (46-116) U/L Total Protein (6.4-8.2) g/dL Albumin (3.4-5.0) g/dL Globulin (2.6-4.0) g/dL Albumin/Globulin Ratio (0.9-1.6) Med Orders - Current: Current Medications Acetaminophen (Acetaminophen 325 Mg Tab) 650 mg PO Q4H PRN PRN Reason: Pain (Mild 1-3)/fever Last Admin: 05/06/21 23:44 Dose: 650 mg Documented by: Albuterol/Ipratropium (Albuterol/Ipratropium 3.0-0.5 Mg/3 Ml Neb Soln) 3 ml NEB Q4HRRT [facility] Last Admin: 05/15/21 13:59 Dose: 3 ml Documented by: Albuterol/Ipratropium (Albuterol/Ipratropium 4 Gm Inhalation [place]) 0 gm INH Q4H PRN PRN Reason: Dyspnea Baricitinib (Baricitinib 2 Mg Tab) 4 mg PO Q24H [facility] Last Admin: 05/15/21 15:28 Dose: 4 mg Documented by: Bisacodyl (Bisacodyl 10 Mg Supp) 10 mg RECTAL DAILY PRN PRN Reason: Constipation Last Admin: 05/13/21 17:54 Dose: 10 mg Documented by: Dexamethasone (Dexamethasone 4 Mg Tab) 6 mg PO Q24H [facility] Last Admin: 05/14/21 19:45 Dose: 6 mg Documented by: Docusate Sodium (Docusate Sodium 100 Mg Cap) 100 mg PO DAILY [facility] Last Admin: 05/15/21 08:17 Dose: 100 mg Documented by: Enoxaparin Sodium (Enoxaparin 40 Mg/0.4 Ml Syringe) 40 mg SUBCUT Q24H [facility] Last Admin: 05/14/21 22:11 Dose: 40 mg Documented by: Levofloxacin/Dextrose 750 mg/ (Premix) 150 mls @ 100 mls/hr IV Q24H [facility] Last Admin: 05/14/21 19:45 Dose: 100 mls/hr Documented by: Ibuprofen (Ibuprofen 200 Mg Tab) 200 mg PO Q6H PRN PRN Reason: Pain (mild 1-3) Omeprazole (Omeprazole 20 Mg Cap.Cr) 20 mg PO ACBREAKFAST [facility] Last Admin: 05/15/21 06:32 Dose: 20 mg Documented by: Ondansetron HCl (Ondansetron 4 Mg/2 Ml Sdv) 4 mg IVPUSH Q4H PRN PRN Reason: Nausea Last Admin: 05/12/21 15:21 Dose: 4 mg Documented by: Verapamil 120 Mg Er (Tablet) 1 each PO DAILY [facility] Last Admin: 05/15/21 08:46 Dose: 1 each Documented by: Polyethylene Glycol (Polyethylene Glycol 3350 Powder 17 Gm Packet) 17 gm PO BEDTIME [facility] Last Admin: 05/14/21 20:56 Dose: Not Given Documented by: Sodium Chloride (Sodium Chloride 0.9% 10 Ml Syringe) 10 ml FLUSH ASDIRECTED PRN PRN Reason: Keep Vein Open Last Admin: 05/04/21 17:39 Dose: 10 ml Documented by: Sodium Chloride (Sodium Chloride 0.9% 2.5 Ml Syringe) 2.5 ml FLUSH ASDIRECTED PRN PRN Reason: Keep Vein Open Last Admin: 05/04/21 17:36 Dose: 2.5 ml Documented by: Discontinued Medications Albuterol/Ipratropium (Albuterol/Ipratropium 4 Gm Inhalation [place]) 0 gm INH Q6HRRT [facility] Last Admin: 05/14/21 11:25 Dose: Not Given Documented by: Albuterol/Ipratropium (Albuterol/Ipratropium 3.0-0.5 Mg/3 Ml Neb Soln) 3 ml NEB Q4HRRT PRN PRN Reason: Shortness of Breath Stop: 05/14/21 18:00 Last Admin: 05/14/21 11:23 Dose: 3 ml Documented by: Albuterol/Ipratropium (Albuterol/Ipratropium 4 Gm Inhalation [place]) 0 gm INH Q6HRRT PRN PRN Reason: Shortness of Breath Dexamethasone (Dexamethasone 10 Mg/Ml Sdv) 6 mg IVPUSH ONETIME ONE Stop: 05/04/21 19:27 Last Admin: 05/04/21 19:42 Dose: 6 mg Documented by: Dexamethasone (Dexamethasone 4 Mg Tab) 6 mg PO Q24H [facility] Last Admin: 05/05/21 04:14 Dose: Not Given Documented by: Diphenhydramine HCl (Diphenhydramine 50 Mg/Ml Sdv) 25 mg IVPUSH ONETIME ONE Stop: 05/08/21 17:09 Last Admin: 05/08/21 17:24 Dose: 25 mg Documented by: Furosemide (Furosemide 20 Mg/2 Ml Vial) 20 mg IVPUSH NOW ONE Stop: 05/14/21 19:13 Last Admin: 05/14/21 19:45 Dose: 20 mg Documented by: Guaifenesin/Codeine Phosphate (Codeine/Guaifenesin 10-100 Mg/5 Ml Syrup 5 Ml Cup) 5 ml PO Q4H PRN PRN Reason: Cough Last Admin: 05/13/21 11:29 Dose: 5 ml Documented by: Sodium Chloride (Normal Saline) 500 mls @ 500 mls/hr IV .BOLUS STA Stop: 05/04/21 18:17 Last Admin: 05/04/21 17:39 Dose: 500 mls/hr Documented by: Remdesivir 200 mg/ Sodium (Chloride) 250 mls @ 250 mls/hr IV ONETIME ONE Stop: 05/04/21 19:26 Last Admin: 05/04/21 19:57 Dose: 250 mls/hr Documented by: Remdesivir 100 mg/ Sodium (Chloride) 100 mls @ 100 mls/hr IV Q24H [facility] Stop: 05/08/21 20:59 Last Admin: 05/08/21 19:48 Dose: 100 mls/hr Documented by: Levofloxacin/Dextrose 750 mg/ (Premix) 150 mls @ 100 mls/hr IV Q24H [facility] Iopamidol (Iopamidol 755 Mg/Ml 500 Ml Multipack Bottle) 100 ml IVPUSH ONETIME ONE Stop: 05/04/21 18:36 Last Admin: 05/04/21 18:35 Dose: 100 ml Documented by: Morphine Sulfate (Morphine 2 Mg/Ml Syringe) 1 mg IVPUSH ONETIME ONE Stop: 05/15/21 00:20 Last Admin: 05/15/21 00:39 Dose: 1 mg Documented by: Nitrofurantoin Macrocrystals (Nitrofurantoin Macrocrystal 50 Mg Cap) 50 mg PO DAILY [facility] Last Admin: 05/08/21 08:56 Dose: 50 mg Documented by: Ondansetron HCl (Ondansetron 4 Mg/2 Ml Sdv) 4 mg IVPUSH ONETIME ONE Stop: 05/04/21 17:21 Last Admin: 05/04/21 17:39 Dose: 4 mg Documented by: Ondansetron HCl (Ondansetron 4 Mg/2 Ml Sdv) 4 mg IVPUSH ONETIME ONE Stop: 05/04/21 19:29 Last Admin: 05/04/21 19:42 Dose: 4 mg Documented by: Potassium Chloride (Potassium Chloride 20 Meq Tab.Er) 40 meq PO ONETIME ONE Stop: 05/06/21 08:16 Last Admin: 05/06/21 09:14 Dose: 40 meq Documented by: Verapamil HCl (Verapamil 240 Mg Tab.Er) 120 mg PO DAILY [facility] - Patient Data Lab Results Last 24 hrs: Laboratory Results - last 24 hr 05/14/21 05/15/21 05/15/21 Range/Units 17:15 05:07 05:07 WBC 13.85 H (4.0-11.0) K/uL RBC 5.34 (4.30-5.90) M/uL Hgb 15.8 (12.0-16.0) g/dL Hct 43.8 (36.0-46.0) % MCV 82.0 (80.0-98.0) fL MCH 29.6 (27.0-32.0) pg MCHC 36.1 (31.0-37.0) g/dL RDW Std Deviation 43.5 (28.0-62.0) fl RDW Coeff of Lito 15 (11.0-15.0) % Plt Count 224 (150-400) K/uL MPV 10.20 (7.40-12.00) fL Neut % (Auto) 95.7 H (48.0-80.0) % Lymph % (Auto) 1.7 L (16.0-40.0) % [place] % (Auto) 2.6 (0.0-15.0) % Eos % (Auto) 0.0 (0.0-7.0) % Baso % (Auto) 0.0 (0.0-1.5) % Neut # (Auto) 13.3 H (1.4-5.7) K/uL Lymph # (Auto) 0.2 L (0.6-2.4) K/uL [place] # (Auto) 0.4 (0.0-0.8) K/uL Eos # (Auto) 0.0 (0.0-0.7) K/uL Baso # (Auto) 0.0 (0.0-0.1) K/uL Nucleated RBC % 0.0 /100WBC Nucleated RBCs # 0 K/uL ABG pH 7.41 (7.35-7.45) ABG pCO2 27 L (35-45) mmHG ABG pO2 94 (80-105) mmHG ABG HCO3 17 L (22-26) mEq/L ABG Total CO2 14.5 L (23-27) mmol/L ABG Base Excess -5.8 L (-2.0-3.0) Sodium 134 L (136-145) mmol/L Potassium 4.1 (3.5-5.1) mmol/L Chloride 101 (98-107) mmol/L Carbon Dioxide 21.7 (21.0-32.0) mmol/L BUN 20 H (7.0-18.0) mg/dL Creatinine 0.8 (0.6-1.0) mg/dL Est Cr Clr Drug Dosing 50.26 mL/min Estimated GFR (MDRD) > 60.0 ml/min Glucose 155 H (74-106) mg/dL Calcium 7.9 L (8.5-10.1) mg/dL Total Bilirubin 0.8 (0.2-1.0) mg/dL AST 44 H (15-37) IU/L ALT 125 H (14-63) IU/L Alkaline Phosphatase 205 H (46-116) U/L Total Protein 6.3 L (6.4-8.2) g/dL Albumin 2.3 L (3.4-5.0) g/dL Globulin 4.0 (2.6-4.0) g/dL Albumin/Globulin Ratio 0.6 L (0.9-1.6) 05/15/21 Range/Units 09:32 WBC (4.0-11.0) K/uL RBC (4.30-5.90) M/uL Hgb (12.0-16.0) g/dL Hct (36.0-46.0) % MCV (80.0-98.0) fL MCH (27.0-32.0) pg MCHC (31.0-37.0) g/dL RDW Std Deviation (28.0-62.0) fl RDW Coeff of Lito (11.0-15.0) % Plt Count (150-400) K/uL MPV (7.40-12.00) fL Neut % (Auto) (48.0-80.0) % Lymph % (Auto) (16.0-40.0) % Starke % (Auto) (0.0-15.0) % Eos % (Auto) (0.0-7.0) % Baso % (Auto) (0.0-1.5) % Neut # (Auto) (1.4-5.7) K/uL Lymph # (Auto) (0.6-2.4) K/uL Starke # (Auto) (0.0-0.8) K/uL Eos # (Auto) (0.0-0.7) K/uL Baso # (Auto) (0.0-0.1) K/uL Nucleated RBC % /100WBC Nucleated RBCs # K/uL ABG pH 7.43 (7.35-7.45) ABG pCO2 28 L (35-45) mmHG ABG pO2 55 L (80-105) mmHG ABG HCO3 19 L (22-26) mEq/L ABG Total CO2 16.2 L (23-27) mmol/L ABG Base Excess -4.1 L (-2.0-3.0) Sodium (136-145) mmol/L Potassium (3.5-5.1) mmol/L Chloride (98-107) mmol/L Carbon Dioxide (21.0-32.0) mmol/L BUN (7.0-18.0) mg/dL Creatinine (0.6-1.0) mg/dL Est Cr Clr Drug Dosing mL/min Estimated GFR (MDRD) ml/min Glucose (74-106) mg/dL Calcium (8.5-10.1) mg/dL Total Bilirubin (0.2-1.0) mg/dL AST (15-37) IU/L ALT (14-63) IU/L Alkaline Phosphatase (46-116) U/L Total Protein (6.4-8.2) g/dL Albumin (3.4-5.0) g/dL Globulin (2.6-4.0) g/dL Albumin/Globulin Ratio (0.9-1.6) Result Diagrams: 05/15/21 05:07 05/15/21 05:07 Sepsis Event Note - Focused Exam Vital Signs: Vital Signs Temp Resp BP Pulse Ox Pulse Ox 05/15/21 15:00 22 H 121/72 91 L 05/15/21 14:00 18 114/74 87 L 96 05/15/21 13:00 24 H 100/62 89 L 05/15/21 12:00 36.7 C 19 116/60 90 L 05/15/21 11:00 26 H 123/80 92 L 05/15/21 10:00 34 H 120/76 93 L 05/15/21 09:00 36.7 C 29 H 120/76 87 L 05/15/21 08:00 18 102/51 L 91 L 05/15/21 07:00 19 104/63 92 L 05/15/21 06:00 23 H 126/73 93 L 05/15/21 05:00 24 H 125/64 91 L - Problem List & Annotations (1) Acute respiratory failure with hypoxia SNOMED Code(s): 42669694, 155872773 Code(s): J96.01 - ACUTE RESPIRATORY FAILURE WITH HYPOXIA Status: Acute Current Visit: Yes (2) COVID-19 SNOMED Code(s): 678721484 Code(s): U07.1 - COVID-19 Status: Acute Current Visit: Yes (3) Hypoxemia SNOMED Code(s): 427310142 Code(s): R09.02 - HYPOXEMIA Status: Acute Current Visit: Yes (4) Pneumonia due to COVID-19 virus SNOMED Code(s): 327561853251858378 Code(s): U07.1 - COVID-19; J12.82 - PNEUMONIA DUE TO CORONAVIRUS DISEASE 2019 Status: Acute Current Visit: Yes (5) Transaminitis SNOMED Code(s): 335137202, 679743637 Code(s): R74.01 - ELEVATION OF LEVELS OF LIVER TRANSAMINASE LEVELS Status: Acute Current Visit: Yes - My Orders Last 24 Hours: My Active Orders 05/14/21 20:11 Urinary Catheter Assessment [RC] ASDIRECTED 05/14/21 20:15 Insert Amin Catheter [Insert Urinary Catheter] [OM.PC] Q24H 05/14/21 22:00 Albuterol/Ipratropium [DuoNeb 3.0-0.5 MG/3 ML] 3 ml NEB Q4HRRT
[2021-05-15] MEDS: Levofloxacin/Dextrose 5%-Water 750 MG in Premix Bag 1 BAG IV SCH (17:44)
[2021-05-15] MEDS: Dexamethasone 4 MG Tab PO SCH (20:06)
[2021-05-15] MEDS: Polyethylene Glycol 3350 Powder 17 GM Packet PO SCH (20:16)
[2021-05-15] MEDS: Albuterol/Ipratropium 4 GM Inhalation Spray INH PRN (22:16)
[2021-05-15] MEDS: Enoxaparin 40 MG/0.4 ML Syringe SUBCUT SCH (22:18)
[2021-05-16] MEDS: Albuterol/Ipratropium 3.0-0.5 MG/3 ML Neb Soln NEB SCH ×6 (01:35→22:24)
[2021-05-16 06:33] LABS: BLOOD UREA NITROGEN,BUN 23 mg/dL (7.0-18.0); CARBON DIOXIDE,CO2 22.1 mmol/L (21.0-32.0); CHLORIDE,CL 101 mmol/L (98-107); GLUCOSE RANDOM 140 mg/dL (74-106); POTASSIUM,K 4.5 mmol/L (3.5-5.1); SODIUM,NA 135 mmol/L (136-145)
[2021-05-16] MEDS: Omeprazole 20 MG Cap.CR PO SCH (06:37)
[2021-05-16] MEDS: Docusate Sodium 100 MG Cap PO SCH (08:36)
[2021-05-16] MEDS: VERAPAMIL 120 MG PO SCH (08:36)
--- NOTE | 2021-05-16 11:22 | PCM.PN ---
<Elena Valenzuela - Last Filed: 05/16/21 11:26> - General Info Date of Service: 05/16/21 Subjective Update: The patient is a 75-year-old female, on day 12 of service, with a significant past medical history of hypertension, who was admitted for COVID-19 pneumonia and is currently on heated high flow of 60 L with an FiO2 of 80% with a O2 saturation of 90%. The patient is currently in the intensive care unit and is complaining today of shortness of breath on exertion whenever she ambulates around her room, more specifically when she attempts to use her potty. She is fatigued today but overall feels she is improving. She also feels occasional anxiety due to the placement of the Vapotherm heated high flow apparatus which lasts for approximately 15 to 30 seconds before subsiding. She is eating and drinking without any issues, and has no problems with urination and/or defecation. She has no other health concerns at this time. - Review of Systems General: Reports: Fatigue. Denies: Fever, Chills HEENT: Denies: Headaches, Sore Throat Pulmonary: Reports: Shortness of Breath, Cough Cardiovascular: Denies: Chest Pain, Palpitations Gastrointestinal: Denies: Abdominal Pain Genitourinary: Denies: Dysuria - Patient Data Vitals - Most Recent: Last Vital Signs Temp 96.5 F L 05/16/21 08:00 Pulse 96 05/14/21 18:55 Resp 28 H 05/16/21 10:00 BP 122/63 05/16/21 10:00 Pulse Ox 90 L 05/16/21 10:00 Weight - Most Recent: 83.96 kg I&O - Last 24 Hours: Intake & Output 05/15/21 05/16/21 05/16/21 22:59 06:59 14:59 Intake Total 700 500 Output Total 350 400 Balance 350 100 Lab Results Last 24 Hours: Laboratory Results - last 24 hr 05/16/21 05/16/21 Range/Units 04:42 04:42 WBC 10.20 (4.0-11.0) K/uL RBC 5.23 (4.30-5.90) M/uL Hgb 15.3 (12.0-16.0) g/dL Hct 43.3 (36.0-46.0) % MCV 82.8 (80.0-98.0) fL MCH 29.3 (27.0-32.0) pg MCHC 35.3 (31.0-37.0) g/dL RDW Std Deviation 44.0 (28.0-62.0) fl RDW Coeff of Lito 15 (11.0-15.0) % Plt Count 223 (150-400) K/uL MPV 10.30 (7.40-12.00) fL Neut % (Auto) 93.9 H (48.0-80.0) % Lymph % (Auto) 3.5 L (16.0-40.0) % Mckinley % (Auto) 2.5 (0.0-15.0) % Eos % (Auto) 0.0 (0.0-7.0) % Baso % (Auto) 0.1 (0.0-1.5) % Neut # (Auto) 9.6 H (1.4-5.7) K/uL Lymph # (Auto) 0.4 L (0.6-2.4) K/uL Mck[place] # (Auto) 0.3 (0.0-0.8) K/uL Eos # (Auto) 0.0 (0.0-0.7) K/uL Baso # (Auto) 0.0 (0.0-0.1) K/uL Nucleated RBC % 0.0 /100WBC Nucleated RBCs # 0 K/uL Sodium 135 L (136-145) mmol/L Potassium 4.5 (3.5-5.1) mmol/L Chloride 101 (98-107) mmol/L Carbon Dioxide 22.1 (21.0-32.0) mmol/L BUN 23 H (7.0-18.0) mg/dL Creatinine 0.7 (0.6-1.0) mg/dL Est Cr Clr Drug Dosing 57.44 mL/min Estimated GFR (MDRD) > 60.0 ml/min Glucose 140 H (74-106) mg/dL Calcium 7.9 L (8.5-10.1) mg/dL Total Bilirubin 0.7 (0.2-1.0) mg/dL AST 79 H (15-37) IU/L ALT 163 H (14-63) IU/L Alkaline Phosphatase 182 H (46-116) U/L Total Protein 6.2 L (6.4-8.2) g/dL Albumin 2.3 L (3.4-5.0) g/dL Globulin 3.9 (2.6-4.0) g/dL Albumin/Globulin Ratio 0.6 L (0.9-1.6) Med Orders - Current: Current Medications Acetaminophen (Acetaminophen 325 Mg Tab) 650 mg PO Q4H PRN PRN Reason: Pain (Mild 1-3)/fever Last Admin: 05/06/21 23:44 Dose: 650 mg Documented by: Albuterol/Ipratropium (Albuterol/Ipratropium 3.0-0.5 Mg/3 Ml Neb Soln) 3 ml NEB Q4HRRT [facility] Last Admin: 05/16/21 10:16 Dose: 3 ml Documented by: Albuterol/Ipratropium (Albuterol/Ipratropium 4 Gm Inhalation [place]) 0 gm INH Q4H PRN PRN Reason: Dyspnea Last Admin: 05/15/21 22:16 Dose: 1 puff Documented by: Baricitinib (Baricitinib 2 Mg Tab) 4 mg PO Q24H [facility] Last Admin: 05/15/21 15:28 Dose: 4 mg Documented by: Bisacodyl (Bisacodyl 10 Mg Supp) 10 mg RECTAL DAILY PRN PRN Reason: Constipation Last Admin: 05/13/21 17:54 Dose: 10 mg Documented by: Docusate Sodium (Docusate Sodium 100 Mg Cap) 100 mg PO DAILY [facility] Last Admin: 05/16/21 08:36 Dose: 100 mg Documented by: Enoxaparin Sodium (Enoxaparin 40 Mg/0.4 Ml Syringe) 40 mg SUBCUT Q24H [facility] Last Admin: 05/15/21 22:18 Dose: 40 mg Documented by: Levofloxacin/Dextrose 750 mg/ (Premix) 150 mls @ 100 mls/hr IV Q24H [facility] Stop: 05/17/21 17:31 Last Admin: 05/15/21 17:44 Dose: 100 mls/hr Documented by: Ibuprofen (Ibuprofen 200 Mg Tab) 200 mg PO Q6H PRN PRN Reason: Pain (mild 1-3) Omeprazole (Omeprazole 20 Mg Cap.Cr) 20 mg PO ACBREAKFAST [facility] Last Admin: 05/16/21 06:37 Dose: 20 mg Documented by: Ondansetron HCl (Ondansetron 4 Mg/2 Ml Sdv) 4 mg IVPUSH Q4H PRN PRN Reason: Nausea Last Admin: 05/12/21 15:21 Dose: 4 mg Documented by: Verapamil 120 Mg Er (Tablet) 1 each PO DAILY [facility] Last Admin: 05/16/21 08:36 Dose: 1 each Documented by: Polyethylene Glycol (Polyethylene Glycol 3350 Powder 17 Gm Packet) 17 gm PO BEDTIME [facility] Last Admin: 05/15/21 20:16 Dose: Not Given Documented by: Sodium Chloride (Sodium Chloride 0.9% 10 Ml Syringe) 10 ml FLUSH ASDIRECTED PRN PRN Reason: Keep Vein Open Last Admin: 05/04/21 17:39 Dose: 10 ml Documented by: Sodium Chloride (Sodium Chloride 0.9% 2.5 Ml Syringe) 2.5 ml FLUSH ASDIRECTED PRN PRN Reason: Keep Vein Open Last Admin: 05/04/21 17:36 Dose: 2.5 ml Documented by: Discontinued Medications Albuterol/Ipratropium (Albuterol/Ipratropium 4 Gm Inhalation [place]) 0 gm INH Q6HRRT [facility] Last Admin: 05/14/21 11:25 Dose: Not Given Documented by: Albuterol/Ipratropium (Albuterol/Ipratropium 3.0-0.5 Mg/3 Ml Neb Soln) 3 ml NEB Q4HRRT PRN PRN Reason: Shortness of Breath Stop: 05/14/21 18:00 Last Admin: 05/14/21 11:23 Dose: 3 ml Documented by: Albuterol/Ipratropium (Albuterol/Ipratropium 4 Gm Inhalation [place]) 0 gm INH Q6HRRT PRN PRN Reason: Shortness of Breath Dexamethasone (Dexamethasone 10 Mg/Ml Sdv) 6 mg IVPUSH ONETIME ONE Stop: 05/04/21 19:27 Last Admin: 05/04/21 19:42 Dose: 6 mg Documented by: Dexamethasone (Dexamethasone 4 Mg Tab) 6 mg PO Q24H [facility] Last Admin: 05/05/21 04:14 Dose: Not Given Documented by: Dexamethasone (Dexamethasone 4 Mg Tab) 6 mg PO Q24H [facility] Last Admin: 05/15/21 20:06 Dose: 6 mg Documented by: Diphenhydramine HCl (Diphenhydramine 50 Mg/Ml Sdv) 25 mg IVPUSH ONETIME ONE Stop: 05/08/21 17:09 Last Admin: 05/08/21 17:24 Dose: 25 mg Documented by: Furosemide (Furosemide 20 Mg/2 Ml Vial) 20 mg IVPUSH NOW ONE Stop: 05/14/21 19:13 Last Admin: 05/14/21 19:45 Dose: 20 mg Documented by: Guaifenesin/Codeine Phosphate (Codeine/Guaifenesin 10-100 Mg/5 Ml Syrup 5 Ml Cup) 5 ml PO Q4H PRN PRN Reason: Cough Last Admin: 05/13/21 11:29 Dose: 5 ml Documented by: Sodium Chloride (Normal Saline) 500 mls @ 500 mls/hr IV .BOLUS STA Stop: 05/04/21 18:17 Last Admin: 05/04/21 17:39 Dose: 500 mls/hr Documented by: Remdesivir 200 mg/ Sodium (Chloride) 250 mls @ 250 mls/hr IV ONETIME ONE Stop: 05/04/21 19:26 Last Admin: 05/04/21 19:57 Dose: 250 mls/hr Documented by: Remdesivir 100 mg/ Sodium (Chloride) 100 mls @ 100 mls/hr IV Q24H [facility] Stop: 05/08/21 20:59 Last Admin: 05/08/21 19:48 Dose: 100 mls/hr Documented by: Levofloxacin/Dextrose 750 mg/ (Premix) 150 mls @ 100 mls/hr IV Q24H [facility] Iopamidol (Iopamidol 755 Mg/Ml 500 Ml Multipack Bottle) 100 ml IVPUSH ONETIME ONE Stop: 05/04/21 18:36 Last Admin: 05/04/21 18:35 Dose: 100 ml Documented by: Morphine Sulfate (Morphine 2 Mg/Ml Syringe) 1 mg IVPUSH ONETIME ONE Stop: 05/15/21 00:20 Last Admin: 05/15/21 00:39 Dose: 1 mg Documented by: Nitrofurantoin Macrocrystals (Nitrofurantoin Macrocrystal 50 Mg Cap) 50 mg PO DAILY [facility] Last Admin: 05/08/21 08:56 Dose: 50 mg Documented by: Ondansetron HCl (Ondansetron 4 Mg/2 Ml Sdv) 4 mg IVPUSH ONETIME ONE Stop: 05/04/21 17:21 Last Admin: 05/04/21 17:39 Dose: 4 mg Documented by: Ondansetron HCl (Ondansetron 4 Mg/2 Ml Sdv) 4 mg IVPUSH ONETIME ONE Stop: 05/04/21 19:29 Last Admin: 05/04/21 19:42 Dose: 4 mg Documented by: Potassium Chloride (Potassium Chloride 20 Meq Tab.Er) 40 meq PO ONETIME ONE Stop: 05/06/21 08:16 Last Admin: 05/06/21 09:14 Dose: 40 meq Documented by: Verapamil HCl (Verapamil 240 Mg Tab.Er) 120 mg PO DAILY [facility] - Exam Urinary Catheter Total Time: 0Days 0Hours General: Alert, Oriented, Cooperative HEENT: Other (Dry mucous membranes) Neck: No: Lymphadenopathy Lungs: Wheezing Cardiovascular: Tachycardia GI/Abdominal Exam: Normal Bowel Sounds, Soft, Non-Tender - Patient Data Lab Results Last 24 hrs: Laboratory Results - last 24 hr 05/16/21 05/16/21 Range/Units 04:42 04:42 WBC 10.20 (4.0-11.0) K/uL RBC 5.23 (4.30-5.90) M/uL Hgb 15.3 (12.0-16.0) g/dL Hct 43.3 (36.0-46.0) % MCV 82.8 (80.0-98.0) fL MCH 29.3 (27.0-32.0) pg MCHC 35.3 (31.0-37.0) g/dL RDW Std Deviation 44.0 (28.0-62.0) fl RDW Coeff of Lito 15 (11.0-15.0) % Plt Count 223 (150-400) K/uL MPV 10.30 (7.40-12.00) fL Neut % (Auto) 93.9 H (48.0-80.0) % Lymph % (Auto) 3.5 L (16.0-40.0) % Mckinley % (Auto) 2.5 (0.0-15.0) % Eos % (Auto) 0.0 (0.0-7.0) % Baso % (Auto) 0.1 (0.0-1.5) % Neut # (Auto) 9.6 H (1.4-5.7) K/uL Lymph # (Auto) 0.4 L (0.6-2.4) K/uL Mck[place] # (Auto) 0.3 (0.0-0.8) K/uL Eos # (Auto) 0.0 (0.0-0.7) K/uL Baso # (Auto) 0.0 (0.0-0.1) K/uL Nucleated RBC % 0.0 /100WBC Nucleated RBCs # 0 K/uL Sodium 135 L (136-145) mmol/L Potassium 4.5 (3.5-5.1) mmol/L Chloride 101 (98-107) mmol/L Carbon Dioxide 22.1 (21.0-32.0) mmol/L BUN 23 H (7.0-18.0) mg/dL Creatinine 0.7 (0.6-1.0) mg/dL Est Cr Clr Drug Dosing 57.44 mL/min Estimated GFR (MDRD) > 60.0 ml/min Glucose 140 H (74-106) mg/dL Calcium 7.9 L (8.5-10.1) mg/dL Total Bilirubin 0.7 (0.2-1.0) mg/dL AST 79 H (15-37) IU/L ALT 163 H (14-63) IU/L Alkaline Phosphatase 182 H (46-116) U/L Total Protein 6.2 L (6.4-8.2) g/dL Albumin 2.3 L (3.4-5.0) g/dL Globulin 3.9 (2.6-4.0) g/dL Albumin/Globulin Ratio 0.6 L (0.9-1.6) Result Diagrams: 05/16/21 04:42 05/16/21 04:42 Sepsis Event Note - Evaluation Sepsis Screening Result: Sepsis Risk - Focused Exam Vital Signs: Vital Signs Temp Resp BP Pulse Ox 05/16/21 10:00 28 H 122/63 90 L 05/16/21 09:00 25 H 130/80 90 L 05/16/21 08:00 96.5 F L 25 H 119/68 91 L 05/16/21 07:00 22 H 115/60 90 L 05/16/21 06:00 28 H 116/71 89 L 05/16/21 05:00 30 H 126/72 90 L 05/16/21 04:00 29 H 124/74 89 L 05/16/21 03:00 97.3 F 34 H 122/72 87 L 05/16/21 02:00 34 H 117/63 89 L 05/16/21 01:00 31 H 111/61 90 L 05/16/21 00:00 97.7 F 32 H 114/63 87 L - Problem List & Annotations (1) HTN (hypertension) SNOMED Code(s): 68813080 Code(s): I10 - ESSENTIAL (PRIMARY) HYPERTENSION Status: Acute Current Visit: Yes (2) Acute respiratory failure with hypoxia SNOMED Code(s): 94637426, 958659309 Code(s): J96.01 - ACUTE RESPIRATORY FAILURE WITH HYPOXIA Status: Acute Current Visit: Yes (3) COVID-19 SNOMED Code(s): 583946145 Code(s): U07.1 - COVID-19 Status: Acute Current Visit: Yes - Problem List Review Problem List Initiated/Reviewed/Updated: Yes - My Orders Last 24 Hours: My Active Orders 05/17/21 05:11 CBC WITH AUTO DIFF [HEME] AM CMP [COMPREHENSIVE METABOLIC PN,CMP] [CHEM] AM 05/18/21 05:11 CBC WITH AUTO DIFF [HEME] AM CMP [COMPREHENSIVE METABOLIC PN,CMP] [CHEM] AM 05/19/21 05:11 CBC WITH AUTO DIFF [HEME] AM CMP [COMPREHENSIVE METABOLIC PN,CMP] [CHEM] AM - Assessment Assessment:: 1. Acute respiratory failure secondary to COVID-19 pneumonia -Serenity, the patient's daughter has been updated on her mother's current clinical status and will continued to be informed on a daily basis -Patient is currently on heated high flow 60 L with an FiO2 of 80%, currently saturating at 90%, will continue oxygen supply as needed -Continue the patient on dexamethasone 6 mg per oral route once a day -Continue the patient on baricitinib 4 mg per oral route once a day -Continue to supply duo nebulizer/Combivent treatment as needed -Continue Levaquin 750 mg every 24 hours -Monitor patient labs through daily CBC/CMP -Continue Zofran as needed 2. Hypertension -Continue with verapamil 125 mg extended release tablet <Zayda Lang - Last Filed: 05/16/21 20:56> - General Info Subjective Update: I have seen and evaluated the patient and agree with the residents note unless specified in my note - Patient Data Vitals - Most Recent: Last Vital Signs Temp 36.5 C 05/16/21 20:00 Pulse 96 05/14/21 18:55 Resp 23 H 05/16/21 20:00 BP 118/80 05/16/21 20:00 Pulse Ox 90 L 05/16/21 20:00 I&O - Last 24 Hours: Intake & Output 05/16/21 05/16/21 05/16/21 06:59 14:59 22:59 Intake Total 500 750 Output Total 400 800 Balance 100 -50 Lab Results Last 24 Hours: Laboratory Results - last 24 hr 05/16/21 05/16/21 Range/Units 04:42 04:42 WBC 10.20 (4.0-11.0) K/uL RBC 5.23 (4.30-5.90) M/uL Hgb 15.3 (12.0-16.0) g/dL Hct 43.3 (36.0-46.0) % MCV 82.8 (80.0-98.0) fL MCH 29.3 (27.0-32.0) pg MCHC 35.3 (31.0-37.0) g/dL RDW Std Deviation 44.0 (28.0-62.0) fl RDW Coeff of Lito 15 (11.0-15.0) % Plt Count 223 (150-400) K/uL MPV 10.30 (7.40-12.00) fL Neut % (Auto) 93.9 H (48.0-80.0) % Lymph % (Auto) 3.5 L (16.0-40.0) % [place]ck[place] % (Auto) 2.5 (0.0-15.0) % Eos % (Auto) 0.0 (0.0-7.0) % Baso % (Auto) 0.1 (0.0-1.5) % Neut # (Auto) 9.6 H (1.4-5.7) K/uL Lymph # (Auto) 0.4 L (0.6-2.4) K/uL [place] # (Auto) 0.3 (0.0-0.8) K/uL Eos # (Auto) 0.0 (0.0-0.7) K/uL Baso # (Auto) 0.0 (0.0-0.1) K/uL Nucleated RBC % 0.0 /100WBC Nucleated RBCs # 0 K/uL Sodium 135 L (136-145) mmol/L Potassium 4.5 (3.5-5.1) mmol/L Chloride 101 (98-107) mmol/L Carbon Dioxide 22.1 (21.0-32.0) mmol/L BUN 23 H (7.0-18.0) mg/dL Creatinine 0.7 (0.6-1.0) mg/dL Est Cr Clr Drug Dosing 57.44 mL/min Estimated GFR (MDRD) > 60.0 ml/min Glucose 140 H (74-106) mg/dL Calcium 7.9 L (8.5-10.1) mg/dL Total Bilirubin 0.7 (0.2-1.0) mg/dL AST 79 H (15-37) IU/L ALT 163 H (14-63) IU/L Alkaline Phosphatase 182 H (46-116) U/L Total Protein 6.2 L (6.4-8.2) g/dL Albumin 2.3 L (3.4-5.0) g/dL Globulin 3.9 (2.6-4.0) g/dL Albumin/Globulin Ratio 0.6 L (0.9-1.6) Med Orders - Current: Current Medications Acetaminophen (Acetaminophen 325 Mg Tab) 650 mg PO Q4H PRN PRN Reason: Pain (Mild 1-3)/fever Last Admin: 05/06/21 23:44 Dose: 650 mg Documented by: Albuterol/Ipratropium (Albuterol/Ipratropium 3.0-0.5 Mg/3 Ml Neb Soln) 3 ml NEB Q4HRRT [facility] Last Admin: 05/16/21 17:01 Dose: 3 ml Documented by: Albuterol/Ipratropium (Albuterol/Ipratropium 4 Gm Inhalation [place]) 0 gm INH Q4H PRN PRN Reason: Dyspnea Last Admin: 05/15/21 22:16 Dose: 1 puff Documented by: Baricitinib (Baricitinib 2 Mg Tab) 4 mg PO Q24H [facility] Last Admin: 05/16/21 15:10 Dose: 4 mg Documented by: Bisacodyl (Bisacodyl 10 Mg Supp) 10 mg RECTAL DAILY PRN PRN Reason: Constipation Last Admin: 05/13/21 17:54 Dose: 10 mg Documented by: Docusate Sodium (Docusate Sodium 100 Mg Cap) 100 mg PO DAILY [facility] Last Admin: 05/16/21 08:36 Dose: 100 mg Documented by: Enoxaparin Sodium (Enoxaparin 40 Mg/0.4 Ml Syringe) 40 mg SUBCUT Q24H [facility] Last Admin: 05/15/21 22:18 Dose: 40 mg Documented by: Levofloxacin/Dextrose 750 mg/ (Premix) 150 mls @ 100 mls/hr IV Q24H [facility] Stop: 05/17/21 17:31 Last Admin: 05/16/21 16:47 Dose: 100 mls/hr Documented by: Ibuprofen (Ibuprofen 200 Mg Tab) 200 mg PO Q6H PRN PRN Reason: Pain (mild 1-3) Methylprednisolone Sodium Succinate (Methylprednisolone Sodium Succinate 40 Mg/1 Ml Sdv) 40 mg IVPUSH Q8H [facility] Last Admin: 05/16/21 20:33 Dose: 40 mg Documented by: Omeprazole (Omeprazole 20 Mg Cap.Cr) 20 mg PO ACBREAKFAST [facility] Last Admin: 05/16/21 06:37 Dose: 20 mg Documented by: Ondansetron HCl (Ondansetron 4 Mg/2 Ml Sdv) 4 mg IVPUSH Q4H PRN PRN Reason: Nausea Last Admin: 05/12/21 15:21 Dose: 4 mg Documented by: Verapamil 120 Mg Er (Tablet) 1 each PO DAILY [facility] Last Admin: 05/16/21 08:36 Dose: 1 each Documented by: Polyethylene Glycol (Polyethylene Glycol 3350 Powder 17 Gm Packet) 17 gm PO BEDTIME [facility] Last Admin: 05/16/21 20:36 Dose: Not Given Documented by: Sodium Chloride (Sodium Chloride 0.9% 10 Ml Syringe) 10 ml FLUSH ASDIRECTED PRN PRN Reason: Keep Vein Open Last Admin: 05/04/21 17:39 Dose: 10 ml Documented by: Sodium Chloride (Sodium Chloride 0.9% 2.5 Ml Syringe) 2.5 ml FLUSH ASDIRECTED PRN PRN Reason: Keep Vein Open Last Admin: 05/04/21 17:36 Dose: 2.5 ml Documented by: Discontinued Medications Albuterol/Ipratropium (Albuterol/Ipratropium 4 Gm Inhalation [place]) 0 gm INH Q6HRRT [facility] Last Admin: 05/14/21 11:25 Dose: Not Given Documented by: Albuterol/Ipratropium (Albuterol/Ipratropium 3.0-0.5 Mg/3 Ml Neb Soln) 3 ml NEB Q4HRRT PRN PRN Reason: Shortness of Breath Stop: 05/14/21 18:00 Last Admin: 05/14/21 11:23 Dose: 3 ml Documented by: Albuterol/Ipratropium (Albuterol/Ipratropium 4 Gm Inhalation [place]) 0 gm INH Q6HRRT PRN PRN Reason: Shortness of Breath Dexamethasone (Dexamethasone 10 Mg/Ml Sdv) 6 mg IVPUSH ONETIME ONE Stop: 05/04/21 19:27 Last Admin: 05/04/21 19:42 Dose: 6 mg Documented by: Dexamethasone (Dexamethasone 4 Mg Tab) 6 mg PO Q24H [facility] Last Admin: 05/05/21 04:14 Dose: Not Given Documented by: Dexamethasone (Dexamethasone 4 Mg Tab) 6 mg PO Q24H [facility] Last Admin: 05/15/21 20:06 Dose: 6 mg Documented by: Diphenhydramine HCl (Diphenhydramine 50 Mg/Ml Sdv) 25 mg IVPUSH ONETIME ONE Stop: 05/08/21 17:09 Last Admin: 05/08/21 17:24 Dose: 25 mg Documented by: Furosemide (Furosemide 20 Mg/2 Ml Vial) 20 mg IVPUSH NOW ONE Stop: 05/14/21 19:13 Last Admin: 05/14/21 19:45 Dose: 20 mg Documented by: Furosemide (Furosemide 20 Mg/2 Ml Vial) 20 mg IVPUSH NOW ONE Stop: 05/16/21 12:31 Last Admin: 05/16/21 12:37 Dose: 20 mg Documented by: Guaifenesin/Codeine Phosphate (Codeine/Guaifenesin 10-100 Mg/5 Ml Syrup 5 Ml Cup) 5 ml PO Q4H PRN PRN Reason: Cough Last Admin: 05/13/21 11:29 Dose: 5 ml Documented by: Sodium Chloride (Normal Saline) 500 mls @ 500 mls/hr IV .BOLUS STA Stop: 05/04/21 18:17 Last Admin: 05/04/21 17:39 Dose: 500 mls/hr Documented by: Remdesivir 200 mg/ Sodium (Chloride) 250 mls @ 250 mls/hr IV ONETIME ONE Stop: 05/04/21 19:26 Last Admin: 05/04/21 19:57 Dose: 250 mls/hr Documented by: Remdesivir 100 mg/ Sodium (Chloride) 100 mls @ 100 mls/hr IV Q24H [facility] Stop: 05/08/21 20:59 Last Admin: 05/08/21 19:48 Dose: 100 mls/hr Documented by: Levofloxacin/Dextrose 750 mg/ (Premix) 150 mls @ 100 mls/hr IV Q24H [facility] Iopamidol (Iopamidol 755 Mg/Ml 500 Ml Multipack Bottle) 100 ml IVPUSH ONETIME ONE Stop: 05/04/21 18:36 Last Admin: 05/04/21 18:35 Dose: 100 ml Documented by: Morphine Sulfate (Morphine 2 Mg/Ml Syringe) 1 mg IVPUSH ONETIME ONE Stop: 05/15/21 00:20 Last Admin: 05/15/21 00:39 Dose: 1 mg Documented by: Nitrofurantoin Macrocrystals (Nitrofurantoin Macrocrystal 50 Mg Cap) 50 mg PO DAILY [facility] Last Admin: 05/08/21 08:56 Dose: 50 mg Documented by: Ondansetron HCl (Ondansetron 4 Mg/2 Ml Sdv) 4 mg IVPUSH ONETIME ONE Stop: 05/04/21 17:21 Last Admin: 05/04/21 17:39 Dose: 4 mg Documented by: Ondansetron HCl (Ondansetron 4 Mg/2 Ml Sdv) 4 mg IVPUSH ONETIME ONE Stop: 05/04/21 19:29 Last Admin: 05/04/21 19:42 Dose: 4 mg Documented by: Potassium Chloride (Potassium Chloride 20 Meq Tab.Er) 40 meq PO ONETIME ONE Stop: 05/06/21 08:16 Last Admin: 05/06/21 09:14 Dose: 40 meq Documented by: Verapamil HCl (Verapamil 240 Mg Tab.Er) 120 mg PO DAILY [facility] - Patient Data Lab Results Last 24 hrs: Laboratory Results - last 24 hr 05/16/21 05/16/21 Range/Units 04:42 04:42 WBC 10.20 (4.0-11.0) K/uL RBC 5.23 (4.30-5.90) M/uL Hgb 15.3 (12.0-16.0) g/dL Hct 43.3 (36.0-46.0) % MCV 82.8 (80.0-98.0) fL MCH 29.3 (27.0-32.0) pg MCHC 35.3 (31.0-37.0) g/dL RDW Std Deviation 44.0 (28.0-62.0) fl RDW Coeff of Lito 15 (11.0-15.0) % Plt Count 223 (150-400) K/uL MPV 10.30 (7.40-12.00) fL Neut % (Auto) 93.9 H (48.0-80.0) % Lymph % (Auto) 3.5 L (16.0-40.0) % Mck[place] % (Auto) 2.5 (0.0-15.0) % Eos % (Auto) 0.0 (0.0-7.0) % Baso % (Auto) 0.1 (0.0-1.5) % Neut # (Auto) 9.6 H (1.4-5.7) K/uL Lymph # (Auto) 0.4 L (0.6-2.4) K/uL [place] # (Auto) 0.3 (0.0-0.8) K/uL Eos # (Auto) 0.0 (0.0-0.7) K/uL Baso # (Auto) 0.0 (0.0-0.1) K/uL Nucleated RBC % 0.0 /100WBC Nucleated RBCs # 0 K/uL Sodium 135 L (136-145) mmol/L Potassium 4.5 (3.5-5.1) mmol/L Chloride 101 (98-107) mmol/L Carbon Dioxide 22.1 (21.0-32.0) mmol/L BUN 23 H (7.0-18.0) mg/dL Creatinine 0.7 (0.6-1.0) mg/dL Est Cr Clr Drug Dosing 57.44 mL/min Estimated GFR (MDRD) > 60.0 ml/min Glucose 140 H (74-106) mg/dL Calcium 7.9 L (8.5-10.1) mg/dL Total Bilirubin 0.7 (0.2-1.0) mg/dL AST 79 H (15-37) IU/L ALT 163 H (14-63) IU/L Alkaline Phosphatase 182 H (46-116) U/L Total Protein 6.2 L (6.4-8.2) g/dL Albumin 2.3 L (3.4-5.0) g/dL Globulin 3.9 (2.6-4.0) g/dL Albumin/Globulin Ratio 0.6 L (0.9-1.6) Result Diagrams: 05/16/21 04:42 05/16/21 04:42 Sepsis Event Note - Focused Exam Vital Signs: Vital Signs Temp Resp BP Pulse Ox Pulse Ox 05/16/21 20:00 36.5 C 23 H 118/80 90 L 05/16/21 19:00 24 H 126/80 87 L 05/16/21 18:00 32 H 116/72 89 L 05/16/21 17:00 21 H 124/71 87 L 05/16/21 16:00 36.0 C L 20 122/68 87 L 05/16/21 15:00 24 H 129/68 88 L 05/16/21 14:00 22 H 134/77 91 L 89 L 05/16/21 13:00 28 H 125/68 88 L 05/16/21 12:00 36.0 C L 37 H 124/65 87 L 05/16/21 11:00 22 H 121/59 L 94 L 05/16/21 10:00 28 H 122/63 90 L 05/16/21 09:00 25 H 130/80 90 L - Problem List & Annotations (1) Acute respiratory failure with hypoxia SNOMED Code(s): 64022906, 696943351 Code(s): J96.01 - ACUTE RESPIRATORY FAILURE WITH HYPOXIA Status: Acute Current Visit: Yes (2) COVID-19 SNOMED Code(s): 205073812 Code(s): U07.1 - COVID-19 Status: Acute Current Visit: Yes (3) Hypoxemia SNOMED Code(s): 812144231 Code(s): R09.02 - HYPOXEMIA Status: Acute Current Visit: Yes (4) Pneumonia due to COVID-19 virus SNOMED Code(s): 218143120347081156 Code(s): U07.1 - COVID-19; J12.82 - PNEUMONIA DUE TO CORONAVIRUS DISEASE 2019 Status: Acute Current Visit: Yes (5) Transaminitis SNOMED Code(s): 572213755, 117163436 Code(s): R74.01 - ELEVATION OF LEVELS OF LIVER TRANSAMINASE LEVELS Status: Acute Current Visit: Yes - My Orders Last 24 Hours: My Active Orders 05/16/21 12:15 methylPREDNISolone Sod Succ [Solu-MEDROL] 40 mg IVPUSH Q8H
[2021-05-16] MEDS ORDERED: Furosemide 20 MG/2 ML VIAL IVPUSH ONE (12:30)
[2021-05-16] MEDS: methylPREDNISolone Sodium Succinate 40 MG/1 ML SDV IVPUSH SCH ×2 (12:37→20:33)
--- NOTE | 2021-05-16 14:55 | PN ---
THC Physician - Brief Progress [id number]/03/2021 14:51[facility] Shamir [place], [place] - MWN (SHON) - MWN ICUBIANNA SHRESTHA V., COVID+Date of Service 05/16/2021 14:51HP I/Events of Note eICU Progress [id number] female being managed for acute hypoxemic respiratory f ailure secondary to COVID-19 pneumonia. Patient continues to require heated high flow nasal cannula at 60 L and 80% FiO2.On cameraxthe patient appears to be comfortably laying in bed and tolerating hea ebony high flow nasal cannula, saturating in the low 90sReviewVitalsEMR notesLabsAvailable imagingAvail able microMedicationseICU impressionsAcute hypoxemic respiratory failureCOVID-19 pneumoniaQI measures eICU Recommendations:Continue supplemental oxygen via heated high flow nasal cannula and/or noninvasi ve ventilation as needed to maintain saturation of 90 to 94%Self proning as toleratedMaintain euvolem ia to net negative volume statusComplete course of systemic steroids and baricitinibCompleting Course of LevaquinVTE prophylaxis noted with LovenoxGI prophylaxis noted with PPIGlycemic control per genesis col, blood pressure target 140-180Thank you for allowing us to participate in the care of your patien t. Critical care; 15 minutes total evaluation time Interventions Major-Hypoxemia - evaluation and man agement, Infection - evaluation and management, Respiratory failure - evaluation and managementElectr onically Signed by: SIM PARSON) on 05/16/2021 14:54
[2021-05-16] MEDS: Levofloxacin/Dextrose 5%-Water 750 MG in Premix Bag 1 BAG IV SCH (16:47)
[2021-05-16] MEDS: Polyethylene Glycol 3350 Powder 17 GM Packet PO SCH (20:36)
[2021-05-16] MEDS: Albuterol/Ipratropium 4 GM Inhalation Spray INH PRN (22:22)
[2021-05-16] MEDS: Enoxaparin 40 MG/0.4 ML Syringe SUBCUT SCH (23:11)
[2021-05-17] MEDS: Albuterol/Ipratropium 3.0-0.5 MG/3 ML Neb Soln NEB SCH ×6 (01:57→22:56)
[2021-05-17] MEDS: methylPREDNISolone Sodium Succinate 40 MG/1 ML SDV IVPUSH SCH ×3 (04:37→20:16)
[2021-05-17] MEDS: Omeprazole 20 MG Cap.CR PO SCH (06:50)
[2021-05-17 07:26] LABS: BLOOD UREA NITROGEN,BUN 32 mg/dL (7.0-18.0); CHLORIDE,CL 102 mmol/L (98-107); GLUCOSE RANDOM 153 mg/dL (74-106); POTASSIUM,K 4.2 mmol/L (3.5-5.1); SODIUM,NA 136 mmol/L (136-145)
[2021-05-17] MEDS: Docusate Sodium 100 MG Cap PO SCH (08:05)
[2021-05-17] MEDS: VERAPAMIL 120 MG PO SCH (08:05)
--- NOTE | 2021-05-17 11:54 | PCM.PN ---
- General Info Date of Service: 05/17/21 Subjective Update: The patient is a 75-year-old female, on day 13 of service, with a significant past medical history of hypertension, who was admitted for COVID-19 pneumonia and is currently on heated high flow of 55 L with an FiO2 of 75% with a O2 saturation of 90%. The patient is currently in the intensive care unit and is complaining of ongoing shortness of breath whenever she ambulates around her room. She feels that her cough has slightly improved. She is eating and d rinking without any issues. She denies chest pain, palpitations, fevers, or any issues with urination. She wishes that she would have regular bowel movements. Her daughter Serenity was contacted today and updated on her mother's current clinical status; she appreciates the daily updates. There are no other health concerns at this time. - Review of Systems General: Reports: Fatigue. Denies: Fever HEENT: Denies: Headaches, Sore Throat Pulmonary: Reports: Shortness of Breath Cardiovascular: Reports: Dyspnea on Exertion. Denies: Chest Pain, Palpitations Gastrointestinal: Denies: Abdominal Pain Genitourinary: Denies: Dysuria - Patient Data Vitals - Most Recent: Last Vital Signs Temp 97.5 F 05/17/21 08:00 Pulse 96 05/14/21 18:55 Resp 27 H 05/17/21 11:00 BP 132/69 05/17/21 11:00 Pulse Ox 91 L 05/17/21 11:00 Weight - Most Recent: 185 lb 11.161 oz I&O - Last 24 Hours: Intake & Output 05/16/21 05/17/21 05/17/21 22:59 06:59 14:59 Intake Total 750 450 Output Total 800 650 Balance -50 -200 Lab Results Last 24 Hours: Laboratory Results - last 24 hr 05/17/21 05/17/21 Range/Units 06:26 06:26 WBC 8.05 (4.0-11.0) K/uL RBC 5.56 (4.30-5.90) M/uL Hgb 16.1 H (12.0-16.0) g/dL Hct 45.8 (36.0-46.0) % MCV 82.4 (80.0-98.0) fL MCH 29.0 (27.0-32.0) pg MCHC 35.2 (31.0-37.0) g/dL RDW Std Deviation 43.9 (28.0-62.0) fl RDW Coeff of Lito 15 (11.0-15.0) % Plt Count 242 (150-400) K/uL MPV 10.40 (7.40-12.00) fL Add Manual Diff YES Neutrophils % (Manual) 84 H (48.0-80.0) % Band Neutrophils % 6 % Lymphocytes % (Manual) 7 L (16.0-40.0) % Monocytes % (Manual) 3 (0.0-15.0) % Absolute Seg Neuts 6.8 H (1.4-5.7) Band Neutrophils # 0.5 Lymphocytes # (Manual) 0.6 (0.6-2.4) Monocytes # (Manual) 0.2 (0.0-0.8) Sodium 136 (136-145) mmol/L Potassium 4.2 (3.5-5.1) mmol/L Chloride 102 (98-107) mmol/L Carbon Dioxide 21.0 (21.0-32.0) mmol/L BUN 32 H (7.0-18.0) mg/dL Creatinine 0.8 (0.6-1.0) mg/dL Est Cr Clr Drug Dosing 50.26 mL/min Estimated GFR (MDRD) > 60.0 ml/min Glucose 153 H (74-106) mg/dL Calcium 8.3 L (8.5-10.1) mg/dL Total Bilirubin 0.7 (0.2-1.0) mg/dL AST 85 H (15-37) IU/L ALT 217 H (14-63) IU/L Alkaline Phosphatase 187 H (46-116) U/L Total Protein 6.5 (6.4-8.2) g/dL Albumin 2.5 L (3.4-5.0) g/dL Globulin 4.0 (2.6-4.0) g/dL Albumin/Globulin Ratio 0.6 L (0.9-1.6) Med Orders - Current: Current Medications Acetaminophen (Acetaminophen 325 Mg Tab) 650 mg PO Q4H PRN PRN Reason: Pain (Mild 1-3)/fever Last Admin: 05/06/21 23:44 Dose: 650 mg Documented by: Albuterol/Ipratropium (Albuterol/Ipratropium 3.0-0.5 Mg/3 Ml Neb Soln) 3 ml NEB Q4HRRT [facility] Last Admin: 05/17/21 10:11 Dose: 3 ml Documented by: Albuterol/Ipratropium (Albuterol/Ipratropium 4 Gm Inhalation [place]) 0 gm INH Q4H PRN PRN Reason: Dyspnea Last Admin: 05/15/21 22:16 Dose: 1 puff Documented by: Baricitinib (Baricitinib 2 Mg Tab) 4 mg PO Q24H [facility] Last Admin: 05/16/21 15:10 Dose: 4 mg Documented by: Bisacodyl (Bisacodyl 10 Mg Supp) 10 mg RECTAL DAILY PRN PRN Reason: Constipation Last Admin: 05/13/21 17:54 Dose: 10 mg Documented by: Docusate Sodium (Docusate Sodium 100 Mg Cap) 100 mg PO DAILY [facility] Last Admin: 05/17/21 08:05 Dose: 100 mg Documented by: Enoxaparin Sodium (Enoxaparin 40 Mg/0.4 Ml Syringe) 40 mg SUBCUT Q24H [facility] Last Admin: 05/16/21 23:11 Dose: 40 mg Documented by: Levofloxacin/Dextrose 750 mg/ (Premix) 150 mls @ 100 mls/hr IV Q24H [facility] Stop: 05/17/21 17:31 Last Admin: 05/16/21 16:47 Dose: 100 mls/hr Documented by: Ibuprofen (Ibuprofen 200 Mg Tab) 200 mg PO Q6H PRN PRN Reason: Pain (mild 1-3) Methylprednisolone Sodium Succinate (Methylprednisolone Sodium Succinate 40 Mg/1 Ml Sdv) 40 mg IVPUSH Q8H [facility] Last Admin: 05/17/21 04:37 Dose: 40 mg Documented by: Omeprazole (Omeprazole 20 Mg Cap.Cr) 20 mg PO ACBREAKFAST [facility] Last Admin: 05/17/21 06:50 Dose: 20 mg Documented by: Ondansetron HCl (Ondansetron 4 Mg/2 Ml Sdv) 4 mg IVPUSH Q4H PRN PRN Reason: Nausea Last Admin: 05/12/21 15:21 Dose: 4 mg Documented by: Verapamil 120 Mg Er (Tablet) 1 each PO DAILY [facility] Last Admin: 05/17/21 08:05 Dose: 1 each Documented by: Polyethylene Glycol (Polyethylene Glycol 3350 Powder 17 Gm Packet) 17 gm PO BEDTIME [facility] Last Admin: 05/16/21 20:36 Dose: Not Given Documented by: Sodium Chloride (Sodium Chloride 0.9% 10 Ml Syringe) 10 ml FLUSH ASDIRECTED PRN PRN Reason: Keep Vein Open Last Admin: 05/04/21 17:39 Dose: 10 ml Documented by: Sodium Chloride (Sodium Chloride 0.9% 2.5 Ml Syringe) 2.5 ml FLUSH ASDIRECTED PRN PRN Reason: Keep Vein Open Last Admin: 05/04/21 17:36 Dose: 2.5 ml Documented by: Discontinued Medications Albuterol/Ipratropium (Albuterol/Ipratropium 4 Gm Inhalation [place]) 0 gm INH Q6HRRT [facility] Last Admin: 05/14/21 11:25 Dose: Not Given Documented by: Albuterol/Ipratropium (Albuterol/Ipratropium 3.0-0.5 Mg/3 Ml Neb Soln) 3 ml NEB Q4HRRT PRN PRN Reason: Shortness of Breath Stop: 05/14/21 18:00 Last Admin: 05/14/21 11:23 Dose: 3 ml Documented by: Albuterol/Ipratropium (Albuterol/Ipratropium 4 Gm Inhalation [place]) 0 gm INH Q6HRRT PRN PRN Reason: Shortness of Breath Dexamethasone (Dexamethasone 10 Mg/Ml Sdv) 6 mg IVPUSH ONETIME ONE Stop: 05/04/21 19:27 Last Admin: 05/04/21 19:42 Dose: 6 mg Documented by: Dexamethasone (Dexamethasone 4 Mg Tab) 6 mg PO Q24H [facility] Last Admin: 05/05/21 04:14 Dose: Not Given Documented by: Dexamethasone (Dexamethasone 4 Mg Tab) 6 mg PO Q24H [facility] Last Admin: 05/15/21 20:06 Dose: 6 mg Documented by: Diphenhydramine HCl (Diphenhydramine 50 Mg/Ml Sdv) 25 mg IVPUSH ONETIME ONE Stop: 05/08/21 17:09 Last Admin: 05/08/21 17:24 Dose: 25 mg Documented by: Furosemide (Furosemide 20 Mg/2 Ml Vial) 20 mg IVPUSH NOW ONE Stop: 05/14/21 19:13 Last Admin: 05/14/21 19:45 Dose: 20 mg Documented by: Furosemide (Furosemide 20 Mg/2 Ml Vial) 20 mg IVPUSH NOW ONE Stop: 05/16/21 12:31 Last Admin: 05/16/21 12:37 Dose: 20 mg Documented by: Guaifenesin/Codeine Phosphate (Codeine/Guaifenesin 10-100 Mg/5 Ml Syrup 5 Ml Cup) 5 ml PO Q4H PRN PRN Reason: Cough Last Admin: 05/13/21 11:29 Dose: 5 ml Documented by: Sodium Chloride (Normal Saline) 500 mls @ 500 mls/hr IV .BOLUS STA Stop: 05/04/21 18:17 Last Admin: 05/04/21 17:39 Dose: 500 mls/hr Documented by: Remdesivir 200 mg/ Sodium (Chloride) 250 mls @ 250 mls/hr IV ONETIME ONE Stop: 05/04/21 19:26 Last Admin: 05/04/21 19:57 Dose: 250 mls/hr Documented by: Remdesivir 100 mg/ Sodium (Chloride) 100 mls @ 100 mls/hr IV Q24H [facility] Stop: 05/08/21 20:59 Last Admin: 05/08/21 19:48 Dose: 100 mls/hr Documented by: Levofloxacin/Dextrose 750 mg/ (Premix) 150 mls @ 100 mls/hr IV Q24H [facility] Iopamidol (Iopamidol 755 Mg/Ml 500 Ml Multipack Bottle) 100 ml IVPUSH ONETIME ONE Stop: 05/04/21 18:36 Last Admin: 05/04/21 18:35 Dose: 100 ml Documented by: Morphine Sulfate (Morphine 2 Mg/Ml Syringe) 1 mg IVPUSH ONETIME ONE Stop: 05/15/21 00:20 Last Admin: 05/15/21 00:39 Dose: 1 mg Documented by: Nitrofurantoin Macrocrystals (Nitrofurantoin Macrocrystal 50 Mg Cap) 50 mg PO DAILY [facility] Last Admin: 05/08/21 08:56 Dose: 50 mg Documented by: Ondansetron HCl (Ondansetron 4 Mg/2 Ml Sdv) 4 mg IVPUSH ONETIME ONE Stop: 05/04/21 17:21 Last Admin: 05/04/21 17:39 Dose: 4 mg Documented by: Ondansetron HCl (Ondansetron 4 Mg/2 Ml Sdv) 4 mg IVPUSH ONETIME ONE Stop: 05/04/21 19:29 Last Admin: 05/04/21 19:42 Dose: 4 mg Documented by: Potassium Chloride (Potassium Chloride 20 Meq Tab.Er) 40 meq PO ONETIME ONE Stop: 05/06/21 08:16 Last Admin: 05/06/21 09:14 Dose: 40 meq Documented by: Verapamil HCl (Verapamil 240 Mg Tab.Er) 120 mg PO DAILY [facility] - Exam Urinary Catheter Total Time: 2Days 8Hours General: Alert, Oriented, Cooperative HEENT: Mucous Membr. Moist/[place] Neck: No: Lymphadenopathy Lungs: Wheezing Cardiovascular: Regular Rate, Regular Rhythm GI/Abdominal Exam: Normal Bowel Sounds, Soft, Non-Tender - Patient Data Lab Results Last 24 hrs: Laboratory Results - last 24 hr 05/17/21 05/17/21 Range/Units 06:26 06:26 WBC 8.05 (4.0-11.0) K/uL RBC 5.56 (4.30-5.90) M/uL Hgb 16.1 H (12.0-16.0) g/dL Hct 45.8 (36.0-46.0) % MCV 82.4 (80.0-98.0) fL MCH 29.0 (27.0-32.0) pg MCHC 35.2 (31.0-37.0) g/dL RDW Std Deviation 43.9 (28.0-62.0) fl RDW Coeff of Lito 15 (11.0-15.0) % Plt Count 242 (150-400) K/uL MPV 10.40 (7.40-12.00) fL Add Manual Diff YES Neutrophils % (Manual) 84 H (48.0-80.0) % Band Neutrophils % 6 % Lymphocytes % (Manual) 7 L (16.0-40.0) % Monocytes % (Manual) 3 (0.0-15.0) % Absolute Seg Neuts 6.8 H (1.4-5.7) Band Neutrophils # 0.5 Lymphocytes # (Manual) 0.6 (0.6-2.4) Monocytes # (Manual) 0.2 (0.0-0.8) Sodium 136 (136-145) mmol/L Potassium 4.2 (3.5-5.1) mmol/L Chloride 102 (98-107) mmol/L Carbon Dioxide 21.0 (21.0-32.0) mmol/L BUN 32 H (7.0-18.0) mg/dL Creatinine 0.8 (0.6-1.0) mg/dL Est Cr Clr Drug Dosing 50.26 mL/min Estimated GFR (MDRD) > 60.0 ml/min Glucose 153 H (74-106) mg/dL Calcium 8.3 L (8.5-10.1) mg/dL Total Bilirubin 0.7 (0.2-1.0) mg/dL AST 85 H (15-37) IU/L ALT 217 H (14-63) IU/L Alkaline Phosphatase 187 H (46-116) U/L Total Protein 6.5 (6.4-8.2) g/dL Albumin 2.5 L (3.4-5.0) g/dL Globulin 4.0 (2.6-4.0) g/dL Albumin/Globulin Ratio 0.6 L (0.9-1.6) Result Diagrams: 05/17/21 06:26 05/17/21 06:26 Sepsis Event Note - Evaluation Sepsis Screening Result: No Definite Risk - Focused Exam Vital Signs: Vital Signs Temp Resp BP Pulse Ox 05/17/21 11:00 27 H 132/69 91 L 05/17/21 10:00 22 H 138/68 85 L 05/17/21 09:00 22 H 138/69 92 L 05/17/21 08:00 97.5 F 20 138/81 89 L 05/17/21 06:59 22 H 140/80 90 L 05/17/21 06:00 26 H 129/73 90 L 05/17/21 05:00 25 H 121/72 89 L 05/17/21 04:00 97.7 F 28 H 127/76 91 L 05/17/21 03:00 24 H 139/77 90 L 05/17/21 02:00 20 138/79 92 L 05/17/21 01:00 27 H 137/65 89 L 05/17/21 00:00 97.3 F 26 H 128/79 92 L - Problem List & Annotations (1) HTN (hypertension) SNOMED Code(s): 54306283 Code(s): I10 - ESSENTIAL (PRIMARY) HYPERTENSION Status: Acute Current Visit: Yes (2) Acute respiratory failure with hypoxia SNOMED Code(s): 94103412, 286358614 Code(s): J96.01 - ACUTE RESPIRATORY FAILURE WITH HYPOXIA Status: Acute Current Visit: Yes (3) COVID-19 SNOMED Code(s): 536965804 Code(s): U07.1 - COVID-19 Status: Acute Current Visit: Yes - Problem List Review Problem List Initiated/Reviewed/Updated: Yes - My Orders Last 24 Hours: My Active Orders 05/18/21 05:11 CBC WITH AUTO DIFF [HEME] AM CMP [COMPREHENSIVE METABOLIC PN,CMP] [CHEM] AM 05/19/21 05:11 CBC WITH AUTO DIFF [HEME] AM CMP [COMPREHENSIVE METABOLIC PN,CMP] [CHEM] AM - Assessment Assessment:: 1. Acute respiratory failure secondary to COVID-19 pneumonia -Serenity, the patient's daughter has been updated on her mother's current clinical status -Patient is currently on heated high flow 55 L with an FiO2 of 75%, currently saturating greater then 90%, will continue oxygen supply as needed -Continue the patient on dexamethasone 6 mg per oral route once a day -Continue the patient on baricitinib 4 mg per oral route once a day -Continue to supply duo nebulizer/Combivent treatment as needed -Continue Levaquin 750 mg every 24 hours -Monitor patient labs through daily CBC/CMP 2. Hypertension -Continue with verapamil 125 mg extended release tablet
[2021-05-17] MEDS: Levofloxacin/Dextrose 5%-Water 750 MG in Premix Bag 1 BAG IV SCH (16:32)
[2021-05-17] MEDS: Polyethylene Glycol 3350 Powder 17 GM Packet PO SCH (20:16)
[2021-05-17] MEDS: Enoxaparin 40 MG/0.4 ML Syringe SUBCUT SCH (22:57)
[2021-05-18] MEDS: Albuterol/Ipratropium 3.0-0.5 MG/3 ML Neb Soln NEB SCH ×6 (02:03→22:17)
[2021-05-18] MEDS: methylPREDNISolone Sodium Succinate 40 MG/1 ML SDV IVPUSH SCH ×3 (04:58→20:05)
[2021-05-18 06:19] LABS: BLOOD UREA NITROGEN,BUN 35 mg/dL (7.0-18.0); CARBON DIOXIDE,CO2 23.8 mmol/L (21.0-32.0); CHLORIDE,CL 102 mmol/L (98-107); GLUCOSE RANDOM 151 mg/dL (74-106); POTASSIUM,K 4.4 mmol/L (3.5-5.1); SODIUM,NA 137 mmol/L (136-145)
[2021-05-18] MEDS: Omeprazole 20 MG Cap.CR PO SCH (09:00)
[2021-05-18] MEDS: Docusate Sodium 100 MG Cap PO SCH (09:00)
[2021-05-18] MEDS: VERAPAMIL 120 MG PO SCH (09:00)
--- NOTE | 2021-05-18 12:22 | PCM.PN ---
- General Info Date of Service: 05/18/21 - Review of Systems Systems Review Comment:: short of breath with any movement, especially sitting up in chair - Patient Data Vitals - Most Recent: Last Vital Signs Temp 36.2 C 05/18/21 11:00 Pulse 96 05/14/21 18:55 Resp 29 H 05/18/21 11:00 BP 141/72 H 05/18/21 11:00 Pulse Ox 86 L 05/18/21 11:00 Weight - Most Recent: 80.785 kg I&O - Last 24 Hours: Intake & Output 05/17/21 05/18/21 05/18/21 22:59 06:59 14:59 Intake Total 650 350 Output Total 350 200 Balance 300 150 Lab Results Last 24 Hours: Laboratory Results - last 24 hr 05/18/21 05/18/21 Range/Units 05:18 05:18 WBC 9.06 (4.0-11.0) K/uL RBC 5.45 (4.30-5.90) M/uL Hgb 15.9 (12.0-16.0) g/dL Hct 45.8 (36.0-46.0) % MCV 84.0 (80.0-98.0) fL MCH 29.2 (27.0-32.0) pg MCHC 34.7 (31.0-37.0) g/dL RDW Std Deviation 44.0 (28.0-62.0) fl RDW Coeff of Lito 15 (11.0-15.0) % Plt Count 267 (150-400) K/uL MPV 10.10 (7.40-12.00) fL Neut % (Auto) 88.1 H (48.0-80.0) % Lymph % (Auto) 5.5 L (16.0-40.0) % [place] % (Auto) 6.3 (0.0-15.0) % Eos % (Auto) 0.0 (0.0-7.0) % Baso % (Auto) 0.1 (0.0-1.5) % Neut # (Auto) 8.0 H (1.4-5.7) K/uL Lymph # (Auto) 0.5 L (0.6-2.4) K/uL [place] # (Auto) 0.6 (0.0-0.8) K/uL Eos # (Auto) 0.0 (0.0-0.7) K/uL Baso # (Auto) 0.0 (0.0-0.1) K/uL Nucleated RBC % 0.0 /100WBC Nucleated RBCs # 0 K/uL Sodium 137 (136-145) mmol/L Potassium 4.4 (3.5-5.1) mmol/L Chloride 102 (98-107) mmol/L Carbon Dioxide 23.8 (21.0-32.0) mmol/L BUN 35 H (7.0-18.0) mg/dL Creatinine 0.9 (0.6-1.0) mg/dL Est Cr Clr Drug Dosing 44.68 mL/min Estimated GFR (MDRD) > 60.0 ml/min Glucose 151 H (74-106) mg/dL Calcium 8.7 (8.5-10.1) mg/dL Total Bilirubin 0.7 (0.2-1.0) mg/dL AST 75 H (15-37) IU/L ALT 229 H (14-63) IU/L Alkaline Phosphatase 164 H (46-116) U/L Total Protein 6.6 (6.4-8.2) g/dL Albumin 2.7 L (3.4-5.0) g/dL Globulin 3.9 (2.6-4.0) g/dL Albumin/Globulin Ratio 0.7 L (0.9-1.6) Med Orders - Current: Current Medications Acetaminophen (Acetaminophen 325 Mg Tab) 650 mg PO Q4H PRN PRN Reason: Pain (Mild 1-3)/fever Last Admin: 05/06/21 23:44 Dose: 650 mg Documented by: Albuterol/Ipratropium (Albuterol/Ipratropium 3.0-0.5 Mg/3 Ml Neb Soln) 3 ml NEB Q4HRRT [facility] Last Admin: 05/18/21 10:30 Dose: 3 ml Documented by: Albuterol/Ipratropium (Albuterol/Ipratropium 4 Gm Inhalation [place]) 0 gm INH Q4H PRN PRN Reason: Dyspnea Last Admin: 05/15/21 22:16 Dose: 1 puff Documented by: Baricitinib (Baricitinib 2 Mg Tab) 2 mg PO Q24H [facility] Bisacodyl (Bisacodyl 10 Mg Supp) 10 mg RECTAL DAILY PRN PRN Reason: Constipation Last Admin: 05/13/21 17:54 Dose: 10 mg Documented by: Docusate Sodium (Docusate Sodium 100 Mg Cap) 100 mg PO DAILY [facility] Last Admin: 05/18/21 09:00 Dose: 100 mg Documented by: Enoxaparin Sodium (Enoxaparin 40 Mg/0.4 Ml Syringe) 40 mg SUBCUT Q24H [facility] Last Admin: 05/17/21 22:57 Dose: 40 mg Documented by: Ibuprofen (Ibuprofen 200 Mg Tab) 200 mg PO Q6H PRN PRN Reason: Pain (mild 1-3) Methylprednisolone Sodium Succinate (Methylprednisolone Sodium Succinate 40 Mg/1 Ml Sdv) 40 mg IVPUSH Q8H [facility] Last Admin: 05/18/21 11:46 Dose: 40 mg Documented by: Omeprazole (Omeprazole 20 Mg Cap.Cr) 20 mg PO ACBREAKFAST [facility] Last Admin: 05/18/21 09:00 Dose: 20 mg Documented by: Ondansetron HCl (Ondansetron 4 Mg/2 Ml Sdv) 4 mg IVPUSH Q4H PRN PRN Reason: Nausea Last Admin: 05/12/21 15:21 Dose: 4 mg Documented by: Verapamil 120 Mg Er (Tablet) 1 each PO DAILY [facility] Last Admin: 05/18/21 09:00 Dose: 1 each Documented by: Polyethylene Glycol (Polyethylene Glycol 3350 Powder 17 Gm Packet) 17 gm PO BEDTIME [facility] Last Admin: 05/17/21 20:16 Dose: 17 gm Documented by: Sodium Chloride (Sodium Chloride 0.9% 10 Ml Syringe) 10 ml FLUSH ASDIRECTED PRN PRN Reason: Keep Vein Open Last Admin: 05/04/21 17:39 Dose: 10 ml Documented by: Sodium Chloride (Sodium Chloride 0.9% 2.5 Ml Syringe) 2.5 ml FLUSH ASDIRECTED PRN PRN Reason: Keep Vein Open Last Admin: 05/04/21 17:36 Dose: 2.5 ml Documented by: Discontinued Medications Albuterol/Ipratropium (Albuterol/Ipratropium 4 Gm Inhalation [place]) 0 gm INH Q6HRRT [facility] Last Admin: 05/14/21 11:25 Dose: Not Given Documented by: Albuterol/Ipratropium (Albuterol/Ipratropium 3.0-0.5 Mg/3 Ml Neb Soln) 3 ml NEB Q4HRRT PRN PRN Reason: Shortness of Breath Stop: 05/14/21 18:00 Last Admin: 05/14/21 11:23 Dose: 3 ml Documented by: Albuterol/Ipratropium (Albuterol/Ipratropium 4 Gm Inhalation [place]) 0 gm INH Q6HRRT PRN PRN Reason: Shortness of Breath Baricitinib (Baricitinib 2 Mg Tab) 4 mg PO Q24H [facility] Last Admin: 05/17/21 14:32 Dose: 4 mg Documented by: Dexamethasone (Dexamethasone 10 Mg/Ml Sdv) 6 mg IVPUSH ONETIME ONE Stop: 05/04/21 19:27 Last Admin: 05/04/21 19:42 Dose: 6 mg Documented by: Dexamethasone (Dexamethasone 4 Mg Tab) 6 mg PO Q24H [facility] Last Admin: 05/05/21 04:14 Dose: Not Given Documented by: Dexamethasone (Dexamethasone 4 Mg Tab) 6 mg PO Q24H [facility] Last Admin: 05/15/21 20:06 Dose: 6 mg Documented by: Diphenhydramine HCl (Diphenhydramine 50 Mg/Ml Sdv) 25 mg IVPUSH ONETIME ONE Stop: 05/08/21 17:09 Last Admin: 05/08/21 17:24 Dose: 25 mg Documented by: Furosemide (Furosemide 20 Mg/2 Ml Vial) 20 mg IVPUSH NOW ONE Stop: 05/14/21 19:13 Last Admin: 05/14/21 19:45 Dose: 20 mg Documented by: Furosemide (Furosemide 20 Mg/2 Ml Vial) 20 mg IVPUSH NOW ONE Stop: 05/16/21 12:31 Last Admin: 05/16/21 12:37 Dose: 20 mg Documented by: Guaifenesin/Codeine Phosphate (Codeine/Guaifenesin 10-100 Mg/5 Ml Syrup 5 Ml Cup) 5 ml PO Q4H PRN PRN Reason: Cough Last Admin: 05/13/21 11:29 Dose: 5 ml Documented by: Sodium Chloride (Normal Saline) 500 mls @ 500 mls/hr IV .BOLUS STA Stop: 05/04/21 18:17 Last Admin: 05/04/21 17:39 Dose: 500 mls/hr Documented by: Remdesivir 200 mg/ Sodium (Chloride) 250 mls @ 250 mls/hr IV ONETIME ONE Stop: 05/04/21 19:26 Last Admin: 05/04/21 19:57 Dose: 250 mls/hr Documented by: Remdesivir 100 mg/ Sodium (Chloride) 100 mls @ 100 mls/hr IV Q24H [facility] Stop: 05/08/21 20:59 Last Admin: 05/08/21 19:48 Dose: 100 mls/hr Documented by: Levofloxacin/Dextrose 750 mg/ (Premix) 150 mls @ 100 mls/hr IV Q24H [facility] Levofloxacin/Dextrose 750 mg/ (Premix) 150 mls @ 100 mls/hr IV Q24H [facility] Stop: 05/17/21 17:31 Last Admin: 05/17/21 16:32 Dose: 100 mls/hr Documented by: Iopamidol (Iopamidol 755 Mg/Ml 500 Ml Multipack Bottle) 100 ml IVPUSH ONETIME ONE Stop: 05/04/21 18:36 Last Admin: 05/04/21 18:35 Dose: 100 ml Documented by: Morphine Sulfate (Morphine 2 Mg/Ml Syringe) 1 mg IVPUSH ONETIME ONE Stop: 05/15/21 00:20 Last Admin: 05/15/21 00:39 Dose: 1 mg Documented by: Nitrofurantoin Macrocrystals (Nitrofurantoin Macrocrystal 50 Mg Cap) 50 mg PO DAILY [facility] Last Admin: 05/08/21 08:56 Dose: 50 mg Documented by: Ondansetron HCl (Ondansetron 4 Mg/2 Ml Sdv) 4 mg IVPUSH ONETIME ONE Stop: 05/04/21 17:21 Last Admin: 05/04/21 17:39 Dose: 4 mg Documented by: Ondansetron HCl (Ondansetron 4 Mg/2 Ml Sdv) 4 mg IVPUSH ONETIME ONE Stop: 05/04/21 19:29 Last Admin: 05/04/21 19:42 Dose: 4 mg Documented by: Potassium Chloride (Potassium Chloride 20 Meq Tab.Er) 40 meq PO ONETIME ONE Stop: 05/06/21 08:16 Last Admin: 05/06/21 09:14 Dose: 40 meq Documented by: Verapamil HCl (Verapamil 240 Mg Tab.Er) 120 mg PO DAILY [facility] - Exam Urinary Catheter Total Time: 2Days 18Hours General: Alert, Oriented Lungs: Normal Respiratory Effort, Rhonchi Cardiovascular: Regular Rate, Regular Rhythm GI/Abdominal Exam: Soft, Non-Tender, No Distention Extremities: Non-Tender, No Pedal Edema Skin: Warm, Dry, Intact Neurological: No New Focal Deficit - Patient Data Lab Results Last 24 hrs: Laboratory Results - last 24 hr 05/18/21 05/18/21 Range/Units 05:18 05:18 WBC 9.06 (4.0-11.0) K/uL RBC 5.45 (4.30-5.90) M/uL Hgb 15.9 (12.0-16.0) g/dL Hct 45.8 (36.0-46.0) % MCV 84.0 (80.0-98.0) fL MCH 29.2 (27.0-32.0) pg MCHC 34.7 (31.0-37.0) g/dL RDW Std Deviation 44.0 (28.0-62.0) fl RDW Coeff of Lito 15 (11.0-15.0) % Plt Count 267 (150-400) K/uL MPV 10.10 (7.40-12.00) fL Neut % (Auto) 88.1 H (48.0-80.0) % Lymph % (Auto) 5.5 L (16.0-40.0) % [place] % (Auto) 6.3 (0.0-15.0) % Eos % (Auto) 0.0 (0.0-7.0) % Baso % (Auto) 0.1 (0.0-1.5) % Neut # (Auto) 8.0 H (1.4-5.7) K/uL Lymph # (Auto) 0.5 L (0.6-2.4) K/uL [place] # (Auto) 0.6 (0.0-0.8) K/uL Eos # (Auto) 0.0 (0.0-0.7) K/uL Baso # (Auto) 0.0 (0.0-0.1) K/uL Nucleated RBC % 0.0 /100WBC Nucleated RBCs # 0 K/uL Sodium 137 (136-145) mmol/L Potassium 4.4 (3.5-5.1) mmol/L Chloride 102 (98-107) mmol/L Carbon Dioxide 23.8 (21.0-32.0) mmol/L BUN 35 H (7.0-18.0) mg/dL Creatinine 0.9 (0.6-1.0) mg/dL Est Cr Clr Drug Dosing 44.68 mL/min Estimated GFR (MDRD) > 60.0 ml/min Glucose 151 H (74-106) mg/dL Calcium 8.7 (8.5-10.1) mg/dL Total Bilirubin 0.7 (0.2-1.0) mg/dL AST 75 H (15-37) IU/L ALT 229 H (14-63) IU/L Alkaline Phosphatase 164 H (46-116) U/L Total Protein 6.6 (6.4-8.2) g/dL Albumin 2.7 L (3.4-5.0) g/dL Globulin 3.9 (2.6-4.0) g/dL Albumin/Globulin Ratio 0.7 L (0.9-1.6) Result Diagrams: 05/18/21 05:18 05/18/21 05:18 Sepsis Event Note - Evaluation Sepsis Screening Result: No Definite Risk - Focused Exam Vital Signs: Vital Signs Temp Resp BP Pulse Ox 05/18/21 11:00 36.2 C 29 H 141/72 H 86 L 05/18/21 10:00 36.2 C 30 H 124/74 94 L 05/18/21 09:00 36.2 C 16 121/66 94 L 05/18/21 08:00 36.2 C 33 H 107/63 87 L 05/18/21 07:00 32 H 127/76 88 L 05/18/21 06:00 31 H 137/75 88 L 05/18/21 05:00 33 H 131/79 88 L 05/18/21 04:00 33 H 143/75 H 89 L 05/18/21 03:00 36.3 C 30 H 134/67 88 L 05/18/21 02:00 28 H 124/69 89 L 05/18/21 01:00 28 H 132/62 88 L - Problem List & Annotations (1) COVID-19 SNOMED Code(s): 702697633 Code(s): U07.1 - COVID-19 Status: Acute Current Visit: Yes (2) Hypoxemia SNOMED Code(s): 279620859 Code(s): R09.02 - HYPOXEMIA Status: Acute Current Visit: Yes - Problem List Review Problem List Initiated/Reviewed/Updated: Yes - My Orders Last 24 Hours: My Active Orders 05/17/21 14:25 Consult to Physical Therapy [PT Evaluation and Treatment] [CONS] Routine 05/18/21 14:00 Baricitinib [Olumiant] 2 mg PO Q24H - Assessment Assessment:: 1. Acute respiratory failure secondary to COVID-19 pneumonia COVID pneumonia: continue solumedrol and baricitinib Hypoxia: Patient is currently on heated high flow 50 L with an FiO2 of 60%, as patient has significant desats with movement will place cruz. Hypertension: -Continue with verapamil 125 mg extended release tablet lovenx for DVT prophylaxis
[2021-05-18] MEDS ORDERED: LORazepam 0.5 MG Tab PO ONE (13:21)
[2021-05-18] MEDS: Acetaminophen 325 MG Tab PO PRN (13:30)
[2021-05-18] MEDS: Albuterol/Ipratropium 4 GM Inhalation Spray INH PRN (18:55)
[2021-05-18] MEDS: Polyethylene Glycol 3350 Powder 17 GM Packet PO SCH (20:05)
[2021-05-18] MEDS: Enoxaparin 40 MG/0.4 ML Syringe SUBCUT SCH (22:16)
[2021-05-19] MEDS: Albuterol/Ipratropium 3.0-0.5 MG/3 ML Neb Soln NEB SCH ×6 (01:17→21:29)
[2021-05-19] MEDS: methylPREDNISolone Sodium Succinate 40 MG/1 ML SDV IVPUSH SCH ×3 (05:04→20:42)
[2021-05-19 06:57] LABS: BLOOD UREA NITROGEN,BUN 38 mg/dL (7.0-18.0); CARBON DIOXIDE,CO2 23.5 mmol/L (21.0-32.0); CHLORIDE,CL 104 mmol/L (98-107); GLUCOSE RANDOM 138 mg/dL (74-106); POTASSIUM,K 4.4 mmol/L (3.5-5.1); SODIUM,NA 137 mmol/L (136-145)
[2021-05-19] MEDS: Omeprazole 20 MG Cap.CR PO SCH (07:21)
[2021-05-19] MEDS: LORazepam 2 MG/ML SDV IVPUSH PRN ×2 (09:00→12:26)
[2021-05-19] MEDS: Docusate Sodium 100 MG Cap PO SCH (09:00)
[2021-05-19] MEDS: VERAPAMIL 120 MG PO SCH (09:00)
--- NOTE | 2021-05-19 10:22 | CR ---
Indication: COVID-19 pneumonia. Increasing O2 demands. Technique: Chest, 2 portable views. Comparison: 05/12/2021. Findings: Coarse, bilateral interstitial type opacities, with progression when compared with 05/12/2021. Relative sparing of the left upper and midlung zones. Lower lung volumes. There is no pneumothorax. The central airway is normal. Bowel gas pattern is normal in the upper abdomen. Heart size and pulmonary vasculature are within normal limits. Impression: 1. Coarse, bilateral pulmonary opacities, with progression when compared with 05/12/2021. Dictated by Ray Holt MD @ 05/19/2021 10:20:16 AM (Electronically Signed)
[2021-05-19] MEDS: Acetaminophen 325 MG Tab PO PRN (11:11)
--- NOTE | 2021-05-19 14:28 | PN ---
THC Physician - Brief Progress [id number]/06/2021 14:27[facility] Shamir Dillon, DONTAE - MWN (SHON) - MWN ANNA GUY V.Date of Service 05/19/2021 14:27HPI/Events of Note eICU Progress [id number] admitted for respiratory failure attributed to COVID. History obtained from review of EMR and discussion with resident physician over telephone.On HFNC patient was doing w ell proned. Was placed on 15L nasal cannula, was placed on HHFNC. Now satting in 90s. Placed on dexme detomidine for anxiety and to assist patient in tolerating prone positioning.Camera exam: Laying in b ed. Vitals monitor reviewed. eICU Recommendations:Would leave on heated high flow for now, given drop with reduction in flow to 15Lpm I suspect some element of patient's oxygenation is dependent on the recruitment she gets from a heated high flow device. If looking to wean, would first attempt to go do wn on FiO2. Can consider de-escalating oxygen device once FiO2 has come down to around 40%Dexmedetomi dine is reasonable for anxiolysis.eICU will continue to follow and assist as desired.DVT and GI proph ylaxis as appropriate.Thank you for allowing us to participate in the care of this patient.The above note transcribed with the assistance of dictation software. Please excuse any errors.Interventions Jt lara-Respiratory failure - evaluation and management
--- NOTE | 2021-05-19 16:56 | PCM.PN ---
<Elena Valenzuela - Last Filed: 05/19/21 17:00> - General Info Date of Service: 05/19/21 Subjective Update: The patient is a 75-year-old female, on day 15 of service, with a significant past medical history of hypertension, who was admitted for COVID-19 pneumonia and is currently on heated high flow of 60 L with an FiO2 of 93% with a O2 saturation of 90%. The patient is currently in the intensive care unit and is complaining of ongoing shortness of breath. This morning, the patient went into prone position and was saturating over 90% while only being on 15 L on the nasal cannula, however this also made the patient tired, anxious, and after an hour in this position she desaturated to less then 88%. As a result we started Precedex in order for the patient to feel worry free when switching positions and oxygen apparatuses. When heated high flow was put back on she saturated above 88%. The eICU was contacted who recommended keeping the patient on heated high flow for the next 24 hours and that only to downgrade when the FiO2 is 40% or lower. The eICU physician Dr. Sorenson explained to not put too much emphasis on proning. Upon interview with the patient today she looked extremely tired. The patient's daughter Serenity was contacted and updated on her mother's current clinical status. She has no other complaints at this time. - Review of Systems General: Reports: Fatigue. Denies: Fever, Weakness HEENT: Denies: Headaches, Sore Throat Pulmonary: Reports: Shortness of Breath, Cough Cardiovascular: Denies: Chest Pain, Palpitations Gastrointestinal: Denies: Abdominal Pain Genitourinary: Denies: Dysuria - Patient Data Vitals - Most Recent: Last Vital Signs Temp 97 F 05/19/21 14:56 Pulse 96 05/14/21 18:55 Resp 15 05/19/21 14:56 BP 120/66 05/19/21 14:56 Pulse Ox 94 L 05/19/21 14:56 Weight - Most Recent: 82.781 kg I&O - Last 24 Hours: Intake & Output 05/19/21 05/19/21 05/19/21 06:59 14:59 22:59 Intake Total 600 250 Output Total 600 230 Balance 0 20 Lab Results Last 24 Hours: Laboratory Results - last 24 hr 1105/19/21 05/19/21 Range/Units 05:25 05:25 12:50 WBC 12.61 H (4.0-11.0) K/uL RBC 5.18 (4.30-5.90) M/uL Hgb 15.2 (12.0-16.0) g/dL Hct 43.9 (36.0-46.0) % MCV 84.7 (80.0-98.0) fL MCH 29.3 (27.0-32.0) pg MCHC 34.6 (31.0-37.0) g/dL RDW Std Deviation 44.4 (28.0-62.0) fl RDW Coeff of Lito 15 (11.0-15.0) % Plt Count 282 (150-400) K/uL MPV 11.20 (7.40-12.00) fL Neut % (Auto) 89.9 H (48.0-80.0) % Lymph % (Auto) 4.1 L (16.0-40.0) % [place] % (Auto) 5.9 (0.0-15.0) % Eos % (Auto) 0.0 (0.0-7.0) % Baso % (Auto) 0.1 (0.0-1.5) % Neut # (Auto) 11.3 H (1.4-5.7) K/uL Lymph # (Auto) 0.5 L (0.6-2.4) K/uL [place] # (Auto) 0.7 (0.0-0.8) K/uL Eos # (Auto) 0.0 (0.0-0.7) K/uL Baso # (Auto) 0.0 (0.0-0.1) K/uL Nucleated RBC % 0.0 /100WBC Nucleated RBCs # 0 K/uL ABG pH 7.38 (7.35-7.45) ABG pCO2 43 (35-45) mmHG ABG pO2 90 (80-105) mmHG ABG HCO3 25 (22-26) mEq/L ABG Total CO2 27 (23-27) mmol/L ABG Base Excess 0.0 (-2.0-3.0) Sodium 137 (136-145) mmol/L Potassium 4.4 (3.5-5.1) mmol/L Chloride 104 (98-107) mmol/L Carbon Dioxide 23.5 (21.0-32.0) mmol/L BUN 38 H (7.0-18.0) mg/dL Creatinine 0.8 (0.6-1.0) mg/dL Est Cr Clr Drug Dosing 50.26 mL/min Estimated GFR (MDRD) > 60.0 ml/min Glucose 138 H (74-106) mg/dL Calcium 8.0 L (8.5-10.1) mg/dL Total Bilirubin 0.7 (0.2-1.0) mg/dL AST 81 H (15-37) IU/L ALT 250 H (14-63) IU/L Alkaline Phosphatase 151 H (46-116) U/L Total Protein 6.5 (6.4-8.2) g/dL Albumin 2.4 L (3.4-5.0) g/dL Globulin 4.1 H (2.6-4.0) g/dL Albumin/Globulin Ratio 0.6 L (0.9-1.6) Med Orders - Current: Current Medications Acetaminophen (Acetaminophen 325 Mg Tab) 650 mg PO Q4H PRN PRN Reason: Pain (Mild 1-3)/fever Last Admin: 05/19/21 11:11 Dose: 650 mg Documented by: Albuterol/Ipratropium (Albuterol/Ipratropium 3.0-0.5 Mg/3 Ml Neb Soln) 3 ml NEB Q4HRRT [facility] Last Admin: 05/19/21 14:00 Dose: 3 ml Documented by: Albuterol/Ipratropium (Albuterol/Ipratropium 4 Gm Inhalation [place]) 0 gm INH Q4H PRN PRN Reason: Dyspnea Last Admin: 05/18/21 18:55 Dose: 1 puff Documented by: Baricitinib (Baricitinib 2 Mg Tab) 2 mg PO Q24H [facility] Last Admin: 05/19/21 14:00 Dose: 2 mg Documented by: Bisacodyl (Bisacodyl 10 Mg Supp) 10 mg RECTAL DAILY PRN PRN Reason: Constipation Last Admin: 05/13/21 17:54 Dose: 10 mg Documented by: Docusate Sodium (Docusate Sodium 100 Mg Cap) 100 mg PO DAILY [facility] Last Admin: 05/19/21 09:00 Dose: 100 mg Documented by: Enoxaparin Sodium (Enoxaparin 40 Mg/0.4 Ml Syringe) 40 mg SUBCUT Q24H [facility] Last Admin: 05/18/21 22:16 Dose: 40 mg Documented by: Dexmedetomidine/Sodium (Chloride 400 mcg/ Premix) 100 mls @ 4.139 mls/hr IV TITRATE [facility]; Protocol Ibuprofen (Ibuprofen 200 Mg Tab) 200 mg PO Q6H PRN PRN Reason: Pain (mild 1-3) Lorazepam (Lorazepam 2 Mg/Ml Sdv) 0.5 mg IVPUSH Q2H PRN PRN Reason: Anxiety Last Admin: 05/19/21 12:26 Dose: 0.5 mg Documented by: Methylprednisolone Sodium Succinate (Methylprednisolone Sodium Succinate 40 Mg/1 Ml Sdv) 40 mg IVPUSH Q8H [facility] Last Admin: 05/19/21 12:25 Dose: 40 mg Documented by: Omeprazole (Omeprazole 20 Mg Cap.Cr) 20 mg PO ACBREAKFAST [facility] Last Admin: 05/19/21 07:21 Dose: 20 mg Documented by: Ondansetron HCl (Ondansetron 4 Mg/2 Ml Sdv) 4 mg IVPUSH Q4H PRN PRN Reason: Nausea Last Admin: 05/12/21 15:21 Dose: 4 mg Documented by: Verapamil 120 Mg Er (Tablet) 1 each PO DAILY [facility] Last Admin: 05/19/21 09:00 Dose: 1 each Documented by: Polyethylene Glycol (Polyethylene Glycol 3350 Powder 17 Gm Packet) 17 gm PO BEDTIME [facility] Last Admin: 05/18/21 20:05 Dose: 17 gm Documented by: Sodium Chloride (Sodium Chloride 0.9% 10 Ml Syringe) 10 ml FLUSH ASDIRECTED PRN PRN Reason: Keep Vein Open Last Admin: 05/04/21 17:39 Dose: 10 ml Documented by: Sodium Chloride (Sodium Chloride 0.9% 2.5 Ml Syringe) 2.5 ml FLUSH ASDIRECTED PRN PRN Reason: Keep Vein Open Last Admin: 05/04/21 17:36 Dose: 2.5 ml Documented by: Discontinued Medications Albuterol/Ipratropium (Albuterol/Ipratropium 4 Gm Inhalation [place]) 0 gm INH Q6HRRT [facility] Last Admin: 05/14/21 11:25 Dose: Not Given Documented by: Albuterol/Ipratropium (Albuterol/Ipratropium 3.0-0.5 Mg/3 Ml Neb Soln) 3 ml NEB Q4HRRT PRN PRN Reason: Shortness of Breath Stop: 05/14/21 18:00 Last Admin: 05/14/21 11:23 Dose: 3 ml Documented by: Albuterol/Ipratropium (Albuterol/Ipratropium 4 Gm Inhalation [place]) 0 gm INH Q6HRRT PRN PRN Reason: Shortness of Breath Baricitinib (Baricitinib 2 Mg Tab) 4 mg PO Q24H EBEN Last Admin: 05/17/21 14:32 Dose: 4 mg Documented by: Dexamethasone (Dexamethasone 10 Mg/Ml Sdv) 6 mg IVPUSH ONETIME ONE Stop: 05/04/21 19:27 Last Admin: 05/04/21 19:42 Dose: 6 mg Documented by: Dexamethasone (Dexamethasone 4 Mg Tab) 6 mg PO Q24H EBEN Last Admin: 05/05/21 04:14 Dose: Not Given Documented by: Dexamethasone (Dexamethasone 4 Mg Tab) 6 mg PO Q24H EBEN Last Admin: 05/15/21 20:06 Dose: 6 mg Documented by: Diphenhydramine HCl (Diphenhydramine 50 Mg/Ml Sdv) 25 mg IVPUSH ONETIME ONE Stop: 05/08/21 17:09 Last Admin: 05/08/21 17:24 Dose: 25 mg Documented by: Furosemide (Furosemide 20 Mg/2 Ml Vial) 20 mg IVPUSH NOW ONE Stop: 05/14/21 19:13 Last Admin: 05/14/21 19:45 Dose: 20 mg Documented by: Furosemide (Furosemide 20 Mg/2 Ml Vial) 20 mg IVPUSH NOW ONE Stop: 05/16/21 12:31 Last Admin: 05/16/21 12:37 Dose: 20 mg Documented by: Guaifenesin/Codeine Phosphate (Codeine/Guaifenesin 10-100 Mg/5 Ml Syrup 5 Ml Cup) 5 ml PO Q4H PRN PRN Reason: Cough Last Admin: 05/13/21 11:29 Dose: 5 ml Documented by: Sodium Chloride (Normal Saline) 500 mls @ 500 mls/hr IV .BOLUS STA Stop: 05/04/21 18:17 Last Admin: 05/04/21 17:39 Dose: 500 mls/hr Documented by: Remdesivir 200 mg/ Sodium (Chloride) 250 mls @ 250 mls/hr IV ONETIME ONE Stop: 05/04/21 19:26 Last Admin: 05/04/21 19:57 Dose: 250 mls/hr Documented by: Remdesivir 100 mg/ Sodium (Chloride) 100 mls @ 100 mls/hr IV Q24H [facility] Stop: 05/08/21 20:59 Last Admin: 05/08/21 19:48 Dose: 100 mls/hr Documented by: Levofloxacin/Dextrose 750 mg/ (Premix) 150 mls @ 100 mls/hr IV Q24H [facility] Levofloxacin/Dextrose 750 mg/ (Premix) 150 mls @ 100 mls/hr IV Q24H [facility] Stop: 05/17/21 17:31 Last Admin: 05/17/21 16:32 Dose: 100 mls/hr Documented by: Iopamidol (Iopamidol 755 Mg/Ml 500 Ml Multipack Bottle) 100 ml IVPUSH ONETIME ONE Stop: 05/04/21 18:36 Last Admin: 05/04/21 18:35 Dose: 100 ml Documented by: Lorazepam (Lorazepam 0.5 Mg Tab) 0.5 mg PO ONETIME ONE Stop: 05/18/21 13:22 Last Admin: 05/18/21 13:31 Dose: 0.5 mg Documented by: Morphine Sulfate (Morphine 2 Mg/Ml Syringe) 1 mg IVPUSH ONETIME ONE Stop: 05/15/21 00:20 Last Admin: 05/15/21 00:39 Dose: 1 mg Documented by: Nitrofurantoin Macrocrystals (Nitrofurantoin Macrocrystal 50 Mg Cap) 50 mg PO DAILY [facility] Last Admin: 05/08/21 08:56 Dose: 50 mg Documented by: Ondansetron HCl (Ondansetron 4 Mg/2 Ml Sdv) 4 mg IVPUSH ONETIME ONE Stop: 05/04/21 17:21 Last Admin: 05/04/21 17:39 Dose: 4 mg Documented by: Ondansetron HCl (Ondansetron 4 Mg/2 Ml Sdv) 4 mg IVPUSH ONETIME ONE Stop: 05/04/21 19:29 Last Admin: 05/04/21 19:42 Dose: 4 mg Documented by: Potassium Chloride (Potassium Chloride 20 Meq Tab.Er) 40 meq PO ONETIME ONE Stop: 05/06/21 08:16 Last Admin: 05/06/21 09:14 Dose: 40 meq Documented by: Verapamil HCl (Verapamil 240 Mg Tab.Er) 120 mg PO DAILY EBEN - Exam Urinary Catheter Total Time: 1Days 6Hours General: Alert, Oriented, Lethargic HEENT: Mucous Membr. Moist/[place] Neck: No: Lymphadenopathy Lungs: Other (Difficult to assess as patient is on heated high flow) Cardiovascular: Regular Rate, Regular Rhythm GI/Abdominal Exam: Normal Bowel Sounds, Soft, Non-Tender - Patient Data Lab Results Last 24 hrs: Laboratory Results - last 24 hr 05/19/21 05/19/21 05/19/21 Range/Units 05:25 05:25 12:50 WBC 12.61 H (4.0-11.0) K/uL RBC 5.18 (4.30-5.90) M/uL Hgb 15.2 (12.0-16.0) g/dL Hct 43.9 (36.0-46.0) % MCV 84.7 (80.0-98.0) fL MCH 29.3 (27.0-32.0) pg MCHC 34.6 (31.0-37.0) g/dL RDW Std Deviation 44.4 (28.0-62.0) fl RDW Coeff of Lito 15 (11.0-15.0) % Plt Count 282 (150-400) K/uL MPV 11.20 (7.40-12.00) fL Neut % (Auto) 89.9 H (48.0-80.0) % Lymph % (Auto) 4.1 L (16.0-40.0) % [place] % (Auto) 5.9 (0.0-15.0) % Eos % (Auto) 0.0 (0.0-7.0) % Baso % (Auto) 0.1 (0.0-1.5) % Neut # (Auto) 11.3 H (1.4-5.7) K/uL Lymph # (Auto) 0.5 L (0.6-2.4) K/uL [place] # (Auto) 0.7 (0.0-0.8) K/uL Eos # (Auto) 0.0 (0.0-0.7) K/uL Baso # (Auto) 0.0 (0.0-0.1) K/uL Nucleated RBC % 0.0 /100WBC Nucleated RBCs # 0 K/uL ABG pH 7.38 (7.35-7.45) ABG pCO2 43 (35-45) mmHG ABG pO2 90 (80-105) mmHG ABG HCO3 25 (22-26) mEq/L ABG Total CO2 27 (23-27) mmol/L ABG Base Excess 0.0 (-2.0-3.0) Sodium 137 (136-145) mmol/L Potassium 4.4 (3.5-5.1) mmol/L Chloride 104 (98-107) mmol/L Carbon Dioxide 23.5 (21.0-32.0) mmol/L BUN 38 H (7.0-18.0) mg/dL Creatinine 0.8 (0.6-1.0) mg/dL Est Cr Clr Drug Dosing 50.26 mL/min Estimated GFR (MDRD) > 60.0 ml/min Glucose 138 H (74-106) mg/dL Calcium 8.0 L (8.5-10.1) mg/dL Total Bilirubin 0.7 (0.2-1.0) mg/dL AST 81 H (15-37) IU/L ALT 250 H (14-63) IU/L Alkaline Phosphatase 151 H (46-116) U/L Total Protein 6.5 (6.4-8.2) g/dL Albumin 2.4 L (3.4-5.0) g/dL Globulin 4.1 H (2.6-4.0) g/dL Albumin/Globulin Ratio 0.6 L (0.9-1.6) Result Diagrams: 05/19/21 05:25 05/19/21 05:25 Sepsis Event Note - Evaluation Sepsis Screening Result: No Definite Risk - Focused Exam Vital Signs: Vital Signs Temp Resp BP Pulse Ox 05/19/21 14:56 97 F 15 120/66 94 L 05/19/21 14:00 97 F 26 H 119/60 89 L 05/19/21 13:00 97 F 19 114/68 90 L 05/19/21 11:48 97 F 17 111/67 92 L 05/19/21 11:00 97 F 17 110/62 92 L 05/19/21 10:00 97 F 18 130/69 92 L 05/19/21 09:00 97 F 18 133/67 86 L 05/19/21 08:00 97 F 36 H 106/61 76 L 05/19/21 07:00 21 H 129/71 82 L 05/19/21 06:00 26 H 106/34 L 87 L 05/19/21 05:00 26 H 116/59 L 89 L - Problem List & Annotations (1) HTN (hypertension) SNOMED Code(s): 88146129 Code(s): I10 - ESSENTIAL (PRIMARY) HYPERTENSION Status: Acute Current Visit: Yes (2) Acute respiratory failure with hypoxia SNOMED Code(s): 41836555, 274748821 Code(s): J96.01 - ACUTE RESPIRATORY FAILURE WITH HYPOXIA Status: Acute Current Visit: Yes (3) COVID-19 SNOMED Code(s): 643010172 Code(s): U07.1 - COVID-19 Status: Acute Current Visit: Yes - Problem List Review Problem List Initiated/Reviewed/Updated: Yes - My Orders Last 24 Hours: My Active Orders 05/19/21 09:40 LORazepam [Ativan] 0.5 mg IVPUSH Q2H PRN 05/19/21 15:00 Renew/Continue Urinary Catheter [OM.PC] Routine - Assessment Assessment:: 1. Acute respiratory failure secondary to COVID-19 pneumonia -Serenity, the patient's daughter has been updated on her mother's current clinical status including that she is on max heated high flow and if necessary may need to be transitioned to CPAP or BiPAP. -eICU physician Dr. Sorenson has recommended the patient stay on heated high flow for the next 24 hours as the switch to nasal cannula might just be transient decrease in O2 saturation. -Patient is currently on heated high flow 60 L with an FiO2 of 93%, currently saturating greater then 90%, will continue oxygen supply as needed -Continue the patient on Solu-Medrol 40 mg IV every 8 hours -Continue the patient on baricitinib 4 mg per oral route once a day -Continue to supply duo nebulizer/Combivent treatment as needed -Monitor patient labs through daily CBC/CMP 2. Hypertension -Continue with verapamil 125 mg extended release tablet 3. Constipation -Patient is on MiraLAX 17 g at bedtime <Zayda Lang - Last Filed: 05/20/21 19:00> - Patient Data Vitals - Most Recent: Last Vital Signs Temp 36.2 C 05/20/21 18:00 Pulse 78 05/20/21 11:30 Resp 25 H 05/20/21 18:00 BP 136/73 05/20/21 18:00 Pulse Ox 95 05/20/21 18:00 I&O - Last 24 Hours: Intake & Output 05/20/21 05/20/21 05/20/21 06:59 14:59 22:59 Intake Total Output Total 400 Balance -400 Lab Results Last 24 Hours: Laboratory Results - last 24 hr 05/20/21 05/20/21 05/20/21 Range/Units 02:50 02:50 02:50 WBC 16.27 H (4.0-11.0) K/uL RBC 5.31 (4.30-5.90) M/uL Hgb 15.4 (12.0-16.0) g/dL Hct 45.4 (36.0-46.0) % MCV 85.5 (80.0-98.0) fL MCH 29.0 (27.0-32.0) pg MCHC 33.9 (31.0-37.0) g/dL RDW Std Deviation 45.2 (28.0-62.0) fl RDW Coeff of Lito 14 (11.0-15.0) % Plt Count 244 (150-400) K/uL MPV 10.70 (7.40-12.00) fL Neut % (Auto) 93.5 H (48.0-80.0) % Lymph % (Auto) 1.9 L (16.0-40.0) % [place] % (Auto) 4.5 (0.0-15.0) % Eos % (Auto) 0.0 (0.0-7.0) % Baso % (Auto) 0.1 (0.0-1.5) % Neut # (Auto) 15.2 H (1.4-5.7) K/uL Lymph # (Auto) 0.3 L (0.6-2.4) K/uL [place] # (Auto) 0.7 (0.0-0.8) K/uL Eos # (Auto) 0.0 (0.0-0.7) K/uL Baso # (Auto) 0.0 (0.0-0.1) K/uL Nucleated RBC % 0.0 /100WBC Nucleated RBCs # 0 K/uL ABG pH (7.35-7.45) ABG pCO2 (35-45) mmHG ABG pO2 (80-105) mmHG ABG HCO3 (22-26) mEq/L ABG Total CO2 (23-27) mmol/L ABG Base Excess (-2.0-3.0) Sodium 138 (136-145) mmol/L Potassium 4.4 (3.5-5.1) mmol/L Chloride 105 (98-107) mmol/L Carbon Dioxide 25.6 (21.0-32.0) mmol/L BUN 50 H (7.0-18.0) mg/dL Creatinine 0.9 (0.6-1.0) mg/dL Est Cr Clr Drug Dosing 44.68 mL/min Estimated GFR (MDRD) > 60.0 ml/min Glucose 139 H (74-106) mg/dL Lactic Acid (0.4-2.0) mmol/L Calcium 8.0 L (8.5-10.1) mg/dL Magnesium (1.8-2.4) mg/dL Total Bilirubin 0.6 (0.2-1.0) mg/dL AST 58 H (15-37) IU/L ALT 236 H (14-63) IU/L Alkaline Phosphatase 146 H (46-116) U/L C-Reactive Protein <0.20 (0.00-0.90) mg/dL Total Protein 6.6 (6.4-8.2) g/dL Albumin 2.5 L (3.4-5.0) g/dL Globulin 4.1 H (2.6-4.0) g/dL Albumin/Globulin Ratio 0.6 L (0.9-1.6) 05/20/21 05/20/21 05/20/21 Range/Units 02:50 02:50 03:25 WBC (4.0-11.0) K/uL RBC (4.30-5.90) M/uL Hgb (12.0-16.0) g/dL Hct (36.0-46.0) % MCV (80.0-98.0) fL MCH (27.0-32.0) pg MCHC (31.0-37.0) g/dL RDW Std Deviation (28.0-62.0) fl RDW Coeff of [place] (11.0-15.0) % Plt Count (150-400) K/uL MPV (7.40-12.00) fL Neut % (Auto) (48.0-80.0) % Lymph % (Auto) (16.0-40.0) % [place] % (Auto) (0.0-15.0) % Eos % (Auto) (0.0-7.0) % Baso % (Auto) (0.0-1.5) % Neut # (Auto) (1.4-5.7) K/uL Lymph # (Auto) (0.6-2.4) K/uL [place] # (Auto) (0.0-0.8) K/uL Eos # (Auto) (0.0-0.7) K/uL Baso # (Auto) (0.0-0.1) K/uL Nucleated RBC % /100WBC Nucleated RBCs # K/uL ABG pH 7.38 (7.35-7.45) ABG pCO2 40 (35-45) mmHG ABG pO2 48 L (80-105) mmHG ABG HCO3 24 (22-26) mEq/L ABG Total CO2 21.0 L (23-27) mmol/L ABG Base Excess -1.1 (-2.0-3.0) Sodium (136-145) mmol/L Potassium (3.5-5.1) mmol/L Chloride (98-107) mmol/L Carbon Dioxide (21.0-32.0) mmol/L BUN (7.0-18.0) mg/dL Creatinine (0.6-1.0) mg/dL Est Cr Clr Drug Dosing mL/min Estimated GFR (MDRD) ml/min Glucose (74-106) mg/dL Lactic Acid 1.4 (0.4-2.0) mmol/L Calcium (8.5-10.1) mg/dL Magnesium 2.9 H (1.8-2.4) mg/dL Total Bilirubin (0.2-1.0) mg/dL AST (15-37) IU/L ALT (14-63) IU/L Alkaline Phosphatase (46-116) U/L C-Reactive Protein (0.00-0.90) mg/dL Total Protein (6.4-8.2) g/dL Albumin (3.4-5.0) g/dL Globulin (2.6-4.0) g/dL Albumin/Globulin Ratio (0.9-1.6) 05/20/21 Range/Units 16:20 WBC (4.0-11.0) K/uL RBC (4.30-5.90) M/uL Hgb (12.0-16.0) g/dL Hct (36.0-46.0) % MCV (80.0-98.0) fL MCH (27.0-32.0) pg MCHC (31.0-37.0) g/dL RDW Std Deviation (28.0-62.0) fl RDW Coeff of [place] (11.0-15.0) % Plt Count (150-400) K/uL MPV (7.40-12.00) fL Neut % (Auto) (48.0-80.0) % Lymph % (Auto) (16.0-40.0) % [place] % (Auto) (0.0-15.0) % Eos % (Auto) (0.0-7.0) % Baso % (Auto) (0.0-1.5) % Neut # (Auto) (1.4-5.7) K/uL Lymph # (Auto) (0.6-2.4) K/uL [place] # (Auto) (0.0-0.8) K/uL Eos # (Auto) (0.0-0.7) K/uL Baso # (Auto) (0.0-0.1) K/uL Nucleated RBC % /100WBC Nucleated RBCs # K/uL ABG pH 7.31 L (7.35-7.45) ABG pCO2 46 H (35-45) mmHG ABG pO2 61 L (80-105) mmHG ABG HCO3 23 (22-26) mEq/L ABG Total CO2 20.8 L (23-27) mmol/L ABG Base Excess -3.3 L (-2.0-3.0) Sodium (136-145) mmol/L Potassium (3.5-5.1) mmol/L Chloride (98-107) mmol/L Carbon Dioxide (21.0-32.0) mmol/L BUN (7.0-18.0) mg/dL Creatinine (0.6-1.0) mg/dL Est Cr Clr Drug Dosing mL/min Estimated GFR (MDRD) ml/min Glucose (74-106) mg/dL Lactic Acid (0.4-2.0) mmol/L Calcium (8.5-10.1) mg/dL Magnesium (1.8-2.4) mg/dL Total Bilirubin (0.2-1.0) mg/dL AST (15-37) IU/L ALT (14-63) IU/L Alkaline Phosphatase (46-116) U/L C-Reactive Protein (0.00-0.90) mg/dL Total Protein (6.4-8.2) g/dL Albumin (3.4-5.0) g/dL Globulin (2.6-4.0) g/dL Albumin/Globulin Ratio (0.9-1.6) Med Orders - Current: Current Medications Acetaminophen (Acetaminophen 325 Mg Tab) 650 mg PO Q4H PRN PRN Reason: Pain (Mild 1-3)/fever Last Admin: 05/19/21 11:11 Dose: 650 mg Documented by: Albuterol/Ipratropium (Albuterol/Ipratropium 3.0-0.5 Mg/3 Ml Neb Soln) 3 ml NEB Q4HRRT [facility] Last Admin: 05/20/21 16:42 Dose: Not Given Documented by: Baricitinib (Baricitinib 2 Mg Tab) 2 mg PO Q24H [facility] Last Admin: 05/20/21 16:44 Dose: Not Given Documented by: Bisacodyl (Bisacodyl 10 Mg Supp) 10 mg RECTAL DAILY PRN PRN Reason: Constipation Last Admin: 05/13/21 17:54 Dose: 10 mg Documented by: Docusate Sodium (Docusate Sodium 100 Mg Cap) 100 mg PO DAILY [facility] Last Admin: 05/20/21 14:28 Dose: Not Given Documented by: Enoxaparin Sodium (Enoxaparin 40 Mg/0.4 Ml Syringe) 40 mg SUBCUT Q24H EBEN Last Admin: 05/19/21 22:49 Dose: 40 mg Documented by: Fentanyl (Fentanyl 100 Mcg/2 Ml Sdv) 50 mcg IVPUSH Q1H PRN PRN Reason: Agitation Dexmedetomidine/Sodium (Chloride 400 mcg/ Premix) 100 mls @ 4.139 mls/hr IV TITRATE EBEN; Protocol Last Admin: 05/20/21 16:25 Dose: 1 mcg/kg/hr, 20.695 mls/hr Documented by: Levofloxacin/Dextrose 500 mg/ (Premix) 100 mls @ 100 mls/hr IV Q24H EBEN Last Admin: 05/20/21 03:05 Dose: 100 mls/hr Documented by: Pantoprazole Sodium 40 mg/ (Sodium Chloride) 10 mls @ 300 mls/hr IV DAILY EBEN Last Admin: 05/20/21 14:28 Dose: Not Given Documented by: Propofol (Diprivan 100 Ml) 100 mls @ 1.95 mls/hr IV TITRATE EBEN; Protocol Last Admin: 05/20/21 16:20 Dose: 100 mcg/kg/min, 39 mls/hr Documented by: Norepinephrine Bitartrate (Norepinephr-0.9% Nacl 4 Mg/250) 4 mg in 250 mls @ 7.5 mls/hr IV TITRATE EBEN; Protocol Last Titration: 05/20/21 15:00 Dose: 3 mcg/min, 11.25 mls/hr Documented by: Fentanyl Citrate 2,500 mcg/ (Premix) 250 mls @ 6.5 mls/hr IV TITRATE EBEN; Protocol Last Titration: 05/20/21 15:00 Dose: 1.15 mcg/kg/hr, 7.475 mls/hr Documented by: Methylprednisolone Sodium Succinate (Methylprednisolone Sodium Succinate 40 Mg/1 Ml Sdv) 40 mg IVPUSH Q8H EBEN Last Admin: 05/20/21 16:42 Dose: Not Given Documented by: Ondansetron HCl (Ondansetron 4 Mg/2 Ml Sdv) 4 mg IVPUSH Q4H PRN PRN Reason: Nausea Last Admin: 05/12/21 15:21 Dose: 4 mg Documented by: Polyethylene Glycol (Polyethylene Glycol 3350 Powder 17 Gm Packet) 17 gm PO BEDTIME [facility] Last Admin: 05/19/21 21:29 Dose: Not Given Documented by: Sodium Chloride (Sodium Chloride 0.9% 10 Ml Syringe) 10 ml FLUSH ASDIRECTED PRN PRN Reason: Keep Vein Open Last Admin: 05/04/21 17:39 Dose: 10 ml Documented by: Sodium Chloride (Sodium Chloride 0.9% 2.5 Ml Syringe) 2.5 ml FLUSH ASDIRECTED PRN PRN Reason: Keep Vein Open Last Admin: 05/04/21 17:36 Dose: 2.5 ml Documented by: Discontinued Medications Albuterol/Ipratropium (Albuterol/Ipratropium 4 Gm Inhalation [place]) 0 gm INH Q6HRRT EBEN Last Admin: 05/14/21 11:25 Dose: Not Given Documented by: Albuterol/Ipratropium (Albuterol/Ipratropium 3.0-0.5 Mg/3 Ml Neb Soln) 3 ml NEB Q4HRRT PRN PRN Reason: Shortness of Breath Stop: 05/14/21 18:00 Last Admin: 05/14/21 11:23 Dose: 3 ml Documented by: Albuterol/Ipratropium (Albuterol/Ipratropium 4 Gm Inhalation [place]) 0 gm INH Q6HRRT PRN PRN Reason: Shortness of Breath Albuterol/Ipratropium (Albuterol/Ipratropium 4 Gm Inhalation [place]) 0 gm INH Q4H PRN PRN Reason: Dyspnea Last Admin: 05/18/21 18:55 Dose: 1 puff Documented by: Baricitinib (Baricitinib 2 Mg Tab) 4 mg PO Q24H [facility] Last Admin: 05/17/21 14:32 Dose: 4 mg Documented by: Dexamethasone (Dexamethasone 10 Mg/Ml Sdv) 6 mg IVPUSH ONETIME ONE Stop: 05/04/21 19:27 Last Admin: 05/04/21 19:42 Dose: 6 mg Documented by: Dexamethasone (Dexamethasone 4 Mg Tab) 6 mg PO Q24H [facility] Last Admin: 05/05/21 04:14 Dose: Not Given Documented by: Dexamethasone (Dexamethasone 4 Mg Tab) 6 mg PO Q24H [facility] Last Admin: 05/15/21 20:06 Dose: 6 mg Documented by: Diphenhydramine HCl (Diphenhydramine 50 Mg/Ml Sdv) 25 mg IVPUSH ONETIME ONE Stop: 05/08/21 17:09 Last Admin: 05/08/21 17:24 Dose: 25 mg Documented by: Fentanyl (Fentanyl 100 Mcg/2 Ml Sdv) Confirm Administered Dose 100 mcg .ROUTE .STK-MED ONE Stop: 05/20/21 13:50 Last Admin: 05/20/21 16:43 Dose: Not Given Documented by: Furosemide (Furosemide 20 Mg/2 Ml Vial) 20 mg IVPUSH NOW ONE Stop: 05/14/21 19:13 Last Admin: 05/14/21 19:45 Dose: 20 mg Documented by: Furosemide (Furosemide 20 Mg/2 Ml Vial) 20 mg IVPUSH NOW ONE Stop: 05/16/21 12:31 Last Admin: 05/16/21 12:37 Dose: 20 mg Documented by: Guaifenesin/Codeine Phosphate (Codeine/Guaifenesin 10-100 Mg/5 Ml Syrup 5 Ml Cup) 5 ml PO Q4H PRN PRN Reason: Cough Last Admin: 05/13/21 11:29 Dose: 5 ml Documented by: Sodium Chloride (Normal Saline) 500 mls @ 500 mls/hr IV .BOLUS STA Stop: 05/04/21 18:17 Last Admin: 05/04/21 17:39 Dose: 500 mls/hr Documented by: Remdesivir 200 mg/ Sodium (Chloride) 250 mls @ 250 mls/hr IV ONETIME ONE Stop: 05/04/21 19:26 Last Admin: 05/04/21 19:57 Dose: 250 mls/hr Documented by: Remdesivir 100 mg/ Sodium (Chloride) 100 mls @ 100 mls/hr IV Q24H EBEN Stop: 05/08/21 20:59 Last Admin: 05/08/21 19:48 Dose: 100 mls/hr Documented by: Levofloxacin/Dextrose 750 mg/ (Premix) 150 mls @ 100 mls/hr IV Q24H EBEN Levofloxacin/Dextrose 750 mg/ (Premix) 150 mls @ 100 mls/hr IV Q24H EBEN Stop: 05/17/21 17:31 Last Admin: 05/17/21 16:32 Dose: 100 mls/hr Documented by: Propofol (Diprivan 100 Ml) Confirm Administered Dose 100 mls @ as directed .ROUTE .STK-MED ONE Stop: 05/20/21 09:50 Last Admin: 05/20/21 14:41 Dose: Not Given Documented by: Ibuprofen (Ibuprofen 200 Mg Tab) 200 mg PO Q6H PRN PRN Reason: Pain (mild 1-3) Iopamidol (Iopamidol 755 Mg/Ml 500 Ml Multipack Bottle) 100 ml IVPUSH ONETIME ONE Stop: 05/04/21 18:36 Last Admin: 05/04/21 18:35 Dose: 100 ml Documented by: Lidocaine (Lidocaine 2% 5 Ml Sdv) Confirm Administered Dose 5 ml .ROUTE .STK-MED ONE Stop: 05/20/21 09:26 Lorazepam (Lorazepam 0.5 Mg Tab) 0.5 mg PO ONETIME ONE Stop: 05/18/21 13:22 Last Admin: 05/18/21 13:31 Dose: 0.5 mg Documented by: Lorazepam (Lorazepam 2 Mg/Ml Sdv) 0.5 mg IVPUSH Q2H PRN PRN Reason: Anxiety Last Admin: 05/20/21 01:29 CDT Dose: 0.5 mg Documented by: Morphine Sulfate (Morphine 2 Mg/Ml Syringe) 1 mg IVPUSH ONETIME ONE Stop: 05/15/21 00:20 Last Admin: 05/15/21 00:39 Dose: 1 mg Documented by: Nitrofurantoin Macrocrystals (Nitrofurantoin Macrocrystal 50 Mg Cap) 50 mg PO DAILY [facility] Last Admin: 05/08/21 08:56 Dose: 50 mg Documented by: Omeprazole (Omeprazole 20 Mg Cap.Cr) 20 mg PO ACBREAKFAST [facility] Last Admin: 05/20/21 07:32 Dose: Not Given Documented by: Ondansetron HCl (Ondansetron 4 Mg/2 Ml Sdv) 4 mg IVPUSH ONETIME ONE Stop: 05/04/21 17:21 Last Admin: 05/04/21 17:39 Dose: 4 mg Documented by: Ondansetron HCl (Ondansetron 4 Mg/2 Ml Sdv) 4 mg IVPUSH ONETIME ONE Stop: 05/04/21 19:29 Last Admin: 05/04/21 19:42 Dose: 4 mg Documented by: Verapamil 120 Mg Er (Tablet) 1 each PO DAILY [facility] Last Admin: 05/20/21 17:15 Dose: Not Given Documented by: Potassium Chloride (Potassium Chloride 20 Meq Tab.Er) 40 meq PO ONETIME ONE Stop: 05/06/21 08:16 Last Admin: 05/06/21 09:14 Dose: 40 meq Documented by: Propofol (Propofol 200 Mg/20 Ml Sdv) Confirm Administered Dose 200 mg .ROUTE .STK-MED ONE Stop: 05/20/21 09:26 Rocuronium [place] (Rocuronium [place] 50 Mg/5 Ml Syringe) Confirm Administered Dose 50 mg .ROUTE .STK-MED ONE Stop: 05/20/21 09:26 Verapamil HCl (Verapamil 240 Mg Tab.Er) 120 mg PO DAILY [facility] - Patient Data Lab Results Last 24 hrs: Laboratory Results - last 24 hr 05/20/21 05/20/21 05/20/21 Range/Units 02:50 02:50 02:50 WBC 16.27 H (4.0-11.0) K/uL RBC 5.31 (4.30-5.90) M/uL Hgb 15.4 (12.0-16.0) g/dL Hct 45.4 (36.0-46.0) % MCV 85.5 (80.0-98.0) fL MCH 29.0 (27.0-32.0) pg MCHC 33.9 (31.0-37.0) g/dL RDW Std Deviation 45.2 (28.0-62.0) fl RDW Coeff of Lito 14 (11.0-15.0) % Plt Count 244 (150-400) K/uL MPV 10.70 (7.40-12.00) fL Neut % (Auto) 93.5 H (48.0-80.0) % Lymph % (Auto) 1.9 L (16.0-40.0) % [place] % (Auto) 4.5 (0.0-15.0) % Eos % (Auto) 0.0 (0.0-7.0) % Baso % (Auto) 0.1 (0.0-1.5) % Neut # (Auto) 15.2 H (1.4-5.7) K/uL Lymph # (Auto) 0.3 L (0.6-2.4) K/uL [place] # (Auto) 0.7 (0.0-0.8) K/uL Eos # (Auto) 0.0 (0.0-0.7) K/uL Baso # (Auto) 0.0 (0.0-0.1) K/uL Nucleated RBC % 0.0 /100WBC Nucleated RBCs # 0 K/uL ABG pH (7.35-7.45) ABG pCO2 (35-45) mmHG ABG pO2 (80-105) mmHG ABG HCO3 (22-26) mEq/L ABG Total CO2 (23-27) mmol/L ABG Base Excess (-2.0-3.0) Sodium 138 (136-145) mmol/L Potassium 4.4 (3.5-5.1) mmol/L Chloride 105 (98-107) mmol/L Carbon Dioxide 25.6 (21.0-32.0) mmol/L BUN 50 H (7.0-18.0) mg/dL Creatinine 0.9 (0.6-1.0) mg/dL Est Cr Clr Drug Dosing 44.68 mL/min Estimated GFR (MDRD) > 60.0 ml/min Glucose 139 H (74-106) mg/dL Lactic Acid (0.4-2.0) mmol/L Calcium 8.0 L (8.5-10.1) mg/dL Magnesium (1.8-2.4) mg/dL Total Bilirubin 0.6 (0.2-1.0) mg/dL AST 58 H (15-37) IU/L ALT 236 H (14-63) IU/L Alkaline Phosphatase 146 H (46-116) U/L C-Reactive Protein <0.20 (0.00-0.90) mg/dL Total Protein 6.6 (6.4-8.2) g/dL Albumin 2.5 L (3.4-5.0) g/dL Globulin 4.1 H (2.6-4.0) g/dL Albumin/Globulin Ratio 0.6 L (0.9-1.6) 05/20/21 05/20/21 05/20/21 Range/Units 02:50 02:50 03:25 WBC (4.0-11.0) K/uL RBC (4.30-5.90) M/uL Hgb (12.0-16.0) g/dL Hct (36.0-46.0) % MCV (80.0-98.0) fL MCH (27.0-32.0) pg MCHC (31.0-37.0) g/dL RDW Std Deviation (28.0-62.0) fl RDW Coeff of Lito (11.0-15.0) % Plt Count (150-400) K/uL MPV (7.40-12.00) fL Neut % (Auto) (48.0-80.0) % Lymph % (Auto) (16.0-40.0) % [place] % (Auto) (0.0-15.0) % Eos % (Auto) (0.0-7.0) % Baso % (Auto) (0.0-1.5) % Neut # (Auto) (1.4-5.7) K/uL Lymph # (Auto) (0.6-2.4) K/uL [place] # (Auto) (0.0-0.8) K/uL Eos # (Auto) (0.0-0.7) K/uL Baso # (Auto) (0.0-0.1) K/uL Nucleated RBC % /100WBC Nucleated RBCs # K/uL ABG pH 7.38 (7.35-7.45) ABG pCO2 40 (35-45) mmHG ABG pO2 48 L (80-105) mmHG ABG HCO3 24 (22-26) mEq/L ABG Total CO2 21.0 L (23-27) mmol/L ABG Base Excess -1.1 (-2.0-3.0) Sodium (136-145) mmol/L Potassium (3.5-5.1) mmol/L Chloride (98-107) mmol/L Carbon Dioxide (21.0-32.0) mmol/L BUN (7.0-18.0) mg/dL Creatinine (0.6-1.0) mg/dL Est Cr Clr Drug Dosing mL/min Estimated GFR (MDRD) ml/min Glucose (74-106) mg/dL Lactic Acid 1.4 (0.4-2.0) mmol/L Calcium (8.5-10.1) mg/dL Magnesium 2.9 H (1.8-2.4) mg/dL Total Bilirubin (0.2-1.0) mg/dL AST (15-37) IU/L ALT (14-63) IU/L Alkaline Phosphatase (46-116) U/L C-Reactive Protein (0.00-0.90) mg/dL Total Protein (6.4-8.2) g/dL Albumin (3.4-5.0) g/dL Globulin (2.6-4.0) g/dL Albumin/Globulin Ratio (0.9-1.6) 05/20/21 Range/Units 16:20 WBC (4.0-11.0) K/uL RBC (4.30-5.90) M/uL Hgb (12.0-16.0) g/dL Hct (36.0-46.0) % MCV (80.0-98.0) fL MCH (27.0-32.0) pg MCHC (31.0-37.0) g/dL RDW Std Deviation (28.0-62.0) fl RDW Coeff of Lito (11.0-15.0) % Plt Count (150-400) K/uL MPV (7.40-12.00) fL Neut % (Auto) (48.0-80.0) % Lymph % (Auto) (16.0-40.0) % [place] % (Auto) (0.0-15.0) % Eos % (Auto) (0.0-7.0) % Baso % (Auto) (0.0-1.5) % Neut # (Auto) (1.4-5.7) K/uL Lymph # (Auto) (0.6-2.4) K/uL [place] # (Auto) (0.0-0.8) K/uL Eos # (Auto) (0.0-0.7) K/uL Baso # (Auto) (0.0-0.1) K/uL Nucleated RBC % /100WBC Nucleated RBCs # K/uL ABG pH 7.31 L (7.35-7.45) ABG pCO2 46 H (35-45) mmHG ABG pO2 61 L (80-105) mmHG ABG HCO3 23 (22-26) mEq/L ABG Total CO2 20.8 L (23-27) mmol/L ABG Base Excess -3.3 L (-2.0-3.0) Sodium (136-145) mmol/L Potassium (3.5-5.1) mmol/L Chloride (98-107) mmol/L Carbon Dioxide (21.0-32.0) mmol/L BUN (7.0-18.0) mg/dL Creatinine (0.6-1.0) mg/dL Est Cr Clr Drug Dosing mL/min Estimated GFR (MDRD) ml/min Glucose (74-106) mg/dL Lactic Acid (0.4-2.0) mmol/L Calcium (8.5-10.1) mg/dL Magnesium (1.8-2.4) mg/dL Total Bilirubin (0.2-1.0) mg/dL AST (15-37) IU/L ALT (14-63) IU/L Alkaline Phosphatase (46-116) U/L C-Reactive Protein (0.00-0.90) mg/dL Total Protein (6.4-8.2) g/dL Albumin (3.4-5.0) g/dL Globulin (2.6-4.0) g/dL Albumin/Globulin Ratio (0.9-1.6) Result Diagrams: 05/20/21 02:50 05/20/21 02:50 Sepsis Event Note - Focused Exam Vital Signs: Vital Signs Temp Pulse Resp BP Pulse Ox Pulse Ox 05/20/21 18:00 36.2 C 25 H 136/73 95 05/20/21 17:00 36.2 C 25 H 135/75 93 L 05/20/21 16:00 36.2 C 25 H 133/75 93 L 05/20/21 15:00 36.2 C 25 H 130/74 92 L 05/20/21 14:00 36.2 C 25 H 116/69 87 L 05/20/21 13:00 36.2 C 25 H 129/76 90 L 05/20/21 12:00 36.2 C 25 H 130/73 93 L 92 L 05/20/21 11:30 78 92 L 05/20/21 11:00 36.2 C 22 H 115/70 88 L 05/20/21 10:00 36.2 C 35 H 89/52 L 87 L 05/20/21 09:00 36.2 C 25 H 93/63 84 L 05/20/21 08:00 36.2 C 36 H 99/59 L 83 L - Problem List & Annotations (1) Acute respiratory failure with hypoxia SNOMED Code(s): 18695818, 627913248 Code(s): J96.01 - ACUTE RESPIRATORY FAILURE WITH HYPOXIA Status: Acute Current Visit: Yes (2) COVID-19 SNOMED Code(s): 675399533 Code(s): U07.1 - COVID-19 Status: Acute Current Visit: Yes (3) Hypoxemia SNOMED Code(s): 951292334 Code(s): R09.02 - HYPOXEMIA Status: Acute Current Visit: Yes (4) Pneumonia due to COVID-19 virus SNOMED Code(s): 300675314484535893 Code(s): U07.1 - COVID-19; J12.82 - PNEUMONIA DUE TO CORONAVIRUS DISEASE 2019 Status: Acute Current Visit: Yes (5) Transaminitis SNOMED Code(s): 304206445, 984085054 Code(s): R74.01 - ELEVATION OF LEVELS OF LIVER TRANSAMINASE LEVELS Status: Acute Current Visit: Yes - My Orders Last 24 Hours: My Active Orders 05/20/21 09:30 Pantoprazole [ProTONIX IV] 40 mg Sodium Chloride 0.9% [Normal Saline] 10 ml IV DAILY 05/20/21 09:43 RASS Sedation Scale [RC] Q4H Desired Level of Sedation (RASS) [AST] Click To Edit 05/20/21 09:44 fentaNYL [Sublimaze] 50 mcg IVPUSH Q1H PRN 05/20/21 09:45 Norepinephrine Bit/0.9 % NaCl [Norepinephr-0.9% NaCl 4 mg/250] 4 mg in 250 ml IV TITRATE propofoL [Diprivan 100 ML] 100 ml IV TITRATE 05/20/21 15:54 Renew/Continue Urinary Catheter [OM.PC] Routine 05/21/21 05:11 MAGNESIUM [CHEM] AM PHOSPHORUS [CHEM] AM 05/22/21 05:11 MAGNESIUM [CHEM] AM PHOSPHORUS [CHEM] AM - Assessment Assessment:: I have seen and evaluated the patient. I have discussed findings and treatment plan with resident. I agree with the assessment and plan in the following note.
[2021-05-19] MEDS: Polyethylene Glycol 3350 Powder 17 GM Packet PO SCH (21:29)
[2021-05-19] MEDS: Enoxaparin 40 MG/0.4 ML Syringe SUBCUT SCH (22:49)
[2021-05-20] MEDS: Albuterol/Ipratropium 3.0-0.5 MG/3 ML Neb Soln NEB SCH ×5 (01:12→23:01)
[2021-05-20] MEDS: LORazepam 2 MG/ML SDV IVPUSH PRN (01:29)
--- NOTE | 2021-05-20 02:41 | PN ---
[facility] Physician - Brief Progress [id number]/07/2021 02:37[facility] Shamir Dillon, [place] - SHIVA (SHON) - SHIVA CALLAHANANNA SHRESTHA VEbenDate of Service 05/20/2021 02:37HPI/Events of Note eICU on-callPatient with COVID-19 pneumonia on high flow nasal cannula 60 L and 95% FiO2 rem ains hypoxic with oxygen saturation 84%.Patient is currently on Solu-Medrol and baricitinibWBC 12.9He modynamically stableRespiratory distressChart, labs and images reviewedChest x-ray bilateral pulmonar y infiltrates worse on the right sidePlan:-Start BiPAP 06/20, titrate FiO2 for oxygen saturation great er than 90%-Blood culture, sputum culture, CRP, procalcitonin, lactic acid-Start antibiotics levoflox acin 500 mg IV daily (patient is allergic to cephalosporin-hives)-ABG-Chest [id number] with beds fredis ICU nursing staffInterventions Major-Hypoxemia - evaluation and management, Infection - evaluatio n and management, Respiratory failure - evaluation and management
[2021-05-20] MEDS ORDERED: Levofloxacin/Dextrose 5%-Water 500 MG in Premix Bag 1 BAG IV SCH (03:00)
--- NOTE | 2021-05-20 03:36 | CR ---
Indication: Respiratory failure Technique: Chest 1 view Comparison: May 19, 2021 Findings/Impression: Stable cardiomediastinal silhouette. Normal pulmonary vasculature. Persistent patchy opacities in both lungs concerning for infection. No effusion or pneumothorax. Dictated by Meche Toledo MD @ 05/20/2021 3:35:09 AM (Electronically Signed)
[2021-05-20 03:39] LABS: BLOOD UREA NITROGEN,BUN 50 mg/dL (7.0-18.0); CARBON DIOXIDE,CO2 25.6 mmol/L (21.0-32.0); CHLORIDE,CL 105 mmol/L (98-107); GLUCOSE RANDOM 139 mg/dL (74-106); POTASSIUM,K 4.4 mmol/L (3.5-5.1); SODIUM,NA 138 mmol/L (136-145)
[2021-05-20] MEDS: methylPREDNISolone Sodium Succinate 40 MG/1 ML SDV IVPUSH SCH ×3 (04:05→21:26)
[2021-05-20] MEDS: Omeprazole 20 MG Cap.CR PO SCH (07:32)
--- NOTE | 2021-05-20 09:15 | PCM.PN ---
- General Info Date of Service: 05/20/21 Admission Dx/Problem (Free Text): Admission Diagnosis/Problem Admission Diagnosis/Problem Hypoxia Subjective Update: The patient is a 75-year-old female, on day 15 of service, with a significant past medical history of hypertension, who was admitted for COVID-19 pneumonia and is currently on BiPAP, Fi02 100% saturating 84 to 85%. Overnight events noted, patient has failed heated high flow, currently on maximum Precedex drip. Patient is barely maintaining oxygenation in mid 80s with FiO2 of 0.1. Patient has been tachypneic and anxious and seems to be tiring out. At this point decision has been made to intubate the patient given her inability to tolerate BiPAP and even minutes on she is barely satting in mid 80s. I spoke with patient's daughter Serenity over the phone and gave her the updates, Serenity was very tearful and emotional but understands the plan of care. I did explain to her that currently no ICU beds are available or free and it might take us another 24 to 48 hours to get the patient to higher level of care after being intubated. I also obtained a consent for a central line and arterial line if necessary. All the risks and benefits explained. Daughter is requesting FaceTime with her mom just so that she could see her, I told her I will try my best to accommodate her request. - Review of Systems Systems Review Comment:: Unable to obtain review of systems due to patient being sedated - Patient Data Vitals - Most Recent: Last Vital Signs Temp 36.2 C 05/20/21 03:21 Pulse 96 05/14/21 18:55 Resp 18 05/20/21 06:00 BP 95/58 L 05/20/21 06:00 Pulse Ox 93 L 05/20/21 06:00 Weight - Most Recent: 82.781 kg I&O - Last 24 Hours: Intake & Output 05/19/21 05/20/21 05/20/21 23:59 06:59 14:59 Intake Total Output Total Balance Lab Results Last 24 Hours: Laboratory Results - last 24 hr 05/19/21 05/20/21 05/20/21 Range/Units 12:50 02:50 02:50 WBC 16.27 H (4.0-11.0) K/uL RBC 5.31 (4.30-5.90) M/uL Hgb 15.4 (12.0-16.0) g/dL Hct 45.4 (36.0-46.0) % MCV 85.5 (80.0-98.0) fL MCH 29.0 (27.0-32.0) pg MCHC 33.9 (31.0-37.0) g/dL RDW Std Deviation 45.2 (28.0-62.0) fl RDW Coeff of Lito 14 (11.0-15.0) % Plt Count 244 (150-400) K/uL MPV 10.70 (7.40-12.00) fL Neut % (Auto) 93.5 H (48.0-80.0) % Lymph % (Auto) 1.9 L (16.0-40.0) % [place] % (Auto) 4.5 (0.0-15.0) % Eos % (Auto) 0.0 (0.0-7.0) % Baso % (Auto) 0.1 (0.0-1.5) % Neut # (Auto) 15.2 H (1.4-5.7) K/uL Lymph # (Auto) 0.3 L (0.6-2.4) K/uL [place] # (Auto) 0.7 (0.0-0.8) K/uL Eos # (Auto) 0.0 (0.0-0.7) K/uL Baso # (Auto) 0.0 (0.0-0.1) K/uL Nucleated RBC % 0.0 /100WBC Nucleated RBCs # 0 K/uL ABG pH 7.38 (7.35-7.45) ABG pCO2 43 (35-45) mmHG ABG pO2 90 (80-105) mmHG ABG HCO3 25 (22-26) mEq/L ABG Total CO2 27 (23-27) mmol/L ABG Base Excess 0.0 (-2.0-3.0) Sodium 138 (136-145) mmol/L Potassium 4.4 (3.5-5.1) mmol/L Chloride 105 (98-107) mmol/L Carbon Dioxide 25.6 (21.0-32.0) mmol/L BUN 50 H (7.0-18.0) mg/dL Creatinine 0.9 (0.6-1.0) mg/dL Est Cr Clr Drug Dosing 44.68 mL/min Estimated GFR (MDRD) > 60.0 ml/min Glucose 139 H (74-106) mg/dL Lactic Acid (0.4-2.0) mmol/L Calcium 8.0 L (8.5-10.1) mg/dL Magnesium (1.8-2.4) mg/dL Total Bilirubin 0.6 (0.2-1.0) mg/dL AST 58 H (15-37) IU/L ALT 236 H (14-63) IU/L Alkaline Phosphatase 146 H (46-116) U/L C-Reactive Protein (0.00-0.90) mg/dL Total Protein 6.6 (6.4-8.2) g/dL Albumin 2.5 L (3.4-5.0) g/dL Globulin 4.1 H (2.6-4.0) g/dL Albumin/Globulin Ratio 0.6 L (0.9-1.6) 05/20/21 05/20/21 05/20/21 Range/Units 02:50 02:50 02:50 WBC (4.0-11.0) K/uL RBC (4.30-5.90) M/uL Hgb (12.0-16.0) g/dL Hct (36.0-46.0) % MCV (80.0-98.0) fL MCH (27.0-32.0) pg MCHC (31.0-37.0) g/dL RDW Std Deviation (28.0-62.0) fl RDW Coeff of Lito (11.0-15.0) % Plt Count (150-400) K/uL MPV (7.40-12.00) fL Neut % (Auto) (48.0-80.0) % Lymph % (Auto) (16.0-40.0) % [place] % (Auto) (0.0-15.0) % Eos % (Auto) (0.0-7.0) % Baso % (Auto) (0.0-1.5) % Neut # (Auto) (1.4-5.7) K/uL Lymph # (Auto) (0.6-2.4) K/uL [place] # (Auto) (0.0-0.8) K/uL Eos # (Auto) (0.0-0.7) K/uL Baso # (Auto) (0.0-0.1) K/uL Nucleated RBC % /100WBC Nucleated RBCs # K/uL ABG pH (7.35-7.45) ABG pCO2 (35-45) mmHG ABG pO2 (80-105) mmHG ABG HCO3 (22-26) mEq/L ABG Total CO2 (23-27) mmol/L ABG Base Excess (-2.0-3.0) Sodium (136-145) mmol/L Potassium (3.5-5.1) mmol/L Chloride (98-107) mmol/L Carbon Dioxide (21.0-32.0) mmol/L BUN (7.0-18.0) mg/dL Creatinine (0.6-1.0) mg/dL Est Cr Clr Drug Dosing mL/min Estimated GFR (MDRD) ml/min Glucose (74-106) mg/dL Lactic Acid 1.4 (0.4-2.0) mmol/L Calcium (8.5-10.1) mg/dL Magnesium 2.9 H (1.8-2.4) mg/dL Total Bilirubin (0.2-1.0) mg/dL AST (15-37) IU/L ALT (14-63) IU/L Alkaline Phosphatase (46-116) U/L C-Reactive Protein <0.20 (0.00-0.90) mg/dL Total Protein (6.4-8.2) g/dL Albumin (3.4-5.0) g/dL Globulin (2.6-4.0) g/dL Albumin/Globulin Ratio (0.9-1.6) 05/20/21 Range/Units 03:25 WBC (4.0-11.0) K/uL RBC (4.30-5.90) M/uL Hgb (12.0-16.0) g/dL Hct (36.0-46.0) % MCV (80.0-98.0) fL MCH (27.0-32.0) pg MCHC (31.0-37.0) g/dL RDW Std Deviation (28.0-62.0) fl RDW Coeff of Lito (11.0-15.0) % Plt Count (150-400) K/uL MPV (7.40-12.00) fL Neut % (Auto) (48.0-80.0) % Lymph % (Auto) (16.0-40.0) % [place] % (Auto) (0.0-15.0) % Eos % (Auto) (0.0-7.0) % Baso % (Auto) (0.0-1.5) % Neut # (Auto) (1.4-5.7) K/uL Lymph # (Auto) (0.6-2.4) K/uL [place] # (Auto) (0.0-0.8) K/uL Eos # (Auto) (0.0-0.7) K/uL Baso # (Auto) (0.0-0.1) K/uL Nucleated RBC % /100WBC Nucleated RBCs # K/uL ABG pH 7.38 (7.35-7.45) ABG pCO2 40 (35-45) mmHG ABG pO2 48 L (80-105) mmHG ABG HCO3 24 (22-26) mEq/L ABG Total CO2 21.0 L (23-27) mmol/L ABG Base Excess -1.1 (-2.0-3.0) Sodium (136-145) mmol/L Potassium (3.5-5.1) mmol/L Chloride (98-107) mmol/L Carbon Dioxide (21.0-32.0) mmol/L BUN (7.0-18.0) mg/dL Creatinine (0.6-1.0) mg/dL Est Cr Clr Drug Dosing mL/min Estimated GFR (MDRD) ml/min Glucose (74-106) mg/dL Lactic Acid (0.4-2.0) mmol/L Calcium (8.5-10.1) mg/dL Magnesium (1.8-2.4) mg/dL Total Bilirubin (0.2-1.0) mg/dL AST (15-37) IU/L ALT (14-63) IU/L Alkaline Phosphatase (46-116) U/L C-Reactive Protein (0.00-0.90) mg/dL Total Protein (6.4-8.2) g/dL Albumin (3.4-5.0) g/dL Globulin (2.6-4.0) g/dL Albumin/Globulin Ratio (0.9-1.6) Med Orders - Current: Current Medications Acetaminophen (Acetaminophen 325 Mg Tab) 650 mg PO Q4H PRN PRN Reason: Pain (Mild 1-3)/fever Last Admin: 05/19/21 11:11 Dose: 650 mg Documented by: Albuterol/Ipratropium (Albuterol/Ipratropium 3.0-0.5 Mg/3 Ml Neb Soln) 3 ml NEB Q4HRRT [facility] Last Admin: 05/20/21 06:55 Dose: 3 ml Documented by: Albuterol/Ipratropium (Albuterol/Ipratropium 4 Gm Inhalation [place]) 0 gm INH Q4H PRN PRN Reason: Dyspnea Last Admin: 05/18/21 18:55 Dose: 1 puff Documented by: Baricitinib (Baricitinib 2 Mg Tab) 2 mg PO Q24H [facility] Last Admin: 05/19/21 14:00 Dose: 2 mg Documented by: Bisacodyl (Bisacodyl 10 Mg Supp) 10 mg RECTAL DAILY PRN PRN Reason: Constipation Last Admin: 05/13/21 17:54 Dose: 10 mg Documented by: Docusate Sodium (Docusate Sodium 100 Mg Cap) 100 mg PO DAILY [facility] Last Admin: 05/19/21 09:00 Dose: 100 mg Documented by: Enoxaparin Sodium (Enoxaparin 40 Mg/0.4 Ml Syringe) 40 mg SUBCUT Q24H [facility] Last Admin: 05/19/21 22:49 Dose: 40 mg Documented by: Dexmedetomidine/Sodium (Chloride 400 mcg/ Premix) 100 mls @ 4.139 mls/hr IV TITRATE [facility]; Protocol Last Titration: 05/20/21 07:10 Dose: 0.6 mcg/kg/hr, 12.417 mls/hr Documented by: Levofloxacin/Dextrose 500 mg/ (Premix) 100 mls @ 100 mls/hr IV Q24H [facility] Last Admin: 05/20/21 03:05 Dose: 100 mls/hr Documented by: Ibuprofen (Ibuprofen 200 Mg Tab) 200 mg PO Q6H PRN PRN Reason: Pain (mild 1-3) Lorazepam (Lorazepam 2 Mg/Ml Sdv) 0.5 mg IVPUSH Q2H PRN PRN Reason: Anxiety Last Admin: 05/20/21 01:29 CDT Dose: 0.5 mg Documented by: Methylprednisolone Sodium Succinate (Methylprednisolone Sodium Succinate 40 Mg/1 Ml Sdv) 40 mg IVPUSH Q8H [facility] Last Admin: 05/20/21 04:05 Dose: 40 mg Documented by: Omeprazole (Omeprazole 20 Mg Cap.Cr) 20 mg PO ACBREAKFAST [facility] Last Admin: 05/20/21 07:32 Dose: Not Given Documented by: Ondansetron HCl (Ondansetron 4 Mg/2 Ml Sdv) 4 mg IVPUSH Q4H PRN PRN Reason: Nausea Last Admin: 05/12/21 15:21 Dose: 4 mg Documented by: Verapamil 120 Mg Er (Tablet) 1 each PO DAILY [facility] Last Admin: 05/19/21 09:00 Dose: 1 each Documented by: Polyethylene Glycol (Polyethylene Glycol 3350 Powder 17 Gm Packet) 17 gm PO BEDTIME [facility] Last Admin: 05/19/21 21:29 Dose: Not Given Documented by: Sodium Chloride (Sodium Chloride 0.9% 10 Ml Syringe) 10 ml FLUSH ASDIRECTED PRN PRN Reason: Keep Vein Open Last Admin: 05/04/21 17:39 Dose: 10 ml Documented by: Sodium Chloride (Sodium Chloride 0.9% 2.5 Ml Syringe) 2.5 ml FLUSH ASDIRECTED PRN PRN Reason: Keep Vein Open Last Admin: 05/04/21 17:36 Dose: 2.5 ml Documented by: Discontinued Medications Albuterol/Ipratropium (Albuterol/Ipratropium 4 Gm Inhalation [place]) 0 gm INH Q6HRRT [facility] Last Admin: 05/14/21 11:25 Dose: Not Given Documented by: Albuterol/Ipratropium (Albuterol/Ipratropium 3.0-0.5 Mg/3 Ml Neb Soln) 3 ml NEB Q4HRRT PRN PRN Reason: Shortness of Breath Stop: 05/14/21 18:00 Last Admin: 05/14/21 11:23 Dose: 3 ml Documented by: Albuterol/Ipratropium (Albuterol/Ipratropium 4 Gm Inhalation [place]) 0 gm INH Q6HRRT PRN PRN Reason: Shortness of Breath Baricitinib (Baricitinib 2 Mg Tab) 4 mg PO Q24H [facility] Last Admin: 05/17/21 14:32 Dose: 4 mg Documented by: Dexamethasone (Dexamethasone 10 Mg/Ml Sdv) 6 mg IVPUSH ONETIME ONE Stop: 05/04/21 19:27 Last Admin: 05/04/21 19:42 Dose: 6 mg Documented by: Dexamethasone (Dexamethasone 4 Mg Tab) 6 mg PO Q24H [facility] Last Admin: 05/05/21 04:14 Dose: Not Given Documented by: Dexamethasone (Dexamethasone 4 Mg Tab) 6 mg PO Q24H [facility] Last Admin: 05/15/21 20:06 Dose: 6 mg Documented by: Diphenhydramine HCl (Diphenhydramine 50 Mg/Ml Sdv) 25 mg IVPUSH ONETIME ONE Stop: 05/08/21 17:09 Last Admin: 05/08/21 17:24 Dose: 25 mg Documented by: Furosemide (Furosemide 20 Mg/2 Ml Vial) 20 mg IVPUSH NOW ONE Stop: 05/14/21 19:13 Last Admin: 05/14/21 19:45 Dose: 20 mg Documented by: Furosemide (Furosemide 20 Mg/2 Ml Vial) 20 mg IVPUSH NOW ONE Stop: 05/16/21 12:31 Last Admin: 05/16/21 12:37 Dose: 20 mg Documented by: Guaifenesin/Codeine Phosphate (Codeine/Guaifenesin 10-100 Mg/5 Ml Syrup 5 Ml Cup) 5 ml PO Q4H PRN PRN Reason: Cough Last Admin: 05/13/21 11:29 Dose: 5 ml Documented by: Sodium Chloride (Normal Saline) 500 mls @ 500 mls/hr IV .BOLUS STA Stop: 05/04/21 18:17 Last Admin: 05/04/21 17:39 Dose: 500 mls/hr Documented by: Remdesivir 200 mg/ Sodium (Chloride) 250 mls @ 250 mls/hr IV ONETIME ONE Stop: 05/04/21 19:26 Last Admin: 05/04/21 19:57 Dose: 250 mls/hr Documented by: Remdesivir 100 mg/ Sodium (Chloride) 100 mls @ 100 mls/hr IV Q24H [facility] Stop: 05/08/21 20:59 Last Admin: 05/08/21 19:48 Dose: 100 mls/hr Documented by: Levofloxacin/Dextrose 750 mg/ (Premix) 150 mls @ 100 mls/hr IV Q24H [facility] Levofloxacin/Dextrose 750 mg/ (Premix) 150 mls @ 100 mls/hr IV Q24H [facility] Stop: 05/17/21 17:31 Last Admin: 05/17/21 16:32 Dose: 100 mls/hr Documented by: Iopamidol (Iopamidol 755 Mg/Ml 500 Ml Multipack Bottle) 100 ml IVPUSH ONETIME ONE Stop: 05/04/21 18:36 Last Admin: 05/04/21 18:35 Dose: 100 ml Documented by: Lorazepam (Lorazepam 0.5 Mg Tab) 0.5 mg PO ONETIME ONE Stop: 05/18/21 13:22 Last Admin: 05/18/21 13:31 Dose: 0.5 mg Documented by: Morphine Sulfate (Morphine 2 Mg/Ml Syringe) 1 mg IVPUSH ONETIME ONE Stop: 05/15/21 00:20 Last Admin: 05/15/21 00:39 Dose: 1 mg Documented by: Nitrofurantoin Macrocrystals (Nitrofurantoin Macrocrystal 50 Mg Cap) 50 mg PO DAILY [facility] Last Admin: 05/08/21 08:56 Dose: 50 mg Documented by: Ondansetron HCl (Ondansetron 4 Mg/2 Ml Sdv) 4 mg IVPUSH ONETIME ONE Stop: 05/04/21 17:21 Last Admin: 05/04/21 17:39 Dose: 4 mg Documented by: Ondansetron HCl (Ondansetron 4 Mg/2 Ml Sdv) 4 mg IVPUSH ONETIME ONE Stop: 05/04/21 19:29 Last Admin: 05/04/21 19:42 Dose: 4 mg Documented by: Potassium Chloride (Potassium Chloride 20 Meq Tab.Er) 40 meq PO ONETIME ONE Stop: 05/06/21 08:16 Last Admin: 05/06/21 09:14 Dose: 40 meq Documented by: Verapamil HCl (Verapamil 240 Mg Tab.Er) 120 mg PO DAILY [facility] - Exam Quality Assessment: Supplemental Oxygen Urinary Catheter Total Time: 1Days 22Hours General: Moderate Distress. No: Alert, Oriented Neck: Supple Lungs: Decreased Breath Sounds, Crackles, Rales Cardiovascular: Regular Rhythm, Bradycardia GI/Abdominal Exam: Normal Bowel Sounds, Soft, Non-Tender Extremities: Normal Inspection, No Pedal Edema Skin: Warm, Dry Neurological: No New Focal Deficit Psy/Mental Status: Anxious - Patient Data Lab Results Last 24 hrs: Laboratory Results - last 24 hr 05/19/21 05/20/21 05/20/21 Range/Units 12:50 02:50 02:50 WBC 16.27 H (4.0-11.0) K/uL RBC 5.31 (4.30-5.90) M/uL Hgb 15.4 (12.0-16.0) g/dL Hct 45.4 (36.0-46.0) % MCV 85.5 (80.0-98.0) fL MCH 29.0 (27.0-32.0) pg MCHC 33.9 (31.0-37.0) g/dL RDW Std Deviation 45.2 (28.0-62.0) fl RDW Coeff of Lito 14 (11.0-15.0) % Plt Count 244 (150-400) K/uL MPV 10.70 (7.40-12.00) fL Neut % (Auto) 93.5 H (48.0-80.0) % Lymph % (Auto) 1.9 L (16.0-40.0) % [place] % (Auto) 4.5 (0.0-15.0) % Eos % (Auto) 0.0 (0.0-7.0) % Baso % (Auto) 0.1 (0.0-1.5) % Neut # (Auto) 15.2 H (1.4-5.7) K/uL Lymph # (Auto) 0.3 L (0.6-2.4) K/uL [place] # (Auto) 0.7 (0.0-0.8) K/uL Eos # (Auto) 0.0 (0.0-0.7) K/uL Baso # (Auto) 0.0 (0.0-0.1) K/uL Nucleated RBC % 0.0 /100WBC Nucleated RBCs # 0 K/uL ABG pH 7.38 (7.35-7.45) ABG pCO2 43 (35-45) mmHG ABG pO2 90 (80-105) mmHG ABG HCO3 25 (22-26) mEq/L ABG Total CO2 27 (23-27) mmol/L ABG Base Excess 0.0 (-2.0-3.0) Sodium 138 (136-145) mmol/L Potassium 4.4 (3.5-5.1) mmol/L Chloride 105 (98-107) mmol/L Carbon Dioxide 25.6 (21.0-32.0) mmol/L BUN 50 H (7.0-18.0) mg/dL Creatinine 0.9 (0.6-1.0) mg/dL Est Cr Clr Drug Dosing 44.68 mL/min Estimated GFR (MDRD) > 60.0 ml/min Glucose 139 H (74-106) mg/dL Lactic Acid (0.4-2.0) mmol/L Calcium 8.0 L (8.5-10.1) mg/dL Magnesium (1.8-2.4) mg/dL Total Bilirubin 0.6 (0.2-1.0) mg/dL AST 58 H (15-37) IU/L ALT 236 H (14-63) IU/L Alkaline Phosphatase 146 H (46-116) U/L C-Reactive Protein (0.00-0.90) mg/dL Total Protein 6.6 (6.4-8.2) g/dL Albumin 2.5 L (3.4-5.0) g/dL Globulin 4.1 H (2.6-4.0) g/dL Albumin/Globulin Ratio 0.6 L (0.9-1.6) 05/20/21 05/20/21 05/20/21 Range/Units 02:50 02:50 02:50 WBC (4.0-11.0) K/uL RBC (4.30-5.90) M/uL Hgb (12.0-16.0) g/dL Hct (36.0-46.0) % MCV (80.0-98.0) fL MCH (27.0-32.0) pg MCHC (31.0-37.0) g/dL RDW Std Deviation (28.0-62.0) fl RDW Coeff of Lito (11.0-15.0) % Plt Count (150-400) K/uL MPV (7.40-12.00) fL Neut % (Auto) (48.0-80.0) % Lymph % (Auto) (16.0-40.0) % [place] % (Auto) (0.0-15.0) % Eos % (Auto) (0.0-7.0) % Baso % (Auto) (0.0-1.5) % Neut # (Auto) (1.4-5.7) K/uL Lymph # (Auto) (0.6-2.4) K/uL [place] # (Auto) (0.0-0.8) K/uL Eos # (Auto) (0.0-0.7) K/uL Baso # (Auto) (0.0-0.1) K/uL Nucleated RBC % /100WBC Nucleated RBCs # K/uL ABG pH (7.35-7.45) ABG pCO2 (35-45) mmHG ABG pO2 (80-105) mmHG ABG HCO3 (22-26) mEq/L ABG Total CO2 (23-27) mmol/L ABG Base Excess (-2.0-3.0) Sodium (136-145) mmol/L Potassium (3.5-5.1) mmol/L Chloride (98-107) mmol/L Carbon Dioxide (21.0-32.0) mmol/L BUN (7.0-18.0) mg/dL Creatinine (0.6-1.0) mg/dL Est Cr Clr Drug Dosing mL/min Estimated GFR (MDRD) ml/min Glucose (74-106) mg/dL Lactic Acid 1.4 (0.4-2.0) mmol/L Calcium (8.5-10.1) mg/dL Magnesium 2.9 H (1.8-2.4) mg/dL Total Bilirubin (0.2-1.0) mg/dL AST (15-37) IU/L ALT (14-63) IU/L Alkaline Phosphatase (46-116) U/L C-Reactive Protein <0.20 (0.00-0.90) mg/dL Total Protein (6.4-8.2) g/dL Albumin (3.4-5.0) g/dL Globulin (2.6-4.0) g/dL Albumin/Globulin Ratio (0.9-1.6) 05/20/21 Range/Units 03:25 WBC (4.0-11.0) K/uL RBC (4.30-5.90) M/uL Hgb (12.0-16.0) g/dL Hct (36.0-46.0) % MCV (80.0-98.0) fL MCH (27.0-32.0) pg MCHC (31.0-37.0) g/dL RDW Std Deviation (28.0-62.0) fl RDW Coeff of Lito (11.0-15.0) % Plt Count (150-400) K/uL MPV (7.40-12.00) fL Neut % (Auto) (48.0-80.0) % Lymph % (Auto) (16.0-40.0) % [place] % (Auto) (0.0-15.0) % Eos % (Auto) (0.0-7.0) % Baso % (Auto) (0.0-1.5) % Neut # (Auto) (1.4-5.7) K/uL Lymph # (Auto) (0.6-2.4) K/uL [place] # (Auto) (0.0-0.8) K/uL Eos # (Auto) (0.0-0.7) K/uL Baso # (Auto) (0.0-0.1) K/uL Nucleated RBC % /100WBC Nucleated RBCs # K/uL ABG pH 7.38 (7.35-7.45) ABG pCO2 40 (35-45) mmHG ABG pO2 48 L (80-105) mmHG ABG HCO3 24 (22-26) mEq/L ABG Total CO2 21.0 L (23-27) mmol/L ABG Base Excess -1.1 (-2.0-3.0) Sodium (136-145) mmol/L Potassium (3.5-5.1) mmol/L Chloride (98-107) mmol/L Carbon Dioxide (21.0-32.0) mmol/L BUN (7.0-18.0) mg/dL Creatinine (0.6-1.0) mg/dL Est Cr Clr Drug Dosing mL/min Estimated GFR (MDRD) ml/min Glucose (74-106) mg/dL Lactic Acid (0.4-2.0) mmol/L Calcium (8.5-10.1) mg/dL Magnesium (1.8-2.4) mg/dL Total Bilirubin (0.2-1.0) mg/dL AST (15-37) IU/L ALT (14-63) IU/L Alkaline Phosphatase (46-116) U/L C-Reactive Protein (0.00-0.90) mg/dL Total Protein (6.4-8.2) g/dL Albumin (3.4-5.0) g/dL Globulin (2.6-4.0) g/dL Albumin/Globulin Ratio (0.9-1.6) Result Diagrams: 05/20/21 02:50 05/20/21 02:50 Sepsis Event Note - Evaluation Sepsis Screening Result: Sepsis Risk - Focused Exam Vital Signs: Vital Signs Temp Resp BP Pulse Ox 05/20/21 06:00 18 95/58 L 93 L 05/20/21 05:00 20 99/58 L 96 05/20/21 04:23 18 90/48 L 95 05/20/21 03:21 36.2 C 24 H 96/55 L 87 L 05/20/21 03:00 24 H 96/55 L 87 L 05/20/21 02:00 39 H 108/69 86 L 05/20/21 01:00 GROUP LEADER 19 104/60 87 L 05/20/21 01:00 CDT 18 97/62 89 L 05/20/21 00:00 36.1 C 18 90/52 L 89 L 05/19/21 23:00 19 96/42 L 88 L - Problem List & Annotations (1) Acute respiratory failure with hypoxia SNOMED Code(s): 41624508, 328646087 Code(s): J96.01 - ACUTE RESPIRATORY FAILURE WITH HYPOXIA Status: Acute Current Visit: Yes (2) COVID-19 SNOMED Code(s): 423852021 Code(s): U07.1 - COVID-19 Status: Acute Current Visit: Yes (3) Hypoxemia SNOMED Code(s): 679903146 Code(s): R09.02 - HYPOXEMIA Status: Acute Current Visit: Yes (4) Pneumonia due to COVID-19 virus SNOMED Code(s): 409553653169951264 Code(s): U07.1 - COVID-19; J12.82 - PNEUMONIA DUE TO CORONAVIRUS DISEASE 2019 Status: Acute Current Visit: Yes (5) Transaminitis SNOMED Code(s): 562758876, 857347171 Code(s): R74.01 - ELEVATION OF LEVELS OF LIVER TRANSAMINASE LEVELS Status: Acute Current Visit: Yes - Problem List Review Problem List Initiated/Reviewed/Updated: Yes - My Orders Last 24 Hours: My Active Orders 05/19/21 12:15 dexmedeTOMIDine in 0.9 % NaCL [Precedex] 400 mcg Premix Bag 1 bag IV TITRATE - Assessment Assessment:: 1. Acute respiratory failure secondary to COVID-19 pneumonia -Repeat chest x-ray noted, ABG noted -Continue respiratory support with BiPAP 3 patient is intubated, anesthesia has been called, family updated -Continue the patient on Solu-Medrol 40 mg IV every 8 hours -Continue the patient on baricitinib 4 mg per oral route once a day -Continue to supply duo nebulizer/Combivent treatment as needed -Patient has been started on levofloxacin to cover for underlying bacterial pneumonia although I highly doubt patient has superimposed bacterial infection at this point -Repeat ABG 1 hour post intubation -Monitor patient labs through daily CBC/CMP 2. Hypertension -Hold antihypertensives due to hypotension secondary to Precedex 3. Constipation -Patient is on MiraLAX 17 g at bedtime - Plan Plan:: I have seen and evaluated the patient and agree with the residents note unless specified in my note
[2021-05-20] MEDS ORDERED: Propofol 200 MG/20 ML SDV ONE (09:25)
[2021-05-20] MEDS ORDERED: Rocuronium Bromide 50 MG/5 ML Syringe ONE (09:25)
[2021-05-20] MEDS ORDERED: Lidocaine 2% 5 ML SDV ONE (09:25)
[2021-05-20] MEDS ORDERED: Pantoprazole 40 MG in Sodium Chloride 0.9% 10 ML IV SCH (09:30)
[2021-05-20] MEDS ORDERED: fentaNYL 100 MCG/2 ML SDV IVPUSH PRN (09:44)
[2021-05-20] MEDS ORDERED: propofoL 100 ML ONE (09:49)
--- NOTE | 2021-05-20 10:36 | PN ---
[facility] Physician - Brief Progress [id number]/07/2021 10:35[facility] Shamir Dillon, [place] - ESTUARDON (SHON) - MWN ANNA GUY V.Date of Service 05/20/2021 10:35HPI/Events of Note eICU Progress [id number] admitted for respiratory failure attributed to COVID. History obtained from review of EMR and discussion with bedside RN over camera. Patient intubated today AM, eICU aske d to discuss case with bedside staff over cameraCamera exam: Laying in bed. Vitals monitor reviewed. eICU Recommendations:Per reported height of ~63in in EMR, PBW 52kg, 6cc/kg ~310ccInitial vent setting s: TV 310cc, RR 25, PEEP 14, FiO2 titrated to keep sats >92% - settings communicated to bedside RN ov er camera, orders placed in EMRPer report anesthesia services plan to place arterial line, central li ne - ABG order placed for when arterial line complete, would obtain CXR once central line in placeTit ration of FiO2 to maintain O2 saturation >92%Recommend implementation of ventilator quality bundle: o ral cares BID (order placed), DVT and GI prophylaxis (on enoxaparin and pantoprazole), and maintainin g head of bed at 30 degrees (order placed)IV fentanyl for analgesia (order placed), propofol for jose tion (order already placed by bedside), titrated to target RASS goal of -4, as well as to ventilator synchronyeICU will continue to follow and assist as desired.DVT and GI prophylaxis as appropriate.Camron nk you for allowing us to participate in the care of this patient.The above note transcribed with the assistance of dictation software. Please excuse any errors.Interventions Major-Respiratory failure - evaluation and management
[2021-05-20] MEDS ORDERED: fentaNYL/Normal Saline 2,500 MCG in Premix Bag 1 BAG IV SCH (10:45)
[2021-05-20] MEDS: propofoL 100 ML IV SCH ×3 (12:35→20:18)
--- NOTE | 2021-05-20 12:45 | PCM.PR.ETI ---
Endotracheal Intubation - Endotracheal Intubation Time of Intubation: 10:13 ET Intubation Indication: Respiratory Failure Preparation: Suction, Balloon Tested, BVM Set Up, Difficult Airway Equip Airway Assessment: Obese Pre-Oxygenation: Assisted with BVM, 100% FiO2 Anesthesia Meds: Propofol (150 mg), Rocuronium (50 mg) Placement: Orotracheal, Cuffed, Uncomplicated Placement Cords Visualized: Yes, Grade 1 ETT Size In mm: 7.0 ([place] scope #3) Number of Attempts: 1 Confirmed By: CO2 Indicator, Bilateral Breath Sounds, Chest Xray Tube Secured By: By RT (secured at 22cm at lip)
--- NOTE | 2021-05-20 12:48 | PCM.PR.CLI ---
Central Line Insertion - Central Line Insertion Site: internal jugular (R) Prep: CDC/MBT Guidelines, Sterile Drapes, Chlorhexidine Lumen: triple Gauge: 7Fr Local Anesthesia - Lidocaine (Xylocaine): 1% Plain Local Anesthetic Volume: 1cc Ultrasound guided: Yes CL Complications: No Secured with suture: Yes Post placement confirmation: CXR, all ports aspirated, all ports flushed CXR post-procedure: no pneumothorax, no hemothorax (2 attempts both on right side. 1st attempt guide wire wouldn't pass. Obtained new kit and redraped for second attempt.) Dressing applied: by provider, chlorhexidine disc used, op-site dressing
--- NOTE | 2021-05-20 12:57 | PCM.SN.2 ---
- Free Text/Narrative Note: Arterial line placement: Attempted placing in left radial artery with ultrasound but went through the artery and there was a large hematoma. Pressure was held at the site for several minutes. Second attempt on right side after prepping with chloraprep successful with 20 ga arrow catheter to right radial artery. Secured with tegaderm and armboard. Good waveform after zeroing. Pt. sedated due to recent intubation. VSS.
--- NOTE | 2021-05-20 13:41 | PCM.SN.2 ---
- Free Text/Narrative Note: After reviewing chest x-ray and seeing central line placement being a little bit too far in I pulled back the central line 3-4 cm and re-secured with a new tegaderm. I also placed a 14 fr OG tube because the NG I placed earlier was not in the stomach. Chest x-ray was repeated and placement was confirmed for the ETT, central line, and OG tube.
[2021-05-20] MEDS ORDERED: fentaNYL 100 MCG/2 ML SDV ONE (13:49)
--- NOTE | 2021-05-20 13:59 | PN ---
THC Physician - Brief Progress [id number]/07/2021 13:58[facility] [place] Ochoa sandrineShamir, DONTAE - SHIVA (SHON) - ANNA BAUTISTA V.Date of Service 05/20/2021 13:58HPI/Events of Note eICU Update NoteNotified patient hypoxic, with request for eICU evaluation. On review of ruth t patient appears dysynchronous, which is likely cause of hypoxia. Bedside to initiate fentanyl drip, titrate up propofol and dexmedetomidine as needed/able.Interventions Major-Respiratory failure - vale luation and management
[2021-05-20] MEDS: Docusate Sodium 100 MG Cap PO SCH (14:28)
--- NOTE | 2021-05-20 14:53 | CR ---
INDICATION: Line placement. TECHNIQUE: Chest 1 view. COMPARISON: 05/20/2021 performed at 3:09 a.m. FINDINGS and impression: An endotracheal tube terminates at the level of the clavicles approximately 4.5 cm above the flavio. An enteric catheter is coiled overlying the stomach. A right central venous catheter with tip in the mid to distal SVC. Heart is not enlarged. Mediastinal contour is normal. Essentially stable interstitial and patchy airspace opacities in the right mid to lower lung zone and to a lesser degree in the upper lobe. Similar appearing passively is in the left mid to lower lung zone. Findings may reflect an atypical infectious or inflammatory process such as COVID-19 pneumonia. No pneumothorax identified. No sizable pleural effusion identified. Dictated by Ambrose Montiel MD @ 05/20/2021 2:52:18 PM (Electronically Signed)
--- NOTE | 2021-05-20 15:07 | CR ---
Indication: Intubation and central line placement. Technique: Chest 1 view. Comparison: 05/20/2021 at 1509 hours. Findings/Impression: Cardiovascular and mediastinum: Endotracheal tube is 2 cm above the flavio. Right IJ central line is at the junction of the SVC and right atrium. Heart size is normal. Lungs and pleural space: Persistent bilateral lower lung infiltrates are unchanged. No significant effusion and no pneumothorax. Bones and soft tissues: No acute findings. Dictated by Alvino Goetz MD @ 05/20/2021 3:06:02 PM (Electronically Signed)
[2021-05-20] MEDS: VERAPAMIL 120 MG PO SCH (17:15)
--- NOTE | 2021-05-20 19:08 | PCM.DCSUM1 ---
Discharge Summary - Discharge Data Discharge Date: 05/20/21 Discharge Disposition: DC/Tfer to Acute Hospital 02 Condition: Stable - Referral to Home Health Primary Care Physician: America Jung DO - Discharge Diagnosis/Problem(s) (1) Acute respiratory failure with hypoxia SNOMED Code(s): 85488372, 237431142 ICD Code: J96.01 - ACUTE RESPIRATORY FAILURE WITH HYPOXIA Status: Acute Current Visit: Yes (2) COVID-19 SNOMED Code(s): 226491744 ICD Code: U07.1 - COVID-19 Status: Acute Current Visit: Yes (3) Hypoxemia SNOMED Code(s): 561406362 ICD Code: R09.02 - HYPOXEMIA Status: Acute Current Visit: Yes (4) Pneumonia due to COVID-19 virus SNOMED Code(s): 088133991840277931 ICD Code: U07.1 - COVID-19; J12.82 - PNEUMONIA DUE TO CORONAVIRUS DISEASE 2018 Status: Acute Current Visit: Yes (5) Transaminitis SNOMED Code(s): 800580378, 637378654 ICD Code: R74.01 - ELEVATION OF LEVELS OF LIVER TRANSAMINASE LEVELS Status: Acute Current Visit: Yes - Patient Summary/Data Consults: Consultations 05/17/21 14:25 Consult to Physical Therapy [PT Evaluation and Treatment] [CONS] Routine - Discharge Plan Home Medications: Home Meds Verapamil HCl [Verapamil ER] 120 mg PO DAILY 02/11/20 [History] Calcium Carbonate/Vitamin D3 [Calcium 500 + Vit D 400] 1 each PO DAILY 30 Days #30 tablet 02/15/20 [Rx] Esomeprazole Magnesium [Nexium] 20 mg PO ACBREAKFAST 05/04/21 [History] nitrofurantoin macrocrystaL [Nitrofurantoin] 50 mg PO DAILY 05/04/21 [History] Patient Handouts: COVID-19, Hypoxemia, Hyponatremia, [id number], Hypokalemia, 10 Things You Can Do to Manage Your COVID-19 Symptoms at Home - [facility] (01/26/2021), Frequently Asked Questions About COVID-19 Vaccination - [facility] (03/16/2021), Acute Respiratory Failure, Adult, Infection Prevention in the Home, COVID-19: Quarantine vs. Isolation - [facility] (06/29/2020) Referrals: America Jung DO [Primary Care Provider] - 05/21/21 10:30 am - Patient Data Vitals - Most Recent: Last Vital Signs Temp 36.2 C 05/20/21 18:00 Pulse 78 05/20/21 11:30 Resp 25 H 05/20/21 18:00 BP 136/73 05/20/21 18:00 Pulse Ox 95 05/20/21 18:00 Weight - Most Recent: 82 kg I&O - Last 24 hours: Intake & Output 05/20/21 05/20/21 05/20/21 06:59 14:59 22:59 Intake Total Output Total 400 Balance -400 Lab Results - Last 24 hrs: Laboratory Results - last 24 hr 05/20/21 05/20/21 05/20/21 Range/Units 02:50 02:50 02:50 WBC 16.27 H (4.0-11.0) K/uL RBC 5.31 (4.30-5.90) M/uL Hgb 15.4 (12.0-16.0) g/dL Hct 45.4 (36.0-46.0) % MCV 85.5 (80.0-98.0) fL MCH 29.0 (27.0-32.0) pg MCHC 33.9 (31.0-37.0) g/dL RDW Std Deviation 45.2 (28.0-62.0) fl RDW Coeff of Lito 14 (11.0-15.0) % Plt Count 244 (150-400) K/uL MPV 10.70 (7.40-12.00) fL Neut % (Auto) 93.5 H (48.0-80.0) % Lymph % (Auto) 1.9 L (16.0-40.0) % [place] % (Auto) 4.5 (0.0-15.0) % Eos % (Auto) 0.0 (0.0-7.0) % Baso % (Auto) 0.1 (0.0-1.5) % Neut # (Auto) 15.2 H (1.4-5.7) K/uL Lymph # (Auto) 0.3 L (0.6-2.4) K/uL [place] # (Auto) 0.7 (0.0-0.8) K/uL Eos # (Auto) 0.0 (0.0-0.7) K/uL Baso # (Auto) 0.0 (0.0-0.1) K/uL Nucleated RBC % 0.0 /100WBC Nucleated RBCs # 0 K/uL ABG pH (7.35-7.45) ABG pCO2 (35-45) mmHG ABG pO2 (80-105) mmHG ABG HCO3 (22-26) mEq/L ABG Total CO2 (23-27) mmol/L ABG Base Excess (-2.0-3.0) Sodium 138 (136-145) mmol/L Potassium 4.4 (3.5-5.1) mmol/L Chloride 105 (98-107) mmol/L Carbon Dioxide 25.6 (21.0-32.0) mmol/L BUN 50 H (7.0-18.0) mg/dL Creatinine 0.9 (0.6-1.0) mg/dL Est Cr Clr Drug Dosing 44.68 mL/min Estimated GFR (MDRD) > 60.0 ml/min Glucose 139 H (74-106) mg/dL Lactic Acid (0.4-2.0) mmol/L Calcium 8.0 L (8.5-10.1) mg/dL Magnesium (1.8-2.4) mg/dL Total Bilirubin 0.6 (0.2-1.0) mg/dL AST 58 H (15-37) IU/L ALT 236 H (14-63) IU/L Alkaline Phosphatase 146 H (46-116) U/L C-Reactive Protein <0.20 (0.00-0.90) mg/dL Total Protein 6.6 (6.4-8.2) g/dL Albumin 2.5 L (3.4-5.0) g/dL Globulin 4.1 H (2.6-4.0) g/dL Albumin/Globulin Ratio 0.6 L (0.9-1.6) 05/20/21 05/20/21 05/20/21 Range/Units 02:50 02:50 03:25 WBC (4.0-11.0) K/uL RBC (4.30-5.90) M/uL Hgb (12.0-16.0) g/dL Hct (36.0-46.0) % MCV (80.0-98.0) fL MCH (27.0-32.0) pg MCHC (31.0-37.0) g/dL RDW Std Deviation (28.0-62.0) fl RDW Coeff of Lito (11.0-15.0) % Plt Count (150-400) K/uL MPV (7.40-12.00) fL Neut % (Auto) (48.0-80.0) % Lymph % (Auto) (16.0-40.0) % [place] % (Auto) (0.0-15.0) % Eos % (Auto) (0.0-7.0) % Baso % (Auto) (0.0-1.5) % Neut # (Auto) (1.4-5.7) K/uL Lymph # (Auto) (0.6-2.4) K/uL [place] # (Auto) (0.0-0.8) K/uL Eos # (Auto) (0.0-0.7) K/uL Baso # (Auto) (0.0-0.1) K/uL Nucleated RBC % /100WBC Nucleated RBCs # K/uL ABG pH 7.38 (7.35-7.45) ABG pCO2 40 (35-45) mmHG ABG pO2 48 L (80-105) mmHG ABG HCO3 24 (22-26) mEq/L ABG Total CO2 21.0 L (23-27) mmol/L ABG Base Excess -1.1 (-2.0-3.0) Sodium (136-145) mmol/L Potassium (3.5-5.1) mmol/L Chloride (98-107) mmol/L Carbon Dioxide (21.0-32.0) mmol/L BUN (7.0-18.0) mg/dL Creatinine (0.6-1.0) mg/dL Est Cr Clr Drug Dosing mL/min Estimated GFR (MDRD) ml/min Glucose (74-106) mg/dL Lactic Acid 1.4 (0.4-2.0) mmol/L Calcium (8.5-10.1) mg/dL Magnesium 2.9 H (1.8-2.4) mg/dL Total Bilirubin (0.2-1.0) mg/dL AST (15-37) IU/L ALT (14-63) IU/L Alkaline Phosphatase (46-116) U/L C-Reactive Protein (0.00-0.90) mg/dL Total Protein (6.4-8.2) g/dL Albumin (3.4-5.0) g/dL Globulin (2.6-4.0) g/dL Albumin/Globulin Ratio (0.9-1.6) 05/20/21 Range/Units 16:20 WBC (4.0-11.0) K/uL RBC (4.30-5.90) M/uL Hgb (12.0-16.0) g/dL Hct (36.0-46.0) % MCV (80.0-98.0) fL MCH (27.0-32.0) pg MCHC (31.0-37.0) g/dL RDW Std Deviation (28.0-62.0) fl RDW Coeff of Lito (11.0-15.0) % Plt Count (150-400) K/uL MPV (7.40-12.00) fL Neut % (Auto) (48.0-80.0) % Lymph % (Auto) (16.0-40.0) % [place] % (Auto) (0.0-15.0) % Eos % (Auto) (0.0-7.0) % Baso % (Auto) (0.0-1.5) % Neut # (Auto) (1.4-5.7) K/uL Lymph # (Auto) (0.6-2.4) K/uL [place] # (Auto) (0.0-0.8) K/uL Eos # (Auto) (0.0-0.7) K/uL Baso # (Auto) (0.0-0.1) K/uL Nucleated RBC % /100WBC Nucleated RBCs # K/uL ABG pH 7.31 L (7.35-7.45) ABG pCO2 46 H (35-45) mmHG ABG pO2 61 L (80-105) mmHG ABG HCO3 23 (22-26) mEq/L ABG Total CO2 20.8 L (23-27) mmol/L ABG Base Excess -3.3 L (-2.0-3.0) Sodium (136-145) mmol/L Potassium (3.5-5.1) mmol/L Chloride (98-107) mmol/L Carbon Dioxide (21.0-32.0) mmol/L BUN (7.0-18.0) mg/dL Creatinine (0.6-1.0) mg/dL Est Cr Clr Drug Dosing mL/min Estimated GFR (MDRD) ml/min Glucose (74-106) mg/dL Lactic Acid (0.4-2.0) mmol/L Calcium (8.5-10.1) mg/dL Magnesium (1.8-2.4) mg/dL Total Bilirubin (0.2-1.0) mg/dL AST (15-37) IU/L ALT (14-63) IU/L Alkaline Phosphatase (46-116) U/L C-Reactive Protein (0.00-0.90) mg/dL Total Protein (6.4-8.2) g/dL Albumin (3.4-5.0) g/dL Globulin (2.6-4.0) g/dL Albumin/Globulin Ratio (0.9-1.6) Med Orders - Current: Current Medications Acetaminophen (Acetaminophen 325 Mg Tab) 650 mg PO Q4H PRN PRN Reason: Pain (Mild 1-3)/fever Last Admin: 05/19/21 11:11 Dose: 650 mg Documented by: Albuterol/Ipratropium (Albuterol/Ipratropium 3.0-0.5 Mg/3 Ml Neb Soln) 3 ml NEB Q4HRRT [facility] Last Admin: 05/20/21 16:42 Dose: Not Given Documented by: Baricitinib (Baricitinib 2 Mg Tab) 2 mg PO Q24H [facility] Last Admin: 05/20/21 16:44 Dose: Not Given Documented by: Bisacodyl (Bisacodyl 10 Mg Supp) 10 mg RECTAL DAILY PRN PRN Reason: Constipation Last Admin: 05/13/21 17:54 Dose: 10 mg Documented by: Docusate Sodium (Docusate Sodium 100 Mg Cap) 100 mg PO DAILY [facility] Last Admin: 05/20/21 14:28 Dose: Not Given Documented by: Enoxaparin Sodium (Enoxaparin 40 Mg/0.4 Ml Syringe) 40 mg SUBCUT Q24H [facility] Last Admin: 05/19/21 22:49 Dose: 40 mg Documented by: Fentanyl (Fentanyl 100 Mcg/2 Ml Sdv) 50 mcg IVPUSH Q1H PRN PRN Reason: Agitation Dexmedetomidine/Sodium (Chloride 400 mcg/ Premix) 100 mls @ 4.139 mls/hr IV TITRATE EBEN; Protocol Last Admin: 05/20/21 16:25 Dose: 1 mcg/kg/hr, 20.695 mls/hr Documented by: Levofloxacin/Dextrose 500 mg/ (Premix) 100 mls @ 100 mls/hr IV Q24H [facility] Last Admin: 05/20/21 03:05 Dose: 100 mls/hr Documented by: Pantoprazole Sodium 40 mg/ (Sodium Chloride) 10 mls @ 300 mls/hr IV DAILY [facility] Last Admin: 05/20/21 14:28 Dose: Not Given Documented by: Propofol (Diprivan 100 Ml) 100 mls @ 1.95 mls/hr IV TITRATE EBEN; Protocol Last Admin: 05/20/21 16:20 Dose: 100 mcg/kg/min, 39 mls/hr Documented by: Norepinephrine Bitartrate (Norepinephr-0.9% Nacl 4 Mg/250) 4 mg in 250 mls @ 7.5 mls/hr IV TITRATE EBEN; Protocol Last Titration: 05/20/21 15:00 Dose: 3 mcg/min, 11.25 mls/hr Documented by: Fentanyl Citrate 2,500 mcg/ (Premix) 250 mls @ 6.5 mls/hr IV TITRATE EBEN; Protocol Last Titration: 05/20/21 15:00 Dose: 1.15 mcg/kg/hr, 7.475 mls/hr Documented by: Methylprednisolone Sodium Succinate (Methylprednisolone Sodium Succinate 40 Mg/1 Ml Sdv) 40 mg IVPUSH Q8H [facility] Last Admin: 05/20/21 16:42 Dose: Not Given Documented by: Ondansetron HCl (Ondansetron 4 Mg/2 Ml Sdv) 4 mg IVPUSH Q4H PRN PRN Reason: Nausea Last Admin: 05/12/21 15:21 Dose: 4 mg Documented by: Polyethylene Glycol (Polyethylene Glycol 3350 Powder 17 Gm Packet) 17 gm PO BEDTIME [facility] Last Admin: 05/19/21 21:29 Dose: Not Given Documented by: Sodium Chloride (Sodium Chloride 0.9% 10 Ml Syringe) 10 ml FLUSH ASDIRECTED PRN PRN Reason: Keep Vein Open Last Admin: 05/04/21 17:39 Dose: 10 ml Documented by: Sodium Chloride (Sodium Chloride 0.9% 2.5 Ml Syringe) 2.5 ml FLUSH ASDIRECTED PRN PRN Reason: Keep Vein Open Last Admin: 05/04/21 17:36 Dose: 2.5 ml Documented by: Discontinued Medications Albuterol/Ipratropium (Albuterol/Ipratropium 4 Gm Inhalation [place]) 0 gm INH Q6HRRT EB[facility] Last Admin: 05/14/21 11:25 Dose: Not Given Documented by: Albuterol/Ipratropium (Albuterol/Ipratropium 3.0-0.5 Mg/3 Ml Neb Soln) 3 ml NEB Q4HRRT PRN PRN Reason: Shortness of Breath Stop: 05/14/21 18:00 Last Admin: 05/14/21 11:23 Dose: 3 ml Documented by: Albuterol/Ipratropium (Albuterol/Ipratropium 4 Gm Inhalation [place]) 0 gm INH Q6HRRT PRN PRN Reason: Shortness of Breath Albuterol/Ipratropium (Albuterol/Ipratropium 4 Gm Inhalation [place]) 0 gm INH Q4H PRN PRN Reason: Dyspnea Last Admin: 05/18/21 18:55 Dose: 1 puff Documented by: Baricitinib (Baricitinib 2 Mg Tab) 4 mg PO Q24H [facility] Last Admin: 05/17/21 14:32 Dose: 4 mg Documented by: Dexamethasone (Dexamethasone 10 Mg/Ml Sdv) 6 mg IVPUSH ONETIME ONE Stop: 05/04/21 19:27 Last Admin: 05/04/21 19:42 Dose: 6 mg Documented by: Dexamethasone (Dexamethasone 4 Mg Tab) 6 mg PO Q24H [facility] Last Admin: 05/05/21 04:14 Dose: Not Given Documented by: Dexamethasone (Dexamethasone 4 Mg Tab) 6 mg PO Q24H [facility] Last Admin: 05/15/21 20:06 Dose: 6 mg Documented by: Diphenhydramine HCl (Diphenhydramine 50 Mg/Ml Sdv) 25 mg IVPUSH ONETIME ONE Stop: 05/08/21 17:09 Last Admin: 05/08/21 17:24 Dose: 25 mg Documented by: Fentanyl (Fentanyl 100 Mcg/2 Ml Sdv) Confirm Administered Dose 100 mcg .ROUTE .STK-MED ONE Stop: 05/20/21 13:50 Last Admin: 05/20/21 16:43 Dose: Not Given Documented by: Furosemide (Furosemide 20 Mg/2 Ml Vial) 20 mg IVPUSH NOW ONE Stop: 05/14/21 19:13 Last Admin: 05/14/21 19:45 Dose: 20 mg Documented by: Furosemide (Furosemide 20 Mg/2 Ml Vial) 20 mg IVPUSH NOW ONE Stop: 05/16/21 12:31 Last Admin: 05/16/21 12:37 Dose: 20 mg Documented by: Guaifenesin/Codeine Phosphate (Codeine/Guaifenesin 10-100 Mg/5 Ml Syrup 5 Ml Cup) 5 ml PO Q4H PRN PRN Reason: Cough Last Admin: 05/13/21 11:29 Dose: 5 ml Documented by: Sodium Chloride (Normal Saline) 500 mls @ 500 mls/hr IV .BOLUS STA Stop: 05/04/21 18:17 Last Admin: 05/04/21 17:39 Dose: 500 mls/hr Documented by: Remdesivir 200 mg/ Sodium (Chloride) 250 mls @ 250 mls/hr IV ONETIME ONE Stop: 05/04/21 19:26 Last Admin: 05/04/21 19:57 Dose: 250 mls/hr Documented by: Remdesivir 100 mg/ Sodium (Chloride) 100 mls @ 100 mls/hr IV Q24H EBEN Stop: 05/08/21 20:59 Last Admin: 05/08/21 19:48 Dose: 100 mls/hr Documented by: Levofloxacin/Dextrose 750 mg/ (Premix) 150 mls @ 100 mls/hr IV Q24H EB[facility] Levofloxacin/Dextrose 750 mg/ (Premix) 150 mls @ 100 mls/hr IV Q24H [facility] Stop: 05/17/21 17:31 Last Admin: 05/17/21 16:32 Dose: 100 mls/hr Documented by: Propofol (Diprivan 100 Ml) Confirm Administered Dose 100 mls @ as directed .ROUTE .STK-MED ONE Stop: 05/20/21 09:50 Last Admin: 05/20/21 14:41 Dose: Not Given Documented by: Ibuprofen (Ibuprofen 200 Mg Tab) 200 mg PO Q6H PRN PRN Reason: Pain (mild 1-3) Iopamidol (Iopamidol 755 Mg/Ml 500 Ml Multipack Bottle) 100 ml IVPUSH ONETIME ONE Stop: 05/04/21 18:36 Last Admin: 05/04/21 18:35 Dose: 100 ml Documented by: Lidocaine (Lidocaine 2% 5 Ml Sdv) Confirm Administered Dose 5 ml .ROUTE .STK-MED ONE Stop: 05/20/21 09:26 Lorazepam (Lorazepam 0.5 Mg Tab) 0.5 mg PO ONETIME ONE Stop: 05/18/21 13:22 Last Admin: 05/18/21 13:31 Dose: 0.5 mg Documented by: Lorazepam (Lorazepam 2 Mg/Ml Sdv) 0.5 mg IVPUSH Q2H PRN PRN Reason: Anxiety Last Admin: 05/20/21 01:29 CDT Dose: 0.5 mg Documented by: Morphine Sulfate (Morphine 2 Mg/Ml Syringe) 1 mg IVPUSH ONETIME ONE Stop: 05/15/21 00:20 Last Admin: 05/15/21 00:39 Dose: 1 mg Documented by: Nitrofurantoin Macrocrystals (Nitrofurantoin Macrocrystal 50 Mg Cap) 50 mg PO DAILY [facility] Last Admin: 05/08/21 08:56 Dose: 50 mg Documented by: Omeprazole (Omeprazole 20 Mg Cap.Cr) 20 mg PO ACBREAKFAST [facility] Last Admin: 05/20/21 07:32 Dose: Not Given Documented by: Ondansetron HCl (Ondansetron 4 Mg/2 Ml Sdv) 4 mg IVPUSH ONETIME ONE Stop: 05/04/21 17:21 Last Admin: 05/04/21 17:39 Dose: 4 mg Documented by: Ondansetron HCl (Ondansetron 4 Mg/2 Ml Sdv) 4 mg IVPUSH ONETIME ONE Stop: 05/04/21 19:29 Last Admin: 05/04/21 19:42 Dose: 4 mg Documented by: Verapamil 120 Mg Er (Tablet) 1 each PO DAILY [facility] Last Admin: 05/20/21 17:15 Dose: Not Given Documented by: Potassium Chloride (Potassium Chloride 20 Meq Tab.Er) 40 meq PO ONETIME ONE Stop: 05/06/21 08:16 Last Admin: 05/06/21 09:14 Dose: 40 meq Documented by: Propofol (Propofol 200 Mg/20 Ml Sdv) Confirm Administered Dose 200 mg .ROUTE .STK-MED ONE Stop: 05/20/21 09:26 Rocuronium [place] (Rocuronium [place] 50 Mg/5 Ml Syringe) Confirm Administered Dose 50 mg .ROUTE .STK-MED ONE Stop: 05/20/21 09:26 Verapamil HCl (Verapamil 240 Mg Tab.Er) 120 mg PO DAILY [facility] Discharge Operative/Procedures - Procedures Performed Intubation Indication: Respiratory Failure
[2021-05-20] MEDS: Polyethylene Glycol 3350 Powder 17 GM Packet PO SCH (23:01)
== END 2021-05-20 22:07 | DRG 208 ==
LOC: MW.ED 16:57 → MW.MS 19:28 → MW.ICU 05-14 14:55
PROVIDERS: ADMIT Internal Medicine; ATTEND Internal Medicine
PROC: XW033E5 Introduction of Remdesivir Anti-infective into Peripheral Vein, Percutaneous Approach, New Technology Group 5 (ICD-10-PCS; principal; 2021-05-04)
PROC: XW0DXM6 Introduction of Baricitinib into Mouth and Pharynx, External Approach, New Technology Group 6 (ICD-10-PCS; 2021-05-04)
PROC: 3E0333Z Introduction of Anti-inflammatory into Peripheral Vein, Percutaneous Approach (ICD-10-PCS; 2021-05-04)
PROC: 3E0DX3Z Introduction of Anti-inflammatory into Mouth and Pharynx, External Approach (ICD-10-PCS; 2021-05-05)
PROC: 5A0955A Assistance with Respiratory Ventilation, Greater than 96 Consecutive Hours, High Flow/Velocity Cannula (ICD-10-PCS; 2021-05-08)
PROC: 5A1935Z Respiratory Ventilation, Less than 24 Consecutive Hours (ICD-10-PCS; 2021-05-20)
PROC: 02HV33Z Insertion of Infusion Device into Superior Vena Cava, Percutaneous Approach (ICD-10-PCS; 2021-05-20)
PROC: 03HY32Z Insertion of Monitoring Device into Upper Artery, Percutaneous Approach (ICD-10-PCS; 2021-05-20)
PROC: 4A133B1 Monitoring of Arterial Pressure, Peripheral, Percutaneous Approach (ICD-10-PCS; 2021-05-20)
PROC: 4A133J1 Monitoring of Arterial Pulse, Peripheral, Percutaneous Approach (ICD-10-PCS; 2021-05-20)
PROC: 0BH17EZ Insertion of Endotracheal Airway into Trachea, Via Natural or Artificial Opening (ICD-10-PCS; 2021-05-20)
DX: U07.1 COVID-19 (principal); J96.01 Acute respiratory failure with hypoxia; R09.02 Hypoxemia; E87.1 Hypo-osmolality and hyponatremia; E87.6 Hypokalemia; J12.82 Pneumonia due to coronavirus disease 2019; R74.01 Elevation of levels of liver transaminase levels; Z79.899 Other long term (current) drug therapy; Z88.1 Allergy status to other antibiotic agents; Z88.8 Allergy status to other drugs, medicaments and biological substances; Z88.2 Allergy status to sulfonamides; I10 Essential (primary) hypertension; Z87.440 Personal history of urinary (tract) infections; G43.909 Migraine, unspecified, not intractable, without status migrainosus; Z90.49 Acquired absence of other specified parts of digestive tract
CPT/HCPCS: 36415; 71275; 80053; 83735; 84484; 85025; 93005; J2405; J7040; Q9967; 31500; 36556; 36600; 36620; 51702; 71045; 71045-26; 80048; 82803; 83605; 84100; 84145; 86140; 87040; 93010; 94640; 94660; 97110-GP; 97161-GP; 99100; 99285; A9270-GY; J1100; J1200; J1650; J1940; J1956; J2060; J2270; J2704; J2920; J7050; J7620-GY; J8540